=== PATIENT | female | born 1950 | race Caucasian/White ===

== ENCOUNTER → 2016-08-21 | Outpatient (CLI) | payer MEDICARE ==
[2016-08-21 10:18] LABS: ALT 29 U/L (9-52); AST 25 U/L (14-36); Alkaline Phosphatase 113 U/L (38-126); Anion Gap 13 mmol/L; Blood Urea Nitrogen 10 mg/dL (7-17); Calcium 9.8 mg/dL (8.4-10.2); Carbon Dioxide 31 mmol/L (22-30); Chloride 95 mmol/L (98-107); Cholesterol 119 mg/dL (<200); Glucose 274 mg/dL (74-99); HDL Cholesterol 64 mg/dL (40-60); Non-African American GFR(MDRD) >60 (>60 ml/min/1.73 sqM); Sodium 139 mmol/L (137-145); Total Bilirubin 0.9 mg/dL (0.2-1.3); Total Protein 8.1 g/dL (6.3-8.2); Triglycerides 88 mg/dL (<150)
[2016-08-21 10:27] LABS: Potassium 4.9 mmol/L (3.5-5.1)
== END | disposition home or self-care (01) ==
LOC: LABWHC1 08:59
PROVIDERS: ATTEND Internal Medicine Interventional Cardiology
DX: E78.2 Mixed hyperlipidemia (principal)
CPT/HCPCS: 36415; 80053; 80061

== ENCOUNTER → 2016-11-21 | Outpatient (CLI) | payer MEDICARE ==
--- NOTE | 2016-11-21 12:19 | FL ---
EXAMINATION: Upper GI with esophagram DATE: 11/21/2016 CLINICAL INDICATION: 66-year-old female with dysphagia, food sticking in throat for a couple weeks, c omplains of reflux and repeated coughing. COMPARISON: None Total Fluoroscopy Time: 1.1 minutes. Total fluoroscopic images: 9. FINDINGS: Initially, the swallowing mechanism appeared normal. The hypopharyngeal anatomy is preserved. However, with repeat swallows, roro aspiration is demonstrated extending along the trachea and into the right mainstem bronchus. The cervical and thoracic portions have a normal course and caliber and normal motility. The mucosa i s normal and no persistent filling defect is encountered. No hiatal hernia is present. No gastroesoph ageal reflux is identified. There is an irregular stricture of the distal thoracic esophagus just above the GE junction which res ults in pooling of contrast and delayed passage into the stomach. No obstruction. The upper to mid thoracic esophagus shows no mucosal abnormality or filling defect. After the aspiration was visualized, no additional contrast was given to the patient swallow. The pat ient was brought supine and the stomach and duodenum are evaluated. No gross resistant filling defect or mucosal lesion is identified. Positional maneuvers did not elicit gastroesophageal reflux. IMPRESSION: 1. Roro aspiration during continuous swallows. Recommend speech pathology consultation. 2. Irregular distal thoracic esophageal stricture causing a mild relative obstruction. Correlate with endoscopy to exclude a neoplastic etiology.
== END | disposition home or self-care (01) ==
LOC: RADFLWHC 10:58
PROVIDERS: ATTEND Internal Medicine
DX: K22.2 Esophageal obstruction (principal); R10.9 Unspecified abdominal pain; R31.9 Hematuria, unspecified
CPT/HCPCS: 74246

== ENCOUNTER → 2016-11-28 | Outpatient (CLI) | payer MEDICARE ==
--- NOTE | 2016-11-28 08:49 | US ---
EXAMINATION TYPE: US abdomen complete DATE OF EXAM: 11/28/2016 COMPARISON: Renal US 2014. CTA chest April 09, 2015. CLINICAL HISTORY: R31.9 hematuria, R10.9 Flank Pain. Patient stated has left lateral abdominal pain, mid right back pain and pelvic pain x 1 month or greater; hematuria, diabetic, renal stones; cholecys tectomy EXAM MEASUREMENTS: Liver Length: 15.3 cm Gallbladder Wall: surgically removed CBD: 0.9 cm Spleen: 10.1 cm Right Kidney: 11.9 x 5.9x x 3.8 cm Left Kidney: 10.9 x 5.7 x 4.6 cm Pancreas: wnl; prominent CBD at head of pancreas Liver: multiple small cysts with largest left lobe cyst = 0.8 x 0.9 x 0.6cm and right lobe cyst = 0 .8 x 1.1 x 0.6cm; fatty appearance Gallbladder: surgically absent Evidence for sonographic Le's sign: No CBD: prominent, but is wnl post cholecystectomy Spleen: calcification is noted mid hilum at level of vessel with splenic vein flow noted around calc ification; size of calcification = 0.9 x 1.3 x 0.3cm Right Kidney: couple of clusters of shadowing calcifications at mid and at lower pole with larger gr ouping = 2.0 x 1.1 x 0.6cm; two central sinus fluid pockets are noted. Left Kidney: No hydronephrosis is seen; parallel lines of vessel wall calcification is noted at lowe r pole on image #[id number]. Upper IVC: wnl Abd Aorta: size is wnl; intimal wall changes are noted distal aorta Pancreas is suboptimally evaluated on initial images saved. There is ectasia to the abdominal aorta w ithout greater than 3 cm aneurysmal change seen. IVC is seen near hepatic dome. Liver is heterogeneously hyperechoic in appearance suggestive of diffuse fatty infiltration. No intra hepatic ductal dilatation is seen. Evaluation for focal masses is suboptimal due to the heterogeneity . A few thin-walled simple appearing cysts identified and marked by technologist. Common bile duct me asures 9 mm which is upper limits of normal after cholecystectomy. Gallbladder is surgically absent. There is redemonstration of oval anechoic lesion centrally in the right kidney felt to reflect simple parapelvic cyst. Technologist notes shadowing hyperechoic focus in which collecting system calculus cannot be excluded. Calcification centrally in spleen likely reflects calcified small splenic artery aneurysm, this correlates with CTA chest April 09, 2015. IMPRESSION: Possible greater than 5 mm right-sided collecting system calculus. Suspect simple parapel niharika cyst centrally right kidney. Consider CT follow-up based on clinical and urine lab correlation.
== END | disposition home or self-care (01) ==
LOC: RADUSWWP 07:26
PROVIDERS: ATTEND Internal Medicine
DX: R10.9 Unspecified abdominal pain (principal); R31.9 Hematuria, unspecified; Z88.2 Allergy status to sulfonamides; Z88.8 Allergy status to other drugs, medicaments and biological substances; Z88.1 Allergy status to other antibiotic agents
CPT/HCPCS: 76700

== ENCOUNTER 2016-12-05 12:04 | Inpatient (IN) | payer MEDICARE ==
[2016-12-05] MEDS ORDERED: SODIUM CHLORIDE 0.9% 500 ML IV STA (15:03)
[2016-12-05] MEDS ORDERED: MORPHINE SULFATE 2 MG/ML SYRINGE IVP STA (15:03)
[2016-12-05] MEDS ORDERED: SODIUM CHLORIDE 0.9% 1,000 ML IV STA (15:03)
[2016-12-05] MEDS ORDERED: ONDANSETRON 4 MG/2 ML VIAL IVP STA (15:03)
[2016-12-05] MEDS ORDERED: RX INFO: IV CONTRAST WAS GIVEN 1 EACH MISC MISCELLANE PRN (15:03)
[2016-12-05 15:20] LABS: Basophils # (A) 0.1 k/uL (0-0.2); Basophils % (A) 1 %; CH 30.7; CHCM 34.5; Eosinophils # (A) 0.2 k/uL (0-0.7); Eosinophils % (A) 2 %; HCT 35.9 % (34.0-46.0); HDW 2.85; HGB 12.5 gm/dL (11.4-16.0); Luc % (Auto) 1; Lymphocytes # (A) 2.7 k/uL (1.0-4.8); Lymphocytes % (A) 25 %; MCHC 34.8 g/dL (31.0-37.0); MCV 89.2 fL (80.0-100.0); Mean Platelet Volume 7.1; Monocytes # (A) 0.5 k/uL (0-1.0); Monocytes % (A) 4 %; Neutrophils # (A) 7.1 k/uL (1.3-7.7); Neutrophils % (A) 67 %; RBC 4.03 m/uL (3.80-5.40); RDW 14.4 % (11.5-15.5); WBC 10.6 k/uL (3.8-10.6); WBC (Perox) 10.68
[2016-12-05 15:32] LABS: ALT 28 U/L (9-52); AST 18 U/L (14-36); Alkaline Phosphatase 108 U/L (38-126); Amylase <30 U/L (30-110); Anion Gap 13 mmol/L; Blood Urea Nitrogen 5 mg/dL (7-17); Calcium 9.3 mg/dL (8.4-10.2); Carbon Dioxide 28 mmol/L (22-30); Chloride 102 mmol/L (98-107); Glucose 104 mg/dL (74-99); Non-African American GFR(MDRD) >60 (>60 ml/min/1.73 sqM); Potassium 3.5 mmol/L (3.5-5.1); Sodium 143 mmol/L (137-145); Total Bilirubin 0.5 mg/dL (0.2-1.3); Total Protein 6.8 g/dL (6.3-8.2)
--- NOTE | 2016-12-05 15:36 | ED ---
Abdominal Pain HPI - General Chief Complaint: Abdominal Pain Stated Complaint: unable to swallow anything Time Seen by Provider: 12/05/16 14:11 Source: patient Mode of arrival: ambulatory Limitations: no limitations - History of Present Illness Initial Comments: Planing about and able to eat, she does have esophageal stricture she failed the swallow study in recent past over and she was aspirating. She has not been able to eat anything for the last few days and she feels she is dehydrated. She is also complaining about abdominal pain pain is diffused, small bowel but is swollen over the abdomen right upper quadrant and left upper quadrant. No cords in the left lower quadrant area. She been nauseous no diarrhea or fever no chills. Not even able to take her medications she was able to eat some pudding and some ice cream Esophageal stricture stricture is so bad she is not able to eat even pudding - Related Data Home Medications Medication Instructions Recorded Confirmed ALPRAZolam [Xanax] 1 mg PO TID 04/09/15 12/05/16 Cholecalciferol [Vitamin D3] 1,000 unit PO DAILY 04/09/15 12/05/16 PARoxetine [Paxil] 20 mg PO HS 04/09/15 12/05/16 diphenhydrAMINE [Benadryl] 50 mg PO HS 04/09/15 12/05/16 Famotidine [Pepcid] 20 mg PO BID 12/04/16 12/05/16 Glimepiride [Amaryl] 2 mg PO BID 12/04/16 12/05/16 Hydrochlorothiazide 25 mg PO DAILY 12/04/16 12/05/16 Acetaminophen [Tylenol] 500 mg PO TID 12/05/16 12/05/16 Acetaminophen with Codeine 0.5 tab PO TID 12/05/16 12/05/16 [Tylenol w/codeine #3] Atorvastatin [Lipitor] 40 mg PO HS 12/05/16 12/05/16 Ipratropium-Albuterol Nebulize 3 ml INHALATION RT-BID 12/05/16 12/05/16 [Duoneb 0.5 mg-3 mg/3 ml Soln] Lisinopril [Prinivil] 10 mg PO BID 12/05/16 12/05/16 Omeprazole Magnesium [Prilosec OTC] 20 mg PO DAILY 12/05/16 12/05/16 sitaGLIPtin PHOSPHATE [Januvia] 50 mg PO DAILY 12/05/16 12/05/16 Previous Rx's Medication Instructions Recorded Aspirin 81 mg PO DAILY chew 04/12/15 Budesonide-Formot 160-4.5 Mcg 2 puff INHALATION RT-BID #1 puff 04/12/15 [Symbicort 160-4.5 Mcg Inhaler] Carvedilol [Coreg*] 25 mg PO BID-W/MEALS #60 tab 04/12/15 Isosorbide Mononitrate ER [Imdur] 30 mg PO DAILY #30 tab.er.24h 04/12/15 Nitroglycerin Sl Tabs [Nitrostat] 0 mg SUBLINGUAL DIRECTED PRN 04/12/15 #25 tab Allergies Allergy/AdvReac Type Severity Reaction Status Date / Time nickel Allergy Rash/Hives Verified 12/05/16 14:08 phenazopyridine HCl Allergy Anaphylaxis Verified 12/05/16 14:08 [From Pyridium] prochlorperazine Allergy Anaphylaxis Verified 12/05/16 14:08 [From Compazine] prochlorperazine edisylate Allergy Anaphylaxis Verified 12/05/16 14:08 [From Compazine] prochlorperazine maleate Allergy Anaphylaxis Verified 12/05/16 14:08 [From Compazine] Sulfa (Sulfonamide Allergy Unknown Verified 12/05/16 14:08 Antibiotics) metformin AdvReac Nausea & Verified 12/05/16 14:08 Vomiting & Diarrhea Review of Systems ROS Statement: Those systems with pertinent positive or pertinent negative responses have been documented in the HPI. ROS Other: All systems not noted in ROS Statement are negative. Past Medical History Past Medical History: Diabetes Mellitus, Hypertension History of Any Multi-Drug Resistant Organisms: None Reported Past Surgical History: Appendectomy, Hysterectomy Past Anesthesia/Blood Transfusion Reactions: No Reported Reaction Past Psychological History: Anxiety, Depression Smoking Status: Current every day smoker General Exam - General Exam Comments Initial Comments: General: The patient is awake and alert, looks pale and weak Skin: Skin is warm and dry and no rashes or lesions are noted. Eye: Pupils are equal, round and reactive to light, extra-ocular movements are intact; there is normal conjunctiva bilaterally. Ears, nose, mouth and throat: There are moist mucous membranes and no oral lesions. Neck: The neck is supple, there is no tenderness or JVD. Cardiovascular: There is a regular rate and rhythm. No murmur, rub or gallop is appreciated. Respiratory: To auscultation bilateral, deccrease breath sounds bilateral Gastrointestinal: Diffusely tender all over the abdomen, positive bowel sounds no guarding no rebounds Back: There is no tenderness to palpation in the midline. There is no obvious deformity. Musculoskeletal: Normal ROM, no tenderness, There is no pedal edema. There is no calf tenderness or swelling. No cords were appreciated. Neurological: CN II-XII intact, Cranial nerves III through XII are intact. There are no obvious motor or sensory deficits. Coordination appears grossly intact. Speech is normal. Psychiatric: Cooperative, appropriate mood & affect, normal judgment. Limitations: no limitations Course Vital Signs 12/05/16 12/05/16 12/05/16 12:41 14:40 15:51 Temperature 97.7 F Pulse Rate 62 65 66 Respiratory 18 18 18 Rate Blood Pressure 140/65 166/67 208/80 O2 Sat by Pulse 98 100 96 Oximetry 12/05/16 12/05/16 12/05/16 16:19 16:44 16:59 Temperature Pulse Rate 71 66 69 Respiratory 18 18 18 Rate Blood Pressure 174/65 164/70 151/64 O2 Sat by Pulse 96 96 96 Oximetry - Reevaluation(s) Reevaluation #1: 12/05/16 17:[address] abdomen was reviewed, it showed esophageal pathology possibly need EGD to rule out any Severe chronic to her blood pressure was noticed and she hasn't got her medications she was closely watched also noticed some colitis anaerobe nodule, noticed black or tarry was Kirk consult Dr. jose and it was a mild hydronephrosis or kidney functions or cord will leave that to the hospitalist services Medical Decision Making - Lab Data Result diagrams: 12/05/16 14:58 12/05/16 14:58 Lab Results 12/05/16 12/05/16 12/05/16 Range/Units 14:58 14:58 14:58 WBC 10.6 (3.8-10.6) k/uL RBC 4.03 (3.80-5.40) m/uL Hgb 12.5 (11.4-16.0) gm/dL Hct 35.9 (34.0-46.0) % MCV 89.2 (80.0-100.0) fL MCH 31.0 (25.0-35.0) pg MCHC 34.8 (31.0-37.0) g/dL RDW 14.4 (11.5-15.5) % Plt Count 237 (150-450) k/uL Neutrophils % 67 % Lymphocytes % 25 % Monocytes % 4 % Eosinophils % 2 % Basophils % 1 % Neutrophils # 7.1 (1.3-7.7) k/uL Lymphocytes # 2.7 (1.0-4.8) k/uL Monocytes # 0.5 (0-1.0) k/uL Eosinophils # 0.2 (0-0.7) k/uL Basophils # 0.1 (0-0.2) k/uL Sodium 143 (137-145) mmol/L Potassium 3.5 (3.5-5.1) mmol/L Chloride 102 (98-107) mmol/L Carbon Dioxide 28 (22-30) mmol/L Anion Gap 13 mmol/L BUN 5 L (7-17) mg/dL Creatinine 0.60 (0.52-1.04) mg/dL Est GFR (MDRD) Af Amer >60 (>60 ml/min/1.73 sqM) Est GFR (MDRD) Non-Af >60 (>60 ml/min/1.73 sqM) Glucose 104 H (74-99) mg/dL Calcium 9.3 (8.4-10.2) mg/dL Total Bilirubin 0.5 (0.2-1.3) mg/dL AST 18 (14-36) U/L ALT 28 (9-52) U/L Alkaline Phosphatase 108 (38-126) U/L Troponin I <0.012 (0.000-0.034) ng/mL C-Reactive Protein 28.0 H (<10.0) mg/L Total Protein 6.8 (6.3-8.2) g/dL Albumin 3.9 (3.5-5.0) g/dL Amylase <30 L (30-110) U/L Lipase 71 (23-300) U/L Urine Color Urine Appearance (Clear) Urine pH (5.0-8.0) Ur Specific [place] (1.001-1.035) Urine Protein (Negative) Urine Glucose (UA) (Negative) Urine Ketones (Negative) Urine Blood (Negative) Urine Nitrite (Negative) Urine Bilirubin (Negative) Urine Urobilinogen (<2.0) mg/dL Ur Leukocyte Esterase (Negative) Urine RBC (0-5) /hpf Urine WBC (0-5) /hpf Ur Squamous Epith Cells (0-4) /hpf Amorphous Sediment (None) /hpf Urine Bacteria (None) /hpf Urine Mucus (None) /hpf 12/05/16 Range/Units 15:39 WBC (3.8-10.6) k/uL RBC (3.80-5.40) m/uL Hgb (11.4-16.0) gm/dL Hct (34.0-46.0) % MCV (80.0-100.0) fL MCH (25.0-35.0) pg MCHC (31.0-37.0) g/dL RDW (11.5-15.5) % Plt Count (150-450) k/uL Neutrophils % % Lymphocytes % % Monocytes % % Eosinophils % % Basophils % % Neutrophils # (1.3-7.7) k/uL Lymphocytes # (1.0-4.8) k/uL Monocytes # (0-1.0) k/uL Eosinophils # (0-0.7) k/uL Basophils # (0-0.2) k/uL Sodium (137-145) mmol/L Potassium (3.5-5.1) mmol/L Chloride (98-107) mmol/L Carbon Dioxide (22-30) mmol/L Anion Gap mmol/L BUN (7-17) mg/dL Creatinine (0.52-1.04) mg/dL Est GFR (MDRD) Af Amer (>60 ml/min/1.73 sqM) Est GFR (MDRD) Non-Af (>60 ml/min/1.73 sqM) Glucose (74-99) mg/dL Calcium (8.4-10.2) mg/dL Total Bilirubin (0.2-1.3) mg/dL AST (14-36) U/L ALT (9-52) U/L Alkaline Phosphatase (38-126) U/L Troponin I (0.000-0.034) ng/mL C-Reactive Protein (<10.0) mg/L Total Protein (6.3-8.2) g/dL Albumin (3.5-5.0) g/dL Amylase (30-110) U/L Lipase (23-300) U/L Urine Color Yellow Urine Appearance Cloudy H (Clear) Urine pH 7.0 (5.0-8.0) Ur Specific [place] 1.011 (1.001-1.035) Urine Protein Trace H (Negative) Urine Glucose (UA) Negative (Negative) Urine Ketones 1+ H (Negative) Urine Blood Negative (Negative) Urine Nitrite Negative (Negative) Urine Bilirubin Negative (Negative) Urine Urobilinogen <2.0 (<2.0) mg/dL Ur Leukocyte Esterase Small H (Negative) Urine RBC 1 (0-5) /hpf Urine WBC 17 H (0-5) /hpf Ur Squamous Epith Cells 11 H (0-4) /hpf Amorphous Sediment Occasional H (None) /hpf Urine Bacteria Many H (None) /hpf Urine Mucus Moderate H (None) /hpf Critical Care Time Total Critical Care Time: 30 Critical Care Time: She didn't get her blood pressure medications for the last couple days her blood pressure was quite hard and watch it closely we are Vasotec IV also discussed with the pharmacy about how we couldn't Doppler which one for blood pressure medications can't be crushed caregiver with applesauce and she is not able Solids Blood Pressure Radiology Admitted to Dr. Jack Service with Dr. Garza Consult the Dr. Sim will be consulted for splenic aneurysm Disposition Clinical Impression: Esophageal stricture, Hypertension after donor nephrectomy requiring medication , Colitis, Lung nodule, Splenic artery aneurysm, Hydronephrosis Disposition: ADMITTED IP TO THIS HOSP Condition: Good Referrals: Pretty Ross MD [Primary Care Provider] - 1-2 days
[2016-12-05 16:06] LABS: Amorphous Sediment,Urine Occasional /hpf; Appearance,Urine Cloudy (Clear); Bacteria,Urine Many /hpf; Bilirubin,Urine Negative (Negative); Glucose,Urine (UA) Negative (Negative); Ketones,Urine 1+ (Negative); Leukocyte Esterase,Urine Small (Negative); Mucus,Urine Moderate /hpf; Nitrite,Urine Negative (Negative); Particle Count 67982; Protein,Urine Trace (Negative); RBC,Urine 1 /hpf (0-5); Specific Gravity,Urine 1.011 (1.001-1.035); Squamous Epithelial Cell,Urine 11 /hpf (0-4); UA Billing (MACRO vs. MICRO) MICRO; Urobilinogen,Urine <2.0 mg/dL (<2.0); WBC,Urine 17 /hpf (0-5)
[2016-12-05] MEDS ORDERED: NITROGLYCERIN SL TABS 0.4 MG TAB SUBLINGUAL PRN (16:19)
[2016-12-05] MEDS ORDERED: FUROSEMIDE 10 MG/ML 2 ML VIAL IV ONE (16:25)
[2016-12-05] MEDS ORDERED: ENALAPRILAT 1.25 MG/ML 1 ML VIAL IVP PRN (16:26)
[2016-12-05] MEDS ORDERED: ENALAPRILAT 1.25 MG/ML 1 ML VIAL IVP STA (16:26)
[2016-12-05] MEDS ORDERED: DEXTROSE 5%-0.9% NACL 1,000 ML IV SCH (16:30)
[2016-12-05] MEDS ORDERED: ESOMEPRAZOLE 20 MG in SODIUM CHLORIDE 0.9% 50 ML IVPB STA (16:31)
--- NOTE | 2016-12-05 16:31 | CT ---
EXAMINATION TYPE: CT abdomen pelvis w con DATE OF EXAM: 12/05/2016 REFERENCE: NONE HISTORY: abdominal pain HISTORY: Abdominal pain REFERENCE: NONE CT DLP: 594.7 mGy Automated exposure control for dose reduction was used. TECHNIQUE: Helical acquisition through the abdomen and pelvis was obtained following the oral ingesti on of without Oral Contrast and following intravenous administration of 100 mL of Omnipaque 300. The data was reformatted in axial, coronal and sagittal projections. FINDINGS: There is a 3 mm pulmonary nodule in the anterior aspect of the right middle lobe, best see n on image 1. Visualized portions of the lungs are otherwise normal. There is no pleural or pericardi al fluid. The heart is mildly enlarged. There is dilatation of the distal esophagus. This is partially fluid-filled. There is thickening of t he GE junction. Within the abdomen, the gallbladder is been removed. The liver and spleen are normal. There are multi ple splenic artery aneurysms. The largest measures 14.3 mm. There is a tiny, 7.3 mm left adrenal nodule as well as a larger 18 x 13 mm nodule inferior to this. T he right adrenal gland is normal. There is unusual calcification in the left renal pelvis. This may be vascular in nature. There is mil d hydronephrosis. The ureter is normal. There may BE some degree of UPJ obstruction. The pancreas is unremarkable. There is no significant retroperitoneal, iliac or inguinal adenopathy. Uterus and right ovary are absent. There is a normal-appearing left ovary or tubo-ovarian remnant. The bladder is unremarkable. There is diffuse thickening of the sigmoid colon and most of the descending colon. There is no signif icant diverticular change. The appendix is not visualized. Small bowel loops are normal. No free air and no free fluid is seen. There is degenerative disc disease at L4-5 and L5-S1. There is facet arthropathy. The vertebral gener ally have a mottled appearance no discrete blastic lesion is seen. IMPRESSION: 1. THICKENING OF THE DISTAL ESOPHAGUS WITH DILATATION PROXIMALLY. I CANNOT EXCLUDE ESOPHAGEAL CARCINO MA. 2. DIFFUSE THICKENING OF THE LEFT SIDE OF THE COLON. PLEASE CORRELATE FOR COLITIS. 3. PROBABLE PARTIAL UPJ OBSTRUCTION INVOLVING THE RIGHT KIDNEY. 4. 3 MM RIGHT-SIDED PULMONARY NODULE. 5. CARDIOMEGALY. 6. MULTIPLE SPLENIC ARTERY ANEURYSMS. 7. DEGENERATIVE CHANGES WITHIN THE SPINE.
--- NOTE | 2016-12-05 16:37 | XR ---
EXAMINATION TYPE: XR chest 2V DATE OF EXAM: 12/05/2016 COMPARISON: Prior chest x-ray 04/12/2015 HISTORY: Difficulty swallowing, abdominal pain, nausea and vomiting TECHNIQUE: Frontal and lateral views of the chest are obtained. FINDINGS: There is no focal air space opacity, pleural effusion, or pneumothorax seen. The cardiac silhouette size is stable and likely borderline enlarged. Surgical clips present in the right upper q uadrant. Patient is rotated. The osseous structures are intact. IMPRESSION: Borderline cardiac enlargement suspected.
[2016-12-05] MEDS: MORPHINE SULFATE 2 MG/ML SYRINGE IVP PRN ×2 (18:04→21:26)
[2016-12-05] MEDS ORDERED: cloNIDine HCL 0.1 MG TAB PO PRN (18:31)
[2016-12-05 18:38] LABS: Glucose,Whole Blood 113 mg/dL (75-99)
[2016-12-05] MEDS: SODIUM CHLORIDE 0.9% 1,000 ML IV SCH (18:53)
[2016-12-05] MEDS: CARVEDILOL 12.5 MG TAB PO SCH (19:18)
[2016-12-05] MEDS: IPRATROPIUM-ALBUTEROL 3 ML NEB INHALATION SCH (20:15)
[2016-12-05] MEDS: SYMBICORT 160-4.5 MCG INHALER INHALATION SCH (20:15)
[2016-12-05] MEDS: INSULIN LISPRO (humaLOG) 300 UNIT/3 ML VIAL SQ SCH (21:10)
[2016-12-05] MEDS: LISINOPRIL 10 MG TAB PO SCH (21:10)
[2016-12-05] MEDS: PARoxetine 20 MG TAB PO SCH (21:11)
[2016-12-05] MEDS ORDERED: LORazepam 2 MG/ML INJ IV STA (21:15)
[2016-12-05] MEDS ORDERED: ALPRAZolam 0.5 MG TAB PO SCH (22:00)
[2016-12-06] MEDS: HEPARIN SODIUM,PORCINE 5,000 UNIT/ML 1 ML VIAL SQ SCH ×3 (00:49→21:17)
[2016-12-06] MEDS: MORPHINE SULFATE 2 MG/ML SYRINGE IVP PRN ×4 (03:11→18:05)
[2016-12-06] MEDS: SODIUM CHLORIDE 0.9% 1,000 ML IV SCH ×2 (06:10→16:14)
[2016-12-06] MEDS: ONDANSETRON 4 MG/2 ML VIAL IVP PRN ×2 (06:44→13:32)
[2016-12-06 07:01] LABS: Glucose,Whole Blood 110 mg/dL (75-99)
[2016-12-06] MEDS: IPRATROPIUM-ALBUTEROL 3 ML NEB INHALATION SCH ×2 (07:10→19:21)
[2016-12-06] MEDS: SYMBICORT 160-4.5 MCG INHALER INHALATION SCH ×2 (07:10→19:21)
[2016-12-06 07:25] LABS: Basophils # (A) 0.1 k/uL (0-0.2); Basophils % (A) 1 %; CHCM 33.3; Eosinophils # (A) 0.2 k/uL (0-0.7); Eosinophils % (A) 2 %; HCT 38.2 % (34.0-46.0); HDW 2.88; HGB 12.9 gm/dL (11.4-16.0); Luc # (Auto) 0.14; Luc % (Auto) 1; Lymphocytes # (A) 2.8 k/uL (1.0-4.8); Lymphocytes % (A) 25 %; MCH 30.6 pg (25.0-35.0); MCHC 33.8 g/dL (31.0-37.0); MCV 90.5 fL (80.0-100.0); Mean Platelet Volume 7.5; Monocytes # (A) 0.5 k/uL (0-1.0); Monocytes % (A) 4 %; Neutrophils # (A) 7.8 k/uL (1.3-7.7); Neutrophils % (A) 68 %; RBC 4.22 m/uL (3.80-5.40); WBC 11.5 k/uL (3.8-10.6); WBC (Perox) 12.17
[2016-12-06 07:48] LABS: Anion Gap 11 mmol/L; Blood Urea Nitrogen 6 mg/dL (7-17); Calcium 8.9 mg/dL (8.4-10.2); Carbon Dioxide 30 mmol/L (22-30); Chloride 102 mmol/L (98-107); Glucose 105 mg/dL (74-99); Non-African American GFR(MDRD) >60 (>60 ml/min/1.73 sqM); Potassium 3.8 mmol/L (3.5-5.1); Sodium 143 mmol/L (137-145)
[2016-12-06] MEDS ORDERED: ASPIRIN 81 MG PO SCH (09:00)
--- NOTE | 2016-12-06 11:02 | HP ---
CHIEF COMPLAINTS: Abdominal pain and difficulty swallowing. HISTORY OF PRESENT ILLNESS: This 66-year-old woman with past medical history of diabetes mellitus, hypertension, history of cholecystectomy, history of appendectomy, history of anxiety, depression, panic disorder, being followed by Dr. Ross in the outpatient setting also has been evaluated for esophageal stricture. The patient failed barium swallow recently. Patient has been unable to eat anything for the last few days. Currently the patient also is complaining of diffuse abdominal pain, which is mostly situated in the upper quadrant and lower quadrant also. The patient came to [facility] and admitted for further evaluation and treatment. In the emergency room an abdominal and pelvis CT scan was done, which showed thickening of the distal esophagus with dilatation proximally and diffuse thickening of the left side of the colon and probable partial esophageal obstruction, history of 3 mm right-sided pulmonary nodule, cardiomegaly, multiple splenic artery aneurysms, and DJD of the spine. The patient admitted for further evaluation and treatment. There is no history of fever, rigors. No history of headache, loss of consciousness of seizures. PAST MEDICAL HISTORY: History of diabetes mellitus, hypertension, history of appendectomy, cholecystectomy and anxiety. Medications prior to admission include home medications: 1. Prinivil 20 mg p.o. bid 2. Nitro 0.4 sublingual p.r.n. 3. Tylenol 500 mg p.o. t.i.d. 4. Tylenol No. 3. 5. Prilosec OTC 20 mg daily. 6. Pepcid 20 mg bid 7. Benadryl 50 mg q.h.s. 9. Paxil 20 mg q.h.s. 10. Amaryl 2 mg p.o. b.i.d. 11. Xanax 1 mg p.o. t.i.d. 12. Januvia 50 mg p.o. daily. 13. Imdur ER 30 mg. 14. Vitamin D3 1000 daily. 15. Hydrochlorothiazide 25 mg p.o. daily. 16. Coreg 25 mg with meals. 17. DuoNeb q.i.d. and p.r.n. 18. Symbicort 160/4.5, two puffs bid 19. Aspirin 81 mg p.o. daily. ALLERGIES: CHAIM, PERIDIUM, COMPAZINE, SULFONAMIDE, METFORMIN. FAMILY HISTORY: History of cancer, diabetes and joint disease in the family. SOCIAL HISTORY: Previous history of smoking. No history of current smoking or alcohol. REVIEW OF SYSTEMS: ENT: No diminished hearing or vision. CARDIOVASCULAR: No angina. RESPIRATORY: As mentioned earlier. GI: As mentioned. : No dysuria. NERVOUS SYSTEM: No numbness or weakness. ALLERGY/IMMUNOLOGY: No asthma or hayfever. MUSCULOSKELETAL: As mentioned earlier. HEMATOLOGY/ONCOLOGY: No history of anemia. ENDOCRINE: History of diabetes. No history of hypothyroidism. CONSTITUTIONAL: As mentioned earlier. DERMATOLOGY: Negative. RHEUMATOLOGY: Negative. PSYCHIATRY: As mentioned earlier. PHYSICAL EXAMINATION: The patient is alert and oriented x3. Pulse is 70, blood pressure 206/73, respirations 18, temperature 98.1, pulse ox 94% on room air. HEENT: Conjunctivae normal. NECK: No jugular venous distention. CARDIOVASCULAR: S1, S2. RESPIRATORY: Breath sounds diminished at the bases. A few scattered rhonchi and crackles. ABDOMEN: Soft, diffuse discomfort. No guarding, no rigidity, no mass palpable, no ascites. LEGS: No edema, no swelling. NERVOUS SYSTEM: Higher function as mentioned. Moves all four limbs. No focal motor sensory deficits. LYMPHATICS: No lymphadenopathy in the neck, axillae or groin. SKIN: No rash, ulcer or bleeding. LABS: CBC within normal limits and glucose 104. is 28. UA noted. Possible UTI. ASSESSMENT: 1. Diffuse abdominal pain for evaluation, rule out colitis. 2. Possible urinary tract infection. 3. Dysphagia and esophageal obstruction, possible stricture, rule out malignancy. 4. History of diabetes mellitus. 5. Hypertension. 6. Hyperlipidemia. 7. History of appendectomy. 8. History cholecystectomy. 9. History of anxiety and depression. 10. Panic disorder. 11. History of claustrophobia. 12. FULL CODE. RECOMMENDATIONS AND DISCUSSION: In this 66-year-old woman who presented with multiple complex medical issues we well monitor the patient closely. Continue the current medications. Continue symptomatic treatment. Dr. Bowers will be consulted for possible endoscopies and treatment. Continue on IV fluids, p.r.n. medications for high blood pressure. DVT prophylaxis. See orders for details. Further recommendations to follow. Guarded prognosis. I also recommend empiric antibiotics also. Will follow the patient closely. Further recommendations to follow. Copy of dictation forwarded to Dr Ross who is the primary care physician. CYNTH[place]
[2016-12-06 11:14] LABS: Hemoglobin A1C 6.5 % (4.2-6.1)
--- NOTE | 2016-12-06 11:18 | P.CONS ---
History of Present Illness - Reason for Consult Consult date: 12/06/16 Dysphagia Requesting physician: Marychuy Jack - History of Present Illness 66-year-old female with a past medical history anxiety depression PTSD claustrophobia diabetes hypertension cholecystectomy. Consultation requested for dysphagia. Patient has been experiencing dysphagia more with solid foods for the last 2 months with 10-15 pound unintentional weight loss. Denies abdominal patient. No difficulty with thin liquids. Supplementing her nutrition with [id number] protein shake supplement. Intermittent emesis without blood. Denies hematochezia or melena. No fever or chills. No history of dysphagia. Upper GI barium swallow 11/21/2016 as well as admission computed tomography scan abdomen and pelvis reported 3 mm pulmonary nodule in the right middle lobe. Ant aspiration noted on barium swallow. Irregular distal thoracic esophageal stricture causing a mild relative obstruction exclude neoplastic etiology. CT reported similar findings with dilated distal esophagus partially fluid-filled with thickening at the GE junction. White count 11.5. Hemoglobin 12.9. Review of Systems Constitutional: Denies fever, chills, sweats, weight gain, or loss. HEENT: Negative for migraines, blurred vision or loss, earaches, drainage, tinnitus, oral mucosal lesions, dysphagia, or odynophagia. CARDIAC: Negative for chest pain, arrhythmias, or palpitation. RESPIRATORY: Negative for shortness of breath, hemoptysis, cough, or sputum production. GI: See HPI for pertinent findings. : Negative for hematuria, urgency, frequency, polyuria, or dysuria. GYNc: Denies possibility of . Negative vaginal discharge. MUSCULOSKELETAL: Negative for muscle aches, swelling, arthritis, and arthralgias. NEUROLOGIC: Negative for stroke or TIA. ENDOCRINE: Diabetes. Negative for thyroid problems. SKIN: Negative for rash or itching. PSYCHIATRIC: PTSD. Claustrophobia. Anxiety. Depression. All systems: negative (See HPI) Past Medical History Past Medical History: Diabetes Mellitus, Hypertension Additional Past Medical History / Comment(s): DM type 2 History of Any Multi-Drug Resistant Organisms: None Reported Past Surgical History: Appendectomy, Cholecystectomy, Hysterectomy Additional Past Surgical History / Comment(s): Bladder sling, stress incontinence. lumpectomy Past Anesthesia/Blood Transfusion Reactions: No Reported Reaction Past Psychological History: Anxiety, Depression, Panic Disorder Additional Psychological History / Comment(s): Clausterphobic, PTSD Smoking Status: Former smoker Past Alcohol Use History: None Reported Past Drug Use History: None Reported - Past Family History Father Additional Family Medical History / Comment(s): Arthrosclorosis Mother Family Medical History: Cancer, Diabetes Mellitus Additional Family Medical History / Comment(s): Throat CA Brother(s) Family Medical History: Myocardial Infarction ([place]) Medications and Allergies Home Medications Medication Instructions Recorded Confirmed Type ALPRAZolam [Xanax] 1 mg PO TID 04/09/15 12/05/16 History Cholecalciferol [Vitamin D3] 1,000 unit PO DAILY 04/09/15 12/05/16 History PARoxetine [Paxil] 20 mg PO HS 04/09/15 12/05/16 History diphenhydrAMINE [Benadryl] 50 mg PO HS 04/09/15 12/05/16 History Famotidine [Pepcid] 20 mg PO BID 12/04/16 12/05/16 History Glimepiride [Amaryl] 2 mg PO BID 12/04/16 12/05/16 History Hydrochlorothiazide 25 mg PO DAILY 12/04/16 12/05/16 History Acetaminophen [Tylenol] 500 mg PO TID 12/05/16 12/05/16 History Acetaminophen with Codeine 0.5 tab PO TID 12/05/16 12/05/16 History [Tylenol w/codeine #3] Atorvastatin [Lipitor] 40 mg PO HS 12/05/16 12/05/16 History Ipratropium-Albuterol Nebulize 3 ml INHALATION RT-BID 12/05/16 12/05/16 History [Duoneb 0.5 mg-3 mg/3 ml Soln] Lisinopril [Prinivil] 20 mg PO BID 12/05/16 12/05/16 History Omeprazole Magnesium [Prilosec OTC] 20 mg PO DAILY 12/05/16 12/05/16 History sitaGLIPtin PHOSPHATE [Januvia] 50 mg PO DAILY 12/05/16 12/05/16 History Allergies Allergy/AdvReac Type Severity Reaction Status Date / Time nickel Allergy Rash/Hives Verified 12/05/16 20:12 phenazopyridine HCl Allergy Anaphylaxis Verified 12/05/16 20:12 [From Pyridium] prochlorperazine Allergy Anaphylaxis Verified 12/05/16 20:12 [From Compazine] prochlorperazine edisylate Allergy Anaphylaxis Verified 12/05/16 20:12 [From Compazine] prochlorperazine maleate Allergy Anaphylaxis Verified 12/05/16 20:12 [From Compazine] Sulfa (Sulfonamide Allergy Unknown Verified 12/05/16 20:12 Antibiotics) metformin AdvReac Nausea & Verified 12/05/16 20:12 Vomiting & Diarrhea Physical Exam Vitals: Vital Signs Temp Pulse Pulse Resp BP BP Pulse Ox 12/06/16 08:00 71 18 12/06/16 07:54 98.2 F 71 18 148/65 94 L 12/06/16 07:19 64 12/06/16 07:12 60 96 12/06/16 04:00 98 F 70 18 140/65 97 12/06/16 03:52 18 12/06/16 00:00 97.8 F 76 18 129/61 92 L 12/05/16 21:11 158/68 12/05/16 20:28 70 12/05/16 20:17 70 12/05/16 20:00 18 12/05/16 19:28 98.1 F 62 17 92 L 12/05/16 18:39 98.2 F 71 18 206/73 94 L 12/05/16 16:59 69 18 151/64 96 12/05/16 16:44 66 18 164/70 96 12/05/16 16:19 71 18 174/65 96 12/05/16 15:51 66 18 208/80 96 12/05/16 14:40 65 18 166/67 100 12/05/16 12:41 97.7 F 62 18 140/65 98 Intake and Output 12/05/16 12/06/16 12/06/16 22:59 06:59 14:59 Other: # Voids 1 Weight 63 kg General appearance: The patient is alert, oriented, in no acute distress. HET: Head is normocephalic and atraumatic. Pupils are equal and reactive. Oropharynx oral candidiasis. Neck: Supple without lymphadenopathy. Trachea midline. Heart: S1 S2. Regular rate and rhythm. Lungs: No crackles or wheezes are heard. Abdomen: Soft, nontender, nondistended with bowel sounds. No peritoneal signs. No palpable organomegaly or masses. Extremities: Normal skin color and turgor. No cyanosis, rash, ulceration, clubbing, or edema. Radial and pedal pulses are 2/4 bilaterally. Neurological: No focal deficits. Strength and sensation are grossly intact. Results CBC & Chem 7: 12/06/16 06:53 12/06/16 06:53 Labs: Abnormal Lab Results - Last 24 Hours (Table) 12/05/16 12/05/16 12/05/16 Range/Units 14:58 15:39 18:33 WBC (3.8-10.6) k/uL Neutrophils # (1.3-7.7) k/uL BUN 5 L (7-17) mg/dL Glucose 104 H (74-99) mg/dL POC Glucose (mg/dL) 113 H (75-99) mg/dL C-Reactive Protein 28.0 H (<10.0) mg/L Amylase <30 L (30-110) U/L Urine Appearance Cloudy H (Clear) Urine Protein Trace H (Negative) Urine Ketones 1+ H (Negative) Ur Leukocyte Esterase Small H (Negative) Urine WBC 17 H (0-5) /hpf Ur Squamous Epith Cells 11 H (0-4) /hpf Amorphous Sediment Occasional H (None) /hpf Urine Bacteria Many H (None) /hpf Urine Mucus Moderate H (None) /hpf 12/06/16 12/06/16 12/06/16 Range/Units 06:53 06:53 06:58 WBC 11.5 H (3.8-10.6) k/uL Neutrophils # 7.8 H (1.3-7.7) k/uL BUN 6 L (7-17) mg/dL Glucose 105 H (74-99) mg/dL POC Glucose (mg/dL) 110 H (75-99) mg/dL C-Reactive Protein (<10.0) mg/L Amylase (30-110) U/L Urine Appearance (Clear) Urine Protein (Negative) Urine Ketones (Negative) Ur Leukocyte Esterase (Negative) Urine WBC (0-5) /hpf Ur Squamous Epith Cells (0-4) /hpf Amorphous Sediment (None) /hpf Urine Bacteria (None) /hpf Urine Mucus (None) /hpf CT scan - abdomen: report reviewed (Dr. Bowers) Assessment and Plan (1) Dysphagia Narrative/Plan: Possible esophageal stricture possible neoplasm. Status: Acute (2) Oral candidiasis Narrative/Plan: Possible esophageal candidiasis Status: Acute Plan: 1. EGD evaluation with biopsies. Nexium 20 mg IV daily. Diflucan for oral candidiasis. CEA. Speech evaluation. The medical office coordinator has discussed the risks, benefits and alternative therapies for the above-mentioned procedure and for both sedation/analgesia as well as necessary blood product administration, if indicated, as they pertain to this patient. The patient has indicated understanding and acceptance of the risks and procedures discussed. Thank you for this kind referral and the opportunity to participate in the care of your patient. This consultation was discussed with Dr. Bowers. The impression and plan of care have been directed as dictated.
[2016-12-06 12:14] LABS: Glucose,Whole Blood 124 mg/dL (75-99)
[2016-12-06] MEDS: INSULIN LISPRO (humaLOG) 300 UNIT/3 ML VIAL SQ SCH ×4 (14:32→21:18)
[2016-12-06] MEDS: CARVEDILOL 12.5 MG TAB PO SCH ×2 (14:32→21:00)
[2016-12-06] MEDS: ISOSORBIDE MONONITRATE ER 30 MG TAB.ER.24H PO SCH (14:34)
[2016-12-06] MEDS: LISINOPRIL 10 MG TAB PO SCH ×2 (14:34→21:17)
[2016-12-06] MEDS: FUROSEMIDE 10 MG/ML 2 ML VIAL IV SCH (14:40)
[2016-12-06] MEDS: ESOMEPRAZOLE 20 MG in SODIUM CHLORIDE 0.9% 50 ML IVPB SCH (14:41)
[2016-12-06] MEDS: NYSTATIN 100,000 UNIT/ML SUSP 500,000 UNIT/5 ML CUP PO SCH ×3 (14:45→21:51)
[2016-12-06 17:10] LABS: Glucose,Whole Blood 122 mg/dL (75-99)
[2016-12-06] MEDS ORDERED: ONDANSETRON 4 MG/2 ML VIAL IVP STA (18:03)
--- NOTE | 2016-12-06 20:40 | PN ---
DATE OF SERVICE: 12/06/2016 This 66-year-old woman who was admitted with diffuse abdominal pain also had dysphagia and esophageal stricture. The patient was evaluated by Gastroenterology today, who recommended possible EGD with biopsies. The patient is being closely monitored. Past medical history reviewed. REVIEW OF SYSTEMS: CARDIOVASCULAR: As mentioned earlier. RESPIRATORY: As mentioned earlier. GI: As mentioned earlier. : No dysuria or retention. NERVOUS SYSTEM: No numbness or weakness. Current medications are reviewed and include: 1. Duo-Neb b.i.d. 2. Aspirin 81 mg. 3. Symbicort b.i.d. 4. Rocephin 1 gram daily. 5. Catapres. 6. Nexium. 7. Apresoline 10 p.r.n. 8. Imdur. 9. Zestril. 10. Ativan. 11. Zofran. 12. Paxil. PHYSICAL EXAM: Patient is alert and oriented x3. Pulse 71, blood pressure 148/65 , respiration 18, temperature 98.2, pulse ox 94% on room air. HEENT: Conjunctivae normal. NECK: No jugular venous distention. CARDIOVASCULAR: S1, S2 muffled. RESPIRATORY: Breath sounds diminished at the bases. Scattered rhonchi. No crackles. ABDOMEN: Soft, non-tender. No mass palpable. No rigidity. No guarding. LEGS: No edema. No swelling. NERVOUS SYSTEM: Higher functions as mentioned earlier. Moves all 4 limbs. No focal deficit. LYMPHATICS: No lymph node palpable in neck, axillae or groin. SKIN: No ulcer, rash, bleeding. LABS: WBC 11.2, hemoglobin 12.9. UA noted. ASSESSMENT: 1. Diffuse abdominal pain for evaluation; possible colitis. 2. Dysphagia with possible esophageal stricture. Rule out malignancy. 3. Urinary tract infection. 4. History of diabetes mellitus, type 2. 5. Hypertension. 6. Hyperlipidemia. 7. History of appendectomy. 8. History of cholecystectomy. 9. History of anxiety, depression. 10. History of panic disorder. 11. History of claustrophobia. 12. FULL CODE. RECOMMENDATIONS AND DISCUSSION: I recommend to continue the current medications , continue the monitoring and symptomatic treatment. Otherwise, at this time we will follow the patient closely. Possible endoscopy. Continue with antibiotics. Guarded prognosis because of multiple complex medical issues. Repeat labs in the morning. Further recommendations to follow. Discussed with the patient. Discussed with staff. CYNTHIA
[2016-12-06 20:49] LABS: Glucose,Whole Blood 119 mg/dL (75-99)
[2016-12-06] MEDS: SCOPOLAMINE 1.5MG/72HR PATCH TRANSDERM SCH (21:11)
[2016-12-06] MEDS: PARoxetine 20 MG TAB PO SCH (21:17)
[2016-12-06] MEDS: LORazepam 2 MG/ML INJ IV SCH ×2 (21:52→22:25)
[2016-12-07] MEDS: MORPHINE SULFATE 2 MG/ML SYRINGE IVP PRN ×3 (00:06→14:25)
[2016-12-07] MEDS: SODIUM CHLORIDE 0.9% 1,000 ML IV SCH ×3 (04:10→22:41)
[2016-12-07 06:59] LABS: Glucose,Whole Blood 115 mg/dL (75-99)
[2016-12-07 07:37] LABS: Basophils # (A) 0.1 k/uL (0-0.2); Basophils % (A) 1 %; CH 30.6; CHCM 33.4; Eosinophils # (A) 0.2 k/uL (0-0.7); Eosinophils % (A) 1 %; HCT 40.9 % (34.0-46.0); HDW 2.85; HGB 13.5 gm/dL (11.4-16.0); Luc # (Auto) 0.15; Luc % (Auto) 1; Lymphocytes % (A) 22 %; MCH 30.5 pg (25.0-35.0); MCV 92.3 fL (80.0-100.0); Mean Platelet Volume 7.4; Monocytes # (A) 0.5 k/uL (0-1.0); Monocytes % (A) 4 %; Neutrophils # (A) 9.5 k/uL (1.3-7.7); Neutrophils % (A) 71 %; RBC 4.44 m/uL (3.80-5.40); RDW 14.7 % (11.5-15.5); WBC 13.4 k/uL (3.8-10.6); WBC (Perox) 13.37
[2016-12-07 07:56] LABS: Anion Gap 13 mmol/L; Blood Urea Nitrogen 10 mg/dL (7-17); Carbon Dioxide 27 mmol/L (22-30); Chloride 101 mmol/L (98-107); Glucose 105 mg/dL (74-99); Non-African American GFR(MDRD) >60 (>60 ml/min/1.73 sqM); Sodium 141 mmol/L (137-145)
[2016-12-07 08:01] LABS: Potassium 4.1 mmol/L (3.5-5.1)
[2016-12-07] MEDS: CARVEDILOL 12.5 MG TAB PO SCH ×3 (08:16→17:58)
[2016-12-07] MEDS: INSULIN LISPRO (humaLOG) 300 UNIT/3 ML VIAL SQ SCH ×4 (08:16→20:24)
[2016-12-07] MEDS: ONDANSETRON 4 MG/2 ML VIAL IVP PRN ×3 (08:17→21:33)
[2016-12-07] MEDS: LORazepam 2 MG/ML INJ IV SCH ×2 (08:21→16:10)
[2016-12-07] MEDS: ESOMEPRAZOLE 20 MG in SODIUM CHLORIDE 0.9% 50 ML IVPB SCH (08:22)
[2016-12-07] MEDS: HEPARIN SODIUM,PORCINE 5,000 UNIT/ML 1 ML VIAL SQ SCH ×2 (09:02→20:23)
[2016-12-07] MEDS: FUROSEMIDE 10 MG/ML 2 ML VIAL IV SCH (09:02)
[2016-12-07] MEDS: ISOSORBIDE MONONITRATE ER 30 MG TAB.ER.24H PO SCH ×2 (09:03→13:28)
[2016-12-07] MEDS: LISINOPRIL 10 MG TAB PO SCH ×3 (09:03→20:25)
[2016-12-07] MEDS: SYMBICORT 160-4.5 MCG INHALER INHALATION SCH ×2 (09:07→19:07)
[2016-12-07] MEDS: IPRATROPIUM-ALBUTEROL 3 ML NEB INHALATION SCH ×2 (09:07→19:07)
[2016-12-07] MEDS ORDERED: LIDOCAINE 1% INJ 10MG/ML (20 ML MDV) ONE (11:36)
[2016-12-07] MEDS ORDERED: PROPOFOL 10 MG/ML 20 ML VIAL IV ONE (11:36)
[2016-12-07] MEDS ORDERED: IV FLUID CONTINUATION 600 ML IV ONE (11:39)
--- NOTE | 2016-12-07 12:03 | P.PCN ---
Date of Procedure: 12/07/16 Preoperative Diagnosis: Postoperative Diagnosis: Procedure(s) Performed: BRIEF HISTORY: Patient is a 66-year-old, pleasant, white female, admitted to the hospital with progressive dysphagia to solids for the last 2 months duration. She lost approximately 15 pounds since onset of the symptoms. Lately she is been only on a clear liquid diet. CT of abdomen showed thickening of the distal esophagus. She is scheduled for an upper endoscopy to evaluate further.. PROCEDURE PERFORMED: Esophagogastroduodenoscopy with biopsy PREOPERATIVE DIAGNOSIS: Progressive dysphagia to solids and weight loss of 2 months duration. IV sedation per anesthesia. PROCEDURE: After informed consent was obtained, the patient was brought into the endoscopy unit. IV sedation was administered by Anesthesia under continuous monitoring. Initially the Olympus GIF-140 video endoscope was inserted into the mouth. Esophagus intubated without any difficulty. It was gradually advanced into the distal esophagus. There was a circumferential ulcerated mass identified with esophageal stricture. Gently the scope was advanced through the stricture into the stomach and duodenum and carefully examined. The bulb and the second part of the duodenum appeared normal. The scope at this time was withdrawn to the stomach, adequately insufflated with air, and upon careful examination, mucosa of the antrum, body, cardia and the fundus appeared normal. The scope was then withdrawn into the esophagus. The GE junction was located at 39 cm from the incisors. There was circumferential ulcerated distal esophageal mass causing luminal narrowing, extending from 33 cm to 39 cm from the incisors and multiple biopsies were done from this area. The rest of the esophagus appeared normal. There was retained solid food noted in the proximal esophagus which was removed using a Elmore net. The proximal esophagus appeared normal and the patient tolerated the procedure well. IMPRESSION: 1. Distal esophageal ulcerated mass extending from 33-39 cm from incisors with significant luminal narrowing status post multiple biopsies. 2. Retained solid food in the proximal esophagus that was removed using a Elmore net RECOMMENDATIONS: The findings of this examination were discussed with the patient as well as a family. At this time will await the biopsy results and will obtain oncology consultation. She will be maintained on a clear liquid diet. Implants: Indications for Procedure: Operative Findings: Description of Procedure:
[2016-12-07 12:21] LABS: Glucose,Whole Blood 131 mg/dL (75-99)
[2016-12-07] MEDS: NYSTATIN 100,000 UNIT/ML SUSP 500,000 UNIT/5 ML CUP PO SCH ×4 (16:09→21:32)
[2016-12-07] MEDS ORDERED: cloNIDine 0.2 MG/24HR PATCH 1 PATCH PATCH TRANSDERM SCH (17:00)
[2016-12-07 17:35] LABS: Glucose,Whole Blood 138 mg/dL (75-99)
--- NOTE | 2016-12-07 17:40 | CT ---
EXAMINATION TYPE: CT ChestAbdPelvis wo con DATE OF EXAM: 12/07/2016 COMPARISON: 12/05/2016 HISTORY: Generalized abdominal pain CT DLP: 544.4 mGycm. Automated Exposure Control for Dose Reduction was Utilized. TECHNIQUE: CT scan of the thorax, abdomen and pelvis is performed without IV contrast. FINDINGS: The lungs are clear of consolidation. There is a 5 mm nodular density in the posterior lateral left l ower lobe. There is no pleural effusion. There is no pericardial effusion. There is fluid in the esophagus with air-fluid level. There is probably a hiatal hernia. There is thi ckening of the distal esophageal wall similar to recent exam. There is no mediastinal adenopathy. The re is no pneumothorax. There is some coronary artery calcification. There are clips from cholecystectomy. Bile ducts are not dilated. Spleen appears normal. There are is extensive calcification in the splenic artery with multiple calcified aneurysms. There is no sign of pancreatic mass. There is a 1.5 cm left adrenal nodule.. There is no hydronephrosis. Ureters are not dilated. 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 There is no retroperitoneal adenopathy. Bladder distends smoothly. There is no pelvic mass. I see no bony destructive process. CONCLUSION: Low-density left lower lobe nodule of uncertain significance. Atherosclerotic vascular calcification. Fluid level in the esophagus with hiatal hernia and possible esophageal wall thickening at the gastro esophageal junction. Esophageal mass cannot be excluded. This appears unchanged compared to exam 2 da ys ago. 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 I do not see intestinal wall thickening to suggest colitis. Stable small left adrenal nodule. I do not see evidence for renal obstruction.
[2016-12-07] MEDS: hydrALAZINE HCL 20 MG/ML 1 ML VIAL IVP PRN (17:43)
[2016-12-07] MEDS: HYDROmorphone 1 MG/ML 1 ML SYRINGE IVP PRN ×2 (19:02→23:28)
[2016-12-07 19:59] LABS: Glucose,Whole Blood 148 mg/dL (75-99)
[2016-12-07] MEDS: PARoxetine 20 MG TAB PO SCH (20:25)
[2016-12-08] MEDS: LORazepam 2 MG/ML INJ IV SCH ×4 (00:05→23:17)
[2016-12-08] MEDS: ONDANSETRON 4 MG/2 ML VIAL IVP PRN ×4 (02:33→19:35)
[2016-12-08] MEDS: HYDROmorphone 1 MG/ML 1 ML SYRINGE IVP PRN ×7 (02:52→20:37)
[2016-12-08 07:02] LABS: Basophils # (A) 0.1 k/uL (0-0.2); Basophils % (A) 1 %; CH 30.7; CHCM 33.5; Eosinophils % (A) 0 %; HDW 2.93; HGB 11.5 gm/dL (11.4-16.0); Luc # (Auto) 0.08; Luc % (Auto) 1; Lymphocytes # (A) 1.8 k/uL (1.0-4.8); Lymphocytes % (A) 18 %; MCH 30.3 pg (25.0-35.0); MCHC 32.9 g/dL (31.0-37.0); Mean Platelet Volume 7.2; Monocytes # (A) 0.4 k/uL (0-1.0); Monocytes % (A) 3 %; Neutrophils # (A) 7.7 k/uL (1.3-7.7); Neutrophils % (A) 77 %; RDW 14.8 % (11.5-15.5); WBC 10.1 k/uL (3.8-10.6)
[2016-12-08 07:28] LABS: Anion Gap 13 mmol/L; Blood Urea Nitrogen 13 mg/dL (7-17); Calcium 8.5 mg/dL (8.4-10.2); Carbon Dioxide 24 mmol/L (22-30); Chloride 107 mmol/L (98-107); Glucose 117 mg/dL (74-99); Non-African American GFR(MDRD) >60 (>60 ml/min/1.73 sqM); Potassium 3.1 mmol/L (3.5-5.1); Sodium 144 mmol/L (137-145)
--- NOTE | 2016-12-08 07:28 | PN ---
DATE OF SERVICE: 12/07/2016 This 66-year-old woman who was admitted with diffuse abdominal pain, also had possible colitis. The patient also had dysphagia. Patient underwent EGD by Dr. Bowers, which showed distal esophageal ulcerated mass extending 33 to 39 cm from incisors with significant luminal narrowing, status post multiple biopsies. The patient has been closely monitored at this time. No chest pain or palpitation. No fever. Retained food was also noted. On exam, alert and oriented x3. Pulse 84, blood pressure 184/77, respirations 18 , temperature 98.1, pulse ox 98% on room air. HEENT: Conjunctivae normal. NECK: No jugular venous distention. CARDIOVASCULAR: S1 and S2, muffled. RESPIRATORY: Breath sounds diminished at the bases. A few scattered rhonchi and crackles. ABDOMEN: Soft, minimal diffuse discomfort LEGS: No edema or swelling. NERVOUS SYSTEM: No focal deficits. Labs are at this time shows WBC 13.4, hemoglobin 13.5. ASSESSMENT: 1. Diffuse abdominal pain, possible colitis present on admission. 2. Dysphagia, possibly esophageal ulcerated mass, possible malignancy, status post biopsy. 3. Urinary tract infection. 4. History of diabetes mellitus type 2. 5. Hypertension. 6. Hyperlipidemia. 7. History of appendectomy. 8. History of cholecystectomy. 9. History of anxiety and depression. 10. History of panic disorder. 11. History of claustrophobia. 12. FULL CODE. RECOMMENDATIONS AND DISCUSSION: Recommend to continue current medications. Continue with monitoring and symptomatic treatment. Also, at this time I would recommend to monitor patient closely. Otherwise see orders for further details. Dr. Bowers is also planning possible PEG tube implantation. Will continue to monitor. Further recommendations to follow. MTDD
[2016-12-08 07:29] LABS: Glucose,Whole Blood 117 mg/dL (75-99)
[2016-12-08] MEDS: hydrALAZINE HCL 20 MG/ML 1 ML VIAL IVP PRN (07:33)
[2016-12-08] MEDS: IPRATROPIUM-ALBUTEROL 3 ML NEB INHALATION SCH ×2 (08:18→18:41)
[2016-12-08] MEDS: SYMBICORT 160-4.5 MCG INHALER INHALATION SCH ×2 (08:19→18:41)
[2016-12-08] MEDS: CARVEDILOL 12.5 MG TAB PO SCH ×2 (08:56→17:32)
[2016-12-08] MEDS: NYSTATIN 100,000 UNIT/ML SUSP 500,000 UNIT/5 ML CUP PO SCH ×4 (08:58→21:00)
[2016-12-08] MEDS: INSULIN LISPRO (humaLOG) 300 UNIT/3 ML VIAL SQ SCH ×4 (08:58→20:28)
[2016-12-08] MEDS: LISINOPRIL 10 MG TAB PO SCH ×2 (08:58→20:28)
[2016-12-08] MEDS: ISOSORBIDE MONONITRATE ER 30 MG TAB.ER.24H PO SCH (08:58)
[2016-12-08] MEDS: FUROSEMIDE 10 MG/ML 2 ML VIAL IV SCH (09:00)
[2016-12-08] MEDS: HEPARIN SODIUM,PORCINE 5,000 UNIT/ML 1 ML VIAL SQ SCH ×2 (09:00→20:35)
--- NOTE | 2016-12-08 10:33 | P.GSCN ---
History of Present Illness Consult date: 12/08/16 Reason for Consult: 5 mm pulmonary nodular density and distal esophageal ulcerated mass. Requesting physician: Marychuy Jack History of present illness: This is a 66-year-old female patient who is followed by Dr. Ross on an outpatient basis. She has a past medical history of hypertension, diabetes mellitus type 2, depression, panic disorder, GERD, history of nicotine dependence, and hyperlipidemia. The patient has had complaints of difficulty swallowing solid foods for the last 2 months and reports a 10-15 pound weight loss. She followed up with Dr. Ross on outpatient basis and underwent a barium swallow on 11/21/2016 which demonstrated roro aspiration during continuous swallows, and irregular distal thoracic esophageal stricture which was causing mild relative obstruction. Recently, she reports that her swallowing has become worse. She denies abdominal pain but does get frequent episodes of nausea and vomiting. Due to the results of her barium swallow and above- mentioned symptoms she was admitted to the hospital for further workup and evaluation. On 12/05/2016 the patient underwent a computed tomography scan of her abdomen and pelvis which showed thickening of the distal esophagus with dilation proximally, 3 MM right sided pulmonary nodule, cardiomegaly, and multiple splenic artery aneurysms. Subsequently, Dr. Sarah Bowers from gastroenterology was consulted and the patient underwent an esophagogastroduodenoscopy with biopsies, the EGD demonstrated distal esophageal ulcerated mass extending from 33-39 cm from her incisors with significant luminal narrowing. The patient also underwent a CAT scan of her chest, abdomen and pelvis which showed a low-density left lower lobe nodule measuring 5 mm, esophageal wall thickening at the gastroesophageal junction, and multiple splenic artery aneurysms. Dr. Alvarado from cardiothoracic surgery has been asked to evaluate the patient for the pulmonary nodule and the ulcerated esophageal mass. Review of Systems A 14 point review of systems was completed and was negative except for what was mentioned in the HPI. Past Medical History Past Medical History: Diabetes Mellitus (Type 2), Hyperlipidemia, Hypertension, Myocardial Infarction ([place]) (in 2014) Additional Past Medical History / Comment(s): Stress incontinence History of Any Multi-Drug Resistant Organisms: None Reported Past Surgical History: Appendectomy, Cholecystectomy, Heart Catheterization (), Hysterectomy Additional Past Surgical History / Comment(s): Bladder sling, stress incontinence. lumpectomy left breast Past Anesthesia/Blood Transfusion Reactions: No Reported Reaction Past Psychological History: Anxiety, Depression, Panic Disorder Additional Psychological History / Comment(s): Clausterphobic, PTSD Smoking Status: Former smoker (quit in 2014) Past Alcohol Use History: None Reported Past Drug Use History: None Reported - Past Family History Father Family Medical History: Myocardial Infarction ([place]) Additional Family Medical History / Comment(s): Arthrosclorosis Mother Family Medical History: Cancer, Diabetes Mellitus Additional Family Medical History / Comment(s): Throat CA Brother(s) Family Medical History: Myocardial Infarction ([place]) Medications and Allergies Home Medications Medication Instructions Recorded Confirmed Type ALPRAZolam [Xanax] 1 mg PO TID 04/09/15 12/05/16 History Cholecalciferol [Vitamin D3] 1,000 unit PO DAILY 04/09/15 12/05/16 History PARoxetine [Paxil] 20 mg PO HS 04/09/15 12/05/16 History diphenhydrAMINE [Benadryl] 50 mg PO HS 04/09/15 12/05/16 History Famotidine [Pepcid] 20 mg PO BID 12/04/16 12/05/16 History Glimepiride [Amaryl] 2 mg PO BID 12/04/16 12/05/16 History Hydrochlorothiazide 25 mg PO DAILY 12/04/16 12/05/16 History Acetaminophen [Tylenol] 500 mg PO TID 12/05/16 12/05/16 History Acetaminophen with Codeine 0.5 tab PO TID 12/05/16 12/05/16 History [Tylenol w/codeine #3] Atorvastatin [Lipitor] 40 mg PO HS 12/05/16 12/05/16 History Ipratropium-Albuterol Nebulize 3 ml INHALATION RT-BID 12/05/16 12/05/16 History [Duoneb 0.5 mg-3 mg/3 ml Soln] Lisinopril [Prinivil] 20 mg PO BID 12/05/16 12/05/16 History Omeprazole Magnesium [Prilosec OTC] 20 mg PO DAILY 12/05/16 12/05/16 History sitaGLIPtin PHOSPHATE [Januvia] 50 mg PO DAILY 12/05/16 12/05/16 History Allergies Allergy/AdvReac Type Severity Reaction Status Date / Time nickel Allergy Rash/Hives Verified 12/05/16 20:12 phenazopyridine HCl Allergy Anaphylaxis Verified 12/05/16 20:12 [From Pyridium] prochlorperazine Allergy Anaphylaxis Verified 12/05/16 20:12 [From Compazine] prochlorperazine edisylate Allergy Anaphylaxis Verified 12/05/16 20:12 [From Compazine] prochlorperazine maleate Allergy Anaphylaxis Verified 12/05/16 20:12 [From Compazine] Sulfa (Sulfonamide Allergy Unknown Verified 12/05/16 20:12 Antibiotics) metformin AdvReac Nausea & Verified 12/05/16 20:12 Vomiting & Diarrhea Surgical - Exam Vital Signs Temp Pulse Resp BP Pulse Ox 97.7 F 62 18 140/65 98 12/05/16 12:41 12/05/16 12:41 12/05/16 12:41 12/05/16 12:41 12/05/16 12:41 - General She is alert and oriented and in no acute distress. - Eyes PERRL, normal ocular movement - ENT normal pinna, normal nares, normal mucosa, no hearing loss, no congestion - Neck no masses, no bruits, trachea midline, no lymphadectomy, no venous distension - Respiratory Essentially clear throughout, diminished bilateral bases. Respirations are symmetrical and nonlabored. Oxygen saturation are 96% on room air. - Cardiovascular Regular rhythm and rate, positive for systolic murmur which is heard best over the right sternal border second intercostal space. - Abdomen Nontender, no palpable organomegaly. Abdomen: soft, non tender, bowel sounds (positive to all 4 abdominal quadrants.) - Genitourinary Deferred - Rectum Deferred - Integumentary Normal skin turgor. no rash, no growths, no abnormal pigmentation - Neurologic normal coordination, normal sensation - Musculoskeletal normal gait, normal posture - Psychiatric Disoriented to time. oriented to person, oriented to place, speech is normal, other (Poor historian.) Results - Labs 12/08/16 06:12 12/08/16 06:12 Abnormal Lab Results - Last 24 Hours (Table) 12/07/16 12/07/16 12/07/16 Range/Units 12:19 17:33 19:56 Potassium (3.5-5.1) mmol/L Glucose (74-99) mg/dL POC Glucose (mg/dL) 131 H 138 H 148 H (75-99) mg/dL 12/08/16 12/08/16 Range/Units 06:12 07:09 Potassium 3.1 L (3.5-5.1) mmol/L Glucose 117 H (74-99) mg/dL POC Glucose (mg/dL) 117 H (75-99) mg/dL Diabetes panel 12/08/16 Range/Units 06:12 Sodium 144 (137-145) mmol/L Potassium 3.1 L (3.5-5.1) mmol/L Chloride 107 (98-107) mmol/L Carbon Dioxide 24 (22-30) mmol/L BUN 13 (7-17) mg/dL Creatinine 0.53 (0.52-1.04) mg/dL Glucose 117 H (74-99) mg/dL Calcium 8.5 (8.4-10.2) mg/dL Calcium panel 12/08/16 Range/Units 06:12 Calcium 8.5 (8.4-10.2) mg/dL Pituitary panel 12/08/16 Range/Units 06:12 Sodium 144 (137-145) mmol/L Potassium 3.1 L (3.5-5.1) mmol/L Chloride 107 (98-107) mmol/L Carbon Dioxide 24 (22-30) mmol/L BUN 13 (7-17) mg/dL Creatinine 0.53 (0.52-1.04) mg/dL Glucose 117 H (74-99) mg/dL Calcium 8.5 (8.4-10.2) mg/dL Adrenal panel 12/08/16 Range/Units 06:12 Sodium 144 (137-145) mmol/L Potassium 3.1 L (3.5-5.1) mmol/L Chloride 107 (98-107) mmol/L Carbon Dioxide 24 (22-30) mmol/L BUN 13 (7-17) mg/dL Creatinine 0.53 (0.52-1.04) mg/dL Glucose 117 H (74-99) mg/dL Calcium 8.5 (8.4-10.2) mg/dL - Imaging CT scan - abdomen: report reviewed, image reviewed CT scan - chest: report reviewed, image reviewed US - abdomen: report reviewed, image reviewed Additional studies: EGD results reviewed. Assessment and Plan (1) Dysphagia Status: Acute (2) Esophageal stricture Status: Acute (3) Lung nodule Status: Acute (4) Oral candidiasis Status: Acute (5) Splenic artery aneurysm Status: Acute (6) HTN (hypertension) Status: Acute (7) Hx of nicotine dependence Status: Acute (8) Hyperlipemia Status: Acute Plan: The patient was seen and examined, chart and diagnostic studies reviewed. We will await the EGD biopsy results. Patient may need in the future a PET scan and endoscopic ultrasound. GI and DVT prophylaxis in place. Comorbid conditions per primary care recommendations. We will follow along with the care of this patient. Thank you Dr. Jack for this consult and we look forward to working with you in the care of this patient. Time with Patient: Greater than 30
--- NOTE | 2016-12-08 11:04 | PN ---
DATE OF SERVICE: 12/08/2016 Patient is a 66-year-old pleasant lady admitted to the hospital two days ago with dysphagia. She had an upper endoscopy done yesterday which showed a distal ulcer with esophageal mass with tight esophageal stricture. Biopsies are still pending. She is on a clear liquid diet, not able to tolerate anything at the present time. Oncology has been consulted and the patient has not been seen yet. She denies any chest pain. PHYSICAL EXAMINATION: Appears comfortable. No apparent distress. VITAL SIGNS: Stable. Blood pressure 132/86, pulse rate 88 per minute and afebrile. HEENT: Unremarkable with pink conjunctivae, sclerae anicteric. Oral cavity, no lesions. NECK: No JVD or lymph node enlargement. CHEST: Clear to auscultation. HEART: Regular rate and rhythm. ABDOMEN: Soft. Bowel sounds are positive. No organomegaly. EXTREMITIES: No pedal edema. SKIN: No rashes. NEURO: Oriented x3. No focal deficits. LABS FROM TODAY: WBC 10.1, hemoglobin 11.5, platelets are normal. IMPRESSION: Dysphagia secondary to distal esophageal ulcerated mass noted on upper endoscopy yesterday with a tight stricture. Biopsies are still pending. Patient on a clear liquid diet, barely able to tolerate it. RECOMMENDATIONS; 1. Await recommendations from oncology. 2. In regards to her nutrition, will continue on a clear liquid diet and possibly she will need either a PEG tube placement or a J-tube placement for nutrition. Briefly these were discussed with the patient but further recommendations will be made once oncology has evaluated the patient. Thank you for this consultation. CYNTHIA
[2016-12-08 11:52] LABS: Glucose,Whole Blood 142 mg/dL (75-99)
[2016-12-08] MEDS: ESOMEPRAZOLE 20 MG in SODIUM CHLORIDE 0.9% 50 ML IVPB SCH (12:38)
[2016-12-08] MEDS: cloNIDine 0.3 MG/24HR PATCH 1 PATCH PATCH TRANSDERM SCH (12:39)
[2016-12-08] MEDS: SODIUM CHLORIDE 0.9% 1,000 ML IV SCH ×3 (15:21→23:13)
[2016-12-08 16:28] LABS: Glucose,Whole Blood 122 mg/dL (75-99)
[2016-12-08 19:49] LABS: Glucose,Whole Blood 114 mg/dL (75-99)
[2016-12-08] MEDS: PARoxetine 20 MG TAB PO SCH (20:28)
--- NOTE | 2016-12-08 20:58 | PN ---
DATE OF SERVICE: 12/08/16 This 66-year-old woman was admitted with diffuse abdominal pain also had colitis. The patient was found to have dysphagia, possibly, esophageal malignancy. Biopsies taken. CT scan of the abdomen and pelvis was noted. Gastroenterology has seen the patient and recommended evaluation by oncology and possible J-tube placement. Otherwise, cardiothoracic surgery also seen the patient. Recommended PET scan, endoscopic ultrasound as well as awaiting biopsy report. No chest pain. No palpitations. No fever. REVIEW OF SYSTEMS: Cardiovascular: No angina. Respiratory: As mentioned earlier. GI: As mentioned earlier. : No dysuria. Nervous system: No numbness, weakness. Current medications are: 1. DuoNeb q.i.d. and prn. 2. Aspirin. 3. Symbicort 160/4.5 two puffs b.i.d. 4. Coreg 25 mg po b.i.d. 5. Rocephin 1 gm daily. 6. Catapres patch 0.1 mg po t.i.d. 7. Nexium. 8. Lasix. 9. Heparin. 10. Dilaudid. 11. Zestril. 12. Ativan. 13. Zofran. 14. Paxil. PHYSICAL EXAMINATION: On exam, alert and oriented times three. Pulse 77. Blood pressure 205/81. Respiratory rate 16. Temperature 97.3. Pulse ox 97% on room air. HEENT: Conjunctivae normal. Oral mucosa moist. NECK: No JVD. No carotid bruit. No lymph node enlargement. Cardiovascular: S1, S2 muffled. Respiratory: Breath sounds diminished at the bases. A few scattered rhonchi and crackles. Abdomen soft. Obese. Nontender. Legs, no edema. No swelling. Nervous system: No focal deficits. ASSESSMENT: 1. Diffuse abdominal pain, possibly colitis, present on admission. 2. Dysphagia, possible ulcerated mass, possible malignancy, or stricture. 3. Status post biopsy. 4. Urinary tract infection. 5. History of diabetes mellitus Type 2. 6. History of hypertension. 7. Hyperlipidemia. 8. History of appendectomy. 9. History of cholecystectomy. 10. FULL CODE. RECOMMENDATIONS AND DISCUSSION: Continue the current medications, continue with monitoring, symptomatic treatment. Otherwise, at this time, I recommend to continue IV fluids and await hematology/oncology evaluation and PEG placement. Thoracic surgery input appreciated. We will await the biopsy. Continue to monitor. Continue the rest of the medication. Discussed with the patient. Prognosis guarded. Further recommendations to follow. Adjust the blood pressure medications. Increase the patch to 0.3. See orders for further details. MTDD
[2016-12-09] MEDS: hydrALAZINE HCL 20 MG/ML 1 ML VIAL IVP PRN ×3 (02:18→17:38)
[2016-12-09] MEDS: HYDROmorphone 1 MG/ML 1 ML SYRINGE IVP PRN ×5 (04:08→21:07)
[2016-12-09] MEDS: ONDANSETRON 4 MG/2 ML VIAL IVP PRN ×3 (04:32→16:45)
[2016-12-09 07:03] LABS: Basophils # (A) 0.1 k/uL (0-0.2); Basophils % (A) 1 %; CH 30.9; CHCM 34.1; Eosinophils # (A) 0.1 k/uL (0-0.7); Eosinophils % (A) 1 %; HCT 36.7 % (34.0-46.0); HDW 3.04; HGB 12.2 gm/dL (11.4-16.0); Luc # (Auto) 0.09; Luc % (Auto) 1; Lymphocytes # (A) 1.8 k/uL (1.0-4.8); Lymphocytes % (A) 16 %; MCH 30.5 pg (25.0-35.0); MCHC 33.3 g/dL (31.0-37.0); MCV 91.4 fL (80.0-100.0); Mean Platelet Volume 7.3; Monocytes # (A) 0.4 k/uL (0-1.0); Monocytes % (A) 4 %; Neutrophils # (A) 8.9 k/uL (1.3-7.7); Neutrophils % (A) 78 %; RBC 4.02 m/uL (3.80-5.40); RDW 14.9 % (11.5-15.5); WBC 11.4 k/uL (3.8-10.6); WBC (Perox) 11.21
[2016-12-09 07:13] LABS: Glucose,Whole Blood 135 mg/dL (75-99)
[2016-12-09 07:25] LABS: Anion Gap 11 mmol/L; Blood Urea Nitrogen 11 mg/dL (7-17); Calcium 8.7 mg/dL (8.4-10.2); Carbon Dioxide 28 mmol/L (22-30); Chloride 106 mmol/L (98-107); Glucose 137 mg/dL (74-99); Non-African American GFR(MDRD) >60 (>60 ml/min/1.73 sqM); Sodium 145 mmol/L (137-145)
[2016-12-09] MEDS: INSULIN LISPRO (humaLOG) 300 UNIT/3 ML VIAL SQ SCH ×4 (08:00→20:13)
[2016-12-09] MEDS: NYSTATIN 100,000 UNIT/ML SUSP 500,000 UNIT/5 ML CUP PO SCH ×4 (08:26→21:05)
[2016-12-09] MEDS: FUROSEMIDE 10 MG/ML 2 ML VIAL IV SCH (08:27)
[2016-12-09] MEDS: LISINOPRIL 10 MG TAB PO SCH ×2 (08:27→20:14)
[2016-12-09] MEDS: HEPARIN SODIUM,PORCINE 5,000 UNIT/ML 1 ML VIAL SQ SCH ×2 (08:27→20:16)
[2016-12-09] MEDS: CARVEDILOL 12.5 MG TAB PO SCH ×2 (08:27→17:59)
[2016-12-09] MEDS: ISOSORBIDE MONONITRATE ER 30 MG TAB.ER.24H PO SCH (08:27)
[2016-12-09] MEDS: LORazepam 2 MG/ML INJ IV SCH ×3 (08:28→23:32)
[2016-12-09] MEDS: SODIUM CHLORIDE 0.9% 1,000 ML IV SCH (08:47)
--- NOTE | 2016-12-09 10:10 | P.PN ---
Subjective Principal diagnosis: Dysphagia, esophageal stricture, lung nodule, splenic artery aneurysm, hypertension, history of nicotine dependence, hyperlipidemia, distal esophageal ulcerated mass. This is 58-year-old female patient to presented to the emergency department here with complaints of difficulty swallowing and complaints of frequent episodes of nausea and vomiting. Subtotally she was admitted and was evaluated by Dr. Bowers from gastroenterology and underwent a computed tomography scan of her abdomem, pelvis and chest. The CAT scan results showed thickening of the distal esophagus with dilation approximately, a 3 mm right-sided pulmonary nodule, cardiomegaly, and multiple splenic artery aneurysms. The patient subsequently underwent a EGD which demonstrated a distal esophageal ulcerated mass extending from 33-39 cm from her incisors significant luminal narrowing. This a.m. the patient is sitting up to this edge of her bed, denies complaints of any pain, although she remains complaining of nausea and had a small emesis while present. She is in no acute distress. Objective - Vital Signs Vital signs: Vital Signs Temp 98.1 F 12/09/16 07:47 Pulse 67 12/09/16 07:47 Resp 17 12/09/16 07:47 BP 186/66 12/09/16 07:47 Pulse Ox 95 12/09/16 07:47 Intake & Output 12/08/16 12/09/16 12/09/16 18:59 06:59 18:59 Intake Total 900 Balance 900 Weight 63 kg Intake: IV 800 Sodium Chloride 0.9% 1, 800 000 ml @ 100 mls/hr IV . Q10H [facility] Rx#:[id number] Oral 100 Other: Voiding Method Toilet # Voids 3 1 - Constitutional General appearance: Present: cooperative, no acute distress - EENT Eyes: Present: PERRLA, normal appearance ENT: Present: hearing grossly normal - Neck Details: No JVD, no lymph node enlargement. - Respiratory Details: Essentially clear throughout, diminished bilateral bases. Respirations are symmetrical and unlabored. She is currently on room air with oxygen saturations of 95%. - Cardiovascular Details: Regular rhythm and rate, positive S1 and S2, positive systolic murmur which is best heard to her right sternal border second intercostal space. No edema present. - Gastrointestinal Gastrointestinal Comment(s): Abdomen is soft, nontender, nondistended. She is nauseated, with small emesis. Difficulty swallowing. - Genitourinary Genitourinary Comment(s): Adequate, clear yellow urine. Frequent episodes of incontinence. - Integumentary Integumentary: Present: normal, normal turgor - Musculoskeletal Musculoskeletal: Present: gait normal, strength equal bilaterally - Psychiatric Psychiatric: Present: A&O x's 3, appropriate affect, intact judgment & insight - Labs CBC & Chem 7: 12/09/16 06:27 12/09/16 06:27 Labs: Abnormal Lab Results - Last 24 Hours (Table) 12/08/16 12/08/16 12/08/16 Range/Units 11:47 16:25 19:48 WBC (3.8-10.6) k/uL Neutrophils # (1.3-7.7) k/uL Potassium (3.5-5.1) mmol/L Glucose (74-99) mg/dL POC Glucose (mg/dL) 142 H 122 H 114 H (75-99) mg/dL 12/09/16 12/09/16 12/09/16 Range/Units 06:27 06:27 06:57 WBC 11.4 H (3.8-10.6) k/uL Neutrophils # 8.9 H (1.3-7.7) k/uL Potassium 3.0 L* (3.5-5.1) mmol/L Glucose 137 H (74-99) mg/dL POC Glucose (mg/dL) 135 H (75-99) mg/dL Assessment and Plan (1) Dysphagia Status: Acute (2) Esophageal stricture Status: Acute (3) Lung nodule Status: Acute (4) Oral candidiasis Status: Acute (5) Splenic artery aneurysm Status: Acute (6) HTN (hypertension) Status: Acute (7) Hx of nicotine dependence Status: Acute (8) Hyperlipemia Status: Acute Plan: 1. Awaiting EGD biopsy results. 2. Comorbid conditions management per [facility] services. 3. Plans for possible PEG tube placement or J-tube placement per gastroenterology recommendations. 4. Increase activity, ambulate in hallway as tolerated. 5. Further recommendations as patient progresses. Time with Patient: Greater than 30
[2016-12-09] MEDS: ESOMEPRAZOLE 20 MG in SODIUM CHLORIDE 0.9% 50 ML IVPB SCH (10:16)
[2016-12-09 11:42] LABS: Glucose,Whole Blood 179 mg/dL (75-99)
[2016-12-09] MEDS: SYMBICORT 160-4.5 MCG INHALER INHALATION SCH ×2 (11:53→20:23)
[2016-12-09] MEDS: IPRATROPIUM-ALBUTEROL 3 ML NEB INHALATION SCH ×2 (11:53→20:23)
[2016-12-09] MEDS ORDERED: SODIUM CHLORIDE 0.9% 1,000 ML with POTASSIUM CHLORIDE 40 MEQ IV SCH ×2 (11:54)
[2016-12-09] MEDS: 0.9% NACL WITH KCL 40 MEQ/L 1,000 ML IV SCH ×2 (12:32→23:37)
[2016-12-09] MEDS: POTASSIUM CHLORIDE 20 MEQ, LIDOCAINE 2% INJ 20 MG in SODIUM CHLORIDE 0.9% 100 ML IVPB SCH ×2 (14:32→18:15)
--- NOTE | 2016-12-09 15:36 | P.PN ---
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
[2016-12-09 16:23] LABS: Glucose,Whole Blood 115 mg/dL (75-99)
[2016-12-09] MEDS: SCOPOLAMINE 1.5MG/72HR PATCH TRANSDERM SCH (18:06)
--- NOTE | 2016-12-09 18:27 | CONS ---
DATE OF SERVICE: 12/09/2016 ADMITTING PHYSICIAN: Dr. Jack REASON FOR CONSULTATION: Esophageal mass. HISTORY OF ILLNESS: Laila is a 66-year-old female who recently presented to Dr. Ross, her primary care physician, with dysphagia. She had a CT scan of her chest showing distal esophageal wall thickening as well as having modified barium swallow which she failed with aspiration. She is hospitalized with progressive dysphagia and weight loss. The patient stated having progressive dysphagia to solids and lately to liquids. She has lost 40-50 pounds in the last six months. She reported having mild mid chest discomfort. The patient was seen by Dr. Bowers and EGD performed revealing distal esophageal mass consistent with malignancy. Biopsy obtained, results are pending. When the patient was seen today she reported being reasonably stronger but continues to be rather weak and tired. PAST MEDICAL HISTORY: 1. Recent dysphagia as stated above. 2. Diabetes mellitus. 3. Hypertension. 4. Depression. PAST SURGICAL HISTORY: Includes appendectomy and cholecystectomy. Medications prior to admission reviewed and listed in the electronic medical system. SOCIAL HISTORY: The patient reported smoking one pack of cigarettes daily. She quit smoking one year ago. Denies any excessive use of alcohol. FAMILY HISTORY: Noncontributory. On examination the patient appeared alert and oriented. Skin is warm and dry. Hair distribution within normal for age and gender. Blood pressure was 145/56, pulse 76 and regular, respiratory rate 17 and not labored, temperature was 98.3. There were no pathologic cervical, supraclavicular, infraclavicular or axillary lymphadenopathy. Trachea was in midline. Chest was clear with good air exchange bilaterally. Heart sounds were normal S1 and S2. There was no S3 , rubs or murmurs auscultated. The abdomen was soft. The liver and spleen were not clinically palpable. There were no masses, tenderness or inguinal lymphadenopathy. Extremities appeared to be grossly unremarkable. Range of motion was within normal. No deformities seen. Neurologic examination showed no focal motor or sensory deficits. Cranial nerves 2-12 unremarkable. IMPRESSION: 1. 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 2. Progressive dysphagia and weight loss due to distal esophageal malignancy. 3. Diabetes mellitus. 4. Prior history of smoking. RECOMMENDATIONS: 1. Discussed clinically suspected carcinoma of the esophagus with the patient and her family at the bedside. 2. We are awaiting the results of biopsy performed by Dr. Bowers. 3. Agree with tube feeding, however, the patient is not a candidate for PEG tube and rather recommend using J-tube. PEG tube is contraindicated if esophageal surgery is to be performed. 4. PET scan will be performed soon after discharge and if localized disease, then endoscopic ultrasound will be performed and will likely then to recommend concurrent radiation and chemotherapy with possible surgical resection to follow. We will follow the patient along with you in the hospital. Further recommendations to follow. Thank you for asking us to participate in the care of Mrs. Youssef. CYNTHIA
[2016-12-09 19:42] LABS: Glucose,Whole Blood 112 mg/dL (75-99)
[2016-12-09] MEDS: NITROGLYCERIN OINT 1 INCH/GM PACKET TOPICAL SCH (20:05)
[2016-12-09] MEDS: PARoxetine 20 MG TAB PO SCH (20:15)
[2016-12-10] MEDS: NITROGLYCERIN OINT 1 INCH/GM PACKET TOPICAL SCH ×5 (01:22→23:21)
[2016-12-10] MEDS: HYDROmorphone 1 MG/ML 1 ML SYRINGE IVP PRN ×6 (04:11→20:43)
--- NOTE | 2016-12-10 06:32 | PN ---
DATE OF SERVICE: 12/09/2016 This 66-year-old woman who was admitted with abdominal pain and colitis, had dysphagia. The patient found to have ulcerated mass. The patient awaiting the final biopsy report. J-tube is planned by GI. No chest pain or palpitation. No fever. On exam, alert and oriented x3. Pulse 76, blood pressure 145/56, respirations 17 , temperature 98.3, pulse ox 95% on room air. HEENT: Conjunctivae are normal. NECK: No jugular venous distention. CARDIOVASCULAR: S1 and S2, muffled. RESPIRATORY: Breath sounds diminished at the bases. A few scattered rhonchi, no crackles. ABDOMEN: Soft, nontender. No mass palpable. LEGS: No edema, no swelling. NERVOUS SYSTEM: No focal deficits. Labs are potassium 3 .WBC 11.4. ASSESSMENT: 1. Diffuse abdominal pain, possibly colitis, present on admission. 2. Dysphagia, possible ulcerated mass, possible esophageal malignancy, status post EGD and biopsy. 3. Urinary tract infection. 4. Severe hypokalemia. 5. History of diabetes mellitus type 2. 6. History of hypertension. 7. History of hyperlipidemia. 8. History of appendectomy. 9. History of cholecystectomy. 10. FULL CODE. RECOMMENDATIONS AND DISCUSSION: Recommend to continue current medications. Continue to monitor and symptomatic treatment. ( ). See orders for further details. Repeat labs in the morning. Closely follow with GI and as well as Hematology/Oncology. Possible J-tube. Further recommendations to follow. MTDD
[2016-12-10] MEDS: ONDANSETRON 4 MG/2 ML VIAL IVP PRN ×3 (06:51→20:47)
[2016-12-10 06:55] LABS: Basophils # (A) 0.1 k/uL (0-0.2); Basophils % (A) 1 %; CH 30.8; CHCM 34.2; Eosinophils # (A) 0.1 k/uL (0-0.7); Eosinophils % (A) 1 %; HCT 34.2 % (34.0-46.0); HDW 3.05; HGB 11.4 gm/dL (11.4-16.0); Luc # (Auto) 0.09; Luc % (Auto) 1; Lymphocytes # (A) 2.2 k/uL (1.0-4.8); Lymphocytes % (A) 24 %; MCH 30.1 pg (25.0-35.0); MCHC 33.3 g/dL (31.0-37.0); MCV 90.6 fL (80.0-100.0); Mean Platelet Volume 7.4; Monocytes # (A) 0.4 k/uL (0-1.0); Monocytes % (A) 4 %; Neutrophils # (A) 6.6 k/uL (1.3-7.7); Neutrophils % (A) 70 %; RBC 3.78 m/uL (3.80-5.40); RDW 14.9 % (11.5-15.5); WBC 9.4 k/uL (3.8-10.6); WBC (Perox) 9.65
[2016-12-10 07:10] LABS: Anion Gap 8 mmol/L; Blood Urea Nitrogen 13 mg/dL (7-17); Calcium 8.5 mg/dL (8.4-10.2); Carbon Dioxide 29 mmol/L (22-30); Chloride 108 mmol/L (98-107); Glucose 122 mg/dL (74-99); Non-African American GFR(MDRD) >60 (>60 ml/min/1.73 sqM); Potassium 3.1 mmol/L (3.5-5.1); Sodium 145 mmol/L (137-145)
[2016-12-10] MEDS: LORazepam 2 MG/ML INJ IV SCH ×3 (07:11→23:18)
[2016-12-10 07:15] LABS: Glucose,Whole Blood 134 mg/dL (75-99)
[2016-12-10] MEDS: FUROSEMIDE 10 MG/ML 2 ML VIAL IV SCH (08:35)
[2016-12-10] MEDS: ESOMEPRAZOLE 20 MG in SODIUM CHLORIDE 0.9% 50 ML IVPB SCH (08:37)
[2016-12-10] MEDS: IPRATROPIUM-ALBUTEROL 3 ML NEB INHALATION SCH ×2 (08:38→19:59)
[2016-12-10] MEDS: SYMBICORT 160-4.5 MCG INHALER INHALATION SCH ×2 (08:38→19:58)
[2016-12-10] MEDS: CARVEDILOL 12.5 MG TAB PO SCH ×2 (08:40→17:39)
[2016-12-10] MEDS: INSULIN LISPRO (humaLOG) 300 UNIT/3 ML VIAL SQ SCH ×4 (08:40→22:24)
[2016-12-10] MEDS: LISINOPRIL 10 MG TAB PO SCH ×2 (08:41→20:41)
[2016-12-10] MEDS: hydrALAZINE HCL 20 MG/ML 1 ML VIAL IVP PRN ×2 (09:11→23:54)
[2016-12-10] MEDS: HEPARIN SODIUM,PORCINE 5,000 UNIT/ML 1 ML VIAL SQ SCH ×2 (09:45→20:48)
[2016-12-10] MEDS: NYSTATIN 100,000 UNIT/ML SUSP 500,000 UNIT/5 ML CUP PO SCH ×4 (09:46→22:25)
--- NOTE | 2016-12-10 09:57 | CDI ---
In responding to this query, please exercise your independent professional judgment. The [facility] Coding Staff and Clinical Documentation Specialists appreciate your assistance in clarifying documentation, maintaining compliance with coding guidelines, accurately documenting patients condition and capturing severity of illness. The fact that a question is asked does not imply that any particular answer is desired or expected. Communication forms are a method of clarifying documentation and are not made part of the Legal Health Record. Thank you in advance for your clarification. Last Revision, March 2015 Shala Martines [address] [place] [address] Documentation Clarification Form Date: 12/10/2016 9:38:00 AM From: Alyson Judge RN, CDS Admit Date: 12/07/2016 3:02:00 PM Patient Name: Laila Youssef Visit Number: [id number] Colette Bliss-UPHOLSTERY BUNDLER/Dr. 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 Mild Protein-Calorie Malnutrition Moderate Protein-Calorie Malnutrition Severe Protein-Calorie Malnutrition Other condition, please specify Unable to determine Please document in your progress notes and discharge summary in order to capture severity of illness and risk of mortality. Include clinical findings that support your diagnosis. FYI: Press F11 to launch patient chart. Thank you. CYNTHIA
--- NOTE | 2016-12-10 10:42 | P.PN ---
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 This is 58-year-old female patient to presented to the emergency department here with complaints of difficulty swallowing and complaints of frequent episodes of nausea and vomiting. Subtotally she was admitted and was evaluated by Dr. Bowers from gastroenterology and underwent a computed tomography scan of her abdomem, pelvis and chest. The CAT scan results showed thickening of the distal esophagus with dilation approximately, a 3 mm right-sided pulmonary nodule, cardiomegaly, and multiple splenic artery aneurysms. The patient subsequently underwent a EGD which demonstrated a distal esophageal ulcerated mass extending from 33-39 cm from her incisors significant luminal narrowing. This a.m. the patient is sitting up to this edge of her bed just returned from ambulating to the bathroom. She denies complaints of any pain, although she remains complaining of nausea and had a small emesis and reports that she cannot keep any food or liquids down. She is in no acute distress. She also reports this morning that she has frequent headaches. Objective - Vital Signs Vital signs: Vital Signs Temp 98.3 F 12/10/16 07:00 Pulse 79 12/10/16 07:00 Resp 18 12/10/16 07:00 BP 159/65 12/10/16 09:41 Pulse Ox 96 12/10/16 07:00 Intake & Output 12/09/16 12/10/16 12/10/16 18:59 06:59 18:59 Intake Total 1300 Balance 1300 Weight 63 kg Intake: IV 400 Sodium Chloride 0.9% 1, 400 000 ml @ 100 mls/hr IV . Q10H JESS Rx#:[id number] Intake, IV Titration 600 Amount 0.9% NaCl with KCl 40 Meq 300 /l 1,000 ml @ 75 mls/hr IV .[id number] JESS Rx#: [id number] Esomeprazole 20 mg In 100 Sodium Chloride 0.9% 50 ml @ 100 mls/hr IVPB DAILY JESS Rx#:[id number] Potassium Chloride 20 meq 100 Lidocaine 2% Inj 20 mg In Sodium Chloride 0.9% 100 ml @ 55.5 mls/hr IVPB Q2HR JESS Rx#:[id number] cefTRIAXone 1,000 mg In 100 Sodium Chloride 0.9% 50 ml @ 100 mls/hr IVPB Q24HR JESS Rx#:[id number] Oral 300 Other: Voiding Method Toilet Toilet # Voids 3 1 - Constitutional General appearance: Present: cooperative, no acute distress - EENT Eyes: Present: PERRLA, normal appearance ENT: Present: hearing grossly normal - Neck Details: No JVD, no lymph node enlargement. - Respiratory Details: Essentially clear throughout, diminished bilateral bases. Respirations are symmetrical and unlabored. She is currently on room air and her oxygen saturations are 96%. - Cardiovascular Details: Regular rhythm and rate, normal S1 and S2. 3/6 systolic murmur heard best over her right sternal border second intercostal space. No edema present. - Gastrointestinal Gastrointestinal Comment(s): Abdomen is soft, nontender, and nondistended. Frequent episodes of nausea. Difficulty swallowing. Positive bowel sounds all 4 abdominal quadrants. No organomegaly. - Genitourinary Genitourinary Comment(s): Adequate, clear yellow urine. Episodes of incontinence. - Integumentary Integumentary: Present: normal, normal turgor - Musculoskeletal Musculoskeletal: Present: gait normal, strength equal bilaterally - Psychiatric Psychiatric: Present: A&O x's 3, appropriate affect, intact judgment & insight - Allied health notes Allied health notes reviewed: nursing - Labs CBC & Chem 7: 12/10/16 06:28 12/10/16 06:28 Labs: Abnormal Lab Results - Last 24 Hours (Table) 12/09/16 12/09/16 12/09/16 Range/Units 11:39 16:18 19:41 RBC (3.80-5.40) m/uL Potassium (3.5-5.1) mmol/L Chloride (98-107) mmol/L Glucose (74-99) mg/dL POC Glucose (mg/dL) 179 H 115 H 112 H (75-99) mg/dL 12/10/16 12/10/16 12/10/16 Range/Units 06:28 06:28 07:14 RBC 3.78 L (3.80-5.40) m/uL Potassium 3.1 L (3.5-5.1) mmol/L Chloride 108 H (98-107) mmol/L Glucose 122 H (74-99) mg/dL POC Glucose (mg/dL) 134 H (75-99) mg/dL Assessment and Plan (1) Dysphagia Status: Acute (2) Esophageal stricture Status: Acute (3) Lung nodule Status: Acute (4) Oral candidiasis Status: Acute (5) Splenic artery aneurysm Status: Acute (6) HTN (hypertension) Status: Acute (7) Hx of nicotine dependence Status: Acute (8) Hyperlipemia Status: Acute Plan: 1. EGD biopsy results still pending. 2. Comorbid conditions management per primary care services. 3. Plans for possible PEG tube placement or J-tube placement per gastroenterology recommendations. 4. Increase activity, ambulate in hallway as tolerated. 5. The patient will need a PET scan and endoscopic ultrasound completed on an outpatient basis. 6. Further recommendations as patient progresses. Time with Patient: Greater than 30
[2016-12-10 11:28] LABS: Glucose,Whole Blood 176 mg/dL (75-99)
[2016-12-10 16:12] LABS: Glucose,Whole Blood 121 mg/dL (75-99)
--- NOTE | 2016-12-10 16:16 | P.GSCN ---
History of Present Illness Consult date: 12/10/16 Reason for Consult: Esophageal obstruction History of present illness: Patient hospitalized with dysphagia and weight loss. Upper endoscopy showed a suspicious mass in the esophagus. Final pathology from the biopsies are pending. She still is having difficulties with her own saliva. Denies abdominal pain. CT chest abdomen and pelvis shows no definite evidence of metastatic spread. Review of Systems The patient denies any acute changes in vision or hearing no chest pain or shortness of breath, no dysuria or hematuria, no headache, no runny nose, no rectal bleeding or melena Past Medical History Past Medical History: Diabetes Mellitus (Type 2), Hyperlipidemia, Hypertension, Myocardial Infarction ([place]) (in 2014) Additional Past Medical History / Comment(s): Stress incontinence History of Any Multi-Drug Resistant Organisms: None Reported Past Surgical History: Appendectomy, Cholecystectomy, Heart Catheterization (), Hysterectomy Additional Past Surgical History / Comment(s): Bladder sling, stress incontinence. lumpectomy left breast Past Anesthesia/Blood Transfusion Reactions: No Reported Reaction Past Psychological History: Anxiety, Depression, Panic Disorder Additional Psychological History / Comment(s): Clausterphobic, PTSD Smoking Status: Former smoker (quit in 2014) Past Alcohol Use History: None Reported Past Drug Use History: None Reported - Past Family History Father Family Medical History: Myocardial Infarction ([place]) Additional Family Medical History / Comment(s): Arthrosclorosis Mother Family Medical History: Cancer, Diabetes Mellitus Additional Family Medical History / Comment(s): Throat CA Brother(s) Family Medical History: Myocardial Infarction ([place]) Medications and Allergies Home Medications Medication Instructions Recorded Confirmed Type ALPRAZolam [Xanax] 1 mg PO TID 04/09/15 12/05/16 History Cholecalciferol [Vitamin D3] 1,000 unit PO DAILY 04/09/15 12/05/16 History PARoxetine [Paxil] 20 mg PO HS 04/09/15 12/05/16 History diphenhydrAMINE [Benadryl] 50 mg PO HS 04/09/15 12/05/16 History Famotidine [Pepcid] 20 mg PO BID 12/04/16 12/05/16 History Glimepiride [Amaryl] 2 mg PO BID 12/04/16 12/05/16 History Hydrochlorothiazide 25 mg PO DAILY 12/04/16 12/05/16 History Acetaminophen [Tylenol] 500 mg PO TID 12/05/16 12/05/16 History Acetaminophen with Codeine 0.5 tab PO TID 12/05/16 12/05/16 History [Tylenol w/codeine #3] Atorvastatin [Lipitor] 40 mg PO HS 12/05/16 12/05/16 History Ipratropium-Albuterol Nebulize 3 ml INHALATION RT-BID 12/05/16 12/05/16 History [Duoneb 0.5 mg-3 mg/3 ml Soln] Lisinopril [Prinivil] 20 mg PO BID 12/05/16 12/05/16 History Omeprazole Magnesium [Prilosec OTC] 20 mg PO DAILY 12/05/16 12/05/16 History sitaGLIPtin PHOSPHATE [Januvia] 50 mg PO DAILY 12/05/16 12/05/16 History Allergies Allergy/AdvReac Type Severity Reaction Status Date / Time nickel Allergy Rash/Hives Verified 12/05/16 20:12 phenazopyridine HCl Allergy Anaphylaxis Verified 12/05/16 20:12 [From Pyridium] prochlorperazine Allergy Anaphylaxis Verified 12/05/16 20:12 [From Compazine] prochlorperazine edisylate Allergy Anaphylaxis Verified 12/05/16 20:12 [From Compazine] prochlorperazine maleate Allergy Anaphylaxis Verified 12/05/16 20:12 [From Compazine] Sulfa (Sulfonamide Allergy Unknown Verified 12/05/16 20:12 Antibiotics) metformin AdvReac Nausea & Verified 12/05/16 20:12 Vomiting & Diarrhea Surgical - Exam Vital Signs Temp Pulse Resp BP Pulse Ox 97.7 F 62 18 140/65 98 12/05/16 12:41 12/05/16 12:41 12/05/16 12:41 12/05/16 12:41 12/05/16 12:41 Physical exam: General: Well-developed, well-nourished HEENT: Normocephalic, sclerae nonicteric Abdomen: Nontender, nondistended Extremities: No edema Neuro: Alert and oriented Results - Labs 12/10/16 06:28 12/10/16 06:28 Abnormal Lab Results - Last 24 Hours (Table) 0712/09/16 12/10/16 Range/Units 16:18 19:41 06:28 RBC 3.78 L (3.80-5.40) m/uL Potassium (3.5-5.1) mmol/L Chloride (98-107) mmol/L Glucose (74-99) mg/dL POC Glucose (mg/dL) 115 H 112 H (75-99) mg/dL 12/10/16 12/10/16 12/10/16 Range/Units 06:28 07:14 11:21 RBC (3.80-5.40) m/uL Potassium 3.1 L (3.5-5.1) mmol/L Chloride 108 H (98-107) mmol/L Glucose 122 H (74-99) mg/dL POC Glucose (mg/dL) 134 H 176 H (75-99) mg/dL 12/10/16 Range/Units 16:06 RBC (3.80-5.40) m/uL Potassium (3.5-5.1) mmol/L Chloride (98-107) mmol/L Glucose (74-99) mg/dL POC Glucose (mg/dL) 121 H (75-99) mg/dL Diabetes panel 12/10/16 Range/Units 06:28 Sodium 145 (137-145) mmol/L Potassium 3.1 L (3.5-5.1) mmol/L Chloride 108 H (98-107) mmol/L Carbon Dioxide 29 (22-30) mmol/L BUN 13 (7-17) mg/dL Creatinine 0.57 (0.52-1.04) mg/dL Glucose 122 H (74-99) mg/dL Calcium 8.5 (8.4-10.2) mg/dL Calcium panel 12/10/16 Range/Units 06:28 Calcium 8.5 (8.4-10.2) mg/dL Pituitary panel 12/10/16 Range/Units 06:28 Sodium 145 (137-145) mmol/L Potassium 3.1 L (3.5-5.1) mmol/L Chloride 108 H (98-107) mmol/L Carbon Dioxide 29 (22-30) mmol/L BUN 13 (7-17) mg/dL Creatinine 0.57 (0.52-1.04) mg/dL Glucose 122 H (74-99) mg/dL Calcium 8.5 (8.4-10.2) mg/dL Adrenal panel 12/10/16 Range/Units 06:28 Sodium 145 (137-145) mmol/L Potassium 3.1 L (3.5-5.1) mmol/L Chloride 108 H (98-107) mmol/L Carbon Dioxide 29 (22-30) mmol/L BUN 13 (7-17) mg/dL Creatinine 0.57 (0.52-1.04) mg/dL Glucose 122 H (74-99) mg/dL Calcium 8.5 (8.4-10.2) mg/dL Assessment and Plan (1) Esophageal stricture Narrative/Plan: Clinical scenario was discussed with the patient and also with her daughter by phone. Options of J-tube, PEG tube, TPN, and esophageal stent placement were all reviewed. If the patient has evidence of metastatic spread than esophageal stent would be the ideal option for her. If the metastatic workup is negative then J-tube is the best option in my opinion at this point. The patient's daughter would like her to be discharged so that the PET scan could be performed. Patient could be readmitted for J-tube placement following that. Will discuss with primary service. Status: Acute
[2016-12-10] MEDS: LIDOCAINE 5% PATCH TOPICAL SCH (17:37)
[2016-12-10] MEDS: 0.9% NACL WITH KCL 40 MEQ/L 1,000 ML IV SCH (17:38)
[2016-12-10 20:28] LABS: Glucose,Whole Blood 128 mg/dL (75-99)
[2016-12-10] MEDS: PARoxetine 20 MG TAB PO SCH (20:41)
[2016-12-11] MEDS: ONDANSETRON 4 MG/2 ML VIAL IVP PRN ×4 (02:44→22:29)
[2016-12-11] MEDS: HYDROmorphone 1 MG/ML 1 ML SYRINGE IVP PRN ×7 (02:44→22:23)
[2016-12-11] MEDS: 0.9% NACL WITH KCL 40 MEQ/L 1,000 ML IV SCH ×2 (04:30→17:27)
[2016-12-11] MEDS: NITROGLYCERIN OINT 1 INCH/GM PACKET TOPICAL SCH ×4 (05:16→23:30)
[2016-12-11] MEDS: CARVEDILOL 12.5 MG TAB PO SCH ×2 (06:59→16:25)
[2016-12-11] MEDS: LISINOPRIL 10 MG TAB PO SCH ×2 (07:00→20:00)
[2016-12-11 07:08] LABS: Glucose,Whole Blood 141 mg/dL (75-99)
[2016-12-11] MEDS: SYMBICORT 160-4.5 MCG INHALER INHALATION SCH ×2 (07:20→19:42)
[2016-12-11] MEDS: IPRATROPIUM-ALBUTEROL 3 ML NEB INHALATION SCH ×2 (07:20→19:42)
[2016-12-11] MEDS: LORazepam 2 MG/ML INJ IV SCH ×3 (07:51→23:30)
[2016-12-11] MEDS: INSULIN LISPRO (humaLOG) 300 UNIT/3 ML VIAL SQ SCH ×4 (07:58→23:29)
[2016-12-11] MEDS: HEPARIN SODIUM,PORCINE 5,000 UNIT/ML 1 ML VIAL SQ SCH ×2 (07:59→19:53)
[2016-12-11] MEDS: LIDOCAINE 5% PATCH TOPICAL SCH (07:59)
[2016-12-11] MEDS: NYSTATIN 100,000 UNIT/ML SUSP 500,000 UNIT/5 ML CUP PO SCH ×4 (07:59→19:57)
[2016-12-11] MEDS: FUROSEMIDE 10 MG/ML 2 ML VIAL IV SCH (07:59)
--- NOTE | 2016-12-11 08:54 | PN ---
DATE OF SERVICE: 12/10/2016 This 66-year-old woman was admitted with diffuse abdominal pain. Also, had significant dysphagia. The EGD showed ulcerated mass, possibly malignancy. J- tube insertion has been planned. There is no chest pain, no palpitation, no fever. On exam, alert and oriented x3, pulse 79, blood pressure 115/57, respirations 16 , temperature 98.8, pulse ox 94% on room air. HEENT: Conjunctivae normal. Oral mucosa moist. NECK: No jugular venous distention. No thyroid enlargement, no lymph node enlargement. CARDIOVASCULAR: S1/.S2. RESPIRATIONS: Diminished breath sounds at the bases. No rhonchi, no crackles. ABDOMEN: Soft, nontender. LEGS: No edema, no swelling. NERVOUS SYSTEM: No focal weakness. LABS: WBC 9, hemoglobin 11.4. Potassium 3.1. ASSESSMENT: 1. Dysphagia, possibly ulcerated mass with possibly malignancy, status post esophagogastroduodenoscopy and biopsy. 2. Diffuse abdominal pain with possible colitis, present on admission. 3. Urinary tract infection. 4. Severe hypokalemia. 5. Diabetes type 2. 6. Hypertension. RECOMMENDATIONS AND DISCUSSION: Recommend to continue current medication, continue symptomatic treatment, consult surgery for possible J-tube. Guarded prognosis. Further recommendations to follow. [facility]
--- NOTE | 2016-12-11 08:59 | PN ---
This 66-year-old woman who was admitted with abdominal pain, colitis and dysphagia, is closely monitored. The patient also had ulcerative esophageal mass. Also biopsies are pending at his time. J-tube insertion was considered by Gastroenterology at this time. PHYSICAL EXAMINATION: The patient is alert and oriented x3. Pulse is 79, blood pressure 102/57, respirations 16, temperature is 98.8, pulse ox 94% on room air. HEENT: Conjunctivae normal. NECK: No jugular venous distention. CARDIOVASCULAR: S1, S2. RESPIRATORY: Breath sounds diminished at the bases. Bilateral scattered rhonchi and crackles. ABDOMEN: Soft, nontender. LEGS: No edema, no swelling. NERVOUS SYSTEM: No focal deficits. LABS: Sodium is 140, potassium 3.1. ASSESSMENT: 1. Diffuse abdominal pain with possible colitis present on admission. 2. Dysphagia possibly ulcerative esophageal mass, possibly esophageal malignancy, status post EGD and biopsy. 3. Urinary tract infection. 4. Severe hypokalemia. 5. History of diabetes mellitus type 2. 6. Hypertension. 7. Hyperlipidemia. 8. History of appendectomy. 9. History of cholecystectomy. 10. FULL CODE. RECOMMENDATIONS AND DISCUSSION: I recommend to continue the current medications. Continue to monitor. Symptomatic treatment. Otherwise, guarded prognosis because of multiple complex medical issues. Continue to monitor. Guarded prognosis. Further recommendations to follow. [facility]
[2016-12-11] MEDS: ESOMEPRAZOLE 20 MG in SODIUM CHLORIDE 0.9% 50 ML IVPB SCH (09:30)
[2016-12-11] MEDS: hydrALAZINE HCL 20 MG/ML 1 ML VIAL IVP PRN ×3 (09:34→22:23)
[2016-12-11 11:51] LABS: Glucose,Whole Blood 167 mg/dL (75-99)
--- NOTE | 2016-12-11 12:43 | P.PN ---
Subjective Principal diagnosis: Esophageal mass Patient without new complaints. Still has complaints of dysphagia. Feels weak. Objective - Vital Signs Vital signs: Vital Signs Temp 97.6 F 12/11/16 07:00 Pulse 70 12/11/16 07:25 Resp 16 12/11/16 07:00 BP 165/79 12/11/16 11:27 Pulse Ox 100 12/11/16 07:20 Intake & Output 12/10/16 12/11/16 12/11/16 18:59 06:59 18:59 Intake Total 600 60 Balance 600 60 Weight 63 kg Intake: Intake, IV Titration 600 Amount 0.9% NaCl with KCl 40 Meq 600 /l 1,000 ml @ 75 mls/hr IV .[id number] JESS Rx#: [id number] Oral 60 Other: Voiding Method Toilet # Voids 1 - Exam Abdomen: Soft, nondistended, nontender - Labs CBC & Chem 7: 12/10/16 06:28 12/10/16 06:28 Labs: Abnormal Lab Results - Last 24 Hours (Table) 12/10/16 12/10/16 12/11/16 Range/Units 16:06 20:25 07:00 POC Glucose (mg/dL) 121 H 128 H 141 H (75-99) mg/dL 12/11/16 Range/Units 11:43 POC Glucose (mg/dL) 167 H (75-99) mg/dL Assessment and Plan (1) Esophageal stricture Narrative/Plan: Await findings of PET scan to determine whether stent or J-tube placement is ideal for her. We'll follow. Status: Acute
[2016-12-11] MEDS ORDERED: ACETAMINOPHEN IV (For NPO) 1,000 MG in EMPTY BAG 1 BAG IVPB PRN (16:22)
[2016-12-11] MEDS ORDERED: Potassium Replacement Protocol 1 EACH MISC MISCELLANE PRN (16:24)
[2016-12-11 17:05] LABS: Anion Gap 7 mmol/L; Blood Urea Nitrogen 10 mg/dL (7-17); Calcium 8.7 mg/dL (8.4-10.2); Carbon Dioxide 29 mmol/L (22-30); Chloride 107 mmol/L (98-107); Glucose 110 mg/dL (74-99); Non-African American GFR(MDRD) >60 (>60 ml/min/1.73 sqM); Phosphorus 1.8 mg/dL (2.5-4.5); Potassium 3.4 mmol/L (3.5-5.1); Sodium 143 mmol/L (137-145)
[2016-12-11] MEDS: POTASSIUM CHLORIDE 10 MEQ, LIDOCAINE 2% INJ 10 MG in SODIUM CHLORIDE 0.9% 100 ML IV SCH ×2 (18:24→19:43)
[2016-12-11] MEDS ORDERED: [UNRECOGNIZED DRUG - REMARK] IV ONE ×4 (18:30)
[2016-12-11] MEDS: FAT EMULSION 20% 250 ML in EMPTY BAG 1 BAG IV SCH (19:44)
[2016-12-11] MEDS: PARoxetine 20 MG TAB PO SCH (20:00)
[2016-12-11 23:37] LABS: Glucose,Whole Blood 168 mg/dL (75-99)
[2016-12-12] MEDS: HYDROmorphone 1 MG/ML 1 ML SYRINGE IVP PRN ×7 (02:41→21:51)
[2016-12-12 05:42] LABS: Glucose,Whole Blood 169 mg/dL (75-99)
[2016-12-12] MEDS: NITROGLYCERIN OINT 1 INCH/GM PACKET TOPICAL SCH ×4 (05:46→23:06)
[2016-12-12] MEDS: INSULIN LISPRO (humaLOG) 300 UNIT/3 ML VIAL SQ SCH ×4 (05:47→23:06)
[2016-12-12] MEDS: hydrALAZINE HCL 20 MG/ML 1 ML VIAL IVP PRN ×2 (05:57→20:27)
[2016-12-12] MEDS: CARVEDILOL 12.5 MG TAB PO SCH ×2 (07:41→17:26)
[2016-12-12 07:42] LABS: ALT 26 U/L (9-52); AST 17 U/L (14-36); Alkaline Phosphatase 80 U/L (38-126); Anion Gap 8 mmol/L; Blood Urea Nitrogen 12 mg/dL (7-17); Calcium 8.5 mg/dL (8.4-10.2); Carbon Dioxide 24 mmol/L (22-30); Chloride 109 mmol/L (98-107); Glucose 182 mg/dL (74-99); Magnesium 1.9 mg/dL (1.6-2.3); Non-African American GFR(MDRD) >60 (>60 ml/min/1.73 sqM); Phosphorus 2.5 mg/dL (2.5-4.5); Potassium 3.5 mmol/L (3.5-5.1); Sodium 141 mmol/L (137-145); Total Bilirubin 0.4 mg/dL (0.2-1.3); Total Protein 5.7 g/dL (6.3-8.2)
[2016-12-12] MEDS: LORazepam 2 MG/ML INJ IV SCH ×3 (07:44→23:06)
[2016-12-12] MEDS: HEPARIN SODIUM,PORCINE 5,000 UNIT/ML 1 ML VIAL SQ SCH ×2 (07:45→20:04)
[2016-12-12] MEDS: FUROSEMIDE 10 MG/ML 2 ML VIAL IV SCH (07:45)
[2016-12-12] MEDS: NYSTATIN 100,000 UNIT/ML SUSP 500,000 UNIT/5 ML CUP PO SCH ×4 (09:00→22:24)
[2016-12-12] MEDS: ESOMEPRAZOLE 20 MG in SODIUM CHLORIDE 0.9% 50 ML IVPB SCH (09:06)
[2016-12-12] MEDS: SYMBICORT 160-4.5 MCG INHALER INHALATION SCH ×2 (09:22→19:44)
[2016-12-12] MEDS: IPRATROPIUM-ALBUTEROL 3 ML NEB INHALATION SCH ×2 (09:22→19:44)
[2016-12-12] MEDS: POTASSIUM CHLORIDE 10 MEQ, LIDOCAINE 2% INJ 10 MG in SODIUM CHLORIDE 0.9% 100 ML IVPB SCH ×2 (10:14→11:23)
[2016-12-12] MEDS: LIDOCAINE 5% PATCH TOPICAL SCH (10:37)
--- NOTE | 2016-12-12 10:38 | P.PN ---
Subjective Principal diagnosis: Dysphagia, esophageal stricture, lung nodule, splenic artery aneurysm, hypertension, history of nicotine dependence, hyperlipidemia, distal esophageal ulcerated mass. Esophagus biopsy results:INVASIVE POORLY DIFFERENTIATED CARCINOMA, FAVOR POORLY DIFFERENTIATED ADENOCARCINOMA, ARISING IN BACKGROUND BARRETTS MUCOSA WITH HIGH GRADE DYSPLASIA Patient is currently sitting up in bed in no acute distress. States she still has continuous nausea. Unable to keep anything down. Objective - Vital Signs Vital signs: Vital Signs Temp 97.4 F L 12/12/16 07:40 Pulse 73 12/12/16 07:40 Resp 18 12/12/16 07:40 BP 166/70 12/12/16 07:40 Pulse Ox 97 12/12/16 07:40 Intake & Output 12/11/16 12/12/16 12/12/16 18:59 06:59 18:59 Intake Total 1500 Balance 1500 Weight 63 kg 56 kg Intake: Oral 60 Tube Feeding 1440 - Constitutional General appearance: Present: cooperative, no acute distress - Respiratory Details: Lungs sounds diminished bilaterally. Respirations even, nonlabored. Currently on room air with oxygen saturation 97%. - Cardiovascular Details: S1, S2 present. Regular rate and rhythm. Positive systolic murmur. No peripheral edema. - Gastrointestinal Gastrointestinal Comment(s): Abdomen soft, nontender, nondistended. Active bowel sounds 4 quadrants. Unable to tolerate diet with difficulty in swallowing, constant nausea. Currently receiving peripheral nutrition. - Genitourinary Genitourinary Comment(s): Continues to void clear, yellow urine. Occasional incontinence. - Musculoskeletal Musculoskeletal: Present: gait normal - Psychiatric Psychiatric: Present: A&O x's 3 - Allied health notes Allied health notes reviewed: nursing - Labs CBC & Chem 7: 12/10/16 06:28 12/12/16 07:01 Labs: Abnormal Lab Results - Last 24 Hours (Table) 12/11/16 12/11/16 12/11/16 Range/Units 11:43 16:31 23:27 Potassium 3.4 L (3.5-5.1) mmol/L Chloride (98-107) mmol/L Creatinine 0.51 L (0.52-1.04) mg/dL Glucose 110 H (74-99) mg/dL POC Glucose (mg/dL) 167 H 168 H (75-99) mg/dL Phosphorus 1.8 L (2.5-4.5) mg/dL Total Protein (6.3-8.2) g/dL Albumin (3.5-5.0) g/dL 12/12/16 12/12/16 Range/Units 05:37 07:01 Potassium (3.5-5.1) mmol/L Chloride 109 H (98-107) mmol/L Creatinine 0.51 L (0.52-1.04) mg/dL Glucose 182 H (74-99) mg/dL POC Glucose (mg/dL) 169 H (75-99) mg/dL Phosphorus (2.5-4.5) mg/dL Total Protein 5.7 L (6.3-8.2) g/dL Albumin 3.1 L (3.5-5.0) g/dL Assessment and Plan (1) Dysphagia Status: Acute (2) Esophageal stricture Status: Acute (3) Lung nodule Status: Acute (4) Splenic artery aneurysm Status: Acute (5) HTN (hypertension) Status: Acute (6) Hx of nicotine dependence Status: Acute (7) Hyperlipemia Status: Acute Plan: 1. Medical management per primary care services. 2. Results of esophageal biopsy reviewed. 3. PET scan scheduled for December 15. 4. Once biopsy results are discussed with the patient and PET scan is completed please refer this patient back to Dr. Sofia should surgical resection be deemed necessary in the future. Please do not hesitate to contact us with any questions. Time with Patient: Greater than 30
--- NOTE | 2016-12-12 11:03 | PN ---
DATE OF SERVICE: 12/11/16 This 66 -year-old woman was admitted with dysphagia with ulcerative mass, is being closely monitored. The patient also was started on TPN. The surgery has recommended J-tube insertion after the staging is decided in case the patient is not a surgical candidate, esophagus. Past medical history reviewed. PHYSICAL EXAMINATION: The patient is alert and oriented times three. Pulse 67. Blood pressure 184/77. Respiratory rate 17. Temperature 97 degrees. HEENT: Conjunctivae normal. NECK: No JVD. CARDIOVASCULAR: S1, S2 muffled. RESPIRATORY: Breath sounds diminished at the bases. Bilateral scattered rhonchi and crackles. Abdomen is soft, nontender. LEGS: No edema. No swelling. NERVOUS SYSTEM: No focal deficits. LABS: Sodium 142, potassium 3.3. Magnesium 1.8. ASSESSMENT: 1. Dysphagia, possibly ulcerated mass and esophageal malignancy status post EGD and biopsy. 2. Diffuse abdominal pain, possible colitis, present on admission. 3. Dehydration. 4. Severe hypokalemia. 5. Urinary tract infection. 6. Diabetes mellitus. 7. Hypertension. RECOMMENDATIONS AND DISCUSSION: Continue the current medications. Continue symptomatic treatment. Continue with monitoring. Otherwise, at this time, I recommend to continue the TPN. If the patient is improving, we will schedule PET scan and depending upon the PET scan report, decide about the J-tube. Further recommendations to follow. [facility]
--- NOTE | 2016-12-12 11:43 | P.PN ---
Subjective Principal diagnosis: Esophageal mass Patient has been trying small sips of clear liquids. Still with dysphagia. sHe was started on PPN. Objective - Vital Signs Vital signs: Vital Signs Temp 97.4 F L 12/12/16 07:40 Pulse 86 12/12/16 08:00 Resp 18 12/12/16 08:00 BP 166/70 12/12/16 07:40 Pulse Ox 97 12/12/16 07:40 Intake & Output 12/11/16 12/12/16 12/12/16 18:59 06:59 18:59 Intake Total 1500 Balance 1500 Weight 63 kg 56 kg 56 kg Intake: Oral 60 Tube Feeding 1440 Other: Voiding Method Toilet # Voids 1 - Exam Abdomen: Soft, nontender, nondistended - Labs CBC & Chem 7: 12/10/16 06:28 12/12/16 07:01 Labs: Abnormal Lab Results - Last 24 Hours (Table) 12/11/16 12/11/16 12/11/16 Range/Units 11:43 16:31 23:27 Potassium 3.4 L (3.5-5.1) mmol/L Chloride (98-107) mmol/L Creatinine 0.51 L (0.52-1.04) mg/dL Glucose 110 H (74-99) mg/dL POC Glucose (mg/dL) 167 H 168 H (75-99) mg/dL Phosphorus 1.8 L (2.5-4.5) mg/dL Total Protein (6.3-8.2) g/dL Albumin (3.5-5.0) g/dL 12/12/16 12/12/16 Range/Units 05:37 07:01 Potassium (3.5-5.1) mmol/L Chloride 109 H (98-107) mmol/L Creatinine 0.51 L (0.52-1.04) mg/dL Glucose 182 H (74-99) mg/dL POC Glucose (mg/dL) 169 H (75-99) mg/dL Phosphorus (2.5-4.5) mg/dL Total Protein 5.7 L (6.3-8.2) g/dL Albumin 3.1 L (3.5-5.0) g/dL Assessment and Plan (1) Esophageal stricture Narrative/Plan: Case was discussed with Dr. covington and Dr. Garza. Patient is not a good candidate for stent placement regardless of the PET scan findings. We'll discuss J-tube placement again with the patient's family. Status: Acute
[2016-12-12 11:54] LABS: Glucose,Whole Blood 165 mg/dL (75-99)
[2016-12-12] MEDS: LISINOPRIL 10 MG TAB PO SCH ×3 (13:38→22:15)
[2016-12-12] MEDS: ONDANSETRON 4 MG/2 ML VIAL IVP PRN ×2 (13:47→19:55)
[2016-12-12] MEDS: 1: AMINO ACID 4.25%-D10W+LYTES*E* 1,000 ML 2: MVI, ADULT NO.4 WITH VIT K 10 ML, TRACE ( IV SCH ×3 (14:07)
[2016-12-12] MEDS: SCOPOLAMINE 1.5MG/72HR PATCH TRANSDERM SCH (17:19)
[2016-12-12 18:06] LABS: Glucose,Whole Blood 172 mg/dL (75-99)
[2016-12-12] MEDS: PARoxetine 20 MG TAB PO SCH ×2 (20:04→22:15)
[2016-12-12] MEDS: FAT EMULSION 20% 250 ML in EMPTY BAG 1 BAG IV SCH (20:07)
[2016-12-12] MEDS: 0.9% NACL WITH KCL 40 MEQ/L 1,000 ML IV SCH ×2 (22:15→22:17)
[2016-12-12 23:00] LABS: Glucose,Whole Blood 153 mg/dL (75-99)
--- NOTE | 2016-12-12 23:50 | P.PN ---
Subjective The pt is c/o persistent, severe dysphagia with significant inability to swallow even liquids Objective - Vital Signs Vital signs: Vital Signs Temp 98.6 F 12/12/16 19:58 Pulse 76 12/12/16 21:23 Resp 16 12/12/16 19:58 BP 161/83 12/12/16 21:23 Pulse Ox 95 12/12/16 19:58 Intake & Output 12/12/16 12/12/16 12/13/16 06:59 18:59 06:59 Weight 56 kg 56 kg Other: Voiding Method Toilet # Voids 1 - Constitutional General appearance: Present: mild distress - EENT Eyes: Present: EOMI, PERRLA ENT: Present: hearing grossly normal, normal oropharynx - Respiratory Respiratory: bilateral: CTA - Cardiovascular Rhythm: regular Heart sounds: normal: S1, S2 - Gastrointestinal General gastrointestinal: Present: normal bowel sounds, soft - Neurologic Neurologic: Present: CNII-XII intact - Musculoskeletal Musculoskeletal: Present: generalized weakness, strength equal bilaterally - Psychiatric Psychiatric: Present: A&O x's 3, appropriate affect - Labs CBC & Chem 7: 12/10/16 06:28 12/12/16 07:01 Labs: Abnormal Lab Results - Last 24 Hours (Table) 12/12/16 12/12/16 12/12/16 Range/Units 05:37 07:01 11:36 Chloride 109 H (98-107) mmol/L Creatinine 0.51 L (0.52-1.04) mg/dL Glucose 182 H (74-99) mg/dL POC Glucose (mg/dL) 169 H 165 H (75-99) mg/dL Total Protein 5.7 L (6.3-8.2) g/dL Albumin 3.1 L (3.5-5.0) g/dL 12/12/16 12/12/16 Range/Units 18:01 22:57 Chloride (98-107) mmol/L Creatinine (0.52-1.04) mg/dL Glucose (74-99) mg/dL POC Glucose (mg/dL) 172 H 153 H (75-99) mg/dL Total Protein (6.3-8.2) g/dL Albumin (3.5-5.0) g/dL Assessment and Plan (1) Esophageal adenocarcinoma Narrative/Plan: The biopsy confirms poorly differentiated carcinoma, most c/w adenocarcinoma. The results and implications were discussed in detail with the pt. CT CAP does not show any obvious metastases. Thus the plan is to complete staging with PET scan and EUS as an outpt. If metastatic disease is additionally ruled out with PET, curative treatment with chemoRT and surgery would be recommended Status: Acute (2) Dysphagia Narrative/Plan: Due to malignancy. This is quite significant. Case was d/w Dr Bowers. The pt is not a candidate for a stent. PEG placement would also be technically difficult, and is relatively contraindicated in patients who may be candidates for gastro esophagectomy down the line. I will therefore d/w Dr Romo re J tube placement Status: Acute
[2016-12-13] MEDS: HYDROmorphone 1 MG/ML 1 ML SYRINGE IVP PRN ×7 (00:26→23:51)
[2016-12-13] MEDS: hydrALAZINE HCL 20 MG/ML 1 ML VIAL IVP PRN ×2 (00:32→19:47)
[2016-12-13] MEDS: ONDANSETRON 4 MG/2 ML VIAL IVP PRN ×4 (03:02→21:42)
[2016-12-13 06:02] LABS: Glucose,Whole Blood 192 mg/dL (75-99)
[2016-12-13] MEDS: 1: AMINO ACID 4.25%-D10W+LYTES*E* 1,000 ML 2: MVI, ADULT NO.4 WITH VIT K 10 ML, TRACE ( IV SCH ×9 (06:05→22:08)
[2016-12-13] MEDS: IPRATROPIUM-ALBUTEROL 3 ML NEB INHALATION SCH ×2 (07:19→20:18)
[2016-12-13] MEDS: SYMBICORT 160-4.5 MCG INHALER INHALATION SCH ×2 (07:19→20:18)
[2016-12-13 07:53] LABS: Basophils # (A) 0.1 k/uL (0-0.2); Basophils % (A) 1 %; CH 30.3; CHCM 33.4; Eosinophils # (A) 0.3 k/uL (0-0.7); Eosinophils % (A) 3 %; HCT 33.8 % (34.0-46.0); HDW 2.97; HGB 11.4 gm/dL (11.4-16.0); Luc # (Auto) 0.11; Luc % (Auto) 1; Lymphocytes % (A) 22 %; MCH 30.7 pg (25.0-35.0); MCHC 33.6 g/dL (31.0-37.0); MCV 91.3 fL (80.0-100.0); Mean Platelet Volume 7.4; Monocytes # (A) 0.4 k/uL (0-1.0); Monocytes % (A) 4 %; Neutrophils # (A) 6.5 k/uL (1.3-7.7); Neutrophils % (A) 69 %; RDW 14.7 % (11.5-15.5); WBC 9.3 k/uL (3.8-10.6); WBC (Perox) 10.22
[2016-12-13] MEDS: LORazepam 2 MG/ML INJ IV SCH ×2 (07:55→15:28)
[2016-12-13] MEDS: NYSTATIN 100,000 UNIT/ML SUSP 500,000 UNIT/5 ML CUP PO SCH ×3 (07:56→20:27)
[2016-12-13] MEDS: LIDOCAINE 5% PATCH TOPICAL SCH (07:56)
[2016-12-13] MEDS: NITROGLYCERIN OINT 1 INCH/GM PACKET TOPICAL SCH ×3 (08:00→20:31)
[2016-12-13] MEDS: FUROSEMIDE 10 MG/ML 2 ML VIAL IV SCH (08:00)
--- NOTE | 2016-12-13 08:01 | PN ---
DATE OF SERVICE: 12/12/2016 This is a 66-year-old woman who was admitted with dysphagia, also had ulcerative mass. 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 Dr. Pack is planning a J-tube insertion. On exam, alert and oriented x3. Pulse is 63, blood pressure 151/59, respirations 16, temperature is 98.4, pulse ox 94% on room air. HEENT: Conjunctivae normal. NECK: No jugular venous distension. RESPIRATORY: Breath sounds diminished at the bases, a few scattered rhonchi, no crackles. ABDOMEN: Soft, nontender. LEGS: No edema, no swelling. NERVOUS SYSTEM: No focal deficits. LABS: Potassium 3.5. ASSESSMENT: 1. Dysphagia, ulcerative mass in the esophagus, possibly poorly differentiated carcinoma with mixed features with squamous cell and adenocarcinoma. 2. Diffuse abdominal pain and possible colitis present on admission. 3. Dehydration. 5. Severe hypokalemia. 6. Urinary tract infection. 7. Diabetes mellitus type 2. 8. Hypertension. RECOMMENDATION: Recommend to continue with the monitoring and symptomatic treatment. Otherwise, at this time monitor closely, J-tube insertion by Dr. Pack. Guarded prognosis, further recommendations to follow. [facility]
[2016-12-13 08:04] LABS: ALT 27 U/L (9-52); AST 15 U/L (14-36); Alkaline Phosphatase 80 U/L (38-126); Anion Gap 8 mmol/L; Blood Urea Nitrogen 14 mg/dL (7-17); Calcium 8.5 mg/dL (8.4-10.2); Carbon Dioxide 24 mmol/L (22-30); Chloride 108 mmol/L (98-107); Glucose 202 mg/dL (74-99); Non-African American GFR(MDRD) >60 (>60 ml/min/1.73 sqM); Phosphorus 2.9 mg/dL (2.5-4.5); Potassium 3.8 mmol/L (3.5-5.1); Sodium 140 mmol/L (137-145); Total Bilirubin 0.3 mg/dL (0.2-1.3); Total Protein 5.8 g/dL (6.3-8.2)
[2016-12-13] MEDS: INSULIN LISPRO (humaLOG) 300 UNIT/3 ML VIAL SQ SCH ×3 (08:05→20:32)
[2016-12-13] MEDS: HEPARIN SODIUM,PORCINE 5,000 UNIT/ML 1 ML VIAL SQ SCH ×2 (08:06→20:31)
[2016-12-13] MEDS: CARVEDILOL 12.5 MG TAB PO SCH ×2 (08:13→20:27)
[2016-12-13] MEDS: LISINOPRIL 10 MG TAB PO SCH (08:13)
[2016-12-13] MEDS: ESOMEPRAZOLE 20 MG in SODIUM CHLORIDE 0.9% 50 ML IVPB SCH (08:58)
[2016-12-13] MEDS ORDERED: ONDANSETRON 4 MG/2 ML VIAL IVP STA (10:48)
[2016-12-13] MEDS ORDERED: HYDROmorphone 1 MG/ML 1 ML SYRINGE IVP STA (10:53)
[2016-12-13 11:56] LABS: Glucose,Whole Blood 180 mg/dL (75-99)
[2016-12-13] MEDS: 0.9% NACL WITH KCL 40 MEQ/L 1,000 ML IV SCH (13:13)
--- NOTE | 2016-12-13 14:19 | CDI ---
In responding to this query, please exercise your independent professional judgment. The [facility] Coding Staff and Clinical Documentation Specialists appreciate your assistance in clarifying documentation, maintaining compliance with coding guidelines, accurately documenting patients condition and capturing severity of illness. The fact that a question is asked does not imply that any particular answer is desired or expected. Communication forms are a method of clarifying documentation and are not made part of the Legal Health Record. Thank you in advance for your clarification. Last Revision, March 2015 Shala Martines [address] [place] [address] Documentation Clarification Form Date: 12/10/2016 9:38:00 AM From: Alyson Judge RN, CDS Admit Date: 12/07/2016 3:02:00 PM Patient Name: Laila Youssef Visit Number: [id number] Dr. 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 per Hem/Onc consult History/Risk Factors: Esophageal stricture, DM2, HTN, Clinical Indicators: DIETITIAN: "vomiting w/ eating associated w/ difficulty swallowing 15% involuntary weight loss in past 3 months, 85% of usual body weight, BMI 23.8, difficulty swallowing", "malnutrition" written in Hem/Onc progress note, Total Protein: 5.7, Albumin 3.6-3.1 Treatment: Dietitian consult, GI consult, EGD with biopsies, clear liquids, recommended nutrition supplement recommended per Dietitian, In your professional opinion, can you please clarify if these findings signify one of the following conditions? Mild Protein-Calorie Malnutrition Moderate Protein-Calorie Malnutrition Severe Protein-Calorie Malnutrition Other condition, please specify Unable to determine Please document in your progress notes and discharge summary in order to capture severity of illness and risk of mortality. Include clinical findings that support your diagnosis. FYI: Press F11 to launch patient chart. Thank you. No malnutrition MTDD
[2016-12-13] MEDS ORDERED: IV FLUID CONTINUATION 1,000 ML IV ONE ×2 (15:58→17:59)
[2016-12-13] MEDS ORDERED: LACTATED RINGERS 1,000 ML IV ONE (16:25)
[2016-12-13 16:40] LABS: Glucose,Whole Blood 153 mg/dL (75-99)
[2016-12-13] MEDS ORDERED: MIDAZOLAM 2 MG/2 ML VIAL ONE (16:50)
[2016-12-13] MEDS ORDERED: fentaNYL (PF) 50 MCG/ML 2 ML AMP ONE (16:50)
[2016-12-13] MEDS ORDERED: ePHEDrine SULFATE/0.9% NACL/PF 50 MG/5 ML SYRINGE IV ONE (16:50)
[2016-12-13] MEDS ORDERED: PHENYLEPHRINE-0.9% NACL SYG 1 MG/10 ML SYRINGE ONE (16:50)
[2016-12-13] MEDS ORDERED: LIDOCAINE 1% INJ 10MG/ML (20 ML MDV) ONE (16:50)
[2016-12-13] MEDS ORDERED: SUCCINYLCHOLINE CHLORIDE 100 MG/5 ML SYR IV ONE (16:50)
[2016-12-13] MEDS ORDERED: PROPOFOL 10 MG/ML 20 ML VIAL IV ONE (16:50)
[2016-12-13] MEDS ORDERED: HYDROmorphone 1 MG/ML 1 ML SYRINGE IVP ONE ×4 (18:10→18:49)
[2016-12-13 18:18] LABS: Glucose,Whole Blood 170 mg/dL (75-99)
--- NOTE | 2016-12-13 18:19 | P.PCN ---
Date of Procedure: 12/13/16 Preoperative Diagnosis: Postoperative Diagnosis: Procedure(s) Performed: PREOPERATIVE DIAGNOSIS: Malnutrition POSTOPERATIVE DIAGNOSIS: Malnutrition, omental nodule PROCEDURE: Open jejunostomy feeding tube placement with excision of omental nodule SURGEON: Ramone EBL: Minimal ANESTHESIA: General COMPLICATIONS: None OPERATIVE PROCEDURE: Patient was placed on the table in the supine position. The abdomen was prepped and draped in usual show fashion. A vertical supraumbilical incision was made using the scalpel. Dissection through the subcutaneous fat and fascia took place using electrocautery. Entrance into the perineal cavity occurred. Limited evaluation took place. I did identify a 1.5 cm omental nodule that was suspicious for metastatic disease. This was excised and sent to pathology. No additional abnormalities were present. The proximal jejunum was identified. The ligament of Treitz was seen. The proximal jejunum was chosen for tube placement. 2 separate 3-0 silk pursestring sutures were placed on the antimesenteric border in a Raisa fashion. A small enterotomy was created. The 16-[place]izen [place] balloon KELLY jejunostomy tube was advanced into the lumen of the bowel directed distally. The tubing was cut somewhat in length. The balloon was inflated with 4 mL. Both pursestrings were tied down. Following that circumferential 3-0 silk sutures were used to adhere the jejunum to the peritoneum. The midline fascia was then reapproximated using a running double-stranded #1 PDS suture. The subcutaneous tissues were closed using 3-0 Vicryl sutures. The skin was closed using a running 4-0 Monocryl stitch. Steri -Strips and sterile dressings were applied. DISPOSITION: Stable to recovery room Implants: Indications for Procedure: Operative Findings: Description of Procedure:
[2016-12-13] MEDS ORDERED: ESOMEPRAZOLE 20 MG in SODIUM CHLORIDE 0.9% 50 ML IVPB SCH (18:30)
[2016-12-13] MEDS ORDERED: ONDANSETRON 4 MG/2 ML VIAL IVP ONE (18:43)
[2016-12-13] MEDS: FAT EMULSION 20% 250 ML in EMPTY BAG 1 BAG IV SCH (20:12)
[2016-12-13] MEDS ORDERED: cloNIDine 0.2 MG/24HR PATCH 1 PATCH PATCH TRANSDERM SCH (22:30)
[2016-12-14] MEDS: LORazepam 2 MG/ML INJ IV SCH ×3 (00:46→16:39)
[2016-12-14] MEDS: INSULIN LISPRO (humaLOG) 300 UNIT/3 ML VIAL SQ SCH ×6 (00:47→17:58)
[2016-12-14 00:48] LABS: Glucose,Whole Blood 199 mg/dL (75-99)
[2016-12-14] MEDS: 0.9% NACL WITH KCL 40 MEQ/L 1,000 ML IV SCH ×3 (01:59→17:23)
[2016-12-14] MEDS: HYDROmorphone 1 MG/ML 1 ML SYRINGE IVP PRN ×4 (02:42→12:09)
[2016-12-14] MEDS: ONDANSETRON 4 MG/2 ML VIAL IVP PRN ×3 (04:10→16:39)
[2016-12-14 07:08] LABS: Glucose,Whole Blood 202 mg/dL (75-99)
[2016-12-14 08:14] LABS: Basophils # (A) 0.1 k/uL (0-0.2); Basophils % (A) 1 %; CH 30.7; CHCM 33.2; Eosinophils # (A) 0.2 k/uL (0-0.7); Eosinophils % (A) 2 %; HDW 2.88; HGB 12.3 gm/dL (11.4-16.0); Luc # (Auto) 0.11; Luc % (Auto) 1; Lymphocytes # (A) 1.7 k/uL (1.0-4.8); Lymphocytes % (A) 13 %; MCH 30.1 pg (25.0-35.0); MCHC 32.3 g/dL (31.0-37.0); MCV 93.1 fL (80.0-100.0); Mean Platelet Volume 7.8; Monocytes # (A) 0.4 k/uL (0-1.0); Monocytes % (A) 3 %; Neutrophils # (A) 10.6 k/uL (1.3-7.7); Neutrophils % (A) 81 %; RBC 4.08 m/uL (3.80-5.40); RDW 15.5 % (11.5-15.5); WBC 13.1 k/uL (3.8-10.6); WBC (Perox) 13.92
[2016-12-14 08:22] LABS: ALT 26 U/L (9-52); AST 20 U/L (14-36); Alkaline Phosphatase 82 U/L (38-126); Anion Gap 9 mmol/L; Blood Urea Nitrogen 15 mg/dL (7-17); Calcium 8.5 mg/dL (8.4-10.2); Carbon Dioxide 22 mmol/L (22-30); Chloride 107 mmol/L (98-107); Glucose 237 mg/dL (74-99); Non-African American GFR(MDRD) >60 (>60 ml/min/1.73 sqM); Phosphorus 2.7 mg/dL (2.5-4.5); Potassium 3.9 mmol/L (3.5-5.1); Sodium 138 mmol/L (137-145); Total Bilirubin 0.6 mg/dL (0.2-1.3)
[2016-12-14 08:23] LABS: Ionized Calcium 4.8 mg/dL (4.5-5.3)
[2016-12-14] MEDS: PARoxetine 20 MG TAB PO SCH (09:10)
[2016-12-14] MEDS: NITROGLYCERIN OINT 1 INCH/GM PACKET TOPICAL SCH (09:10)
[2016-12-14] MEDS: LISINOPRIL 10 MG TAB PO SCH (09:10)
[2016-12-14] MEDS: SYMBICORT 160-4.5 MCG INHALER INHALATION SCH ×2 (09:13→19:32)
[2016-12-14] MEDS: IPRATROPIUM-ALBUTEROL 3 ML NEB INHALATION SCH ×2 (09:13→19:35)
--- NOTE | 2016-12-14 09:20 | PN ---
DATE OF SERVICE: 12/13/16 This 66 -year-old woman who was admitted with dysphagia and ulcerated mass in the esophagus was slated to have NG tube placed by Dr. Pack. No chest pain. No palpitations. No fever. On exam, alert and oriented times three. Pulse 70, Blood pressure 140/77. Respiratory rate 16. Temperature 98.2 degrees. Pulse ox 99% on room air. HEENT: Conjunctivae normal. NECK: No JVD. CARDIOVASCULAR: S1, S2 muffled. RESPIRATORY: Breath sounds diminished at the bases. No rhonchi and no crackles. Abdomen is soft. Nontender. LEGS: No edema. No swelling. Nervous system: No focal deficits. LABS: At this time shows WBC 9.8, hemoglobin 11.4, glucose 202. ASSESSMENT: 1. Dysphagia ulcerated mass in esophagus possibly poorly differentiated carcinoma with mixed features of squamous cell and adenocarcinoma. 2. History of diffuse abdominal pain and possibly colitis present on admission. 3. Dehydration. 4. History of severe hypokalemia. 5. Urinary tract infection. 6. Diabetes mellitus type 2. 7. Hypertension. RECOMMENDATIONS AND DISCUSSION: Continue the current medications. Continue with monitoring and symptomatic treatment. Otherwise, at this time, I recommend to follow the patient closely. Continue to monitor closely. Dr. Pack evaluating the patient for possible J-tube insertion. Dietary consultation. PET scan. Guarded prognosis. Further recommendations to follow. MTDD
[2016-12-14] MEDS: FUROSEMIDE 10 MG/ML 2 ML VIAL IV SCH (09:54)
[2016-12-14] MEDS: HEPARIN SODIUM,PORCINE 5,000 UNIT/ML 1 ML VIAL SQ SCH ×2 (09:55→20:54)
[2016-12-14] MEDS: LIDOCAINE 5% PATCH TOPICAL SCH (09:58)
[2016-12-14] MEDS: ESOMEPRAZOLE 40 MG in SODIUM CHLORIDE 0.9% 50 ML IVPB SCH (09:59)
[2016-12-14 11:45] LABS: Glucose,Whole Blood 218 mg/dL (75-99)
[2016-12-14] MEDS ORDERED: NALOXONE 0.4 MG/ML 1 ML VIAL IV PRN (14:45)
[2016-12-14] MEDS: hydrALAZINE HCL 20 MG/ML 1 ML VIAL IVP PRN (15:08)
[2016-12-14 15:32] LABS: Appearance,Urine Clear (Clear); Bilirubin,Urine Negative (Negative); Glucose,Urine (UA) 2+ (Negative); Ketones,Urine Negative (Negative); Leukocyte Esterase,Urine Negative (Negative); Nitrite,Urine Negative (Negative); Protein,Urine Trace (Negative); Specific Gravity,Urine 1.008 (1.001-1.035); UA Billing (MACRO vs. MICRO) CHEM; Urobilinogen,Urine <2.0 mg/dL (<2.0)
[2016-12-14] MEDS: HYDROmorphone PCA 5 MG/25 ML SYRINGE IV PRN (15:52)
--- NOTE | 2016-12-14 17:14 | P.PN ---
Subjective Principal diagnosis: esophageal adenocarcinoma Pt being seen today in follow-up, she is still having severe abdominal pain, she is not able to tolerate any oral intake. Her J-tube is been placed, awaiting clearance for surgery to begin utilizing for feeding. Patient feels weak, no fevers to report. Objective - Vital Signs Vital signs: Vital Signs Temp 98.8 F 12/14/16 14:53 Pulse 56 L 12/14/16 14:53 Resp 16 12/14/16 14:53 BP 224/153 12/14/16 14:53 Pulse Ox 93 L 12/14/16 14:53 Intake & Output 12/13/16 12/14/16 12/14/16 18:59 06:59 18:59 Intake Total 500 1000 1368 Output Total 5 Balance 495 1000 1368 Weight 56 kg 56 kg 56 kg Intake: IV 500 Intake, IV Titration 1000 168 Amount Amino Acid 4.25%-D10w+ 1000 Lytes*E* 1,000 ml @ 65 mls/hr IV .BY DURATION [facility] Rx#:[id number] Fat Emulsion 20% 250 ml 168 In Empty Bag 1 bag @ 21 mls/hr IV DAILY@2000 [facility] Rx#:[id number] Tube Feeding 1200 Output: Estimated Blood Loss 5 Other: Voiding Method Toilet Incontinent # Voids 1 - Exam Well-developed, female sitting up in the chair, patient states "I feel like I'm dying". Respiratory rate is even and unlabored. No signs of acute distress noted - Constitutional General appearance: Present: cooperative, mild distress - Labs CBC & Chem 7: 12/14/16 07:43 12/14/16 07:43 Labs: Abnormal Lab Results - Last 24 Hours (Table) 12/13/16 12/14/16 12/14/16 Range/Units 18:16 00:39 07:04 WBC (3.8-10.6) k/uL Neutrophils # (1.3-7.7) k/uL Creatinine (0.52-1.04) mg/dL Glucose (74-99) mg/dL POC Glucose (mg/dL) 170 H 199 H 202 H (75-99) mg/dL Total Protein (6.3-8.2) g/dL Albumin (3.5-5.0) g/dL Urine Protein (Negative) Urine Glucose (UA) (Negative) 12/14/16 12/14/16 12/14/16 Range/Units 07:43 07:43 11:42 WBC 13.1 H (3.8-10.6) k/uL Neutrophils # 10.6 H (1.3-7.7) k/uL Creatinine 0.47 L (0.52-1.04) mg/dL Glucose 237 H (74-99) mg/dL POC Glucose (mg/dL) 218 H (75-99) mg/dL Total Protein 6.0 L (6.3-8.2) g/dL Albumin 3.2 L (3.5-5.0) g/dL Urine Protein (Negative) Urine Glucose (UA) (Negative) 12/14/16 Range/Units 15:00 WBC (3.8-10.6) k/uL Neutrophils # (1.3-7.7) k/uL Creatinine (0.52-1.04) mg/dL Glucose (74-99) mg/dL POC Glucose (mg/dL) (75-99) mg/dL Total Protein (6.3-8.2) g/dL Albumin (3.5-5.0) g/dL Urine Protein Trace H (Negative) Urine Glucose (UA) 2+ H (Negative) Assessment and Plan (1) Dysphagia Narrative/Plan: She is status post J-tube placement. She will likely begin feedings in the next day or so. Status: Acute (2) Esophageal adenocarcinoma Narrative/Plan: Plans are for PET scan in the outpatient setting. This will be scheduled for next Saturday, will get appt time to chart when available. Patient will follow- up with Dr. Sanchez, appointment date and time are already to the chart. Status: Acute
[2016-12-14 17:34] LABS: Glucose,Whole Blood 151 mg/dL (75-99)
--- NOTE | 2016-12-14 17:37 | P.PN ---
Subjective Principal diagnosis: Esophageal mass Patient complaining of some abdominal discomfort today. Points at the incision site. Still with dysphagia. White blood cell count 13 today. Afebrile with stable vitals. Objective - Vital Signs Vital signs: Vital Signs Temp 98.8 F 12/14/16 14:53 Pulse 92 12/14/16 15:35 Resp 12 12/14/16 15:35 BP 147/73 12/14/16 15:35 Pulse Ox 96 12/14/16 15:35 Intake & Output 12/13/16 12/14/16 12/14/16 18:59 06:59 18:59 Intake Total 500 1000 1368 Output Total 5 Balance 495 1000 1368 Weight 56 kg 56 kg 56 kg Intake: IV 500 Intake, IV Titration 1000 168 Amount Amino Acid 4.25%-D10w+ 1000 Lytes*E* 1,000 ml @ 65 mls/hr IV .BY DURATION JESS Rx#:[id number] Fat Emulsion 20% 250 ml 168 In Empty Bag 1 bag @ 21 mls/hr IV DAILY@2000 [facility] Rx#:[id number] Tube Feeding 1200 Output: Estimated Blood Loss 5 Other: Voiding Method Toilet Incontinent # Voids 1 - Exam Abdomen: Soft, nondistended, mild tenderness, dressing intact - Labs CBC & Chem 7: 12/14/16 07:43 12/14/16 07:43 Labs: Abnormal Lab Results - Last 24 Hours (Table) 12/13/16 12/14/16 12/14/16 Range/Units 18:16 00:39 07:04 WBC (3.8-10.6) k/uL Neutrophils # (1.3-7.7) k/uL Creatinine (0.52-1.04) mg/dL Glucose (74-99) mg/dL POC Glucose (mg/dL) 170 H 199 H 202 H (75-99) mg/dL Total Protein (6.3-8.2) g/dL Albumin (3.5-5.0) g/dL Urine Protein (Negative) Urine Glucose (UA) (Negative) 12/14/16 12/14/16 12/14/16 Range/Units 07:43 07:43 11:42 WBC 13.1 H (3.8-10.6) k/uL Neutrophils # 10.6 H (1.3-7.7) k/uL Creatinine 0.47 L (0.52-1.04) mg/dL Glucose 237 H (74-99) mg/dL POC Glucose (mg/dL) 218 H (75-99) mg/dL Total Protein 6.0 L (6.3-8.2) g/dL Albumin 3.2 L (3.5-5.0) g/dL Urine Protein (Negative) Urine Glucose (UA) (Negative) 12/14/16 12/14/16 Range/Units 15:00 17:31 WBC (3.8-10.6) k/uL Neutrophils # (1.3-7.7) k/uL Creatinine (0.52-1.04) mg/dL Glucose (74-99) mg/dL POC Glucose (mg/dL) 151 H (75-99) mg/dL Total Protein (6.3-8.2) g/dL Albumin (3.5-5.0) g/dL Urine Protein Trace H (Negative) Urine Glucose (UA) 2+ H (Negative) Assessment and Plan (1) Esophageal stricture Narrative/Plan: Begin tube feeds at 10 mL per hour. TOURIST ADVISER for pain control. Status: Acute
[2016-12-14] MEDS: NYSTATIN 100,000 UNIT/ML SUSP 500,000 UNIT/5 ML CUP PO SCH (17:57)
[2016-12-14] MEDS: 1: AMINO ACID 4.25%-D10W+LYTES*E* 1,000 ML 2: MVI, ADULT NO.4 WITH VIT K 10 ML, TRACE ( IV SCH ×3 (18:20)
[2016-12-14] MEDS: FAT EMULSION 20% 250 ML in EMPTY BAG 1 BAG IV SCH (20:49)
[2016-12-15 00:17] LABS: Glucose,Whole Blood 192 mg/dL (75-99)
[2016-12-15] MEDS: INSULIN LISPRO (humaLOG) 300 UNIT/3 ML VIAL SQ SCH ×5 (00:41→23:14)
[2016-12-15] MEDS: LORazepam 2 MG/ML INJ IV SCH ×4 (00:46→23:13)
[2016-12-15] MEDS: HYDROmorphone PCA 5 MG/25 ML SYRINGE IV PRN ×2 (02:01→20:15)
[2016-12-15 02:28] LABS: Glucose,Whole Blood 178 mg/dL (75-99)
[2016-12-15] MEDS: 0.9% NACL WITH KCL 40 MEQ/L 1,000 ML IV SCH ×2 (06:02→23:01)
[2016-12-15 06:44] LABS: Glucose,Whole Blood 214 mg/dL (75-99)
[2016-12-15] MEDS: hydrALAZINE HCL 20 MG/ML 1 ML VIAL IVP PRN (07:03)
[2016-12-15 07:46] LABS: Basophils # (A) 0.1 k/uL (0-0.2); Basophils % (A) 1 %; CH 30.5; CHCM 33.4; Eosinophils # (A) 0.1 k/uL (0-0.7); Eosinophils % (A) 1 %; HCT 38.4 % (34.0-46.0); HDW 2.86; HGB 12.7 gm/dL (11.4-16.0); Luc # (Auto) 0.06; Luc % (Auto) 1; Lymphocytes % (A) 9 %; MCH 30.4 pg (25.0-35.0); MCHC 33.2 g/dL (31.0-37.0); MCV 91.7 fL (80.0-100.0); Mean Platelet Volume 7.8; Monocytes # (A) 0.4 k/uL (0-1.0); Monocytes % (A) 3 %; Neutrophils # (A) 10.1 k/uL (1.3-7.7); Neutrophils % (A) 86 %; RBC 4.19 m/uL (3.80-5.40); RDW 14.6 % (11.5-15.5); WBC 11.6 k/uL (3.8-10.6); WBC (Perox) 11.97
[2016-12-15 07:53] LABS: Ionized Calcium 4.5 mg/dL (4.5-5.3)
[2016-12-15 08:07] LABS: ALT 25 U/L (9-52); AST 19 U/L (14-36); Alkaline Phosphatase 83 U/L (38-126); Anion Gap 8 mmol/L; Blood Urea Nitrogen 16 mg/dL (7-17); Calcium 8.5 mg/dL (8.4-10.2); Carbon Dioxide 23 mmol/L (22-30); Chloride 108 mmol/L (98-107); Glucose 272 mg/dL (74-99); Non-African American GFR(MDRD) >60 (>60 ml/min/1.73 sqM); Phosphorus 2.9 mg/dL (2.5-4.5); Potassium 3.9 mmol/L (3.5-5.1); Sodium 139 mmol/L (137-145); Total Bilirubin 0.8 mg/dL (0.2-1.3)
--- NOTE | 2016-12-15 08:21 | XR ---
EXAMINATION TYPE: XR chest 1V portable DATE OF EXAM: 12/15/2016 HISTORY: A TEAM . REFERENCE: Previous study dated 12/05/2016. FINDINGS: There has developed extensive right lower lobe infiltrate. Heart size enlarged. Pleural spa nikolas are clear. IMPRESSION: 1. RIGHT LOWER LOBE INFILTRATE. 2. MILD CARDIOMEGALY.
[2016-12-15] MEDS: SYMBICORT 160-4.5 MCG INHALER INHALATION SCH ×2 (08:41→19:19)
[2016-12-15] MEDS: IPRATROPIUM-ALBUTEROL 3 ML NEB INHALATION SCH ×2 (08:41→19:19)
[2016-12-15] MEDS: CARVEDILOL 12.5 MG TAB PO SCH ×2 (08:42→20:45)
--- NOTE | 2016-12-15 09:53 | P.PN ---
Subjective Principal diagnosis: Esophageal mass Patient was anxious this morning. She was apparently also having some episodes of hypoxia. She was tachycardic. The a team was called. She says her abdominal pain is improved since yesterday. Tube feeds were not started. They were partially held because of the planned PET scan today. Objective - Vital Signs Vital signs: Vital Signs Temp 97.9 F 12/15/16 03:16 Pulse 116 H 12/15/16 06:35 Resp 16 12/15/16 03:16 BP 197/77 12/15/16 06:35 Pulse Ox 94 L 12/15/16 08:44 Intake & Output 12/14/16 12/15/16 12/15/16 18:59 06:59 18:59 Intake Total 2368 Balance 2368 Weight 56 kg Intake: Intake, IV Titration 1168 Amount Amino Acid 4.25%-D10w+ 1000 Lytes*E* 1,000 ml @ 65 mls/hr IV .BY DURATION JESS Rx#:[id number] Fat Emulsion 20% 250 ml 168 In Empty Bag 1 bag @ 21 mls/hr IV DAILY@2000 [facility] Rx#:[id number] Tube Feeding 1200 - Exam Adamant: Tenderness at the J-tube insertion site and the supra umbilical incision but otherwise soft and nontender, incision clean and dry - Labs CBC & Chem 7: 12/15/16 07:18 12/15/16 07:18 Labs: Abnormal Lab Results - Last 24 Hours (Table) 12/14/16 12/14/16 12/14/16 Range/Units 11:42 15:00 17:31 WBC (3.8-10.6) k/uL Neutrophils # (1.3-7.7) k/uL Chloride (98-107) mmol/L Creatinine (0.52-1.04) mg/dL Glucose (74-99) mg/dL POC Glucose (mg/dL) 218 H 151 H (75-99) mg/dL Total Protein (6.3-8.2) g/dL Albumin (3.5-5.0) g/dL Urine Protein Trace H (Negative) Urine Glucose (UA) 2+ H (Negative) 12/15/16 12/15/16 12/15/16 Range/Units 00:13 02:26 06:29 WBC (3.8-10.6) k/uL Neutrophils # (1.3-7.7) k/uL Chloride (98-107) mmol/L Creatinine (0.52-1.04) mg/dL Glucose (74-99) mg/dL POC Glucose (mg/dL) 192 H 178 H 214 H (75-99) mg/dL Total Protein (6.3-8.2) g/dL Albumin (3.5-5.0) g/dL Urine Protein (Negative) Urine Glucose (UA) (Negative) 12/15/16 12/15/16 Range/Units 07:18 07:18 WBC 11.6 H (3.8-10.6) k/uL Neutrophils # 10.1 H (1.3-7.7) k/uL Chloride 108 H (98-107) mmol/L Creatinine 0.50 L (0.52-1.04) mg/dL Glucose 272 H (74-99) mg/dL POC Glucose (mg/dL) (75-99) mg/dL Total Protein 6.0 L (6.3-8.2) g/dL Albumin 3.0 L (3.5-5.0) g/dL Urine Protein (Negative) Urine Glucose (UA) (Negative) Assessment and Plan (1) Esophageal stricture Narrative/Plan: Notify the nursing staff that she could have Coreg utilized through the J-tube at this point. Hold tube feeds until decision made regarding PET scan today but if PET scan is held begin tube feeds today. Status: Acute
[2016-12-15] MEDS: ESOMEPRAZOLE 40 MG in SODIUM CHLORIDE 0.9% 50 ML IVPB SCH (10:51)
[2016-12-15] MEDS: HEPARIN SODIUM,PORCINE 5,000 UNIT/ML 1 ML VIAL SQ SCH ×2 (10:52→21:01)
[2016-12-15] MEDS: LIDOCAINE 5% PATCH TOPICAL SCH ×2 (10:52→18:54)
[2016-12-15] MEDS: FUROSEMIDE 10 MG/ML 2 ML VIAL IV SCH (10:53)
--- NOTE | 2016-12-15 11:59 | PN ---
DATE OF SERVICE: 12/14/16 This 66-year-old woman who was admitted with dysphagia and ulcerated mass in the esophagus also had J-tube placement. No chest pain. No palpitations. No fever. On exam, alert and oriented times three. Pulse 92, blood pressure 147/73. Respiratory rate 12. Temperature 98.8 degrees. Pulse ox 97% on room air. HEENT: Conjunctivae normal. NECK: no JVD. CARDIOVASCULAR: S1, S2 muffled. RESPIRATORY: Breath sounds diminished at the bases. A few rhonchi and no crackles. Abdomen is soft. Nontender. LEGS: No edema. No swelling. Nervous system: No focal deficits. LABS: At this time shows WBC 13.9, hemoglobin 12.3, glucose 237. ASSESSMENT: 1. Dysphagia with ulcerated esophageal mass, possibly poly differential carcinoma with mixed features of squamous cell and adenocarcinoma. 2. Diffuse abdominal pain, possibly colitis, present on admission. 3. Dehydration. 4. History of severe hypokalemia. 5. Urinary tract infection. 6. Diabetes mellitus, type 2. 7. Hypertension. RECOMMENDATIONS AND DISCUSSION: Continue the current medications. Continue with monitoring and symptomatic treatment. Closely follow. Otherwise, dietary evaluation and initiate J-tube feeding also. MTDD
[2016-12-15 12:42] LABS: Glucose,Whole Blood 288 mg/dL (75-99)
[2016-12-15] MEDS: PIPERACILLIN-TAZOBACTAM 3.375 GM in DEXTROSE/WATER 1 50ML.BAG IVPB SCH ×2 (15:22→23:12)
[2016-12-15] MEDS: cloNIDine 0.3 MG/24HR PATCH 1 PATCH PATCH TRANSDERM SCH (15:30)
[2016-12-15] MEDS: KETOROLAC 30 MG/ML 1 ML VIAL IVP SCH ×2 (17:28→23:13)
[2016-12-15 17:58] LABS: Glucose,Whole Blood 204 mg/dL (75-99)
[2016-12-15] MEDS: 1: AMINO ACID 4.25%-D10W+LYTES*E* 1,000 ML 2: MVI, ADULT NO.4 WITH VIT K 10 ML, TRACE ( IV SCH ×3 (18:54)
[2016-12-15] MEDS: SCOPOLAMINE 1.5MG/72HR PATCH TRANSDERM SCH (20:46)
[2016-12-15] MEDS: FAT EMULSION 20% 250 ML in EMPTY BAG 1 BAG IV SCH (21:02)
[2016-12-15 23:18] LABS: Glucose,Whole Blood 206 mg/dL (75-99)
[2016-12-16 05:52] LABS: Glucose,Whole Blood 170 mg/dL (75-99)
[2016-12-16] MEDS: KETOROLAC 30 MG/ML 1 ML VIAL IVP SCH ×3 (06:04→18:13)
[2016-12-16] MEDS: INSULIN LISPRO (humaLOG) 300 UNIT/3 ML VIAL SQ SCH ×3 (06:06→20:03)
[2016-12-16 07:57] LABS: Basophils # (A) 0.1 k/uL (0-0.2); Basophils % (A) 1 %; CH 30.3; CHCM 33.3; Eosinophils # (A) 0.2 k/uL (0-0.7); Eosinophils % (A) 2 %; HDW 2.85; HGB 10.3 gm/dL (11.4-16.0); Luc # (Auto) 0.12; Luc % (Auto) 1; Lymphocytes # (A) 1.5 k/uL (1.0-4.8); Lymphocytes % (A) 13 %; MCH 30.4 pg (25.0-35.0); MCHC 33.1 g/dL (31.0-37.0); MCV 91.7 fL (80.0-100.0); Mean Platelet Volume 7.7; Monocytes # (A) 0.5 k/uL (0-1.0); Monocytes % (A) 5 %; Neutrophils # (A) 8.5 k/uL (1.3-7.7); Neutrophils % (A) 79 %; RBC 3.38 m/uL (3.80-5.40); RDW 14.7 % (11.5-15.5); WBC 10.9 k/uL (3.8-10.6); WBC (Perox) 11.07
[2016-12-16 08:17] LABS: Ionized Calcium 5.1 mg/dL (4.5-5.3)
[2016-12-16] MEDS: SYMBICORT 160-4.5 MCG INHALER INHALATION SCH ×2 (08:26→20:05)
[2016-12-16] MEDS: IPRATROPIUM-ALBUTEROL 3 ML NEB INHALATION SCH ×2 (08:28→20:05)
[2016-12-16 08:59] LABS: ALT 19 U/L (9-52); AST 12 U/L (14-36); Alkaline Phosphatase 76 U/L (38-126); Anion Gap 7 mmol/L; Blood Urea Nitrogen 31 mg/dL (7-17); Calcium 8.5 mg/dL (8.4-10.2); Carbon Dioxide 24 mmol/L (22-30); Chloride 108 mmol/L (98-107); Glucose 166 mg/dL (74-99); Magnesium 2.1 mg/dL (1.6-2.3); Non-African American GFR(MDRD) >60 (>60 ml/min/1.73 sqM); Phosphorus 3.3 mg/dL (2.5-4.5); Potassium 3.9 mmol/L (3.5-5.1); Sodium 139 mmol/L (137-145); Total Bilirubin 0.5 mg/dL (0.2-1.3)
[2016-12-16] MEDS: CARVEDILOL 12.5 MG TAB PO SCH ×2 (09:05→18:14)
[2016-12-16] MEDS: LORazepam 2 MG/ML INJ IV SCH ×3 (09:05→20:20)
[2016-12-16] MEDS: HEPARIN SODIUM,PORCINE 5,000 UNIT/ML 1 ML VIAL SQ SCH ×2 (09:05→20:20)
[2016-12-16] MEDS: ESOMEPRAZOLE 40 MG in SODIUM CHLORIDE 0.9% 50 ML IVPB SCH (09:06)
[2016-12-16] MEDS: FUROSEMIDE 10 MG/ML 2 ML VIAL IV SCH (09:06)
[2016-12-16] MEDS: PIPERACILLIN-TAZOBACTAM 3.375 GM in DEXTROSE/WATER 1 50ML.BAG IVPB SCH ×2 (09:58→16:10)
--- NOTE | 2016-12-16 10:17 | P.PN ---
Subjective Principal diagnosis: Esophageal mass Patient did much better last night. She slept well. She says her pain is minimal today. She appears to be in good spirits. Her white blood cell count is normal. Her tachycardia is resolved. She is tolerating her tube feeds at 10 mL per hour. Objective - Vital Signs Vital signs: Vital Signs Temp 98.5 F 12/16/16 07:00 Pulse 69 12/16/16 07:00 Resp 16 12/16/16 07:00 BP 141/65 12/16/16 07:00 Pulse Ox 95 12/16/16 07:00 Intake & Output 12/15/16 12/16/16 12/16/16 18:59 06:59 18:59 Weight 56.5 kg Other: Voiding Method Toilet Bedpan Diaper Incontinent # Voids 1 - Exam Abdomen: Soft, nondistended, incision clean and dry, minimal tenderness - Labs CBC & Chem 7: 12/16/16 07:09 12/16/16 07:09 Labs: Abnormal Lab Results - Last 24 Hours (Table) 12/15/16 12/15/16 12/15/16 Range/Units 12:40 17:56 23:12 WBC (3.8-10.6) k/uL RBC (3.80-5.40) m/uL Hgb (11.4-16.0) gm/dL Hct (34.0-46.0) % Neutrophils # (1.3-7.7) k/uL Chloride (98-107) mmol/L BUN (7-17) mg/dL Glucose (74-99) mg/dL POC Glucose (mg/dL) 288 H 204 H 206 H (75-99) mg/dL AST (14-36) U/L Total Protein (6.3-8.2) g/dL Albumin (3.5-5.0) g/dL 12/16/16 12/16/16 12/16/16 Range/Units 05:50 07:09 07:09 WBC 10.9 H (3.8-10.6) k/uL RBC 3.38 L (3.80-5.40) m/uL Hgb 10.3 L (11.4-16.0) gm/dL Hct 31.0 L (34.0-46.0) % Neutrophils # 8.5 H (1.3-7.7) k/uL Chloride 108 H (98-107) mmol/L BUN 31 H (7-17) mg/dL Glucose 166 H (74-99) mg/dL POC Glucose (mg/dL) 170 H (75-99) mg/dL AST 12 L (14-36) U/L Total Protein 5.0 L (6.3-8.2) g/dL Albumin 2.5 L (3.5-5.0) g/dL Assessment and Plan (1) Esophageal stricture Narrative/Plan: Will increase tube feeds to 20 mL per hour. Increase activity. Await pathology from omental nodule. Status: Acute
[2016-12-16 12:14] LABS: Glucose,Whole Blood 169 mg/dL (75-99)
--- NOTE | 2016-12-16 13:43 | PN ---
DATE OF SERVICE: 12/15/16 This 66-year-old woman was admitted with admitted with dysphagia and ulcerated mass, was evaluated for a PET scan. The patient also had diffuse abdominal pain and colitis and the patient also had dehydration. The patient is being closely monitored. This morning the patient had an episode of tachycardia. The patient apparently also. The patient also has right lower lobe pneumonia. Antibiotics have been changed at this time. Past medical history reviewed. REVIEW OF SYSTEMS: CARDIOVASCULAR: No angina or palpitations. RESPIRATORY: As mentioned earlier. GI: As mentioned earlier. : No dysuria. NERVOUS SYSTEM: No numbness, weakness. Current medications are reviewed and include: 1. DuoNeb q.i.d. and prn. 2. Aspirin 81 mg. 3. Symbicort 160/4.5 two puffs. 4. Coreg 25 mg b.i.d. 5. Catapres 0.1 t.i.d. prn 7. Lasix 20 mg IV daily. 8. Heparin. 9. Humalog. 10. Narcan. 11. Other prn medications. PHYSICAL EXAMINATION: On exam, alert and oriented times two. Pulse 116. Blood pressure 129/74. Respiratory rate 20. Temperature 98.5. Pulse ox 97% on 4 L. HEENT: Conjunctivae normal. NECK: No JVD. CARDIOVASCULAR: S1, S2 muffled. RESPIRATORY: Breath sounds diminished at the bases. Bilateral scattered rhonchi and crackles. ABDOMEN: Soft. Mild diffuse distention. Umbilical hernia present. LEGS: No edema. No swelling. NERVOUS SYSTEM: No focal deficits. Mild diffuse weakness. SKIN: No ulcer, rash or bleeding. LABS: WBC 7.6, glucose 272. ASSESSMENT: 1. Dysphagia with ulcerated esophageal mass, possibly poorly differentiated carcinoma with mixed features of squamous cell and adenocarcinoma. 2. Diffuse abdominal pain, possibly colitis, present on admission. 3. Acute right lower lobe pneumonia, possibly aspiration. 4. Dehydration. 5. History of severe hypokalemia. 6. Urinary tract infection. 7. Diabetes mellitus, type 2. 8. Hypertension. 9. Possible early sepsis. RECOMMENDATIONS AND DISCUSSION: Continue the current medications, continue monitoring, symptomatic treatment. Otherwise, at this time, broad spectrum IV antibiotics, Zosyn, infectious disease evaluation. Tube feeds per Dr. Pack. Guarded prognosis because of multiple medical issues. Further recommendations to follow. MTDD
[2016-12-16] MEDS: HYDROmorphone PCA 5 MG/25 ML SYRINGE IV PRN (16:01)
[2016-12-16 18:13] LABS: Glucose,Whole Blood 112 mg/dL (75-99)
[2016-12-16] MEDS: LIDOCAINE 5% PATCH TOPICAL SCH (18:13)
--- NOTE | 2016-12-16 20:02 | CONS ---
DATE OF CONSULTATION: 12/15/2016 REASON FOR CONSULTATION: Pneumonia. HISTORY OF PRESENT ILLNESS: The patient is a 66-year-old female who presented to the hospital about ten days on 12/05/2016 with chief complaint of unable to eat, apparently the patient did have esophageal stricture and had failed swallow studies. Subsequently, the patient has been admitted to the hospital and has been evaluated by the GI services. The patient did have an EGD done on 12/07 which did show esophageal ulcerated mass extending from that limited the narrowing. The patient did have a CT of the chest ad abdomen and pelvis which shows low density nodules and no other abnormality. The patient has been seen by CT surgery today as well as general surgery and is being managed for her underlying condition. Did have a J-tube placement. Apparently , the patient noticed to have increasing shortness of breath and some hypoxemia and did have a cough productive of greenish sputum but no hemoptysis. The chest x-ray has been consistent with right lower lobe infiltrate. The patient was started on Zosyn and I was asked to see the patient for further recommendation regarding antibiotic therapy. REVIEW OF SYSTEMS: Constitutional: Positive for weakness but no high grade fever. EYES: No complaint. HEENT: As per history of present illness. Respiratory: As per history of present illness. Cardiovascular: No complaint. : No complaint. Gastrointestinal: As per history of present illness. Musculoskeletal: No complaint. Integumentary: No complaint. Psychological: No complaint. Endocrine: No complaint. Neurological: No complaint. Past medical history significant for hypertension, diabetes mellitus, Type 2. Past surgical history: Appendectomy, cholecystectomy, hysterectomy. Bladder surgery, breast lumpectomy. SOCIAL HISTORY: No history of smoking. No drinking or drug use. FAMILY HISTORY: Father with history of atherosclerotic heart disease. ALLERGIES: NICKEL, PROCHLORPERAZINE. Medications include the patient is currently on DuoNeb, Symbicort, Coreg, Catapres, Clonidine, Lasix, Heparin, Hydralazine and Zosyn. On examination, blood pressure is 105/62 with a pulse of 51. Temperature 97.8. He is 93% on 4 L nasal cannula. General description is an elderly female up in the chair in no distress. No tachypnea or accessory muscles of respiration use. HEENT: Examination shows no pallor and no sclera icterus. Oral mucosa membranes dry. NECK: Trachea is central. No thyromegaly. LUNGS: Unlabored breathing. Some coarse breath sounds at the bases. No wheezes. HEART: S1, S2 regular rate and rhythm. ABDOMEN: Soft. No tenderness. No guarding and no rigidity. EXTREMITIES: No edema of the feet. SKIN: No rash or mass palpable. NEUROLOGICALLY: The patient is awake, alert and oriented times three. Mood and affect normal. LABS: Hemoglobin 12.7, white count 11.6, BUN 17, creatinine 0.50. DIAGNOSTIC IMPRESSION AND PLAN: The patient with a cough productive of sputum , hypoxemia, with fever in a patient who did have large ulcerated esophageal mass and difficulty swallowing likely component of aspiration pneumonitis with process hospital need to cover for resistant pathogen. PLAN: 1. Obtain sputum for gram stain culture and sensitivity. 2. Zosyn 3.75 gm q8 hours for antibiotic coverage. 3. Follow-up on clinical condition as well as culture to further adjust medications if needed. Thank you for this consultation. We will follow this patient along with you. CYNTHIA
[2016-12-16] MEDS: FAT EMULSION 20% 250 ML in EMPTY BAG 1 BAG IV SCH (20:19)
[2016-12-16 23:52] LABS: Glucose,Whole Blood 137 mg/dL (75-99)
[2016-12-17] MEDS: PIPERACILLIN-TAZOBACTAM 3.375 GM in DEXTROSE/WATER 1 50ML.BAG IVPB SCH ×4 (00:13→23:33)
[2016-12-17] MEDS: KETOROLAC 30 MG/ML 1 ML VIAL IVP SCH ×2 (00:13→13:00)
[2016-12-17] MEDS: INSULIN LISPRO (humaLOG) 300 UNIT/3 ML VIAL SQ SCH ×4 (00:35→23:30)
[2016-12-17 05:23] LABS: Glucose,Whole Blood 136 mg/dL (75-99)
[2016-12-17 07:34] LABS: Basophils # (A) 0.1 k/uL (0-0.2); Basophils % (A) 1 %; CH 30.7; Eosinophils # (A) 0.3 k/uL (0-0.7); Eosinophils % (A) 4 %; HCT 29.3 % (34.0-46.0); HDW 2.79; HGB 9.4 gm/dL (11.4-16.0); Luc # (Auto) 0.08; Luc % (Auto) 1; Lymphocytes # (A) 1.1 k/uL (1.0-4.8); Lymphocytes % (A) 13 %; MCH 30.1 pg (25.0-35.0); MCHC 32.2 g/dL (31.0-37.0); MCV 93.7 fL (80.0-100.0); Monocytes # (A) 0.4 k/uL (0-1.0); Monocytes % (A) 5 %; Neutrophils # (A) 6.4 k/uL (1.3-7.7); Neutrophils % (A) 77 %; RBC 3.13 m/uL (3.80-5.40); RDW 15.3 % (11.5-15.5); WBC 8.4 k/uL (3.8-10.6); WBC (Perox) 8.92
[2016-12-17 07:50] LABS: ALT 26 U/L (9-52); AST 22 U/L (14-36); Alkaline Phosphatase 70 U/L (38-126); Anion Gap 5 mmol/L; Blood Urea Nitrogen 25 mg/dL (7-17); Calcium 7.9 mg/dL (8.4-10.2); Carbon Dioxide 24 mmol/L (22-30); Chloride 113 mmol/L (98-107); Glucose 149 mg/dL (74-99); Non-African American GFR(MDRD) >60 (>60 ml/min/1.73 sqM); Potassium 4.5 mmol/L (3.5-5.1); Sodium 142 mmol/L (137-145); Total Bilirubin 0.6 mg/dL (0.2-1.3); Total Protein 4.9 g/dL (6.3-8.2)
[2016-12-17] MEDS: IPRATROPIUM-ALBUTEROL 3 ML NEB INHALATION SCH ×2 (08:56→19:27)
[2016-12-17] MEDS: SYMBICORT 160-4.5 MCG INHALER INHALATION SCH ×2 (08:56→19:27)
[2016-12-17] MEDS: LORazepam 2 MG/ML INJ IV SCH ×3 (09:00→23:23)
[2016-12-17] MEDS: HYDROmorphone PCA 5 MG/25 ML SYRINGE IV PRN (09:16)
[2016-12-17] MEDS: 0.9% NACL WITH KCL 40 MEQ/L 1,000 ML IV SCH (09:20)
[2016-12-17] MEDS: ESOMEPRAZOLE 40 MG in SODIUM CHLORIDE 0.9% 50 ML IVPB SCH (09:21)
[2016-12-17] MEDS: ONDANSETRON 4 MG/2 ML VIAL IVP PRN ×3 (09:21→19:59)
[2016-12-17] MEDS: LIDOCAINE 5% PATCH TOPICAL SCH (09:22)
[2016-12-17] MEDS: HEPARIN SODIUM,PORCINE 5,000 UNIT/ML 1 ML VIAL SQ SCH ×2 (09:23→19:59)
[2016-12-17] MEDS: FUROSEMIDE 10 MG/ML 2 ML VIAL IV SCH (09:23)
[2016-12-17] MEDS: CARVEDILOL 12.5 MG TAB PO SCH ×2 (09:23→17:41)
[2016-12-17 11:43] LABS: Glucose,Whole Blood 151 mg/dL (75-99)
[2016-12-17 11:59] LABS: Magnesium 2.1 mg/dL (1.6-2.3); Phosphorus 3.2 mg/dL (2.5-4.5)
--- NOTE | 2016-12-17 13:46 | PN ---
DATE OF SERVICE: 12/16/2016 This is a 66-year-old woman who was admitted with dysphagia and ulcerated mass in the esophagus who is being closely monitored. The PET scan could not be done , otherwise the patient had a J-tube placement by Dr. Pack. The patient is being closely monitored at this time. The patient also has right-sided pneumonia. On exam, alert and oriented x3. Pulse is 69, blood pressure 141/65, respirations 16, temperature is 98.5, pulse ox 94% on 4 L. HEENT: Conjunctivae normal. NECK; No jugular venous distension. CARDIOVASCULAR SYSTEM: S1, S2, muffled. RESPIRATORY: Breath sounds diminished at the bases, a few rhonchi, no crackles. ABDOMEN: Soft, nontender, no mass palpable. LEGS: No edema, no swelling. NERVOUS SYSTEM: No focal deficits. LABS: WBC is 10.8, hemoglobin 10.3. ASSESSMENT: 1. 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 2. Diffuse abdominal pain, possibly colitis. 3. Acute right lobe pneumonia, possibly aspiration, dehydration. 4. History of severe hypokalemia. 5. Urinary tract infection. 6. Status post J-tube. 7. Diabetes mellitus type 2. RECOMMENDATION: Recommend to continue with the current medication and symptomatic treatment. Otherwise, continue with empiric antibiotics. Patient is on IV Zosyn. Follow closely with Surgery and Gastroenterology. Guarded prognosis. Further recommendations to follow. MTDD
--- NOTE | 2016-12-17 14:36 | P.PN ---
Progress Note - Text Patient doing well today. She is tolerating her tube feeds at 20. No bowel function thus far. Less dysphagia. Incision is clean and dry. Minimal tenderness. Will increase tube feeds to 30 mL per hour.
[2016-12-17] MEDS: HYDROcodone/APAP 7.5-325MG 1 EACH TAB PO PRN ×2 (14:45→19:59)
--- NOTE | 2016-12-17 15:24 | P.PN ---
Subjective 68 66-year-old female admitted with the dysphagia and patient underwent J-tube placement. Patient is able to tolerate J-tube feedings. There multiple issues going on at this point of time which will be discussed below. Patient clonidine patch will discuss reviewed and patient resumed on oral antidepressant medications today. And the patient is also being treated for possible aspiration pneumonia right lower lobe. And patient is on MARKETING PRODUCTION COORDINATOR pump for pain which will discuss reviewed and patient was started on [place] and will watch her overnight today. And possibility of discharge tomorrow. Patient has esophageal adenocarcinoma. Patient will need outpatient PET scan. And follow with oncology as an outpatient. We will taper down the oxygen. Patient will be started on flucanazole for vaginal candidiasis Patient denied chest pain, nausea, abdominal pain able to tolerate J-tube feedings. Objective - Vital Signs Vital signs: Vital Signs Temp 97.9 F 12/17/16 14:14 Pulse 67 12/17/16 14:14 Resp 22 12/17/16 14:14 BP 140/72 12/17/16 14:14 Pulse Ox 96 12/17/16 14:14 Intake & Output 12/16/16 12/17/16 12/17/16 18:59 06:59 18:59 Intake Total 280 480 480 Balance 280 480 480 Weight 70.5 kg 70.5 kg Intake: Tube Feeding 280 480 480 Other: Voiding Method Toilet Bedpan Diaper Incontinent # Voids 1 - Exam PHYSICAL EXAMINATION: GENERAL: The patient is alert and oriented x3, not in any acute distress. Well developed, well nourished. HEENT: Pupils are round and equally reacting to light. EOMI. No scleral icterus. No conjunctival pallor. Normocephalic, atraumatic. No pharyngeal erythema. No thyromegaly. CARDIOVASCULAR: S1 and S2 present. No murmurs, rubs, or gallops. PULMONARY: Chest is clear to auscultation, no wheezing or crackles. ABDOMEN: Soft, nontender, nondistended, normoactive bowel sounds. No palpable organomegaly. PEG tube in place acute site area is clean. MUSCULOSKELETAL: No joint swelling or deformity. EXTREMITIES: No cyanosis, clubbing, or pedal edema. NEUROLOGICAL: Gross neurological examination did not reveal any focal deficits. SKIN: No rashes. - Labs CBC & Chem 7: 12/17/16 07:02 12/17/16 07:02 Labs: Abnormal Lab Results - Last 24 Hours (Table) 12/16/16 12/16/16 12/17/16 Range/Units 18:11 23:50 05:20 RBC (3.80-5.40) m/uL Hgb (11.4-16.0) gm/dL Hct (34.0-46.0) % Chloride (98-107) mmol/L BUN (7-17) mg/dL Glucose (74-99) mg/dL POC Glucose (mg/dL) 112 H 137 H 136 H (75-99) mg/dL Calcium (8.4-10.2) mg/dL Total Protein (6.3-8.2) g/dL Albumin (3.5-5.0) g/dL 12/17/16 12/17/16 12/17/16 Range/Units 07:02 07:02 11:38 RBC 3.13 L (3.80-5.40) m/uL Hgb 9.4 L (11.4-16.0) gm/dL Hct 29.3 L (34.0-46.0) % Chloride 113 H (98-107) mmol/L BUN 25 H (7-17) mg/dL Glucose 149 H (74-99) mg/dL POC Glucose (mg/dL) 151 H (75-99) mg/dL Calcium 7.9 L (8.4-10.2) mg/dL Total Protein 4.9 L (6.3-8.2) g/dL Albumin 2.4 L (3.5-5.0) g/dL Microbiology - Last 24 Hours (Table) 12/15/16 12:47 Blood Culture - Preliminary Blood No Growth after 48 hours 12/16/16 20:21 Gram Stain - Preliminary Sputum Sputum Culture - Preliminary Assessment and Plan Plan: #1 dysphagia: Patient is status post J-tube placement secondary to vasovagal adenocarcinoma. Patient is able to tolerate J-tube feedings and TPN will be deciding her. #2 possible aspiration pneumonia for which patient is on Zosyn. #3 hypokalemia resolved secondary to absent by mouth intake. #4 hypertension: Clonidine patch will discuss reviewed and patient will be resumed on medications to J-tube. #5 candiasis Vaginal: For, Zoloft daily. 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 Follow-up as an outpatient after outpatient PET scan.
[2016-12-17] MEDS: LISINOPRIL 20 MG TAB PO SCH (16:00)
[2016-12-17] MEDS: FLUCONAZOLE ORAL SUSP 1,400 MG/35 ML BOTTLE PO SCH (16:00)
[2016-12-17 17:07] LABS: Glucose,Whole Blood 117 mg/dL (75-99)
--- NOTE | 2016-12-17 18:55 | PN ---
DATE OF SERVICE: 12/16/16 REASON FOR FOLLOW UP: Possible aspiration pneumonia. INTERVAL HISTORY: The patient is afebrile. She is more awake and alert. She is breathing comfortably. She did have some cough with minimal amount of sputum. No chest pain. No abdominal pain. No diarrhea. On examination, blood pressure 119/60, pulse 52, temperature 97.6. She is 96 % on room air. General description is an elderly female up in the bed in no distress. Respiratory system: Unlabored breathing. Decreased breath sounds at the base. No wheeze. Heart: S1, S2 regular rate and rhythm. Abdomen soft, no tenderness. LABS: White count is down to 10.9 with a BUN 31. Creatinine 0.68. Blood cultures so far negative. Sputum not collected. DIAGNOSTIC IMPRESSION AND PLAN: Patient with right sided pneumonia in a patient who did have a cough with some grayish sputum with question of possible aspiration etiology in a patient who did have esophageal lesion and inability to swallow. She was continued on Zosyn to which the patient did slightly respond. Waiting for the cultures to finalize to adjust antibiotic further. ASHLEED
[2016-12-17] MEDS: PANTOPRAZOLE 40 MG TABLET PO SCH (20:00)
[2016-12-17] MEDS ORDERED: PARoxetine 20 MG TAB PO SCH (22:00)
[2016-12-17 23:36] LABS: Glucose,Whole Blood 134 mg/dL (75-99)
[2016-12-18] MEDS: HYDROcodone/APAP 7.5-325MG 1 EACH TAB PO PRN ×2 (03:01→11:08)
[2016-12-18] MEDS: ONDANSETRON 4 MG/2 ML VIAL IVP PRN ×3 (03:02→21:23)
[2016-12-18 05:54] LABS: Glucose,Whole Blood 144 mg/dL (75-99)
[2016-12-18] MEDS: INSULIN LISPRO (humaLOG) 300 UNIT/3 ML VIAL SQ SCH ×4 (06:13→20:14)
[2016-12-18 07:27] LABS: Basophils # (A) 0.1 k/uL (0-0.2); Basophils % (A) 1 %; CH 30.3; CHCM 33.2; Eosinophils # (A) 0.3 k/uL (0-0.7); Eosinophils % (A) 4 %; HCT 30.2 % (34.0-46.0); HGB 9.9 gm/dL (11.4-16.0); Luc # (Auto) 0.12; Luc % (Auto) 2; Lymphocytes # (A) 1.4 k/uL (1.0-4.8); Lymphocytes % (A) 18 %; MCH 29.9 pg (25.0-35.0); MCHC 32.6 g/dL (31.0-37.0); MCV 91.7 fL (80.0-100.0); Monocytes # (A) 0.5 k/uL (0-1.0); Monocytes % (A) 6 %; Neutrophils # (A) 5.6 k/uL (1.3-7.7); Neutrophils % (A) 70 %; RBC 3.29 m/uL (3.80-5.40); RDW 14.4 % (11.5-15.5); WBC (Perox) 8.54
[2016-12-18 07:52] LABS: ALT 30 U/L (9-52); AST 18 U/L (14-36); Alkaline Phosphatase 82 U/L (38-126); Anion Gap 6 mmol/L; Blood Urea Nitrogen 18 mg/dL (7-17); Calcium 7.8 mg/dL (8.4-10.2); Carbon Dioxide 27 mmol/L (22-30); Chloride 107 mmol/L (98-107); Glucose 150 mg/dL (74-99); Magnesium 1.9 mg/dL (1.6-2.3); Non-African American GFR(MDRD) >60 (>60 ml/min/1.73 sqM); Phosphorus 3.1 mg/dL (2.5-4.5); Potassium 3.2 mmol/L (3.5-5.1); Sodium 140 mmol/L (137-145); Total Bilirubin 0.6 mg/dL (0.2-1.3); Total Protein 4.8 g/dL (6.3-8.2)
[2016-12-18] MEDS: 0.9% NACL WITH KCL 40 MEQ/L 1,000 ML IV SCH (09:14)
[2016-12-18] MEDS: KETOROLAC 30 MG/ML 1 ML VIAL IVP SCH (09:15)
[2016-12-18] MEDS: 1: AMINO ACID 4.25%-D10W+LYTES*E* 1,000 ML 2: MVI, ADULT NO.4 WITH VIT K 10 ML, TRACE ( IV SCH ×6 (09:15→14:35)
--- NOTE | 2016-12-18 10:16 | PN ---
DATE OF SERVICE: 12/17/2016 REASON FOR FOLLOW UP: Aspiration pneumonia. INTERVAL HISTORY: The patient is afebrile. She is breathing slightly comfortable. Denies significant chest pain. Occasional cough. No abdominal pain, no diarrhea. On examination, her blood pressure is 140/72 with a pulse of 72, temperature 97.9, she is 96% on 2 liters. GENERAL DESCRIPTION: Elderly female up in the chair in no distress. RESPIRATORY: Unlabored breathing but decreased breath sounds at the bases. No wheeze. HEART: S1/S2 regular. ABDOMEN: Soft, no tenderness. LABS: Hemoglobin 9.4, white count 8.4. BUN 25, creatinine 0.55. Sputum culture currently pending. DIAGNOSTIC IMPRESSION: Patient with likely aspiration pneumonia, possible gram negative, waiting for sputum culture results. Continue patient on Zosyn, adjusting antibiotics further based on the culture report. Continue supportive care. MTDD
[2016-12-18] MEDS: CARVEDILOL 12.5 MG TAB PO SCH ×2 (10:58→20:14)
[2016-12-18] MEDS: FLUCONAZOLE ORAL SUSP 1,400 MG/35 ML BOTTLE PO SCH (10:58)
[2016-12-18] MEDS: FUROSEMIDE 10 MG/ML 2 ML VIAL IV SCH (10:59)
[2016-12-18] MEDS: HEPARIN SODIUM,PORCINE 5,000 UNIT/ML 1 ML VIAL SQ SCH ×2 (10:59→22:21)
[2016-12-18] MEDS: LIDOCAINE 5% PATCH TOPICAL SCH (11:01)
[2016-12-18] MEDS: LISINOPRIL 20 MG TAB PO SCH (11:01)
[2016-12-18] MEDS: PANTOPRAZOLE 40 MG TABLET PO SCH (11:02)
[2016-12-18] MEDS: IPRATROPIUM-ALBUTEROL 3 ML NEB INHALATION SCH ×2 (11:07→20:04)
[2016-12-18] MEDS: SYMBICORT 160-4.5 MCG INHALER INHALATION SCH ×2 (11:07→19:55)
[2016-12-18] MEDS: LORazepam 2 MG/ML INJ IV SCH ×2 (11:29→20:14)
[2016-12-18 12:09] LABS: Glucose,Whole Blood 169 mg/dL (75-99)
[2016-12-18] MEDS: PIPERACILLIN-TAZOBACTAM 3.375 GM in DEXTROSE/WATER 1 50ML.BAG IVPB SCH ×2 (13:08→20:14)
--- NOTE | 2016-12-18 13:33 | P.PN ---
Subjective Principal diagnosis: Esophageal mass Patient says she is having some mild crampy discomfort. She did have some loose stools yesterday. Some dysphagia again and vomiting. Tolerating tube feeds otherwise at 30 per hour. Objective - Vital Signs Vital signs: Vital Signs Temp 97.4 F L 12/18/16 07:00 Pulse 72 12/18/16 07:00 Resp 18 12/18/16 07:00 BP 193/78 12/18/16 07:00 Pulse Ox 97 12/18/16 07:00 Intake & Output 12/17/16 12/18/16 12/18/16 18:59 06:59 18:59 Intake Total 720 720 Balance 720 720 Weight 70.5 kg 67 kg Intake: Tube Feeding 720 720 Other: Voiding Method Toilet Bedpan Diaper Incontinent # Voids 1 # Bowel Movements 1 - Exam Abdomen: Soft, mild incisional tenderness, incision clean and dry, nondistended - Labs CBC & Chem 7: 12/18/16 06:51 12/18/16 06:51 Labs: Abnormal Lab Results - Last 24 Hours (Table) 12/17/16 12/17/16 12/18/16 Range/Units 16:50 23:26 05:46 RBC (3.80-5.40) m/uL Hgb (11.4-16.0) gm/dL Hct (34.0-46.0) % Potassium (3.5-5.1) mmol/L BUN (7-17) mg/dL Glucose (74-99) mg/dL POC Glucose (mg/dL) 117 H 134 H 144 H (75-99) mg/dL Calcium (8.4-10.2) mg/dL Total Protein (6.3-8.2) g/dL Albumin (3.5-5.0) g/dL 12/18/16 12/18/16 12/18/16 Range/Units 06:51 06:51 11:50 RBC 3.29 L (3.80-5.40) m/uL Hgb 9.9 L (11.4-16.0) gm/dL Hct 30.2 L (34.0-46.0) % Potassium 3.2 L (3.5-5.1) mmol/L BUN 18 H (7-17) mg/dL Glucose 150 H (74-99) mg/dL POC Glucose (mg/dL) 169 H (75-99) mg/dL Calcium 7.8 L (8.4-10.2) mg/dL Total Protein 4.8 L (6.3-8.2) g/dL Albumin 2.4 L (3.5-5.0) g/dL Microbiology - Last 24 Hours (Table) 12/15/16 12:47 Blood Culture - Preliminary Blood No Growth after 48 hours 12/16/16 20:21 Gram Stain - Preliminary Sputum Sputum Culture - Preliminary Assessment and Plan (1) Esophageal stricture Narrative/Plan: Will increase tube feeds to 40 mL per hour. Continue ambulation. Status: Acute
[2016-12-18] MEDS ORDERED: POTASSIUM CHLORIDE ORAL LIQUID 40 MEQ/30 ML CUP PO ONE (13:53)
--- NOTE | 2016-12-18 14:19 | P.DS ---
Providers Date of admission: 12/07/16 15:02 Attending physician: Marychuy Jack Consults: 12/05/16 17:56 Consult Physician Stat Consulting Provider: Anders Sim Consult Reason/Comments: Splenic ANEURYSM Do you want consulting provider notified?: Yes 12/07/16 16:52 Consult Physician Routine Consulting Provider: César Alvarado Consult Reason/Comments: abnormal ct Do you want consulting provider notified?: Yes 12/07/16 16:53 Consult Physician Routine Consulting Provider: Janes Quijano Consult Reason/Comments: abnormal ct Do you want consulting provider notified?: Yes 12/10/16 16:04 Consult Physician Urgent Consulting Provider: Yuan Pack Consult Reason/Comments: esophageal stricture Do you want consulting provider notified?: Already Contacted 12/15/16 12:36 Consult Physician Routine Consulting Provider: Violetta Valverde Consult Reason/Comments: pneumonia Do you want consulting provider notified?: Already Contacted Primary care physician: Vandana Feliciano [facility] Course: 66-year-old female admitted with the dysphagia and patient underwent J-tube placement. Patient is able to tolerate J-tube feedings. There multiple issues going on at this point of time which will be discussed below. Patient clonidine patch will discuss reviewed and patient resumed on oral antidepressant medications today. And the patient is also being treated for possible aspiration pneumonia right lower lobe. And patient is on AUDIO VISUAL SECRETARY pump for pain which will discuss reviewed and patient was started on [place] and will watch her overnight today. And possibility of discharge tomorrow. Patient has esophageal adenocarcinoma. Patient will need outpatient PET scan. And follow with oncology as an outpatient. We will taper down the oxygen. Patient will be started on flucanazole for vaginal candidiasis 12/18/2016 Patient is clinically doing well today off oxygen still having some diarrhea from the J-tube feedings. Still having pains but is on 0.5 mg of the no code which will be changed to 10 mg of [place]. Patient will be discharged today. Patient is mildly hypokalemic secondary to diarrhea and patient is also on hydro -chlorothiazide because of which I'll discharge her on 20 mEq of potassium through J-tube. PHYSICAL EXAMINATION: GENERAL: The patient is alert and oriented x3, not in any acute distress. Well developed, well nourished. HEENT: Pupils are round and equally reacting to light. EOMI. No scleral icterus. No conjunctival pallor. Normocephalic, atraumatic. No pharyngeal erythema. No thyromegaly. CARDIOVASCULAR: S1 and S2 present. No murmurs, rubs, or gallops. PULMONARY: Chest is clear to auscultation, no wheezing or crackles. ABDOMEN: Soft, nontender, nondistended, normoactive bowel sounds. No palpable organomegaly. PEG tube in place acute site area is clean. MUSCULOSKELETAL: No joint swelling or deformity. EXTREMITIES: No cyanosis, clubbing, or pedal edema. NEUROLOGICAL: Gross neurological examination did not reveal any focal deficits. SKIN: No rashes. #1 dysphagia: Patient is status post J-tube placement secondary to vasovagal adenocarcinoma. Patient is able to tolerate J-tube feedings and TPN will be deciding her. #2 possible aspiration pneumonia for which patient is on Zosyn. #3 hypokalemia resolved secondary to absent by mouth intake. #4 hypertension: Clonidine patch will discuss reviewed and patient will be resumed on medications to J-tube. #5 candiasis Vaginal: For, Zoloft daily. #6 type 2 diabetes mellitus #7 esophageal adenocarcinoma. Follow-up as an outpatient after outpatient PET scan. Follow-up with oncology as an outpatient Patient Condition at Discharge: Good Plan - Discharge Summary New Discharge Prescriptions: New Amoxic-Pot Clav 875-125Mg [Augmentin 875-125] 1 tab PO Q12HR #14 tablet HYDROcodone/APAP 7.5-325MG [[place] 7.5-325] 1 tab PO Q4H PRN #20 tab PRN Reason: Pain Potassium Chloride Oral Liquid 20 meq PO DAILY #200 ml Fluconazole Oral Susp [Diflucan Oral Susp] 200 mg PO DAILY #7 day Continue diphenhydrAMINE [Benadryl] 50 mg PO HS Cholecalciferol [Vitamin D3] 1,000 unit PO DAILY PARoxetine [Paxil] 20 mg PO HS ALPRAZolam [Xanax] 1 mg PO TID Aspirin 81 mg PO DAILY chew Budesonide-Formot 160-4.5 Mcg [Symbicort 160-4.5 Mcg Inhaler] 2 puff INHALATION RT-BID #1 puff Carvedilol [Coreg*] 25 mg PO BID-W/MEALS #60 tab Isosorbide Mononitrate ER [Imdur] 30 mg PO DAILY #30 tab.er.24h Nitroglycerin Sl Tabs [Nitrostat] 0 mg SUBLINGUAL DIRECTED PRN #25 tab PRN Reason: Chest Pain Glimepiride [Amaryl] 2 mg PO BID Famotidine [Pepcid] 20 mg PO BID Hydrochlorothiazide 25 mg PO DAILY Acetaminophen with Codeine [Tylenol w/codeine #3] 0.5 tab PO TID Acetaminophen [Tylenol] 500 mg PO TID Omeprazole Magnesium [Prilosec OTC] 20 mg PO DAILY Atorvastatin [Lipitor] 40 mg PO HS sitaGLIPtin PHOSPHATE [Januvia] 50 mg PO DAILY Ipratropium-Albuterol Nebulize [Duoneb 0.5 mg-3 mg/3 ml Soln] 3 ml INHALATION RT-BID Changed Lisinopril [Prinivil] 20 mg PO DAILY #0 Discharge Medication List ALPRAZolam [Xanax] 1 mg PO TID 04/09/15 [History] Cholecalciferol [Vitamin D3] 1,000 unit PO DAILY 04/09/15 [History] PARoxetine [Paxil] 20 mg PO HS 04/09/15 [History] diphenhydrAMINE [Benadryl] 50 mg PO HS 04/09/15 [History] Aspirin 81 mg PO DAILY chew 04/12/15 [Rx] Budesonide-Formot 160-4.5 Mcg [Symbicort 160-4.5 Mcg Inhaler] 2 puff INHALATION RT-BID #1 puff 04/12/15 [Rx] Carvedilol [Coreg*] 25 mg PO BID-W/MEALS #60 tab 04/12/15 [Rx] Isosorbide Mononitrate ER [Imdur] 30 mg PO DAILY #30 tab.er.24h 04/12/15 [Rx] Nitroglycerin Sl Tabs [Nitrostat] 0 mg SUBLINGUAL DIRECTED PRN #25 tab [Rx] Famotidine [Pepcid] 20 mg PO BID 12/04/16 [History] Glimepiride [Amaryl] 2 mg PO BID 12/04/16 [History] Hydrochlorothiazide 25 mg PO DAILY 12/04/16 [History] Acetaminophen [Tylenol] 500 mg PO TID 12/05/16 [History] Acetaminophen with Codeine [Tylenol w/codeine #3] 0.5 tab PO TID 12/05/16 [ History] Atorvastatin [Lipitor] 40 mg PO HS 12/05/16 [History] Ipratropium-Albuterol Nebulize [Duoneb 0.5 mg-3 mg/3 ml Soln] 3 ml INHALATION RT -BID 12/05/16 [History] Omeprazole Magnesium [Prilosec OTC] 20 mg PO DAILY 12/05/16 [History] sitaGLIPtin PHOSPHATE [Januvia] 50 mg PO DAILY 12/05/16 [History] Amoxic-Pot Clav 875-125Mg [Augmentin 875-125] 1 tab PO Q12HR #14 tablet [Rx] HYDROcodone/APAP 7.5-325MG [[place] 7.5-325] 1 tab PO Q4H PRN #20 tab 12/17/16 [Rx ] Lisinopril [Prinivil] 20 mg PO DAILY #0 12/17/16 [Rx] Fluconazole Oral Susp [Diflucan Oral Susp] 200 mg PO DAILY #7 day 12/18/16 [Rx] Potassium Chloride Oral Liquid 20 meq PO DAILY #200 ml 12/18/16 [Rx] Follow up Appointment(s)/Referral(s): Pretty Ross MD [Primary Care Provider] - 12/20/16 10:30 am Sarah Bowers MD [STAFF PHYSICIAN] - 12/31/16 2:30 pm [facility], [NON-STAFF] - As Needed Manuelito Sanchez MD [STAFF PHYSICIAN] - 01/02/17 10:15 am Activity/Diet/Wound Care/Special Instructions: Tube feeding supplies: [facility]: [phone] PET SCAN SCHEDULED FOR SaturdayDecember AT 11 AM-ARRIVE 15-30 MINUTES EARLY - [facility] Discharge Disposition: HOME WITH HOME HEALTH SERVICES
[2016-12-18] MEDS: HYDROcodone/APAP 10-325MG 1 EACH TAB PO PRN ×2 (17:22→22:20)
[2016-12-18 17:30] LABS: Glucose,Whole Blood 149 mg/dL (75-99)
[2016-12-18] MEDS ORDERED: PARoxetine 20 MG TAB PO SCH (21:00)
[2016-12-18 21:33] VITALS: RESP 16
[2016-12-18] MEDS: PANTOPRAZOLE 40 MG/10 ML VIAL IVP SCH (22:21)
[2016-12-18 23:54] LABS: Glucose,Whole Blood 155 mg/dL (75-99)
[2016-12-19] MEDS: LORazepam 2 MG/ML INJ IV SCH ×2 (00:15→08:23)
[2016-12-19] MEDS: INSULIN LISPRO (humaLOG) 300 UNIT/3 ML VIAL SQ SCH ×3 (00:19→11:53)
[2016-12-19] MEDS: PIPERACILLIN-TAZOBACTAM 3.375 GM in DEXTROSE/WATER 1 50ML.BAG IVPB SCH ×2 (01:31→08:23)
[2016-12-19 05:43] LABS: Glucose,Whole Blood 173 mg/dL (75-99)
[2016-12-19] MEDS: ONDANSETRON 4 MG/2 ML VIAL IVP PRN (05:50)
[2016-12-19] MEDS: HYDROcodone/APAP 10-325MG 1 EACH TAB PO PRN ×2 (06:03→10:38)
[2016-12-19 07:28] LABS: Basophils # (A) 0.1 k/uL (0-0.2); Basophils % (A) 1 %; CH 30.1; CHCM 33.4; Eosinophils # (A) 0.3 k/uL (0-0.7); Eosinophils % (A) 3 %; HDW 2.83; HGB 9.8 gm/dL (11.4-16.0); Luc # (Auto) 0.12; Luc % (Auto) 1; Lymphocytes # (A) 1.3 k/uL (1.0-4.8); Lymphocytes % (A) 12 %; MCH 29.8 pg (25.0-35.0); MCHC 32.8 g/dL (31.0-37.0); MCV 90.8 fL (80.0-100.0); Mean Platelet Volume 7.9; Monocytes # (A) 0.5 k/uL (0-1.0); Monocytes % (A) 5 %; Neutrophils # (A) 7.9 k/uL (1.3-7.7); Neutrophils % (A) 78 %; RDW 14.4 % (11.5-15.5); WBC 10.2 k/uL (3.8-10.6); WBC (Perox) 10.71
[2016-12-19 08:02] LABS: Anion Gap 6 mmol/L; Blood Urea Nitrogen 14 mg/dL (7-17); Calcium 7.9 mg/dL (8.4-10.2); Carbon Dioxide 28 mmol/L (22-30); Chloride 106 mmol/L (98-107); Glucose 159 mg/dL (74-99); Non-African American GFR(MDRD) >60 (>60 ml/min/1.73 sqM); Potassium 3.3 mmol/L (3.5-5.1); Sodium 140 mmol/L (137-145)
[2016-12-19] MEDS: CARVEDILOL 12.5 MG TAB PO SCH (08:23)
[2016-12-19] MEDS: FUROSEMIDE 10 MG/ML 2 ML VIAL IV SCH (08:24)
[2016-12-19] MEDS: HEPARIN SODIUM,PORCINE 5,000 UNIT/ML 1 ML VIAL SQ SCH (08:24)
[2016-12-19] MEDS: LISINOPRIL 20 MG TAB PO SCH (08:25)
[2016-12-19] MEDS: PANTOPRAZOLE 40 MG/10 ML VIAL IVP SCH (08:25)
[2016-12-19] MEDS: LIDOCAINE 5% PATCH TOPICAL SCH (08:25)
[2016-12-19] MEDS: FLUCONAZOLE ORAL SUSP 1,400 MG/35 ML BOTTLE PO SCH (08:44)
[2016-12-19] MEDS: IPRATROPIUM-ALBUTEROL 3 ML NEB INHALATION SCH (09:31)
[2016-12-19] MEDS: SYMBICORT 160-4.5 MCG INHALER INHALATION SCH (09:31)
--- NOTE | 2016-12-19 09:38 | P.DS ---
Providers Date of admission: 12/07/16 15:02 Attending physician: Marychuy Jack Consults: 12/05/16 17:56 Consult Physician Stat Consulting Provider: Anders Sim Consult Reason/Comments: Splenic ANEURYSM Do you want consulting provider notified?: Yes 12/07/16 16:52 Consult Physician Routine Consulting Provider: César Alvarado Consult Reason/Comments: abnormal ct Do you want consulting provider notified?: Yes 12/07/16 16:53 Consult Physician Routine Consulting Provider: Janes Quijano Consult Reason/Comments: abnormal ct Do you want consulting provider notified?: Yes 12/10/16 16:04 Consult Physician Urgent Consulting Provider: Yuan Pack Consult Reason/Comments: esophageal stricture Do you want consulting provider notified?: Already Contacted 12/15/16 12:36 Consult Physician Routine Consulting Provider: Violetta Valverde Consult Reason/Comments: pneumonia Do you want consulting provider notified?: Already Contacted Primary care physician: Vandana Olsen [facility] Course: Please refer to my discharge summary for from yesterday for further details. Additionally patient was cleared by infectious disease patient's sputum cultures are not significant showing some yeast and gram-positive bacilli which is most probably diphtheroids. PHYSICAL EXAMINATION: GENERAL: The patient is alert and oriented x3, not in any acute distress. Well developed, well nourished. HEENT: Pupils are round and equally reacting to light. EOMI. No scleral icterus. No conjunctival pallor. Normocephalic, atraumatic. No pharyngeal erythema. No thyromegaly. CARDIOVASCULAR: S1 and S2 present. No murmurs, rubs, or gallops. PULMONARY: Chest is clear to auscultation, no wheezing or crackles. ABDOMEN: Soft, nontender, nondistended, normoactive bowel sounds. No palpable organomegaly. PEG tube in place acute site area is clean. MUSCULOSKELETAL: No joint swelling or deformity. EXTREMITIES: No cyanosis, clubbing, or pedal edema. NEUROLOGICAL: Gross neurological examination did not reveal any focal deficits. SKIN: No rashes. Patient Condition at Discharge: Good Plan - Discharge Summary New Discharge Prescriptions: New Amoxic-Pot Clav 875-125Mg [Augmentin 875-125] 1 tab PO Q12HR #14 tablet Potassium Chloride Oral Liquid 20 meq PO DAILY #200 ml Fluconazole Oral Susp [Diflucan Oral Susp] 200 mg PO DAILY #7 day Ondansetron HCl [Zofran] 4 mg SL Q8HR PRN #30 tablet PRN Reason: Nausea HYDROcodone/APAP 10-325MG [[place] 10-325] 1 tab PO Q6H PRN #30 tab PRN Reason: Pain Continue diphenhydrAMINE [Benadryl] 50 mg PO HS Cholecalciferol [Vitamin D3] 1,000 unit PO DAILY PARoxetine [Paxil] 20 mg PO HS ALPRAZolam [Xanax] 1 mg PO TID Aspirin 81 mg PO DAILY chew Budesonide-Formot 160-4.5 Mcg [Symbicort 160-4.5 Mcg Inhaler] 2 puff INHALATION RT-BID #1 puff Carvedilol [Coreg*] 25 mg PO BID-W/MEALS #60 tab Isosorbide Mononitrate ER [Imdur] 30 mg PO DAILY #30 tab.er.24h Nitroglycerin Sl Tabs [Nitrostat] 0 mg SUBLINGUAL DIRECTED PRN #25 tab PRN Reason: Chest Pain Glimepiride [Amaryl] 2 mg PO BID Famotidine [Pepcid] 20 mg PO BID Hydrochlorothiazide 25 mg PO DAILY Acetaminophen with Codeine [Tylenol w/codeine #3] 0.5 tab PO TID Acetaminophen [Tylenol] 500 mg PO TID Omeprazole Magnesium [Prilosec OTC] 20 mg PO DAILY Atorvastatin [Lipitor] 40 mg PO HS sitaGLIPtin PHOSPHATE [Januvia] 50 mg PO DAILY Ipratropium-Albuterol Nebulize [Duoneb 0.5 mg-3 mg/3 ml Soln] 3 ml INHALATION RT-BID Changed Lisinopril [Prinivil] 20 mg PO DAILY #0 Discharge Medication List ALPRAZolam [Xanax] 1 mg PO TID 04/09/15 [History] Cholecalciferol [Vitamin D3] 1,000 unit PO DAILY 04/09/15 [History] PARoxetine [Paxil] 20 mg PO HS 04/09/15 [History] diphenhydrAMINE [Benadryl] 50 mg PO HS 04/09/15 [History] Aspirin 81 mg PO DAILY chew 04/12/15 [Rx] Budesonide-Formot 160-4.5 Mcg [Symbicort 160-4.5 Mcg Inhaler] 2 puff INHALATION RT-BID #1 puff 04/12/15 [Rx] Carvedilol [Coreg*] 25 mg PO BID-W/MEALS #60 tab 04/12/15 [Rx] Isosorbide Mononitrate ER [Imdur] 30 mg PO DAILY #30 tab.er.24h 04/12/15 [Rx] Nitroglycerin Sl Tabs [Nitrostat] 0 mg SUBLINGUAL DIRECTED PRN #25 tab [Rx] Famotidine [Pepcid] 20 mg PO BID 12/04/16 [History] Glimepiride [Amaryl] 2 mg PO BID 12/04/16 [History] Hydrochlorothiazide 25 mg PO DAILY 12/04/16 [History] Acetaminophen [Tylenol] 500 mg PO TID 12/05/16 [History] Acetaminophen with Codeine [Tylenol w/codeine #3] 0.5 tab PO TID 12/05/16 [ History] Atorvastatin [Lipitor] 40 mg PO HS 12/05/16 [History] Ipratropium-Albuterol Nebulize [Duoneb 0.5 mg-3 mg/3 ml Soln] 3 ml INHALATION RT -BID 12/05/16 [History] Omeprazole Magnesium [Prilosec OTC] 20 mg PO DAILY 12/05/16 [History] sitaGLIPtin PHOSPHATE [Januvia] 50 mg PO DAILY 12/05/16 [History] Amoxic-Pot Clav 875-125Mg [Augmentin 875-125] 1 tab PO Q12HR #14 tablet [Rx] Lisinopril [Prinivil] 20 mg PO DAILY #0 12/17/16 [Rx] Fluconazole Oral Susp [Diflucan Oral Susp] 200 mg PO DAILY #7 day 12/18/16 [Rx] HYDROcodone/APAP 10-325MG [[place] 10-325] 1 tab PO Q6H PRN #30 tab 12/18/16 [Rx] Ondansetron HCl [Zofran] 4 mg SL Q8HR PRN #30 tablet 12/18/16 [Rx] Potassium Chloride Oral Liquid 20 meq PO DAILY #200 ml 12/18/16 [Rx] Follow up Appointment(s)/Referral(s): Yuan Pack MD [Medical Doctor] - As Needed Pretty Ross MD [Primary Care Provider] - 12/20/16 10:30 am Sarah Bowers MD [STAFF PHYSICIAN] - 12/31/16 2:30 pm [facility], [NON-STAFF] - As Needed Manuelito Sanchez MD [STAFF PHYSICIAN] - 01/02/17 10:15 am Anders Sim MD [STAFF PHYSICIAN] - 2 Weeks Patient Instructions/Handouts: Aspiration Pneumonia (DC), Esophageal Stricture (DC), Tube Feeding (DC) Activity/Diet/Wound Care/Special Instructions: Tube feeding supplies: [facility]: [phone] PET SCAN SCHEDULED FOR SaturdayDecember AT 11 AM-ARRIVE 15-30 MINUTES EARLY - [facility] CLEAR LIQUID DIET, TUBE FEEDING GOAL RATE 50ML/HOUR. OK TO SHOWER DAILY, COVER J -TUBE WITH OCCLUSIVE DRESSING AND CHANGE J-TUBE DRESSING AFTER SHOWERING. Discharge Disposition: HOME WITH HOME HEALTH SERVICES
[2016-12-19] MEDS ORDERED: CHOLESTYRAMINE (WITH SUGAR) 4 GM PACKET PEG/G-TUBE SCH (10:00)
[2016-12-19 11:43] VITALS: BP 161/72; PULSE 93; TEMP 97.9
[2016-12-19 11:48] LABS: Glucose,Whole Blood 180 mg/dL (75-99)
[2016-12-19 12:55] VITALS: BMI 27.4
--- NOTE | 2016-12-19 17:41 | PN ---
DATE OF SERVICE: 12/18/2016 REASON FOR FOLLOWUP: Aspiration pneumonia. INTERVAL HISTORY: The patient is afebrile. She is breathing comfortably. Denies significant chest pain. Minimal cough. No abdominal pain or any diarrhea. On examination, her blood pressure is 182/74 with a pulse of 72, temperature 97.8. She is 94% on room air. General description is an elderly female up in the bed in no distress. RESPIRATORY SYSTEM: Unlabored breathing. Clear to auscultation anteriorly. HEART: S1, S2. Regular rate and rhythm. ABDOMEN: Soft. No tenderness. LABS: Hemoglobin is 9.9, white count of 8.0 with a BUN of 18, creatinine 0.63. Sputum culture is currently pending. DIAGNOSTIC IMPRESSION AND PLAN: 1. Patient with an aspiration pneumonia. Waiting for the sputum culture to finalize to determine her discharge antibiotic. If no resistant pathogen, she will be able to finish therapy with oral Augmentin for about a week. 2. Patient with diarrhea, likely antibiotic-associated. Will add Questran for symptomatic relief. Patient has been advised to increase Probiotic intake. MTDD
--- NOTE | 2016-12-19 21:39 | PN ---
DATE OF SERVICE: 12/19/2016 REASON FOR FOLLOWUP: Aspiration pneumonia. INTERVAL HISTORY: The patient is afebrile. She is breathing comfortably on room air. Patient denies significant chest pain or shortness of breath. Occasional cough. No abdominal pain. Her diarrhea has improved. On examination, blood pressure is 161/72 with a pulse of 93, temperature 97.9. She is 93% on room air. General description is an elderly female up in the bed in no distress. RESPIRATORY SYSTEM: Unlabored breathing with decreased breath sounds at the base. No wheeze. HEART: S1, S2. Regular rate and rhythm. ABDOMEN: Soft. No tenderness. LABS: Hemoglobin is 9.8, white count 10.2 with a BUN of 14, creatinine 0.57. DIAGNOSTIC IMPRESSION AND PLAN: Patient with an episode of aspiration pneumonia acquired in the hospital; however, sputum is negative for any resistant Gram- negative. Antibiotic has been adjusted to Augmentin twice a day for another 7 days to finish the course of therapy. Her discharge was put on hold yesterday, as the sputum cultures were not finalized per micro lab. This was discussed in detail with attending physician. CYNTHIA
--- NOTE | 2016-12-20 12:09 | CDI ---
In responding to this query, please exercise your independent professional judgment. The [facility] Coding Staff and Clinical Documentation Specialists appreciate your assistance in clarifying documentation, maintaining compliance with coding guidelines, accurately documenting patients condition and capturing severity of illness. The fact that a question is asked does not imply that any particular answer is desired or expected. Communication forms are a method of clarifying documentation and are not made part of the Legal Health Record. Thank you in advance for your clarification. Last Revision, March 2015 Documentation Clarification Form Date: 12/20/2016 11:59:00 AM From: Dina LEA Martinez Phone: Admit Date: 12/07/2016 3:02:00 PM Patient Name: Laila Youssef Visit Number: [id number] Discharge Date: Dr. Yuan Pack The patient presented with progressive dysphagia. Open jejunostomy feeding tube placement was performed on 12/13/16, along with excision of omental nodule. In order to assign the appropriate ICD-10 PCS code, please clarify below. In your professional opinion, can you please clarify ____? Greater Omentum Lesser Omentum Other, please specify Please document in your progress notes and discharge summary in order to capture severity of illness and risk of mortality. Include clinical findings that support your diagnosis. FYI: Press F11 to launch patient chart. If you have a question about this query, please contact Andressa Adkins Casing Fluid Tender at [phone] between 8am and 5pm. CYNTHIA
--- NOTE | 2016-12-20 14:10 | CONS ---
Laila is a 66-year-old female admitted to [facility] with history of esophageal stricture. Patient had a CT scan for evaluation, found to have multiple splenic artery aneurysms. The largest measures 14.3 mm. There is also a left adrenal nodule as well as larger one 18 x 13 mm nodule inferior to this. The right adrenal gland is normal. Patient under the care of GI and I was consulted for splenic artery aneurysm. On examination, neck is supple, no bruit appreciated. Chest is clear. Abdomen is soft. VASCULAR EXAMINATION: ( ) are present. Abdomen is not tender. IMPRESSION: Asymptomatic splenic artery aneurysm. At this point, patient has other medical issues and the splenic artery aneurysm is smaller, we will follow with you and when patient discharged, we will follow in the office. At this point, patient does not need any major surgical intervention for splenic artery aneurysm. MTDD
--- NOTE | 2016-12-31 12:02 | P.PN ---
Progress Note - Text In response to query omental nodule was from the greater omentum
== END 2016-12-19 15:48 | disposition home health service (06) | DRG 356 ==
LOC: EC 12:04 → 3OBS 16:11 → OBSVTOIN 12-07 15:02 → 3SUR 12-07 17:20
PROVIDERS: ADMIT Hospitalist; ATTEND Hospitalist
PROC: 0DC58ZZ Extirpation of Matter from Esophagus, Via Natural or Artificial Opening Endoscopic (ICD-10-PCS; principal; 2016-12-07 14:10)
PROC: 0DB58ZX Excision of Esophagus, Via Natural or Artificial Opening Endoscopic, Diagnostic (ICD-10-PCS; principal; 2016-12-07 14:10)
PROC: 0DBS4ZZ (ICD-10-PCS; 2016-12-13)
PROC: 0DH63UZ Insertion of Feeding Device into Stomach, Percutaneous Approach (ICD-10-PCS; 2016-12-13)
DX: C15.5 Malignant neoplasm of lower third of esophagus (principal); J69.0 Pneumonitis due to inhalation of food and vomit; E46 Unspecified protein-calorie malnutrition; B37.0 Candidal stomatitis; I72.8 Aneurysm of other specified arteries; N39.0 Urinary tract infection, site not specified; I11.9 Hypertensive heart disease without heart failure; E11.9 Type 2 diabetes mellitus without complications; B37.3 Candidiasis of vulva and vagina; E78.5 Hyperlipidemia, unspecified; E86.0 Dehydration; E87.6 Hypokalemia; F17.210 Nicotine dependence, cigarettes, uncomplicated; F40.240 Claustrophobia; F41.0 Panic disorder [episodic paroxysmal anxiety]; F43.10 Post-traumatic stress disorder, unspecified; K21.9 Gastro-esophageal reflux disease without esophagitis; K52.9 Noninfective gastroenteritis and colitis, unspecified; R09.02 Hypoxemia; Z79.51 Long term (current) use of inhaled steroids; I25.2 Old myocardial infarction; Z79.82 Long term (current) use of aspirin; Z79.899 Other long term (current) drug therapy; Z80.8 Family history of malignant neoplasm of other organs or systems; Z82.49 Family history of ischemic heart disease and other diseases of the circulatory system; Z79.84 Long term (current) use of oral hypoglycemic drugs; Z88.2 Allergy status to sulfonamides
CPT/HCPCS: 36415; 43239; 43247; 71010; 71020; 71250; 74176; 74177; 80048; 80053; 81001; 81003; 82040; 82150; 82330; 82378; 83036; 83690; 83735; 84100; 84478; 84484; 85025; 86140; 87040; 87070; 87205; 88305; 88341; 88342; 93005; 94640; 94760; 96361; 96365; 96366; 96367; 96375; 96376; 99291

== ENCOUNTER → 2016-12-22 | Outpatient (CLI) | payer MEDICARE ==
--- NOTE | 2016-12-24 19:13 | PE ---
EXAMINATION TYPE: PET CT fusion skull to thigh DATE OF EXAM: 12/22/2016 CLINICAL HISTORY: 66-year-old female initial staging esophageal cancer diagnosed by biopsy on 12/08/19 17. TECHNIQUE: Following the intravenous administration of 10.56 mCi of F-18 FDG, whole body images are performed from the skull base to the midthigh. Images are reviewed on the computer in the coronal, axial, and sagittal planes. Reconstructed rotating images are created on independent workstation and reviewed on the computer. A localization and attenuation correction CT is performed in conjunction with the PET scan. Glucose level: 138 mg/dL COMPARISON: CT 12/07/2016 and 12/05/2016 FINDINGS: PET: There is a cutaneous/subcutaneous nodule measuring 1.1 cm along the right posterior upper neck, axial image 22 that shows focal intense FDG uptake, max SUV 5.6. Inflammatory cutaneous etiology or soft tissue metastatic focus are both in the differential. Tiny 6 mm soft tissue density in the right posterior upper to mid back cutaneous fat, axial image 81 shows minimal FDG uptake, max SUV 0.9. This is a nonspecific finding. Mild uptake within a right hilar lymph node is probably reactive, max SUV 2.9. A 1 cm nodule in the peripheral left base shows minimal uptake and is suspected inflammatory, max SUV 1.4. Prominent fluid layering within the esophagus. Marked circumferential wall thickening of the distal e sophagus with associated intense hypermetabolism, max SUV 13.2. Mild to moderate uptake along the posterior wall of the gastric fundus is likely physiologic, max SUV 4.6. There are a few enlarged gastrohepatic ligament lymph nodes measuring up to 1.6 cm. These are suspici ous even though they show only mild FDG uptake, max SUV 2.9. Additional suspicious finding of focal hypodensity measuring 1.3 cm along the posterior right hepatic dome, axial image 112. This remains somewhat suspicious despite the mild to moderate uptake, max SUV 3.2. Indeterminate 2.0 cm left adrenal gland nodule with mild FDG uptake, max SUV 3.0. A jejunostomy tube is present. There is inflammatory fat stranding in the midline supraumbilical sindhu on with a tiny subcutaneous focus of air, axial image 161. Soft tissue stranding extends into the ome ntum of the anterior intra-abdominal space and is associated with mild FDG uptake, likely postprocedu ral inflammation. There is curvilinear calcification in the central right kidney measuring up to 2.1 cm. A peripherally calcified cystic lesion is not excluded and follow-up is recommended. As this is located centrally w ithin the kidney, it is difficult to determine any associated hypermetabolism. A few nonspecific prominent left periaortic lymph nodes as well as aortocaval lymph nodes measuring u p to 7 mm show no discrete FDG uptake and are nonspecific. A lucent lesion within the left L5 vertebral body shows no discrete FDG uptake and is probably on a d egenerative basis, axial image 178. There is a fatty matrix hemangioma within T11 vertebral body, axi al image 121. This shows no FDG uptake. Otherwise, scattered degenerative uptake within the spine. ATTENUATION CORRECTION CT: There is rightward nasal septal deviation. Visualized paranasal sinuses and mastoid air cells appear clear. No cervical lymphadenopathy seen. The heart is mildly enlarged without pericardial effusion. Coronary vessel calcifications are present and are a marker for coronary artery disease. Ascending aorta is ectatic at 3.8 cm. There is varian t direct takeoff of the left vertebral artery directly from the aortic arch distal to the left subcla vian artery takeoff. Prominent bands of atelectasis in the lower lungs with additional dependent ate lectasis. Patchy groundglass throughout the lungs with reticulonodular and somewhat tree in bud opaci ties throughout. Trace right pleural effusion. Approximately 4 splenic artery aneurysms measuring up to 1.5 cm. No dilated small bowel, free fluid, or free air. No significant stool burden. Mild circumferential bladder wall thickening. Suggestion of pelvic floor relaxation. Pelvic phlebolit hs are present. Uterus appears surgically absent. Left ovary is visualized. Right ovary obscured by c lustered bowel loops. IMPRESSION: 1. Marked circumferential wall thickening of the distal esophagus with associated intense hypermetabo lism compatible with biopsy-proven esophageal carcinoma. 2. A few enlarged gastrohepatic ligament lymph nodes in the upper abdomen measure up to 1.6 cm. These are suspicious for metastatic disease despite the mild uptake. 3. Additional poorly defined hypodensity posterior right hepatic dome is also somewhat suspicious for metastatic disease despite the mild uptake. 4. A few borderline enlarged retroperitoneal lymph nodes show no FDG uptake and are nonspecific, like ly benign. A 2.0 cm left adrenal gland nodule with mild uptake is also nonspecific. As variable uptak e can also be seen in benign adrenal adenomas, this can be reassessed at follow-up. 5. Recommend physical exam correlation for the hypermetabolic 1.1 cm cutaneous/subcutaneous lesion al jenyn the right posterior upper neck. An inflammatory skin lesion is possible. Soft tissue metastatic d eposit is not excluded given the degree of uptake. 6. Possible 2.1 cm complex cyst with peripheral calcifications in the central right kidney. Recommend 6 month follow-up contrast enhanced CT to reassess. 7. Extensive patchy groundglass and reticulonodular densities throughout the lungs. Given fluid layer ing in the esophagus, correlate for chronic aspiration. Trace right effusion. An ill-defined 1 cm lef t basilar pulmonary nodule is likely postinflammatory and can also be reassessed at follow-up. 8. Incidental: Interval J-tube placement. Suspect postprocedural inflammation along the midline epiga stric region extending down into the omental fat. Splenic artery aneurysms measuring up to 1.5 cm and pelvic floor relaxation.
== END | disposition home or self-care (01) ==
LOC: RADPETMAIN 10:47
PROVIDERS: ATTEND Internal Medicine Hematology & Oncology
DX: C15.9 Malignant neoplasm of esophagus, unspecified (principal); E27.8 Other specified disorders of adrenal gland; J98.4 Other disorders of lung
CPT/HCPCS: 78815; A9552

== ENCOUNTER 2017-01-11 04:46 | Emergency (ER) | payer MEDICARE ==
--- NOTE | 2017-01-11 05:00 | ED ---
General Adult HPI - General Source: patient Mode of arrival: wheelchair Limitations: no limitations <Aleksandar Marcelino - Last Filed: 01/11/17 06:53> <Julian Brown - Last Filed: 01/11/17 13:46> - General Chief complaint: Abdominal Pain Stated complaint: J tube came out Time Seen by Provider: 01/11/17 04:50 - History of Present Illness Initial comments: This is a 66-year-old female who presents to the emergency department because she accidentally pulled out her J-tube. Patient has a J-tube in place because of esophageal tumor. Patient is in no pain or distress she states she accidentally cut it while trying to get out of bed this morning. Patient states it went in approximately a week to 10 days ago. The site is not bleeding. Patient denies abdominal pain. (Aleksandar Marcelino) - Related Data Home Medications Medication Instructions Recorded Confirmed ALPRAZolam [Xanax] 1 mg PEG/G-TUBE TID 04/09/15 01/11/17 Cholecalciferol [Vitamin D3] 2,000 unit PEG/G-TUBE DAILY 04/09/15 01/11/17 PARoxetine [Paxil] 20 mg PEG/G-TUBE HS 04/09/15 01/11/17 Famotidine [Pepcid] 20 mg PEG/G-TUBE BID 12/04/16 01/11/17 Glimepiride [Amaryl] 2 mg PEG/G-TUBE BID 12/04/16 01/11/17 Ipratropium-Albuterol Nebulize 3 ml INHALATION RT-BID 12/05/16 01/11/17 [Duoneb 0.5 mg-3 mg/3 ml Soln] Acetaminophen Tab [Tylenol Tab] 650 mg PEG/G-TUBE Q6H PRN 01/11/17 01/11/17 Aspirin 81 mg PEG/G-TUBE DAILY 01/11/17 01/11/17 Atorvastatin [Lipitor] 20 mg PEG/G-TUBE HS 01/11/17 01/11/17 Carvedilol [Coreg*] 25 mg PEG/G-TUBE BID 01/11/17 01/11/17 HYDROcodone/APAP 10-325MG [[place] 0.5 - 1 tab PEG/G-TUBE Q6H PRN 01/11/17 10-325] Lisinopril [Zestril] 20 mg PEG/G-TUBE BID 01/11/17 01/11/17 Ondansetron HCl [Zofran] 4 mg PEG/G-TUBE Q6H PRN 01/11/17 01/11/17 Osmolite 1.5 Ayo 50 ml PEG/G-TUBE Q1H 01/11/17 01/11/17 Potassium Chloride Oral Liquid 20 meq PEG/G-TUBE DAILY 01/11/17 01/11/17 Previous Rx's Medication Instructions Recorded Budesonide-Formot 160-4.5 Mcg 2 puff INHALATION RT-BID #1 puff 04/12/15 [Symbicort 160-4.5 Mcg Inhaler] Allergies Allergy/AdvReac Type Severity Reaction Status Date / Time nickel Allergy Rash/Hives Verified 01/11/17 08:31 phenazopyridine HCl Allergy Anaphylaxis Verified 01/11/17 08:31 [From Pyridium] prochlorperazine Allergy Anaphylaxis Verified 01/11/17 08:31 [From Compazine] prochlorperazine edisylate Allergy Anaphylaxis Verified 01/11/17 08:31 [From Compazine] prochlorperazine maleate Allergy Anaphylaxis Verified 01/11/17 08:31 [From Compazine] Sulfa (Sulfonamide Allergy Unknown Verified 01/11/17 08:31 Antibiotics) metformin AdvReac Nausea & Verified 01/11/17 08:31 Vomiting & Diarrhea Review of Systems ROS Other: All systems not noted in ROS Statement are negative. <Aleksandar Marcelino - Last Filed: 01/11/17 06:53> ROS Other: All systems not noted in ROS Statement are negative. <Julian Brown - Last Filed: 01/11/17 13:46> ROS Statement: Those systems with pertinent positive or pertinent negative responses have been documented in the HPI. Past Medical History Past Medical History: Diabetes Mellitus, Hyperlipidemia, Hypertension, Myocardial Infarction ([place]) Additional Past Medical History / Comment(s): Stress incontinence History of Any Multi-Drug Resistant Organisms: None Reported Past Surgical History: Appendectomy, Cholecystectomy, Heart Catheterization, Hysterectomy Additional Past Surgical History / Comment(s): Bladder sling, stress incontinence. lumpectomy left breast Past Anesthesia/Blood Transfusion Reactions: No Reported Reaction Past Psychological History: Anxiety, Depression, Panic Disorder Smoking Status: Former smoker Past Alcohol Use History: None Reported Past Drug Use History: None Reported - Past Family History Mother Family Medical History: Cancer Additional Family Medical History / Comment(s): Throat Father Family Medical History: Myocardial Infarction ([place]) Additional Family Medical History / Comment(s): Arthrosclorosis Brother(s) Family Medical History: Myocardial Infarction ([place]) <Aleksandar Marcelino - Last Filed: 01/11/17 06:53> General Exam Limitations: no limitations <Aleksandar Marcelino - Last Filed: 01/11/17 06:53> <Julian Brown - Last Filed: 01/11/17 13:46> - General Exam Comments Initial Comments: GENERAL Patient is well-developed and well-nourished. Patient is in mild distress. EYES Patient's pupils are equal and round. Extraocular motion is intact ABDOMEN Is a small opening on the left side of the abdomen where the G-tube was inserted there is no active bleeding SKIN Unremarkable NEURO The patient is alert and oriented 3 PYSCH Patient has normal interpersonal interactions. MUSCULOSKELETAL All 4 extremities have full range of motion. (Aleksandar Marcelino) Course <Aleksandar Marcelino - Last Filed: 01/11/17 06:53> <Julian Brown - Last Filed: 01/11/17 13:46> Vital Signs 01/11/17 01/11/17 01/11/17 04:49 06:40 10:26 Temperature 98.3 F Pulse Rate 72 78 74 Respiratory 18 16 20 Rate Blood Pressure 198/77 178/74 162/91 O2 Sat by Pulse 98 98 Oximetry - Reevaluation(s) Reevaluation #1: 01/11/17 08:42 Interventional radiology call back and stated that they were unable to assist. Case was then discussed with Dr. Hernandez who recommends calling Dr. guidry. Case was then discussed with Dr. guidry was doing cases at [facility] and will come evaluate the patient later. He does request x-ray. 01/11/17 13:05 Dr. guidry has come to evaluate patient and is working on and plan. (Julian Brown) Medical Decision Making <Aleksandar Marcelino - Last Filed: 01/11/17 06:53> - Radiology Data Radiology results: image reviewed (Abdominal x-ray shows nonspecific abdomen. Repeat x-ray with Gastrografin does show contrast into the intestinal lumen.) <Julian Brown - Last Filed: 01/11/17 13:46> - Medical Decision Making I spoke with Dr. Thomas he wanted me to call Dr. Morales so I spoke with Dr. Morales he wanted radiology to try to put in the J-tube. Dr. Brown be taking over care of this patient at 7 AM (Aleksandar Marcelino) Dr. guidry did replace J-tube and x-ray shows good function. She does not have concern for retained foreign body. He states frequently tubes are cut when they are placed. (Julian Brown) Disposition <Aleksandar Marcelino - Last Filed: 01/11/17 06:53> <Julian Brown - Last Filed: 01/11/17 13:46> Clinical Impression: Malfunctioning jejunostomy tube Disposition: HOME SELF-CARE Condition: Stable Instructions: How to Use and Care for Your PEG Tube (ED) Additional Instructions: Please follow-up with your oncologist and primary care physician and surgeon in the next few days for recheck. Return for fever, pain, nonfunctioning J-tube, worsening symptoms or other concerns. Referrals: Pretty Ross MD [Primary Care Provider] - 1-2 days Raudel Guidry DO [Doctor of Osteopathic Medicine] - 1-2 days Yuan Pack MD [Medical Doctor] - 1-2 days
--- NOTE | 2017-01-11 09:11 | XR ---
EXAMINATION TYPE: XR abdomen 2V DATE OF EXAM: 01/11/2017 COMPARISON: 12/07/2016 HISTORY: Pain TECHNIQUE: One view abdominal series FINDINGS: Previous surgery in the gallbladder fossa. Hypertrophic and degenerative change of the spine. Bowel g as pattern nonspecific with no diagnostic evidence of obstruction. Calcifications in the left upper quadrant are compatible with the CT reported history of splenic amy ry aneurysm. Calcification overlying the right kidney as noted by recent CT scan. IMPRESSION: 1. Nonspecific abdomen with no obstruction 2. Splenic artery aneurysms
[2017-01-11] MEDS ORDERED: ONDANSETRON ODT 4 MG TAB PO STA (12:18)
--- NOTE | 2017-01-11 13:50 | XR ---
EXAMINATION TYPE: XR KUB DATE OF EXAM: 01/11/2017 COMPARISON: 01/11/2017 HISTORY: J-tube displacement TECHNIQUE: One view abdominal series FINDINGS: The osseous structures are intact. The bowel gas pattern is nonspecific. Catheter overlying the left mid abdomen is seen and contrast is noted within the small bowel. Previous surgery involving the right upper quadrant is seen and there are splenic artery aneurysm emely cifications which were noted by recent CT scan. Renal calcifications on the right are stable. Arthropathy hips and degenerative change of the spine with vascular calcifications in the pelvis. IMPRESSION: 1. Nonspecific abdomen. Contrast is seen within the jejunum post injection. No extravasation.
--- NOTE | 2017-01-11 13:54 | P.GSCN ---
History of Present Illness Consult date: 01/11/17 History of present illness: Mrs. Youssef is a 66-year-old female who presented emergency room today with the chief complaint of dislodgment of her J-tube. The J-tube was placed approximately 2-3 weeks ago secondary to her need for tube feeds from an obstructing esophageal mass. During the surgery she was found to have apparently a metastatic disease and is not a surgical candidate at this time. She denies any abdominal pain at this time. There is nothing leaking from the tube around the site. This apparently happened at approximately 4 AM. Review of Systems 14 point review systems negative other than those noted in HPI. Past Medical History Past Medical History: Diabetes Mellitus, Hyperlipidemia, Hypertension, Myocardial Infarction ([place]) Additional Past Medical History / Comment(s): Stress incontinence History of Any Multi-Drug Resistant Organisms: None Reported Past Surgical History: Appendectomy, Cholecystectomy, Heart Catheterization, Hysterectomy Additional Past Surgical History / Comment(s): Bladder sling, stress incontinence. lumpectomy left breast Past Anesthesia/Blood Transfusion Reactions: No Reported Reaction Past Psychological History: Anxiety, Depression, Panic Disorder Smoking Status: Former smoker Past Alcohol Use History: None Reported Past Drug Use History: None Reported - Past Family History Mother Family Medical History: Cancer Additional Family Medical History / Comment(s): Throat Father Family Medical History: Myocardial Infarction ([place]) Additional Family Medical History / Comment(s): Arthrosclorosis Brother(s) Family Medical History: Myocardial Infarction ([place]) Medications and Allergies Home Medications Medication Instructions Recorded Confirmed Type ALPRAZolam [Xanax] 1 mg PEG/G-TUBE TID 04/09/15 01/11/17 History Cholecalciferol [Vitamin D3] 2,000 unit PEG/G-TUBE DAILY 04/09/15 01/11/17 History PARoxetine [Paxil] 20 mg PEG/G-TUBE HS 04/09/15 01/11/17 History Budesonide-Formot 160-4.5 Mcg 2 puff INHALATION RT-BID #1 puff 04/12/15 Rx [Symbicort 160-4.5 Mcg Inhaler] Famotidine [Pepcid] 20 mg PEG/G-TUBE BID 12/04/16 01/11/17 History Glimepiride [Amaryl] 2 mg PEG/G-TUBE BID 12/04/16 01/11/17 History Ipratropium-Albuterol Nebulize 3 ml INHALATION RT-BID 12/05/16 01/11/17 History [Duoneb 0.5 mg-3 mg/3 ml Soln] Acetaminophen Tab [Tylenol Tab] 650 mg PEG/G-TUBE Q6H PRN 01/11/17 01/11/17 History Aspirin 81 mg PEG/G-TUBE DAILY 01/11/17 01/11/17 History Atorvastatin [Lipitor] 20 mg PEG/G-TUBE HS 01/11/17 01/11/17 History Carvedilol [Coreg*] 25 mg PEG/G-TUBE BID 01/11/17 01/11/17 History HYDROcodone/APAP 10-325MG [[place] 0.5 - 1 tab PEG/G-TUBE Q6H PRN 01/11/17 History 10-325] Lisinopril [Zestril] 20 mg PEG/G-TUBE BID 01/11/17 01/11/17 History Ondansetron HCl [Zofran] 4 mg PEG/G-TUBE Q6H PRN 01/11/17 01/11/17 History Osmolite 1.5 Ayo 50 ml PEG/G-TUBE Q1H 01/11/17 01/11/17 History Potassium Chloride Oral Liquid 20 meq PEG/G-TUBE DAILY 01/11/17 01/11/17 History Allergies Allergy/AdvReac Type Severity Reaction Status Date / Time nickel Allergy Rash/Hives Verified 01/11/17 08:31 phenazopyridine HCl Allergy Anaphylaxis Verified 01/11/17 08:31 [From Pyridium] prochlorperazine Allergy Anaphylaxis Verified 01/11/17 08:31 [From Compazine] prochlorperazine edisylate Allergy Anaphylaxis Verified 01/11/17 08:31 [From Compazine] prochlorperazine maleate Allergy Anaphylaxis Verified 01/11/17 08:31 [From Compazine] Sulfa (Sulfonamide Allergy Unknown Verified 01/11/17 08:31 Antibiotics) metformin AdvReac Nausea & Verified 01/11/17 08:31 Vomiting & Diarrhea Surgical - Exam Osteopathic Statement: *. No significant issues noted on an osteopathic structural exam other than those noted in the History and Physical/Consult. Vital Signs Temp Pulse Resp BP Pulse Ox 98.3 F 72 18 198/77 98 01/11/17 04:49 01/11/17 04:49 01/11/17 04:49 01/11/17 04:49 01/11/17 04:49 - General well developed, well nourished, no distress - Eyes PERRL, normal ocular movement - ENT no hearing loss, no congestion - Neck no masses - Respiratory normal expansion, normal respiratory effort - Cardiovascular Rhythm: regular - Abdomen J-tube site in the left lower quadrant appears to be at intact with an intact tract. Abdomen: soft, non tender - Neurologic normal sensation - Musculoskeletal normal gait - Psychiatric oriented to time, oriented to person Results - Imaging Abdominal x-ray: report reviewed (Contrast appears to be within the lumen of the jejunum on KUB after placement of J-tube) Assessment and Plan (1) Malfunctioning jejunostomy tube Status: Acute Plan: J-tube was replaced at bedside and Gastrografin tube study was performed appears to be contrast within the lumen indicating J-tube is in the correct place. The patient may be discharged with follow-up. She may restart her tube feeds as tolerated.
[2017-01-11 14:01] VITALS: BP 204/81; PULSE 83; RESP 18; TEMP 98.1
== END 2017-01-11 14:04 | disposition home or self-care (01) ==
LOC: EC 04:46
DX: K94.13 Enterostomy malfunction (principal); E11.9 Type 2 diabetes mellitus without complications; I10 Essential (primary) hypertension; E78.5 Hyperlipidemia, unspecified; I25.2 Old myocardial infarction; F41.9 Anxiety disorder, unspecified; F32.9 Major depressive disorder, single episode, unspecified; Z87.891 Personal history of nicotine dependence; Z91.048 Other nonmedicinal substance allergy status; Z88.2 Allergy status to sulfonamides; Z90.49 Acquired absence of other specified parts of digestive tract; Z88.8 Allergy status to other drugs, medicaments and biological substances; Z79.84 Long term (current) use of oral hypoglycemic drugs; Z79.82 Long term (current) use of aspirin; Z79.899 Other long term (current) drug therapy; Y84.8 Other medical procedures as the cause of abnormal reaction of the patient, or of later complication, without mention of misadventure at the time of the procedure
CPT/HCPCS: 99284; 74000; 74020; Q9967

== ENCOUNTER 2017-01-12 18:13 | Inpatient (IN) | payer MEDICARE ==
--- NOTE | 2017-01-12 19:47 | ED ---
General Adult HPI <Sean Rasmussen - Last Filed: 01/12/17 20:51> - General Source: patient, family, RN notes reviewed Mode of arrival: ambulatory Limitations: no limitations <Stephanie Graff - Last Filed: 01/12/17 22:24> - General Chief complaint: Recheck/Abnormal Lab/Rx Stated complaint: FEEDING TUBE FELL OUT Time Seen by Provider: 01/12/17 19:21 - History of Present Illness Initial comments: 66 yo female presents to the ER with cc of feeding tube falling out. At this time the patient's last known feeding tube placement was around 3:30 in then checked dressing in the feeding tube without. They state they were here last night for the same issue. The feeding tube was placed to weeks ago by Dr. Pack. Patient denies any pain at this time. They state there has not been any drainage from the site there is some bleeding. They state that there is no other symptoms at this time. They were concerned due to the fact thought they should be seen. (Stephanie Graff) - Related Data Home Medications Medication Instructions Recorded Confirmed ALPRAZolam [Xanax] 1 mg PEG/G-TUBE TID 04/09/15 01/12/17 Cholecalciferol [Vitamin D3] 2,000 unit PEG/G-TUBE DAILY 04/09/15 01/12/17 PARoxetine [Paxil] 20 mg PEG/G-TUBE HS 04/09/15 01/12/17 Famotidine [Pepcid] 20 mg PEG/G-TUBE BID 12/04/16 01/12/17 Glimepiride [Amaryl] 2 mg PEG/G-TUBE BID 12/04/16 01/12/17 Ipratropium-Albuterol Nebulize 3 ml INHALATION RT-BID 12/05/16 01/12/17 [Duoneb 0.5 mg-3 mg/3 ml Soln] Acetaminophen Tab [Tylenol Tab] 650 mg PEG/G-TUBE Q6H PRN 01/11/17 01/12/17 Aspirin 81 mg PEG/G-TUBE DAILY 01/11/17 01/12/17 Atorvastatin [Lipitor] 20 mg PEG/G-TUBE HS 01/11/17 01/12/17 Carvedilol [Coreg*] 25 mg PEG/G-TUBE BID 01/11/17 01/12/17 HYDROcodone/APAP 10-325MG [[place] 0.5 - 1 tab PEG/G-TUBE Q6H PRN 01/11/17 10-325] Lisinopril [Zestril] 20 mg PEG/G-TUBE BID 01/11/17 01/12/17 Ondansetron HCl [Zofran] 4 mg PEG/G-TUBE Q6H PRN 01/11/17 01/12/17 Osmolite 1.5 Ayo 50 ml PEG/G-TUBE Q1H 01/11/17 01/12/17 Potassium Chloride Oral Liquid 20 meq PEG/G-TUBE DAILY 01/11/17 01/12/17 Previous Rx's Medication Instructions Recorded Budesonide-Formot 160-4.5 Mcg 2 puff INHALATION RT-BID #1 puff 04/12/15 [Symbicort 160-4.5 Mcg Inhaler] Allergies Allergy/AdvReac Type Severity Reaction Status Date / Time nickel Allergy Rash/Hives Verified 01/12/17 18:33 phenazopyridine HCl Allergy Anaphylaxis Verified 01/12/17 18:33 [From Pyridium] prochlorperazine Allergy Anaphylaxis Verified 01/12/17 18:33 [From Compazine] prochlorperazine edisylate Allergy Anaphylaxis Verified 01/12/17 18:33 [From Compazine] prochlorperazine maleate Allergy Anaphylaxis Verified 01/12/17 18:33 [From Compazine] Sulfa (Sulfonamide Allergy Unknown Verified 01/12/17 18:33 Antibiotics) metformin AdvReac Nausea & Verified 01/12/17 18:33 Vomiting & Diarrhea Review of Systems ROS Other: All systems not noted in ROS Statement are negative. <Sean Rasmussen - Last Filed: 01/12/17 20:51> ROS Other: All systems not noted in ROS Statement are negative. <Stephanie Graff - Last Filed: 01/12/17 22:24> ROS Statement: Those systems with pertinent positive or pertinent negative responses have been documented in the HPI. Past Medical History Past Medical History: Cancer, Diabetes Mellitus, Hyperlipidemia, Hypertension, Myocardial Infarction ([place]) Additional Past Medical History / Comment(s): Stress incontinence History of Any Multi-Drug Resistant Organisms: None Reported Past Surgical History: Appendectomy, Cholecystectomy, Heart Catheterization, Hysterectomy Additional Past Surgical History / Comment(s): Bladder sling, stress incontinence. lumpectomy left breast, feeding tube Past Anesthesia/Blood Transfusion Reactions: No Reported Reaction Past Psychological History: Anxiety, Depression, Panic Disorder Smoking Status: Former smoker Past Alcohol Use History: None Reported Past Drug Use History: None Reported - Past Family History Mother Family Medical History: Cancer Additional Family Medical History / Comment(s): Throat Father Family Medical History: Myocardial Infarction ([place]) Additional Family Medical History / Comment(s): Arthrosclorosis Brother(s) Family Medical History: Myocardial Infarction ([place]) <Stephanie Graff - Last Filed: 01/12/17 22:24> General Exam Limitations: no limitations General appearance: alert, in no apparent distress ENT exam: Present: normal exam, mucous membranes moist Neck exam: Present: normal inspection. Absent: tenderness, meningismus, lymphadenopathy Respiratory exam: Present: normal lung sounds bilaterally. Absent: respiratory distress, wheezes, rales, rhonchi, stridor Cardiovascular Exam: Present: regular rate, normal rhythm, normal heart sounds. Absent: systolic murmur, diastolic murmur, rubs, gallop, clicks GI/Abdominal exam: Present: soft, normal bowel sounds, other (j tube opening observed with minimal bleeding). Absent: distended, tenderness, guarding, rebound, rigid Neurological exam: Present: alert, oriented X3 Psychiatric exam: Present: normal affect, normal mood Skin exam: Present: warm, dry, intact, normal color. Absent: rash <Stephanie Graff - Last Filed: 01/12/17 22:24> Procedures <Sean Rasmussen - Last Filed: 01/12/17 20:51> <Stephanie Graff - Last Filed: 01/12/17 22:24> - Procedures Initial comment: I did attempt to replace the PEG tube it apparently came on around 3:30 this past afternoon. I was unable to replace the PEG tube after numerous attempts I did discuss the case with Dr. Guidry who is covering Dr. Pack he will come in to see the patientO (Sean Rasmussen) Medical Decision Making <Sean Rasmussen - Last Filed: 01/12/17 20:51> <Stephanie Graff - Last Filed: 01/12/17 22:24> - Medical Decision Making 66 yo female presents to the ER with cc of feeding tube falling out. At this time the insertion of the feeding tube was attempted. At this time attempts were done to place a feeding tube. Surgeon director professional services doctor Badger came in to evaluate the patient. This time the patient will be admitted. Yesterday continue IV fluids for the patient and evaluate the patient. Patient is in agreement with this plan. (Stephanie Graff) Disposition <Sean Rasmussen - Last Filed: 01/12/17 20:51> Decision Date: 01/12/17 Decision Time: 22:24 <Stephanie Graff - Last Filed: 01/12/17 22:24> Clinical Impression: Malfunctioning jejunostomy tube Disposition: ADMITTED IP TO THIS HOSP Condition: Stable Referrals: Pretty Ross MD [Primary Care Provider] - 1-2 days
[2017-01-12] MEDS ORDERED: LIDOCAINE URO-JET JELLY 2% 5 ML KIT URETHRAL ONE (19:58)
[2017-01-12] MEDS ORDERED: MORPHINE SULFATE 4 MG/ML SYRINGE IM STA (21:15)
[2017-01-12] MEDS ORDERED: MORPHINE SULFATE 4 MG/ML SYRINGE IV PRN (22:24)
[2017-01-12] MEDS ORDERED: NALOXONE 0.4 MG/ML 1 ML VIAL IV PRN (22:24)
[2017-01-12] MEDS: SODIUM CHLORIDE 0.9% 1,000 ML IV SCH (23:09)
[2017-01-12] MEDS: ENALAPRILAT 1.25 MG/ML 1 ML VIAL IVP PRN (23:10)
[2017-01-13] MEDS: LORazepam 2 MG/ML SYRINGE IV PRN ×4 (00:38→21:17)
[2017-01-13 00:48] LABS: Glucose,Whole Blood 81 mg/dL (75-99)
[2017-01-13] MEDS ORDERED: INSULIN LISPRO (humaLOG) 300 UNIT/3 ML VIAL SQ SCH (02:45)
[2017-01-13 03:36] LABS: Basophils # (A) 0.1 k/uL (0-0.2); Basophils % (A) 1 %; CH 30.6; CHCM 34.4; Eosinophils # (A) 0.2 k/uL (0-0.7); Eosinophils % (A) 2 %; HCT 31.5 % (34.0-46.0); HDW 3.05; HGB 10.3 gm/dL (11.4-16.0); Luc # (Auto) 0.13; Luc % (Auto) 1; Lymphocytes # (A) 2.4 k/uL (1.0-4.8); Lymphocytes % (A) 22 %; MCH 29.3 pg (25.0-35.0); MCHC 32.8 g/dL (31.0-37.0); MCV 89.4 fL (80.0-100.0); Mean Platelet Volume 7.3; Monocytes # (A) 0.5 k/uL (0-1.0); Monocytes % (A) 4 %; Neutrophils # (A) 7.8 k/uL (1.3-7.7); Neutrophils % (A) 71 %; RBC 3.53 m/uL (3.80-5.40); RDW 14.7 % (11.5-15.5); WBC 11.1 k/uL (3.8-10.6); WBC (Perox) 11.51
[2017-01-13 03:45] LABS: ALT 33 U/L (9-52); AST 16 U/L (14-36); Alkaline Phosphatase 104 U/L (38-126); Anion Gap 11 mmol/L; Blood Urea Nitrogen 16 mg/dL (7-17); Calcium 9.2 mg/dL (8.4-10.2); Carbon Dioxide 24 mmol/L (22-30); Chloride 105 mmol/L (98-107); Glucose 82 mg/dL (74-99); Non-African American GFR(MDRD) >60 (>60 ml/min/1.73 sqM); Potassium 3.4 mmol/L (3.5-5.1); Sodium 140 mmol/L (137-145); Total Bilirubin 0.5 mg/dL (0.2-1.3); Total Protein 6.4 g/dL (6.3-8.2)
[2017-01-13] MEDS: HYDROmorphone 1 MG/ML 1 ML SYRINGE IVP PRN ×2 (06:07→12:12)
[2017-01-13] MEDS: hydrALAZINE HCL 20 MG/ML 1 ML VIAL IVP PRN ×3 (06:08→20:43)
[2017-01-13] MEDS: IPRATROPIUM-ALBUTEROL 3 ML NEB INHALATION SCH ×2 (07:25→19:10)
[2017-01-13] MEDS: SYMBICORT 160-4.5 MCG INHALER INHALATION SCH ×2 (07:25→19:09)
[2017-01-13] MEDS: ENALAPRILAT 1.25 MG/ML 1 ML VIAL IVP PRN ×2 (08:13→18:05)
[2017-01-13] MEDS: HEPARIN SODIUM,PORCINE 5,000 UNIT/ML 1 ML VIAL SQ SCH ×2 (08:18→20:20)
[2017-01-13] MEDS: SODIUM CHLORIDE 0.9% 1,000 ML IV SCH ×2 (08:21→18:03)
[2017-01-13 12:12] LABS: Glucose,Whole Blood 120 mg/dL (75-99)
[2017-01-13] MEDS: INSULIN LISPRO (humaLOG) 300 UNIT/3 ML VIAL SQ SCH ×2 (12:12→18:02)
--- NOTE | 2017-01-13 12:39 | P.GSHP ---
History of Present Illness H&P Date: 01/13/17 Chief Complaint: J-tube dislodgment Mrs. Youssef a 66-year-old female who previously was in the emergency department one day ago with J-tube dislodgment. I had replaced the J-tube at that time and confirmed placement with tube study. She been discharged home to continue tube feeds and had been home for approximately 24 hours when the tube was pulled from abdomen again. The tube was originally placed several weeks ago by Dr. Pack. The emergency room physician at the time attempted to replace the tube and was unsuccessful. I attempted to replace the tube and it appears that the tract has closed off. I attempted to pass a wire which was unsuccessful. The patient has an almost completely obstructing esophageal mass and is unable to tolerate any by mouth intake. She has no fevers or chills no abdominal pain she has some nausea and spits up her oral secretions however she does not have any emesis. She has no other complaints at this time. - Review of Systems Comment: 14 point review systems negative other than those noted in history of present illness. Past Medical History Past Medical History: Cancer, COPD, Diabetes Mellitus, Hyperlipidemia, Hypertension, Myocardial Infarction ([place]) Additional Past Medical History / Comment(s): Stress incontinence, esophageal cancer December 2016, kidney stones right kidney, hydronephrosis right kidney, spleen aneurysm, Last Myocardial Infarction Date:: 2014 History of Any Multi-Drug Resistant Organisms: None Reported Past Surgical History: Appendectomy, Cholecystectomy, Heart Catheterization, Hysterectomy Additional Past Surgical History / Comment(s): Bladder sling, stress incontinence. lumpectomy left breast, feeding tube Past Anesthesia/Blood Transfusion Reactions: No Reported Reaction Past Psychological History: Anxiety, Depression, Panic Disorder Additional Psychological History / Comment(s): Clausterphobic, PTSD Smoking Status: Former smoker Past Alcohol Use History: None Reported Past Drug Use History: None Reported - Past Family History Mother Family Medical History: Cancer Additional Family Medical History / Comment(s): Throat Father Family Medical History: Myocardial Infarction ([place]) Additional Family Medical History / Comment(s): Arthrosclorosis Brother(s) Family Medical History: Myocardial Infarction ([place]) Medications and Allergies Home Medications Medication Instructions Recorded Confirmed Type ALPRAZolam [Xanax] 1 mg PEG/G-TUBE TID 04/09/15 01/13/17 History Cholecalciferol [Vitamin D3] 2,000 unit PEG/G-TUBE DAILY 04/09/15 01/13/17 History PARoxetine [Paxil] 20 mg PEG/G-TUBE HS 04/09/15 01/13/17 History Budesonide-Formot 160-4.5 Mcg 2 puff INHALATION RT-BID #1 puff 04/12/15 Rx [Symbicort 160-4.5 Mcg Inhaler] Famotidine [Pepcid] 20 mg PEG/G-TUBE BID 12/04/16 01/13/17 History Glimepiride [Amaryl] 2 mg PEG/G-TUBE BID 12/04/16 01/13/17 History Ipratropium-Albuterol Nebulize 3 ml INHALATION RT-BID 12/05/16 01/13/17 History [Duoneb 0.5 mg-3 mg/3 ml Soln] Acetaminophen Tab [Tylenol Tab] 650 mg PEG/G-TUBE Q6H PRN 01/11/17 01/13/17 History Aspirin 81 mg PEG/G-TUBE DAILY 01/11/17 01/13/17 History Atorvastatin [Lipitor] 20 mg PEG/G-TUBE HS 01/11/17 01/13/17 History Carvedilol [Coreg*] 25 mg PEG/G-TUBE BID 01/11/17 01/13/17 History HYDROcodone/APAP 10-325MG [[place] 0.5 - 1 tab PEG/G-TUBE Q6H PRN 01/11/17 History 10-325] Lisinopril [Zestril] 20 mg PEG/G-TUBE BID 01/11/17 01/13/17 History Osmolite 1.5 Ayo 50 ml PEG/G-TUBE Q1H 01/11/17 01/13/17 History Lidocaine 5% Patch [Lidoderm 5% 1 patch TRANSDERM HS 01/12/17 01/13/17 History Patch] Ondansetron Odt [Zofran ODT] 4 mg SUBLINGUAL Q6HR PRN 01/12/17 01/13/17 History diphenhydrAMINE [Benadryl] 25 mg PEG/G-TUBE TID@0500,1100,1700 01/12/17 History Allergies Allergy/AdvReac Type Severity Reaction Status Date / Time nickel Allergy Rash/Hives Verified 01/13/17 07:27 phenazopyridine HCl Allergy Anaphylaxis Verified 01/13/17 07:27 [From Pyridium] prochlorperazine Allergy Anaphylaxis Verified 01/13/17 07:27 [From Compazine] prochlorperazine edisylate Allergy Anaphylaxis Verified 01/13/17 07:27 [From Compazine] prochlorperazine maleate Allergy Anaphylaxis Verified 01/13/17 07:27 [From Compazine] Sulfa (Sulfonamide Allergy Unknown Verified 01/13/17 07:27 Antibiotics) metformin AdvReac Nausea & Verified 01/13/17 07:27 Vomiting & Diarrhea Surgical - Exam Osteopathic Statement: *. No significant issues noted on an osteopathic structural exam other than those noted in the History and Physical/Consult. Vital Signs Temp Pulse Resp BP Pulse Ox 97.5 F L 71 16 149/64 99 01/12/17 18:30 01/12/17 18:30 01/12/17 18:30 01/12/17 18:30 01/12/17 18:30 - General well developed, no distress - Eyes PERRL - ENT normal mucosa, no congestion - Neck no masses - Respiratory normal expansion, normal respiratory effort - Cardiovascular Rhythm: regular - Abdomen Site of J-tube is open at skin however does not appear to be open past the fascia. Abdomen: soft, non tender - Integumentary no rash - Neurologic normal coordination, normal sensation - Musculoskeletal normal gait - Psychiatric oriented to time, oriented to person, oriented to place Results - Labs 01/13/17 03:12 01/13/17 03:12 Abnormal Lab Results - Last 24 Hours (Table) 01/13/17 01/13/17 01/13/17 Range/Units 03:12 03:12 12:11 WBC 11.1 H (3.8-10.6) k/uL RBC 3.53 L (3.80-5.40) m/uL Hgb 10.3 L (11.4-16.0) gm/dL Hct 31.5 L (34.0-46.0) % Neutrophils # 7.8 H (1.3-7.7) k/uL Potassium 3.4 L (3.5-5.1) mmol/L POC Glucose (mg/dL) 120 H (75-99) mg/dL Albumin 3.4 L (3.5-5.0) g/dL Diabetes panel 01/13/17 Range/Units 03:12 Sodium 140 (137-145) mmol/L Potassium 3.4 L (3.5-5.1) mmol/L Chloride 105 (98-107) mmol/L Carbon Dioxide 24 (22-30) mmol/L BUN 16 (7-17) mg/dL Creatinine 0.60 (0.52-1.04) mg/dL Glucose 82 (74-99) mg/dL Calcium 9.2 (8.4-10.2) mg/dL AST 16 (14-36) U/L ALT 33 (9-52) U/L Alkaline Phosphatase 104 (38-126) U/L Total Protein 6.4 (6.3-8.2) g/dL Albumin 3.4 L (3.5-5.0) g/dL Calcium panel 01/13/17 Range/Units 03:12 Calcium 9.2 (8.4-10.2) mg/dL Albumin 3.4 L (3.5-5.0) g/dL Pituitary panel 01/13/17 Range/Units 03:12 Sodium 140 (137-145) mmol/L Potassium 3.4 L (3.5-5.1) mmol/L Chloride 105 (98-107) mmol/L Carbon Dioxide 24 (22-30) mmol/L BUN 16 (7-17) mg/dL Creatinine 0.60 (0.52-1.04) mg/dL Glucose 82 (74-99) mg/dL Calcium 9.2 (8.4-10.2) mg/dL Adrenal panel 01/13/17 Range/Units 03:12 Sodium 140 (137-145) mmol/L Potassium 3.4 L (3.5-5.1) mmol/L Chloride 105 (98-107) mmol/L Carbon Dioxide 24 (22-30) mmol/L BUN 16 (7-17) mg/dL Creatinine 0.60 (0.52-1.04) mg/dL Glucose 82 (74-99) mg/dL Calcium 9.2 (8.4-10.2) mg/dL Total Bilirubin 0.5 (0.2-1.3) mg/dL AST 16 (14-36) U/L ALT 33 (9-52) U/L Alkaline Phosphatase 104 (38-126) U/L Total Protein 6.4 (6.3-8.2) g/dL Albumin 3.4 L (3.5-5.0) g/dL Assessment and Plan (1) Malfunctioning jejunostomy tube Status: Acute (2) Esophageal adenocarcinoma Status: Acute (3) Esophageal stricture Status: Acute Plan: At this time I was unable to replace the jejunostomy tube. Secondary to her inability to tolerate oral intake the patient will be admitted for IV fluids/ meds and await evaluation of Dr. Pack. It appears that she will have a prolonged period without definitive feeding access she will likely need a PICC line placed for TPN.
--- NOTE | 2017-01-13 13:24 | CONS ---
CONSULTATION DATE OF SERVICE: 01/12/2017 REASON FOR CONSULTATION: Advice regarding diabetes mellitus, hyperlipidemia and hypertension requested by Surgery. HISTORY OF PRESENT ILLNESS: This 66-year-old woman with past medical history of diabetes, hypertension, hyperlipidemia being followed by Dr. Ross in the outpatient setting recently admitted for ulcerated mass of the esophagus. The patient was being worked up for surgery by Dr. Pack and Cardiothoracic Surgery. The details are not known at this time. The PET scan has been done recently which could not be done as an inpatient. The patient had J tube insertion. The patient went home. Patient was getting tube feeds at home. Apparently the tube was dislodged today and the patient admitted for further evaluation and treatment. The blood pressure is elevated because of lack of blood pressure medications. There is no history of fever, rigors. No history of headaches, loss of consciousness or seizures. PAST MEDICAL HISTORY: COPD, diabetes, hypertension, hyperlipidemia, recently diagnosed esophageal cancer. MEDICATIONS: Medications prior to admission include home medications: 1. Benadryl 25 mcg. 2. Lidoderm patch. 3. Xanax. 4. Lipitor. 5. Aspirin. 6. Coreg. 7. Amaryl. 8. Pepcid. 9. Vitamin D3 2000 a day. 10.DuoNeb q.i.d. and p.r.n. 11.[place]. 12.Symbicort 2 puffs b.i.d. 13.Zofran. 14.Zestril 20 mg b.i.d. 15.Paxil. ALLERGIES: NICKEL, PYRIDINE, COMPAZINE AND SULFA AND METFORMIN. FAMILY HISTORY: History of throat cancer. SOCIAL HISTORY: Previous history of smoking. No alcohol intake. REVIEW OF SYSTEMS: ENT: No diminished hearing or vision. CARDIOVASCULAR: As mentioned earlier. RESPIRATORY: As mentioned earlier. GI: No nausea. : No dysuria. NERVOUS SYSTEM: No numbness or weakness. ALLERGY/IMMUNOLOGY: No asthma or hayfever. MUSCULOSKELETAL: As mentioned earlier. HEMATOLOGY/ONCOLOGY: No history of anemia. ENDOCRINE: History of diabetes. CONSTITUTIONAL: As mentioned earlier. DERMATOLOGY: Negative. RHEUMATOLOGY: Negative. PSYCHIATRY: As mentioned earlier. PHYSICAL EXAMINATION: Patient is alert and oriented x3. Pulse 87, blood pressure 199/74, respiration 18, temperature 97.9, pulse ox 96% on room air. HEENT: Conjunctivae normal. Oral mucosa moist. NECK: No jugular venous distention. No carotid bruit. No lymph node enlargement. CARDIOVASCULAR: S1, S2. RESPIRATORY: Breath sounds diminished at the bases. A few scattered rhonchi. No crackles. ABDOMEN: Soft, nontender. No mass palpable. The J-tube was dislodged. LEGS: No edema. No swelling. NERVOUS SYSTEM: Higher function as mentioned. Moves all four limbs. LYMPHATIC: No lymphadenopathy in the neck, axillae or groin. SKIN: No rash, ulcer, bleeding. LAB STUDIES: Glucose 81. ASSESSMENT: 1. Hypertension accelerated. 2. Status post J-tube dislodgement. 3. 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 4. History of recent pneumonia. 5. Diabetes mellitus type 2. 6. Recently urinary tract infection. RECOMMENDATION AND DISCUSSION: In this 66-year-old woman who presented with multiple complex medical issues, will monitor the patient closely, continue the current medications, continue symptomatic treatment. I would recommend close followup with Surgery and initiate p.o. medications once J tube is reinitiated. Otherwise I would recommended p.r.n. hydralazine. See orders for further details. Also recommend to monitor blood sugars closely. Resume the bronchodilator treatment. Otherwise the DVT prophylaxis. We will follow the patient closely. The patient may be asked to follow with Dr. Ross closely after discharge. Hematology oncology also may be consulted. Further recommendations to follow. Thank you Dr. Guidry for letting us participate in the care of this patient. Please see orders for details. MMODL / IJN: [id number] /
[2017-01-13 14:12] LABS: Hemoglobin A1C 6.2 % (4.2-6.1)
[2017-01-13] MEDS: cloNIDine 0.2 MG/24HR PATCH 1 PATCH PATCH TRANSDERM SCH (14:34)
[2017-01-13] MEDS ORDERED: HYDROmorphone 1 MG/ML 1 ML SYRINGE IM PRN (16:31)
[2017-01-13 18:04] LABS: Glucose,Whole Blood 126 mg/dL (75-99)
[2017-01-13] MEDS: cloNIDine HCL 0.1 MG TAB PO PRN (18:04)
[2017-01-13] MEDS: ONDANSETRON 4 MG/2 ML VIAL IVP PRN (18:04)
[2017-01-13 20:05] LABS: Glucose,Whole Blood 99 mg/dL (75-99)
[2017-01-13] MEDS: LIDOCAINE 5% PATCH TOPICAL SCH (20:20)
[2017-01-13] MEDS: PANTOPRAZOLE 40 MG/10 ML VIAL IVP SCH (20:21)
[2017-01-14] MEDS: ONDANSETRON 4 MG/2 ML VIAL IVP PRN ×4 (00:11→19:11)
[2017-01-14] MEDS: cloNIDine HCL 0.1 MG TAB PO PRN ×3 (00:18→22:12)
[2017-01-14] MEDS: HYDROmorphone 1 MG/ML 1 ML SYRINGE IVP PRN ×7 (00:20→22:51)
[2017-01-14 00:25] LABS: Glucose,Whole Blood 123 mg/dL (75-99)
[2017-01-14] MEDS: INSULIN LISPRO (humaLOG) 300 UNIT/3 ML VIAL SQ SCH ×4 (01:30→18:05)
--- NOTE | 2017-01-14 02:39 | P.PN ---
Subjective Principal diagnosis: J-tube dislodgment Doing well. Resting comfortably in bed. No complaints. Objective - Vital Signs Vital signs: Vital Signs Temp 98.4 F 01/13/17 20:05 Pulse 95 01/13/17 20:05 Resp 16 01/13/17 20:05 BP 160/71 01/14/17 01:48 Pulse Ox 96 01/13/17 20:05 Intake & Output 01/13/17 01/13/17 01/14/17 06:59 18:59 06:59 Intake Total 600 800 350 Balance 600 800 350 Weight 60.555 kg Intake: IV 800 350 Sodium Chloride 0.9% 1, 800 350 000 ml @ 100 mls/hr IV . Q10H JESS Rx#:[id number] Intake, IV Titration 600 Amount Sodium Chloride 0.9% 1, 600 000 ml @ 100 mls/hr IV . Q10H JESS Rx#:[id number] Other: Voiding Method Toilet Toilet Toilet Diaper Diaper Diaper # Voids 2 2 - Constitutional General appearance: Present: cooperative - EENT Eyes: Present: PERRLA - Respiratory Details: nonlabored - Cardiovascular Rhythm: regular - Gastrointestinal Gastrointestinal Comment(s): soft/NT/ND - Psychiatric Psychiatric: Present: A&O x's 3 - Labs CBC & Chem 7: 01/13/17 03:12 01/13/17 03:12 Labs: Abnormal Lab Results - Last 24 Hours (Table) 01/13/17 01/13/17 01/13/17 Range/Units 03:12 03:12 03:12 WBC 11.1 H (3.8-10.6) k/uL RBC 3.53 L (3.80-5.40) m/uL Hgb 10.3 L (11.4-16.0) gm/dL Hct 31.5 L (34.0-46.0) % Neutrophils # 7.8 H (1.3-7.7) k/uL Potassium 3.4 L (3.5-5.1) mmol/L POC Glucose (mg/dL) (75-99) mg/dL Hemoglobin A1c 6.2 H (4.2-6.1) % Albumin 3.4 L (3.5-5.0) g/dL 01/13/17 01/13/17 01/14/17 Range/Units 12:11 18:01 00:05 WBC (3.8-10.6) k/uL RBC (3.80-5.40) m/uL Hgb (11.4-16.0) gm/dL Hct (34.0-46.0) % Neutrophils # (1.3-7.7) k/uL Potassium (3.5-5.1) mmol/L POC Glucose (mg/dL) 120 H 126 H 123 H (75-99) mg/dL Hemoglobin A1c (4.2-6.1) % Albumin (3.5-5.0) g/dL Assessment and Plan (1) Malfunctioning jejunostomy tube Status: Acute (2) Esophageal adenocarcinoma Status: Acute (3) Esophageal stricture Status: Acute Plan: Cont. IVF and IV meds. No acute surgical intervention planned, await final recs per Dr. Pack
[2017-01-14 02:51] LABS: Appearance,Urine Clear (Clear); Bilirubin,Urine Negative (Negative); Glucose,Urine (UA) Negative (Negative); Ketones,Urine 3+ (Negative); Leukocyte Esterase,Urine Negative (Negative); Nitrite,Urine Negative (Negative); Protein,Urine Negative (Negative); UA Billing (MACRO vs. MICRO) CHEM; Urobilinogen,Urine <2.0 mg/dL (<2.0)
[2017-01-14] MEDS: LORazepam 2 MG/ML SYRINGE IV PRN ×4 (03:18→22:15)
[2017-01-14 06:12] LABS: Glucose,Whole Blood 123 mg/dL (75-99)
[2017-01-14] MEDS: SODIUM CHLORIDE 0.9% 1,000 ML IV SCH ×3 (06:23→22:57)
[2017-01-14 07:11] LABS: Basophils # (A) 0.1 k/uL (0-0.2); Basophils % (A) 1 %; CH 29.4; CHCM 33.1; Eosinophils % (A) 0 %; HCT 32.6 % (34.0-46.0); HGB 11.2 gm/dL (11.4-16.0); Luc % (Auto) 1; Lymphocytes # (A) 1.8 k/uL (1.0-4.8); Lymphocytes % (A) 15 %; MCH 30.5 pg (25.0-35.0); MCHC 34.3 g/dL (31.0-37.0); MCV 89.1 fL (80.0-100.0); Mean Platelet Volume 7.1; Monocytes # (A) 0.4 k/uL (0-1.0); Monocytes % (A) 3 %; Neutrophils # (A) 9.8 k/uL (1.3-7.7); Neutrophils % (A) 80 %; RBC 3.66 m/uL (3.80-5.40); RDW 14.1 % (11.5-15.5); WBC 12.2 k/uL (3.8-10.6); WBC (Perox) 12.38
[2017-01-14] MEDS: HEPARIN SODIUM,PORCINE 5,000 UNIT/ML 1 ML VIAL SQ SCH ×2 (08:12→19:56)
[2017-01-14] MEDS: PANTOPRAZOLE 40 MG/10 ML VIAL IVP SCH ×2 (08:12→19:57)
[2017-01-14] MEDS: SYMBICORT 160-4.5 MCG INHALER INHALATION SCH ×4 (08:28→21:24)
[2017-01-14] MEDS: IPRATROPIUM-ALBUTEROL 3 ML NEB INHALATION SCH ×3 (08:28→21:25)
--- NOTE | 2017-01-14 09:01 | PN ---
PROGRESS NOTE DATE OF SERVICE: 01/13/2017 This is a progress note. INTERVAL HISTORY: This 66-year-old woman who was admitted with also had accelerated hypertension. The patient was started on p.r.n. medications. The patient also found to be confused as well. Otherwise the patient at this time diagnosed with carcinoma, outpatient evaluation and possible surgery is being planned. PET scan has been done also. The patient also has diabetes. Blood sugar has also been closely monitored. WBC elevated at 11.4, UA is not available at this time. Past medical history reviewed. REVIEW OF SYSTEMS: Cardio system: No angina or palpitations. Respiratory: No cough. GI: No nausea or vomiting. no dysuria. Central nervous system: No numbness, weakness. MEDICATIONS: Reviewed and include: 1. DuoNeb q.i.d. and p.r.n. 2. Symbicort b.i.d. 3. Catapres 0.1 q4h. 4. Vasotec. 5. Heparin. 6. Apresoline. 7. Dilaudid. 8. Ativan p.r.n. 10.Narcan. PHYSICAL EXAM: Patient is alert, oriented times three. Pulse is 79, blood pressure 188/81. Respiration 18, temperature 98.8, pulse ox 94% on room air. HEENT: Conjunctivae normal. Neck: No jugular venous distention. No thyroid enlargement or carotid bruit. Cardiovascular: Heart is S1, S2. Respiratory: Breath sounds diminished in the bases. A few scattered rhonchi and crackles. ABDOMEN: Soft, nontender. Minimal diffuse pain present, otherwise no mass palpable. LEGS: No edema. No swelling. Central nervous system: No focal deficits. LAB STUDIES: WBC 11.9, hemoglobin 10.3. ASSESSMENT: 1. Status post J-tube dislodgement_. 2. Accelerated hypertension and hypertensive urgency. 3. 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 4. Change in mental status acute metabolic encephalopathy. 5. History of recent pneumonia. 6. Diabetes type 2. 7. History of recent urinary tract infection. RECOMMENDATIONS AND DISCUSSION: Recommend to continue current medications. Continue symptomatic treatment. Repeat the UA. Otherwise continue the rest of the medications. I would initiate Catapres. Continue the p.r.n. medication and monitor blood sugars closely. Guarded prognosis because of multiple complex medical issues. Further recommendations to follow. See orders for details. MMODL / IJN: [id number] / [place]
[2017-01-14] MEDS: ENALAPRILAT 1.25 MG/ML 1 ML VIAL IVP PRN ×2 (09:35→20:09)
--- NOTE | 2017-01-14 10:31 | CONS ---
CONSULTATION DATE OF SERVICE: 01/13/2017. REASON FOR CONSULTATION: Esophageal cancer. CHIEF COMPLAINT: Dysphagia. HISTORY: Laila is a very pleasant 66-yea-old lady, she was first evaluated for the 1st time by Dr. Sanchez on 01/02/2017 because of recent diagnosis of esophageal cancer when she presented with progressive dysphagia and 50 pound weight loss. She was seen by Dr. Jack and she was found to have an ulcerated mass at the distal esophagus. Biopsy confirmed poorly differentiated adenocarcinoma. She could not tolerate oral feeding and she had a J-tube placed by Dr. Pack on 12/13/2016. Also at the same time she was found to have omental nodule which was biopsied, which confirmed metastatic disease. Also, her PET scan revealed significant uptake in the distal esophagus at upper abdomen and lymph node and a questionable nodule in the liver. When she first met Dr. Sanchez it was decided to treat her with palliative intent with systemic chemotherapy with carboplatin and Taxol, but she has not received any treatment yet. The patient came into the emergency department because the J-tube fell off and she has been having significant pain in her upper abdomen when she eats. She ended up being admitted to the hospital for hydration and pain management. Overall, she is very weak and tired. She has lost over 50 pounds, as stated above, significant dysphagia even to liquid. She feels nauseated as well. No fever or chills. No melena, hematochezia, hematuria, or hemoptysis. No epistaxis. PAST MEDICAL HISTORY: In addition to what is stated above in regard to her metastatic adenocarcinoma of distal esophagus, she has a history of diabetes, COPD, essential hypertension, hyperlipidemia. FAMILY HISTORY: She has a brother who had colon cancer. SOCIAL HISTORY: She smoked 1 pack of cigarettes daily. She recently quit. No alcohol abuse or substance abuse. REVIEW OF SYSTEMS: As stated above in history of present illness. Otherwise negative. ALLERGIES: She is allergic to Pyridium, Compazine, sulfa, metformin, and nickel. MEDICATIONS: Medications reviewed in her electronic medical record. PHYSICAL EXAMINATION: She is alert, oriented x3. She does not appear to be in distress. VITAL SIGNS are temperature 98.8, afebrile, pulse is 89 and regular, respirations 18, blood pressure 187/74. HEENT is normocephalic, atraumatic. No obvious icterus. Neck is supple. Lungs are clear to auscultation. Heart is regular rate and rhythm. Abdomen is soft. She has tenderness in the epigastric area. Bowel sounds present. Extremities reveal no edema. Skin, no significant bruising or petechia. No peripherally enlarged cervical or supraclavicular nodes. LABORATORY DATA: WBC 11.1, hemoglobin 10.3, hematocrit 31.5, platelets are 240. Sodium 140, potassium 3.4, chloride 101, CO2 is 24, BUN is 16, creatinine 0.6. LFT and alkaline phosphatase are within normal limits. IMPRESSION: 1. Metastatic adenocarcinoma of the distal esophagus as stated above. 2. Very poor nutritional status. J-tube has been malfunctioning and it fell off. 3. Epigastric pain related to her malignancy. RECOMMENDATIONS: IV hydration. Monitor her nutritional status. If J-tube cannot be replaced then PICC line for parenteral nutrition should be highly considered. In regard to her pain management, we will increase the frequency and the dose of the Dilaudid. Based on that, we will determine the need for longer-acting narcotics. The above was discussed in detail with the patient. I have answered all her questions to her satisfaction. Thank you very much for asking me to participate in the care of this nice lady. MMODL / IJN: [id number] /
--- NOTE | 2017-01-14 11:19 | XR ---
EXAMINATION TYPE: XR chest 1V portable DATE OF EXAM: 01/14/2017 CLINICAL HISTORY: Difficulty breathing progress study. TECHNIQUE: Single AP portable upright view of the chest is obtained. COMPARISON: Chest x-ray from December 15, 2016. PET CT December 22, 2016. FINDINGS: There is chronic emphysematous change without suspicious focal airspace opacity, pleural e ffusion, or pneumothorax seen bilaterally. Cardiomegaly is redemonstrated. Osseous structures are int act. Cholecystectomy clips are redemonstrated. IMPRESSION: Chronic emphysematous change and cardiomegaly without suspicious acute pulmonary process.
[2017-01-14 11:59] LABS: Glucose,Whole Blood 148 mg/dL (75-99)
[2017-01-14] MEDS: hydrALAZINE HCL 20 MG/ML 1 ML VIAL IVP PRN ×2 (15:42→22:12)
[2017-01-14] MEDS: SCOPOLAMINE 1.5MG/72HR PATCH TRANSDERM SCH (16:31)
[2017-01-14 18:03] LABS: Glucose,Whole Blood 105 mg/dL (75-99)
--- NOTE | 2017-01-14 19:52 | PN ---
PROGRESS NOTE DATE OF SERVICE: Today is January 14, 2017. CHIEF COMPLAINT: Dysphagia. INTERVAL HISTORY: Laila is seen today as followup. She continued to have some dysphagia. She has epigastric pain. However, it is better with the current dose and frequency of Dilaudid. She denies any fever or chills. No melena, hematochezia or hematuria. MEDICATIONS: Reviewed in her electronic medical record. PHYSICAL EXAMINATION: Alert, oriented times three and in no distress. Temperature 97.6, afebrile, pulse 76 regular, respirations 16, blood pressure 179/77. HEENT: Normocephalic, atraumatic. No icterus. NECK: Supple. Chest equal expansion bilaterally. LUNGS: Clear to auscultation. Heart is regular rhythm. ABDOMEN: Soft. Positive epigastric tenderness. EXTREMITIES: No edema. LABORATORY DATA: WBC of 12.2, hemoglobin 11.2, hematocrit is 32.6, platelets are 287. IMPRESSION: 1. Recent diagnosis of metastatic adenocarcinoma of distal esophagus. 2. Malfunctioning J-tube. 3. Significant dysphagia and poor nutritional status secondary to above. 4. Ongoing epigastric pain, appears to be better with the current dose and frequency of Dilaudid. RECOMMENDATION: 1. Continue current medication regimen. 2. Continue IV hydration. 3. Awaiting surgical opinion about inserting a new J-tube. The other alternative a PEG tube could be considered. However, I doubt this is feasible given the significant large lesion at the distal esophagus. Alternatively, if a J-tube is going to be difficult, then PICC line placement for parenteral nutrition and consideration for palliative radiation therapy. Thank you very much. MMODL / IJN: [id number] /
[2017-01-14] MEDS: LIDOCAINE 5% PATCH TOPICAL SCH (19:56)
[2017-01-15 00:03] LABS: Glucose,Whole Blood 109 mg/dL (75-99)
[2017-01-15] MEDS: INSULIN LISPRO (humaLOG) 300 UNIT/3 ML VIAL SQ SCH ×4 (01:49→18:09)
[2017-01-15] MEDS: HYDROmorphone 1 MG/ML 1 ML SYRINGE IVP PRN ×5 (01:52→21:22)
[2017-01-15] MEDS: ONDANSETRON 4 MG/2 ML VIAL IVP PRN ×3 (03:41→21:21)
[2017-01-15] MEDS: LORazepam 2 MG/ML SYRINGE IV PRN ×3 (04:18→16:35)
[2017-01-15] MEDS: ENALAPRILAT 1.25 MG/ML 1 ML VIAL IVP PRN ×2 (04:26→19:40)
[2017-01-15] MEDS: cloNIDine HCL 0.1 MG TAB PO PRN ×2 (04:42→04:56)
[2017-01-15 05:58] LABS: Glucose,Whole Blood 115 mg/dL (75-99)
[2017-01-15] MEDS ORDERED: LORazepam 2 MG/ML SYRINGE IV ONE (06:00)
[2017-01-15] MEDS: PANTOPRAZOLE 40 MG/10 ML VIAL IVP SCH ×2 (07:14→20:10)
[2017-01-15] MEDS: hydrALAZINE HCL 20 MG/ML 1 ML VIAL IVP PRN ×3 (07:14→21:16)
[2017-01-15] MEDS: SYMBICORT 160-4.5 MCG INHALER INHALATION SCH ×2 (07:18→20:53)
[2017-01-15] MEDS: IPRATROPIUM-ALBUTEROL 3 ML NEB INHALATION SCH ×2 (07:20→20:53)
--- NOTE | 2017-01-15 07:35 | PN ---
PROGRESS NOTE DATE OF SERVICE: 01/14/2017 This 66-year-old woman is admitted with accelerated hypertension, was also on p.r.n. medications. Patient had a J-tube dislodged at this time. Surgery is following the patient closely. Dr. Nguyen has seen the patient. The patient also complaining of epigastric pain at this time. PAST MEDICAL HISTORY: Reviewed. REVIEW OF SYSTEMS: CARDIOVASCULAR: Negative. RESPIRATORY: As mentioned earlier. GI: As mentioned earlier. : No dysuria. NERVOUS SYSTEM: No numbness or weakness. CURRENT MEDICATIONS ARE REVIEWED, INCLUDE: 1. DuoNeb q.i.d. and p.r.n. 2. Symbicort 160-4.5 two puffs p.r.n. 3. Catapres 0.1 q.4 p.r.n. 4. Catapres patch. 5. Vasotec 1.25 p.r.n. 6. Heparin subcutaneous b.i.d. 7. Apresoline 10 mg q.4 p.r.n. 8. Dilaudid 0.5 q.3. p.r.n. and 1 mg q.3. p.r.n. 9. Humalog scale. 10.Lidoderm patch. 11.Ativan p.r.n. 12.Narcan. 13.Protonix. 14.Scopolamine patch. PHYSICAL EXAM: Patient is alert and oriented x3. Pulse 72, blood pressure 188/78, respiration 18, temperature is 97.7, pulse ox 94% on room air. HEENT: Normocephalic, oral mucosa moist. Neck is no jugular venous distention. No carotid bruit. No lymph node enlargement. CARDIOVASCULAR SYSTEM: S1, S2, muffled. No S3, no S4. RESPIRATORY SYSTEM: Breath sounds diminished in the bases, no rhonchi, no crackles. ABDOMEN: Soft, nontender. No mass palpable. LEGS: No edema, no swelling. NERVOUS SYSTEM: Higher functions as mentioned, moves all 4 limbs, no focal deficits. LYMPHATICS: No lymph node enlargement in the neck, axillae or groin. SKIN: No rash, ulcer, bleeding. LAB STUDIES: WBC is 12.2, hemoglobin is 11.2. The lytes are not available. Glucose 148. ASSESSMENT: 1. Status post J-tube dislodgement. 2. Accelerated hypertension and hypertensive urgency. 3. 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 4. Change in mental status and acute metabolic encephalopathy. 5. History of recent pneumonia. 6. Diabetes mellitus type 2. 7. History of recent urinary tract infection. RECOMMENDATION: Continue with the current medications. Continue with the monitoring and symptomatic treatment. Otherwise, at this time I would recommend continue the p.r.n. blood pressure medications. Surgery has evaluated the patient for possible J-tube reinsertion. If the J-tube cannot be reinserted, PICC line and TPN may be needed to ensure nutrition. Otherwise surgical evaluation to proceed. Repeat labs will be ordered. Prognosis guarded because of multiple complex medical issues, symptomatic treatment and further recommendations to follow. MMANDREIL / IJN: [id number] /
[2017-01-15] MEDS ORDERED: IV FLUID CONTINUATION 1,000 ML IV ONE (10:39)
--- NOTE | 2017-01-15 11:23 | P.PN ---
Progress Note - Text Patient had her jejunostomy feeding tube accidentally dislodged. A replacement tube was able to be performed however that after discharge also came out accidentally. The patient now is without any feeding tubes. I discussed the case with her daughter, the patient, and also oncology. The patient is not a surgical candidate for esophagectomy because of the metastatic disease to the peritoneal cavity. We have decided to place a gastrostomy tube at this point. This should allow for better function and will hopefully be easier to replace if another accidental removal occurs. The risks of bleeding, infection, leak, abscess, interference with future gastric surgery was discussed. She understands and wishes to proceed.
[2017-01-15] MEDS ORDERED: DEXAMETHASONE SOD PHOS (MDV) 100 MG/10 ML VIAL IVP ONE (11:45)
[2017-01-15] MEDS ORDERED: PROPOFOL 10 MG/ML 20 ML VIAL IV ONE (11:56)
[2017-01-15] MEDS ORDERED: MIDAZOLAM 2 MG/2 ML VIAL ONE (11:56)
[2017-01-15] MEDS ORDERED: ROCURONIUM BROMIDE 10 MG/ML 10 ML VIAL IV ONE (11:56)
[2017-01-15] MEDS ORDERED: SUCCINYLCHOLINE CHLORIDE 100 MG/5 ML SYR IV ONE (11:56)
[2017-01-15] MEDS ORDERED: ePHEDrine SULFATE/0.9% NACL/PF 50 MG/5 ML SYRINGE IV ONE (11:56)
[2017-01-15] MEDS ORDERED: BUPIVACAINE (PF) 0.25% 30 ML VIAL SQ ONE (11:56)
[2017-01-15] MEDS ORDERED: fentaNYL (PF) 50 MCG/ML 2 ML AMP ONE (11:56)
[2017-01-15] MEDS ORDERED: LIDOCAINE 1% INJ 10MG/ML (20 ML MDV) ONE (11:56)
--- NOTE | 2017-01-15 13:01 | P.OP ---
Date of Procedure: 01/15/17 Preoperative Diagnosis: Postoperative Diagnosis: Procedure(s) Performed: PREOPERATIVE DIAGNOSIS: Malnutrition, esophageal cancer POSTOPERATIVE DIAGNOSIS: Same PROCEDURE: Open gastrostomy tube placement SURGEON: Ramone EBL: 5 Elsa ANESTHESIA: General COMPLICATIONS: None OPERATIVE PROCEDURE: Patient was placed in the operating table in the supine position. The patient was placed under general anesthesia. The abdomen was prepped and draped in usual sterile fashion. A vertical epigastric incision was created using the scalpel. Dissection through the subcutaneous fat and fascia took place using electrocautery. The patient's stomach was grasped. A 3 -0 silk pursestring suture was placed on the anterior aspect of the antrum of the stomach. The 22-Hebrew gastrostomy KELLY tube was advanced into the abdominal cavity through a separate incision lateral to our midline incision. A small gastrotomy was created. The gastrostomy was advanced into the stomach and the balloon was inflated with 20 mL. The pursestring suture was tightened. The stomach was then sutured to the abdominal wall using 4 separate 3-0 silk sutures. The fascia was then closed in 2 layers using #1 Vicryl sutures. The saphenous tissues were closed using 3-0 Vicryl sutures. The skin was closed using rhoda. Marcaine was used around the incision site. Sterile dressings were applied. The bolster was at 4.5 cm. DISPOSITION: Stable to recovery room Implants: Indications for Procedure: Operative Findings: Description of Procedure:
[2017-01-15] MEDS ORDERED: MORPHINE SULFATE 4 MG/ML SYRINGE IV ONE ×2 (13:20→13:28)
[2017-01-15] MEDS ORDERED: ONDANSETRON 4 MG/2 ML VIAL IVP ONE (13:23)
[2017-01-15] MEDS ORDERED: LABETALOL SYRINGE 5 MG/ML IV ONE (13:38)
[2017-01-15] MEDS ORDERED: SODIUM CHLORIDE 0.9% 1,000 ML IV ONE (14:05)
--- NOTE | 2017-01-15 14:07 | CDI ---
In responding to this query, please exercise your independent professional judgment. The [facility] Coding Staff and Clinical Documentation Specialists appreciate your assistance in clarifying documentation, maintaining compliance with coding guidelines, accurately documenting patients condition and capturing severity of illness. The fact that a question is asked does not imply that any particular answer is desired or expected. Communication forms are a method of clarifying documentation and are not made part of the Legal Health Record. Thank you in advance for your clarification. Last Revision, March 2015 Shala Martines [address] [place] [address] Documentation Clarification Form Date: 01/15/2017 1:46:00 PM From: Alyson Judge RN, CDS Admit Date: 01/13/2017 3:55:00 PM Patient Name: Laila Youssef Visit Number: [id number] Dr. Shobha Jack/Imani Pérez NP (revised query from Dr Pack) 66 year old patient admitted for malfunctioning J tube with dislodgement. Open gastrostomy tube placed 01/15. Patient has significant dysphagia and was recent diagnosed with metastatic adenocarcinoma of distal esophagus and esophageal stricture. History/Risk Factors: Esophageal adenocarcinoma, esophageal stricture Clinical Indicators: J tube dislodged, "poor nutrition" per Hem/Onc consult and progress note , "malnutrition" per OP Note, NPO status, Albumin 3.4 Treatment: Replace gastrostomy tube In your professional opinion, can you please clarify if these findings signify one of the following conditions? Mild Protein-Calorie Malnutrition Moderate Protein-Calorie Malnutrition Severe Protein-Calorie Malnutrition Other condition, please specify Unable to determine Please document in your progress notes and discharge summary in order to capture severity of illness and risk of mortality. Include clinical findings that support your diagnosis. FYI: Press F11 to launch patient chart. Thank you. CYNTHIA
[2017-01-15 14:32] LABS: Glucose,Whole Blood 140 mg/dL (75-99)
[2017-01-15] MEDS: HEPARIN SODIUM,PORCINE 5,000 UNIT/ML 1 ML VIAL SQ SCH ×2 (14:40→20:08)
[2017-01-15] MEDS: SODIUM CHLORIDE 0.9% 1,000 ML IV SCH (16:29)
[2017-01-15 17:59] LABS: Glucose,Whole Blood 118 mg/dL (75-99)
--- NOTE | 2017-01-15 18:33 | P.PN ---
Subjective Principal diagnosis: J-tube malfunction Pt seen today in follow up. She continues to have dysphagia with inability to swallow even liquids, she has abd pain, RLQ and epigastric area, she has leanne- rectal pain, sharp, onset few days ago, constant, associated with odor, denies dyuria, vaginal discharge, blood on stool, nothing has really helped the pain. Pt is weak but able to ambulate independently. Objective - Vital Signs Vital signs: Vital Signs Temp 97.0 F L 01/15/17 15:06 Pulse 80 01/15/17 15:06 Resp 18 01/15/17 15:06 BP 182/84 01/15/17 15:06 Pulse Ox 95 01/15/17 15:00 Intake & Output 01/14/17 01/15/17 01/15/17 18:59 06:59 18:59 Intake Total 342 323 5764 Output Total 5 Balance 060 080 5390 Intake: IV 800 1750 Invasive Line 1 1000 Sodium Chloride 0.9% 1, 800 000 ml @ 100 mls/hr IV . Q10H JESS Rx#:[id number] Intake, IV Titration 800 Amount Sodium Chloride 0.9% 1, 800 000 ml @ 100 mls/hr IV . Q10H JESS Rx#:[id number] Oral 0 Output: Estimated Blood Loss 5 Other: Voiding Method Toilet Toilet Toilet Diaper Diaper Diaper Incontinent Incontinent Incontinent # Voids 5 1 1 - Constitutional General appearance: Present: average body habitus, cooperative, no acute distress - EENT Eyes: Present: anicteric sclerae, normal appearance ENT: Present: normal oropharynx - Neck Neck: Present: lymphadenopathy - Respiratory Respiratory: bilateral: CTA - Cardiovascular Heart sounds: normal: S1, S2 Abnormal Heart Sounds: Present: systolic murmur - Peripheral edema leg Peripheral Edema: bilateral: None - Gastrointestinal Localized gastrointestinal: tender: RLQ, epigastric periumbilical - Integumentary Integumentary: Present: normal - Neurologic Neurologic: Present: CNII-XII intact - Musculoskeletal Musculoskeletal: Present: generalized weakness, strength equal bilaterally - Psychiatric Psychiatric: Present: A&O x's 3, appropriate affect, intact judgment & insight - Labs CBC & Chem 7: 01/14/17 06:54 01/13/17 03:12 Labs: Abnormal Lab Results - Last 24 Hours (Table) 01/14/17 01/15/17 01/15/17 Range/Units 23:53 05:54 14:30 POC Glucose (mg/dL) 109 H 115 H 140 H (75-99) mg/dL 01/15/17 Range/Units 17:58 POC Glucose (mg/dL) 118 H (75-99) mg/dL Assessment and Plan (1) Dysphagia Narrative/Plan: J-tube has been pulled out, pt requires it for nutrition as she cannot swallow due to dysphagia from malignancy. She is being seen by Surgery and will await their recommendations. Status: Chronic (2) Esophageal adenocarcinoma Narrative/Plan: Pt has metastatic disease, she has not been able to keep a feeding tube in so her performance status has not been able to improve much. Currently she is not a candidate for chemotherapy. May have to consider palliative radiation to the esophagus to see if mass can be shrunk enough to improve symptoms if a new feeding tube cannot be placed. Status: Chronic (3) Hemorrhoidal skin tag Narrative/Plan: Visible on rectal exam, topical ordered for pt. Status: Acute
[2017-01-15] MEDS: BENZOCAINE 20% HEMORRHOIDAL OINT 28GM RECTAL SCH ×2 (20:08→21:15)
[2017-01-15] MEDS: LIDOCAINE 5% PATCH TOPICAL SCH (20:09)
--- NOTE | 2017-01-15 22:40 | PN ---
PROGRESS NOTE DATE OF SERVICE: 01/15/17 INTERVAL HISTORY: This 66-year-old woman who was admitted with a dislodged J-tube. Underwent open gastrostomy PEG tube replacement by Dr. Pack. The patient tolerated the procedure. No chest pain. No palpitations. No fever. PHYSICAL EXAMINATION: On exam, alert and oriented times three. Pulse is 80, blood pressure 188/70, respiration 18, temp is 98.1, pulse ox 94% on room air. HEENT: Conjunctivae normal. Neck no jugular venous distention. Cardiovascular: S1, S2 muffled. Respiratory: Breath sounds diminished at the bases. No rhonchi. No crackles. Abdomen: is soft, status post gastrostomy tube placement. Legs no edema. No swelling. Neurological: No focal deficits. LAB: WBC 12.3, hgb 11.2. Glucose 148. ASSESSMENT: 1. Status post open gastrostomy tube placement. 2. History of J-tube dislodgement recently. 3. Accelerated hypertension. Hypertensive urgency. 4. 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 5. Change in mental status acute metabolic encephalopathy. 6. History of recent pneumonia. 7. Diabetes type 2. 8. History of recent urinary tract infection. RECOMMENDATIONS AND DISCUSSION: Recommended to continue current medications. Continue to monitor. Symptomatic treatment. Otherwise at this time I will recommend continue the current medications. Continue with symptomatic treatment. p.o. feeds and medications to be started per Dr. Pack's recommendations. Further recommendations to follow. MMODL / IJN: [id number] /
[2017-01-16 00:01] LABS: Glucose,Whole Blood 135 mg/dL (75-99)
[2017-01-16] MEDS: INSULIN LISPRO (humaLOG) 300 UNIT/3 ML VIAL SQ SCH ×4 (00:13→18:24)
[2017-01-16] MEDS: SODIUM CHLORIDE 0.9% 1,000 ML IV SCH ×5 (00:49→18:26)
[2017-01-16] MEDS: HYDROmorphone 1 MG/ML 1 ML SYRINGE IVP PRN ×4 (00:49→13:12)
[2017-01-16] MEDS: hydrALAZINE HCL 20 MG/ML 1 ML VIAL IVP PRN ×2 (03:58→10:03)
[2017-01-16] MEDS: LORazepam 2 MG/ML SYRINGE IV PRN ×2 (04:44→14:52)
[2017-01-16 06:05] LABS: Glucose,Whole Blood 145 mg/dL (75-99)
[2017-01-16] MEDS: IPRATROPIUM-ALBUTEROL 3 ML NEB INHALATION SCH ×2 (07:42→19:19)
[2017-01-16] MEDS: SYMBICORT 160-4.5 MCG INHALER INHALATION SCH ×2 (07:42→19:19)
[2017-01-16] MEDS: PANTOPRAZOLE 40 MG/10 ML VIAL IVP SCH ×2 (08:00→20:29)
[2017-01-16] MEDS: BENZOCAINE 20% HEMORRHOIDAL OINT 28GM RECTAL SCH ×3 (08:00→22:24)
[2017-01-16] MEDS: HEPARIN SODIUM,PORCINE 5,000 UNIT/ML 1 ML VIAL SQ SCH ×2 (08:00→20:29)
[2017-01-16] MEDS: ONDANSETRON 4 MG/2 ML VIAL IVP PRN (11:12)
--- NOTE | 2017-01-16 11:55 | P.PN ---
Subjective Principal diagnosis: Malnutrition Patient underwent open gastrostomy tube placement yesterday. She is complaining of mild abdominal discomfort. She still having complaints of dysphagia. No fevers. Objective - Vital Signs Vital signs: Vital Signs Temp 97.9 F 01/16/17 07:00 Pulse 93 01/16/17 08:00 Resp 15 01/16/17 08:00 BP 171/72 01/16/17 07:00 Pulse Ox 95 01/16/17 07:00 Intake & Output 01/15/17 01/16/17 01/16/17 18:59 06:59 18:59 Intake Total 1750 1600 Output Total 5 Balance 1745 1600 Weight 60.555 kg Intake: IV 1750 1600 Invasive Line 1 1000 Sodium Chloride 0.9% 1, 1600 000 ml @ 100 mls/hr IV . Q10H JESS Rx#:[id number] Oral 0 Output: Estimated Blood Loss 5 Other: Voiding Method Toilet Toilet Toilet Diaper Diaper Diaper Incontinent # Voids 1 3 2 - Exam Abdomen: Soft, nondistended, mild tenderness, dressing clean and dry - Labs CBC & Chem 7: 01/14/17 06:54 01/13/17 03:12 Labs: Abnormal Lab Results - Last 24 Hours (Table) 01/15/17 01/15/17 01/16/17 Range/Units 14:30 17:58 00:00 POC Glucose (mg/dL) 140 H 118 H 135 H (75-99) mg/dL 01/16/17 Range/Units 06:03 POC Glucose (mg/dL) 145 H (75-99) mg/dL Assessment and Plan (1) Malfunctioning jejunostomy tube Narrative/Plan: Will begin gastric feeding today. Gradually increase to goal. Hold off on bolus feeding for 10-14 days. Status: Acute
[2017-01-16 11:59] LABS: Glucose,Whole Blood 117 mg/dL (75-99)
[2017-01-16] MEDS ORDERED: ONDANSETRON ODT 4 MG TAB PEG/G-TUBE PRN (15:06)
[2017-01-16] MEDS ORDERED: ACETAMINOPHEN TAB 325 MG TAB PEG/G-TUBE PRN (15:06)
[2017-01-16] MEDS ORDERED: HYDROcodone/APAP 10-325MG 1 EACH TAB PEG/G-TUBE PRN (15:06)
--- NOTE | 2017-01-16 15:35 | P.PN ---
Subjective Date of service 01/16/2017. Progress note being dictated for Dr. Jack. Interval history: This is a 66-year-old female admitted with recently diagnosed poorly differentiated esophageal adenocarcinoma, accelerated hypertension, and multiple other medical issues. Yesterday G-tube placed. Tube feedings to be initiated as per dietary recommendations once cleared by surgery. Oncology radiology consulted. Hypertensive. Denies chest pain, palpitations. Afebrile. Objective - Vital Signs Vital signs: Vital Signs Temp 97.9 F 01/16/17 15:00 Pulse 80 01/16/17 15:00 Resp 18 01/16/17 15:00 BP 193/80 01/16/17 15:00 Pulse Ox 93 L 01/16/17 15:00 Intake & Output 01/15/17 01/16/17 01/16/17 18:59 06:59 18:59 Intake Total 1750 1600 40 Output Total 5 Balance 1745 1600 40 Weight 60.555 kg Intake: IV 1750 1600 Invasive Line 1 1000 Sodium Chloride 0.9% 1, 1600 000 ml @ 100 mls/hr IV . Q10H JESS Rx#:[id number] Oral 0 40 Output: Estimated Blood Loss 5 Other: Voiding Method Toilet Toilet Toilet Diaper Diaper Diaper Incontinent # Voids 1 3 3 - Exam PHYSICAL EXAM: VITAL SIGNS: As above GENERAL: Sitting up in bed, no acute distress HEENT: Conjunctivae normal. eyes normal. NECK: No JVD. No thyroid enlargement. CARDIOVASCULAR: S1, S2 muffled. No murmur RESPIRATION: Breath sounds diminished in the bases. No rhonchi or crackles. No bronchial breathing. ABDOMEN: Soft, status post G-tube placement, No guarding.Bowel sounds present. LEGS: No edema. no swelling. PSYCHIATRY: Alert and oriented -3, mood and affect normal. NERVOUS SYSTEM: Cranial N 2-12 grossly normal. Moves all 4 limbs. No focal deficits. Strength and sensation grossly intact. Skin: no ulcer no rash Joints: No active swelling. No inflammation. - Labs CBC & Chem 7: 01/14/17 06:54 01/13/17 03:12 Labs: Abnormal Lab Results - Last 24 Hours (Table) 01/15/17 01/16/17 01/16/17 Range/Units 17:58 00:00 06:03 POC Glucose (mg/dL) 118 H 135 H 145 H (75-99) mg/dL 01/16/17 Range/Units 11:57 POC Glucose (mg/dL) 117 H (75-99) mg/dL Assessment and Plan Plan: 1. Status post G-tube placement 2. Recent J-tube dislodgment 3. Accelerated hypertension, hypertensive urgency 4. 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 5. Change in mental status, acute metabolic encephalopathy 6. Diabetes mellitus type 2 Plan: Continue on current medication regime , antihypertensives, monitoring and symptomatic treatment. Tube feeds per dietary recommendations, to be initiated when ok with surgery. As mentioned above oncology radiologist consulted regarding further options. Further recommendations to follow. The impression and plan of care has been dictated as directed. : I performed a H&P examination of this patient and discussed the same with the dictator. I agree with the dictator's note. Any additional findings/opinions/ etc. will be noted.
[2017-01-16] MEDS: CARVEDILOL 12.5 MG TAB PEG/G-TUBE SCH (16:52)
[2017-01-16] MEDS: ALPRAZolam 0.5 MG TAB PEG/G-TUBE SCH ×2 (16:59→22:23)
[2017-01-16] MEDS ORDERED: diphenhydrAMINE 25 MG CAP PEG/G-TUBE SCH (17:00)
[2017-01-16] MEDS: LISINOPRIL 20 MG TAB PEG/G-TUBE SCH (17:06)
[2017-01-16] MEDS: GLIMEPIRIDE 2 MG TAB PEG/G-TUBE SCH (17:42)
[2017-01-16 18:22] LABS: Glucose,Whole Blood 117 mg/dL (75-99)
--- NOTE | 2017-01-16 19:59 | CONS ---
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 HISTORY OF PRESENT ILLNESS: This is a 66-year-old female patient who was diagnosed with adenocarcinoma involving the distal esophagus. The diagnosis was made by an esophagus biopsy on on 2016. 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 There was also a background of Grayson's mucosa with high-grade dysplasia. The final diagnosis favored poorly differentiated adenocarcinoma ultimately. The patient has been seen in consultation by Dr. Sanchez and a staging PET scan was performed on 12/22/2016. The PET scan findings showed the distal esophagus abnormality with associated thickening and hypermetabolic activity consistent with the known esophageal carcinoma. Lymph nodes were noted in the upper abdomen which are suspicious for metastasis. There was a hypodensity in the hepatic dome which was suspicious for metastasis. Other findings showed enlarged abdominal lymph nodes in the retroperitoneum; however, these were more than likely benign. The patient had a chief complaint of difficulty with solids and liquids and ongoing weight loss. Patient was initially treated with a J tube placement for nutritional support. The patient has plans and a decision by Dr. Sanchez to start systemic chemotherapy; however, patient had difficulty with falling and subsequent dislodging of the J tube requiring inpatient admission and supportive care. During the admission process , patient reported associated abdominal pain from the feeding tube site. On 01/15/2017, Dr. Yuan Pack performed open gastrostomy tube placement. This procedure was done in an attempt to regain her nutritional status secondary to dislodgement of the J tube. Patient's overall performance status is fair to poor, and the need for nutritional support was discussed and recommended. Due to her current performance status, she would need to improve her overall conditioning in an attempt to start the planned chemotherapy. PAST MEDICAL HISTORY: As per HPI, COPD, diabetes, hyperlipidemia, hypertension, history of myocardial infarction, kidney stones, right hydronephrosis and spleen aneurysm. Also depression, anxiety disorder and panic disorder. PAST SURGERY HISTORY: As per HPI, appendectomy, cholecystectomy, heart catheterization, hysterectomy, breast lumpectomy, bladder sling for stress incontinence. SOCIAL HISTORY: Former smoker. FAMILY HISTORY: Heart disease. MEDICATIONS: 1. Acetaminophen. 2. Albuterol/ipratropium. 3. Alprazolam. 4. Aspirin. 5. Atorvastatin. 6. Benzocaine. 7. Symbicort. 8. Coreg. 9. Vitamin D3. 10.Catapres. 11.Benadryl. 12.Vasotec. 13.Pepcid. 14.Amaryl. 15.Heparin. 16.[place]. 17.Dilaudid. 18.Humalog. 19.Lidoderm. 20.Zestril. 21.Ativan. 22.Morphine. 23.Narcan. 24.Zofran. 25.Paxil. 26.Saline. 27.Scopolamine. LABORATORY DATA: CBC from 01/14/2017 showed WBC 12.2, hemoglobin 11.2, hematocrit 32.6, platelet count 286,000. REVIEW OF SYSTEMS: CONSTITUTIONAL: Positive for fatigue and weight loss. Negative for fevers, chills. HEENT: Positive for dysphagia, per HPI. Negative for neck masses. RESPIRATORY: Positive for dyspnea on exertion. Negative for chest pain, hemoptysis. ABDOMEN: As per HPI. GENITOURINARY: Negative for hematuria and positive for stress incontinence. Negative for dysuria. NEUROLOGIC: Negative for seizure activity, severe headaches, loss of consciousness, extremity weakness. PHYSICAL EXAM: Well-developed, well-nourished elderly female patient resting comfortably in bed. No acute distress. Performance status is fair. VITAL SIGNS: Pulse 93, respiratory rate 15, temperature 97.9, blood pressure 193 /80, oxygen saturation 93% on room air. HEENT examination is unremarkable. The sclerae are anicteric. Oral cavity shows mucosal lesions. NECK: Without palpable lymphadenopathy. CHEST: Clear to auscultation. No audible wheezes. Heart is regular rate and rhythm. Abdomen has a new G tube which is intact. There is minimal pain around the G tube. There are no abdominal masses. Extremities show no edema or tenderness. On neurologic exam, she is alert and oriented x3. Speech is fluent. Gait not assessed. Sensation is intact. ASSESSMENT: This is a 66-year-old female patient with an adenocarcinoma originating from the distal esophagus with metastasis to regional lymph nodes and possibly liver, based on CT imaging. Patient has severe dysphagia and odynophagia requiring J tube feeding for nutritional support, which was dislodged, causing associated abdominal pain. She was readmitted for dislodging of J tube and had an open gastrostomy tube placement on 01/13/[address] Pack for nutritional support. Patient has been seen by Dr. Sanchez on consultation as well as Ruthann Taylor during this admission. Her overall performance status is fair at this time. She is not an optimal candidate for systemic chemotherapy until her nutritional status has improved. Associated abdominal pain is improving since the G tube has been reinserted. RECOMMENDATIONS: Discussed with the patient including discussion with the patient's daughter regarding proper management and overall game plan for the management of her metastatic adenocarcinoma of the esophagus requiring nutritional support and recent J tube placement. I recommend continued best supportive care in an attempt to improve her overall performance status with G tube feedings. She will also follow up closely with Medical Oncology to reconsider options for systemic therapy if overall performance status improves. Palliative radiation therapy could be recommended if she is not a candidate for chemotherapy and has declining performance status and associated pain and discomfort; however, G tube has been inserted which will improve her nutritional status at this time. Therefore I will hold off on palliative radiation therapy and her overall performance and nutritional status should improve. She will follow up with medical oncology as well. MMODL / IJN: [id number] / CYNTHIA
[2017-01-16] MEDS: FAMOTIDINE 20 MG TAB PEG/G-TUBE SCH (20:28)
[2017-01-16] MEDS: PARoxetine 20 MG TAB PEG/G-TUBE SCH (20:28)
[2017-01-16] MEDS: ATORVASTATIN 20 MG TAB PEG/G-TUBE SCH (20:28)
[2017-01-16] MEDS: LIDOCAINE 5% PATCH TOPICAL SCH (21:06)
[2017-01-16] MEDS: HYDROcodone/APAP 5-325MG 1 EACH TAB PO PRN (22:23)
[2017-01-17] MEDS: INSULIN LISPRO (humaLOG) 300 UNIT/3 ML VIAL SQ SCH ×4 (01:16→18:34)
[2017-01-17] MEDS: HYDROmorphone 1 MG/ML 1 ML SYRINGE IVP PRN ×7 (01:16→23:26)
[2017-01-17 01:28] LABS: Glucose,Whole Blood 121 mg/dL (75-99)
[2017-01-17] MEDS: HYDROcodone/APAP 5-325MG 1 EACH TAB PO PRN ×4 (02:37→19:28)
[2017-01-17] MEDS: SODIUM CHLORIDE 0.9% 1,000 ML IV SCH ×3 (02:38→21:48)
[2017-01-17] MEDS: diphenhydrAMINE 25 MG CAP PEG/G-TUBE PRN ×2 (03:02→11:49)
[2017-01-17 06:13] LABS: Glucose,Whole Blood 113 mg/dL (75-99)
[2017-01-17] MEDS: ALPRAZolam 0.5 MG TAB PEG/G-TUBE SCH ×3 (08:24→21:53)
[2017-01-17] MEDS: ASPIRIN 81 MG PEG/G-TUBE SCH (08:25)
[2017-01-17] MEDS: HEPARIN SODIUM,PORCINE 5,000 UNIT/ML 1 ML VIAL SQ SCH ×2 (08:26→21:46)
[2017-01-17] MEDS: LISINOPRIL 20 MG TAB PEG/G-TUBE SCH ×2 (08:26→21:46)
[2017-01-17] MEDS: PANTOPRAZOLE 40 MG/10 ML VIAL IVP SCH ×2 (08:26→21:46)
[2017-01-17] MEDS: FAMOTIDINE 20 MG TAB PEG/G-TUBE SCH ×2 (08:26→21:46)
[2017-01-17] MEDS: CARVEDILOL 12.5 MG TAB PEG/G-TUBE SCH ×2 (08:27→18:07)
[2017-01-17] MEDS: GLIMEPIRIDE 2 MG TAB PEG/G-TUBE SCH ×2 (08:27→18:07)
[2017-01-17] MEDS: BENZOCAINE 20% HEMORRHOIDAL OINT 28GM RECTAL SCH ×3 (08:28→23:23)
[2017-01-17] MEDS: CHOLECALCIFEROL 1,000 UNIT TAB PEG/G-TUBE SCH (08:28)
[2017-01-17] MEDS: SCOPOLAMINE 1.5MG/72HR PATCH TRANSDERM SCH (08:29)
[2017-01-17] MEDS: SYMBICORT 160-4.5 MCG INHALER INHALATION SCH ×2 (08:31→19:40)
[2017-01-17 08:42] LABS: Basophils # (A) 0.1 k/uL (0-0.2); Basophils % (A) 0 %; CH 30.6; CHCM 33.8; Eosinophils # (A) 0.1 k/uL (0-0.7); Eosinophils % (A) 1 %; HCT 31.7 % (34.0-46.0); HDW 3.26; HGB 10.3 gm/dL (11.4-16.0); Luc % (Auto) 1; Lymphocytes % (A) 12 %; MCH 29.6 pg (25.0-35.0); MCHC 32.6 g/dL (31.0-37.0); MCV 90.8 fL (80.0-100.0); Mean Platelet Volume 7.6; Monocytes # (A) 0.6 k/uL (0-1.0); Monocytes % (A) 4 %; Neutrophils % (A) 82 %; RBC 3.49 m/uL (3.80-5.40); RDW 14.8 % (11.5-15.5); WBC 15.8 k/uL (3.8-10.6); WBC (Perox) 16.83
[2017-01-17 08:48] LABS: Anion Gap 9 mmol/L; Blood Urea Nitrogen 19 mg/dL (7-17); Calcium 9.1 mg/dL (8.4-10.2); Carbon Dioxide 29 mmol/L (22-30); Chloride 104 mmol/L (98-107); Glucose 113 mg/dL (74-99); Non-African American GFR(MDRD) >60 (>60 ml/min/1.73 sqM); Sodium 142 mmol/L (137-145)
[2017-01-17 08:53] LABS: Potassium 2.4 mmol/L (3.5-5.1)
[2017-01-17] MEDS ORDERED: Potassium Replacement Protocol 1 EACH MISC MISCELLANE PRN (10:02)
[2017-01-17] MEDS ORDERED: Magnesium Replacement Protocol 1 EACH MISC MISCELLANE PRN (10:03)
[2017-01-17] MEDS: ONDANSETRON 4 MG/2 ML VIAL IVP PRN (11:08)
[2017-01-17] MEDS: LORazepam 2 MG/ML SYRINGE IV PRN (11:49)
[2017-01-17 12:05] LABS: Glucose,Whole Blood 114 mg/dL (75-99)
[2017-01-17] MEDS: POTASSIUM CHLORIDE 10 MEQ, LIDOCAINE 2% INJ 10 MG in SODIUM CHLORIDE 0.9% 100 ML IVPB SCH ×3 (12:16→15:48)
[2017-01-17] MEDS: POTASSIUM CHLORIDE ORAL LIQUID 40 MEQ/30 ML CUP PO SCH ×3 (12:16→15:49)
[2017-01-17] MEDS: IPRATROPIUM-ALBUTEROL 3 ML NEB INHALATION SCH ×2 (13:28→19:40)
--- NOTE | 2017-01-17 16:38 | P.PN ---
Subjective Principal diagnosis: Malnutrition Patient complaining of some abdominal discomfort at this time. Increased with the increased and rate of tube feeds. Some loose stools. White blood cell count 15. Potassium quite low today. Hemodynamically stable. Objective - Vital Signs Vital signs: Vital Signs Temp 97.6 F 01/17/17 15:00 Pulse 70 01/17/17 15:00 Resp 18 01/17/17 15:00 BP 136/68 01/17/17 15:00 Pulse Ox 98 01/17/17 15:00 Intake & Output 01/16/17 01/17/17 01/17/17 18:59 06:59 18:59 Intake Total 60 180 Balance 60 180 Weight 58.6 kg 61 kg Intake: Oral 40 Tube Feeding 20 180 Other: Voiding Method Toilet Toilet Diaper Diaper # Voids 3 3 - Exam Abdomen: Soft, mild tenderness, mild distention, incision clean and dry - Labs CBC & Chem 7: 01/17/17 07:21 01/17/17 07:21 Labs: Abnormal Lab Results - Last 24 Hours (Table) 01/16/17 01/17/17 01/17/17 Range/Units 18:21 01:15 06:12 WBC (3.8-10.6) k/uL RBC (3.80-5.40) m/uL Hgb (11.4-16.0) gm/dL Hct (34.0-46.0) % Neutrophils # (1.3-7.7) k/uL Potassium (3.5-5.1) mmol/L BUN (7-17) mg/dL Glucose (74-99) mg/dL POC Glucose (mg/dL) 117 H 121 H 113 H (75-99) mg/dL 01/17/17 01/17/17 01/17/17 Range/Units 07:21 07:21 12:03 WBC 15.8 H (3.8-10.6) k/uL RBC 3.49 L (3.80-5.40) m/uL Hgb 10.3 L (11.4-16.0) gm/dL Hct 31.7 L (34.0-46.0) % Neutrophils # 13.0 H (1.3-7.7) k/uL Potassium 2.4 L* (3.5-5.1) mmol/L BUN 19 H (7-17) mg/dL Glucose 113 H (74-99) mg/dL POC Glucose (mg/dL) 114 H (75-99) mg/dL Assessment and Plan (1) Malfunctioning jejunostomy tube Narrative/Plan: Recheck potassium after supplementation. Tentatively plan Port-A-Cath placement tomorrow. Status: Acute
--- NOTE | 2017-01-17 17:38 | P.PN ---
Subjective Progress note being dictated for Dr. Jack. 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 Yesterday G-tube placed. Tube feedings to be initiated as per dietary recommendations once cleared by surgery. Oncology radiology consulted. Hypertensive. Denies chest pain, palpitations. Afebrile. 01/17/2017 potassium 2.4, receiving supplements as per protocol.Tube feeds at goal, complaining of mild abdominal discomfort. Small loose stools. Afebrile, WBC 15.8. Port a cath placement pending.Palliative radiation also discussed as per oncology radiologist if no improvement or not a candidate for chemotherapy, or declining performance or uncontrolled pain. Review of systems: CONSTITUTIONAL: fatigue, generalized weakness, weight loss. HEENT: Dysphagia, including inability to swallow liquids, neck-lymphadenopathy, esophageal cancer CARDIOVASCULAR: No chest pain, orthopnea, PND, no palpitations, no syncope. PULMONARY: No shortness of breath, no cough, no hemoptysis. GASTROINTESTINAL: Positive diarrhea, no nausea, no vomiting, positive abdominal pain-RLQ into mid epigastric, perirectal pain. Normoactive bowel sounds. NEUROLOGICAL: No headaches, no weakness, no numbness. HEMATOLOGICAL: Denies any bleeding or petechiae. GENITOURINARY: Denies any burning micturition, frequency, or urgency. MUSCULOSKELETAL/RHEUMATOLOGICAL: Denies any joint pain, swelling, or any muscle pain. Positive muscle weakness ENDOCRINE: Denies any polyuria or polydipsia. PSYCHIATRIC: No anxiety, no depression The rest of the 14 point review of systems is negative Active Medications Acetaminophen (Tylenol Tab) 650 mg PEG/G-TUBE Q6H PRN PRN Reason: Mild Pain Hydrocodone Bitart/Acetaminophen ([place] 5-325) 1 each PO Q4HR PRN PRN Reason: Moderate Pain Last Admin: 01/17/17 15:46 Dose: 1 each Albuterol/Ipratropium (Duoneb 0.5 Mg-3 Mg/3 Ml Soln) 3 ml INHALATION RT-BID [facility] Last Admin: 01/17/17 13:28 Dose: Not Given Alprazolam (Xanax) 1 mg PEG/G-TUBE TID [facility] Last Admin: 01/17/17 15:46 Dose: 1 mg Aspirin (Aspirin) 81 mg PEG/G-TUBE DAILY [facility] Last Admin: 01/17/17 08:25 Dose: 81 mg Atorvastatin Calcium (Lipitor) 20 mg PEG/G-TUBE HS [facility] Last Admin: 01/16/17 20:28 Dose: 20 mg Benzocaine (Americaine Hemorrhoidal Oint) 1 applic RECTAL TID [facility] Last Admin: 01/17/17 15:49 Dose: 1 applic Budesonide/Formoterol Fumarate (Symbicort 160-4.5 Mcg Inhaler) 2 puff INHALATION RT-BID [facility] Last Admin: 01/17/17 08:31 Dose: 2 puff Carvedilol (Coreg) 25 mg PEG/G-TUBE AC-BID [facility] Last Admin: 01/17/17 08:27 Dose: 25 mg Cholecalciferol (Vitamin D3) 2,000 unit PEG/G-TUBE DAILY [facility] Last Admin: 01/17/17 08:28 Dose: 2,000 unit Clonidine (Catapres) 0.1 mg PO Q4HR PRN PRN Reason: Hypertension Last Admin: 01/15/17 04:56 Dose: 0.1 mg Clonidine HCl (Catapres-Tts 0.2mg Patch) 1 patch TRANSDERM Q7D [facility] Last Admin: 01/13/17 14:34 Dose: 1 patch Diphenhydramine HCl (Benadryl) 25 mg PEG/G-TUBE TID@0500,1100,1700 PRN PRN Reason: Agitation or Acute Anxiety Last Admin: 01/17/17 11:49 Dose: 25 mg Enalaprilat (Vasotec) 1.25 mg IVP Q6HR PRN PRN Reason: Blood Pressure - High Last Admin: 01/15/17 19:40 Dose: 1.25 mg Famotidine (Pepcid) 20 mg PEG/G-TUBE BID [facility] Last Admin: 01/17/17 08:26 Dose: 20 mg Glimepiride (Amaryl) 2 mg PEG/G-TUBE AC-BID [facility] Last Admin: 01/17/17 08:27 Dose: 2 mg Heparin Sodium (Porcine) (Heparin) 5,000 unit SQ Q12HR [facility] Last Admin: 01/17/17 08:26 Dose: 5,000 unit Hydralazine HCl (Apresoline) 10 mg IVP Q4HR PRN PRN Reason: Blood Pressure - High Last Admin: 01/16/17 10:03 Dose: 10 mg Hydromorphone HCl (Dilaudid) 0.5 mg IVP Q3HR PRN PRN Reason: Pain Last Admin: 01/15/17 01:52 Dose: 0.5 mg Hydromorphone HCl (Dilaudid) 1 mg IVP Q3HR PRN PRN Reason: Pain Last Admin: 01/17/17 15:46 Dose: 1 mg Sodium Chloride (Saline 0.9%) 1,000 mls @ 60 mls/hr IV .[id number] [facility] Last Admin: 01/17/17 02:38 Dose: 60 mls/hr Insulin Human Lispro (Humalog) 0 unit SQ 0000,0600,1200,1800 [facility] PRN Reason: Protocol Last Admin: 01/17/17 13:08 Dose: Not Given Lidocaine (Lidoderm) 1 patch TOPICAL HS [facility] Last Admin: 01/16/17 21:06 Dose: 1 patch Lisinopril (Zestril) 20 mg PEG/G-TUBE BID [facility] Last Admin: 01/17/17 08:26 Dose: 20 mg Lorazepam (Ativan) 0.5 mg IV Q6HR PRN PRN Reason: Anxiety Last Admin: 01/17/17 11:49 Dose: 0.5 mg Miscellaneous Information (Potassium Per Protocol) 1 each MISCELLANE DAILY PRN ; Protocol PRN Reason: Per Protocol Miscellaneous Information (Magnesium Per Protocol) 1 each MISCELLANE DAILY PRN ; Protocol PRN Reason: Per Protocol Morphine Sulfate (Morphine Sulfate (Inj)) 4 mg IV Q4HR PRN PRN Reason: Severe Pain Last Admin: 01/13/17 02:04 Dose: 4 mg Naloxone HCl (Narcan) 0.2 mg IV Q2M PRN PRN Reason: Opioid Reversal Ondansetron HCl (Zofran) 4 mg IVP Q6HR PRN PRN Reason: Nausea And Vomiting Last Admin: 01/17/17 11:08 Dose: 4 mg Ondansetron HCl (Zofran Odt) 4 mg PEG/G-TUBE Q6HR PRN PRN Reason: Nausea Pantoprazole Sodium (Protonix) 40 mg IVP BID [facility] Last Admin: 01/17/17 08:26 Dose: 40 mg Paroxetine HCl (Paxil) 20 mg PEG/G-TUBE HS [facility] Last Admin: 01/16/17 20:28 Dose: 20 mg Scopolamine (Transderm-Scop 1.5mg/72hr Patch) 1 patch TRANSDERM Q72H [facility] Last Admin: 01/17/17 08:29 Dose: 1 patch Objective - Vital Signs Vital signs: Vital Signs Temp 97.6 F 01/17/17 15:00 Pulse 70 01/17/17 15:00 Resp 18 01/17/17 15:00 BP 136/68 01/17/17 15:00 Pulse Ox 98 01/17/17 15:00 Intake & Output 01/16/17 01/17/17 01/17/17 18:59 06:59 18:59 Intake Total 60 180 Balance 60 180 Weight 58.6 kg 61 kg Intake: Oral 40 Tube Feeding 20 180 Other: Voiding Method Toilet Toilet Diaper Diaper # Voids 3 3 - Exam PHYSICAL EXAM: VITAL SIGNS: As above GENERAL: Sitting up in bed, no acute distress HEENT: Conjunctivae normal. eyes normal. NECK: No JVD. No thyroid enlargement. CARDIOVASCULAR: S1, S2 muffled. Positive systolic murmur RESPIRATION: Breath sounds diminished in the bases. No rhonchi or crackles. No bronchial breathing. ABDOMEN: Soft, status post G-tube placement, mildly distended ,No guarding.Bowel sounds present. LEGS: No edema. no swelling. PSYCHIATRY: Alert and oriented -3, mood and affect normal. NERVOUS SYSTEM: Cranial N 2-12 grossly normal. Moves all 4 limbs. No focal deficits. Strength and sensation grossly intact. Skin: no ulcer no rash Joints: No active swelling. No inflammation. - Labs CBC & Chem 7: 01/17/17 07:21 01/17/17 07:21 Labs: Abnormal Lab Results - Last 24 Hours (Table) 01/16/17 01/17/17 01/17/17 Range/Units 18:21 01:15 06:12 WBC (3.8-10.6) k/uL RBC (3.80-5.40) m/uL Hgb (11.4-16.0) gm/dL Hct (34.0-46.0) % Neutrophils # (1.3-7.7) k/uL Potassium (3.5-5.1) mmol/L BUN (7-17) mg/dL Glucose (74-99) mg/dL POC Glucose (mg/dL) 117 H 121 H 113 H (75-99) mg/dL 01/17/17 01/17/17 01/17/17 Range/Units 07:21 07:21 12:03 WBC 15.8 H (3.8-10.6) k/uL RBC 3.49 L (3.80-5.40) m/uL Hgb 10.3 L (11.4-16.0) gm/dL Hct 31.7 L (34.0-46.0) % Neutrophils # 13.0 H (1.3-7.7) k/uL Potassium 2.4 L* (3.5-5.1) mmol/L BUN 19 H (7-17) mg/dL Glucose 113 H (74-99) mg/dL POC Glucose (mg/dL) 114 H (75-99) mg/dL Assessment and Plan Plan: 1. Status post G-tube placement 2. Recent J-tube dislodgment 3. Accelerated hypertension, hypertensive urgency 4. 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 5. Change in mental status, acute metabolic encephalopathy 6. Diabetes mellitus type 2 Plan: Continue on current medication regime , antihypertensives, monitoring and symptomatic treatment. Potassium supplemented as ordered by replacement protocol with recheck ordered for this afternoon. Further recommendations as per oncology, pending Port-A-Cath placement as per surgery. Palliative radiation discussed as an option pending patient's responses to systemic oncology therapy. Dietary to further evaluate tube feeding choices; stool for C. diff pending. Further recommendations to follow. The impression and plan of care has been dictated as directed. : I performed a H&P examination of this patient and discussed the same with the dictator. I agree with the dictator's note. Any additional findings/opinions/ etc. will be noted.
[2017-01-17 18:24] LABS: Glucose,Whole Blood 69 mg/dL (75-99)
[2017-01-17 18:30] LABS: Potassium 3.5 mmol/L (3.5-5.1)
[2017-01-17] MEDS: LIDOCAINE 5% PATCH TOPICAL SCH (21:46)
[2017-01-17] MEDS: PARoxetine 20 MG TAB PEG/G-TUBE SCH (21:46)
[2017-01-17] MEDS: ATORVASTATIN 20 MG TAB PEG/G-TUBE SCH (21:46)
[2017-01-18 00:28] LABS: Glucose,Whole Blood 51 mg/dL (75-99)
[2017-01-18] MEDS ORDERED: DEXTROSE 50%-WATER 50 ML SYRINGE IVP ONE (00:31)
[2017-01-18] MEDS: INSULIN LISPRO (humaLOG) 300 UNIT/3 ML VIAL SQ SCH ×4 (00:34→18:08)
[2017-01-18] MEDS: DEXTROSE 50%-WATER 50 ML SYRINGE IVP STA ×2 (00:34→04:33)
[2017-01-18 00:59] LABS: Glucose,Whole Blood 166 mg/dL (75-99)
[2017-01-18] MEDS: DEXTROSE 5% IN WATER 1,000 ML IV SCH ×2 (02:24→21:33)
[2017-01-18 04:34] LABS: Glucose,Whole Blood 57 mg/dL (75-99)
[2017-01-18] MEDS: HYDROmorphone 1 MG/ML 1 ML SYRINGE IVP PRN ×3 (04:53→18:12)
[2017-01-18] MEDS: LORazepam 2 MG/ML SYRINGE IV PRN (04:53)
[2017-01-18 05:01] LABS: Glucose,Whole Blood 148 mg/dL (75-99)
[2017-01-18] MEDS: SYMBICORT 160-4.5 MCG INHALER INHALATION SCH ×2 (07:16→21:10)
[2017-01-18] MEDS: IPRATROPIUM-ALBUTEROL 3 ML NEB INHALATION SCH ×2 (07:16→21:10)
[2017-01-18 08:36] LABS: Anion Gap 7 mmol/L; Blood Urea Nitrogen 14 mg/dL (7-17); Calcium 8.1 mg/dL (8.4-10.2); Carbon Dioxide 26 mmol/L (22-30); Chloride 107 mmol/L (98-107); Glucose 73 mg/dL (74-99); Magnesium 1.7 mg/dL (1.6-2.3); Non-African American GFR(MDRD) >60 (>60 ml/min/1.73 sqM); Sodium 140 mmol/L (137-145)
[2017-01-18 08:41] LABS: Potassium 2.8 mmol/L (3.5-5.1)
[2017-01-18 08:47] LABS: Basophils % (A) 0 %; CH 29.3; CHCM 33.3; Eosinophils # (A) 0.2 k/uL (0-0.7); Eosinophils % (A) 2 %; HCT 28.8 % (34.0-46.0); HDW 3.35; HGB 9.6 gm/dL (11.4-16.0); Luc % (Auto) 1; Lymphocytes # (A) 1.9 k/uL (1.0-4.8); Lymphocytes % (A) 16 %; MCH 29.5 pg (25.0-35.0); MCHC 33.3 g/dL (31.0-37.0); MCV 88.5 fL (80.0-100.0); Mean Platelet Volume 7.2; Monocytes # (A) 0.4 k/uL (0-1.0); Monocytes % (A) 3 %; Neutrophils # (A) 8.7 k/uL (1.3-7.7); Neutrophils % (A) 77 %; RBC 3.25 m/uL (3.80-5.40); RDW 14.2 % (11.5-15.5); WBC 11.3 k/uL (3.8-10.6); WBC (Perox) 12.24
[2017-01-18] MEDS: GLIMEPIRIDE 2 MG TAB PEG/G-TUBE SCH (09:10)
[2017-01-18 09:22] LABS: Glucose,Whole Blood 77 mg/dL (75-99)
[2017-01-18] MEDS ORDERED: Potassium Replacement Protocol 1 EACH MISC MISCELLANE PRN ×2 (09:28→18:09)
[2017-01-18] MEDS: CARVEDILOL 12.5 MG TAB PEG/G-TUBE SCH ×3 (09:31→18:14)
[2017-01-18] MEDS: ALPRAZolam 0.5 MG TAB PEG/G-TUBE SCH ×4 (09:33→21:12)
[2017-01-18] MEDS: CHOLECALCIFEROL 1,000 UNIT TAB PEG/G-TUBE SCH ×2 (09:33→11:21)
[2017-01-18] MEDS: BENZOCAINE 20% HEMORRHOIDAL OINT 28GM RECTAL SCH ×3 (09:33→23:25)
[2017-01-18] MEDS: ASPIRIN 81 MG PEG/G-TUBE SCH ×2 (09:33→11:22)
[2017-01-18] MEDS: ONDANSETRON 4 MG/2 ML VIAL IVP PRN ×2 (09:34→16:41)
[2017-01-18] MEDS: HEPARIN SODIUM,PORCINE 5,000 UNIT/ML 1 ML VIAL SQ SCH ×3 (09:34→21:32)
[2017-01-18] MEDS: LISINOPRIL 20 MG TAB PEG/G-TUBE SCH ×3 (09:34→21:32)
[2017-01-18] MEDS: FAMOTIDINE 20 MG TAB PEG/G-TUBE SCH ×2 (09:34→21:32)
[2017-01-18] MEDS: PANTOPRAZOLE 40 MG/10 ML VIAL IVP SCH ×2 (09:37→21:31)
[2017-01-18] MEDS: SODIUM CHLORIDE 0.9% 1,000 ML IV SCH (09:43)
[2017-01-18] MEDS: POTASSIUM CHLORIDE 10 MEQ, LIDOCAINE 2% INJ 10 MG in SODIUM CHLORIDE 0.9% 100 ML IV SCH ×5 (10:55→21:10)
[2017-01-18 11:58] LABS: Glucose,Whole Blood 91 mg/dL (75-99)
[2017-01-18] MEDS ORDERED: NACL IV SCH ×2 (16:45)
[2017-01-18] MEDS ORDERED: DEXTROSE IV SCH ×2 (16:45)
[2017-01-18] MEDS ORDERED: POTASSIUM CHLORIDE IV SCH ×2 (16:45)
--- NOTE | 2017-01-18 17:46 | P.PN ---
Subjective Progress note being dictated for Dr. Jack. 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 Yesterday G-tube placed. Tube feedings to be initiated as per dietary recommendations once cleared by surgery. Oncology radiology consulted. Hypertensive. Denies chest pain, palpitations. Afebrile. 01/17/2017 potassium 2.4, receiving supplements as per protocol.Tube feeds at goal, complaining of mild abdominal discomfort. Small loose stools. Afebrile, WBC 15.8. Port a cath placement pending.Palliative radiation also discussed as per oncology radiologist if no improvement or not a candidate for chemotherapy, or declining performance or uncontrolled pain. 01/18 T-max 99 with improving leukocytosis. Potassium 3.2 post supplements. Port-A-Cath placement pending. Hypoglycemia earlier related to tube feeds had been placed on hold. Amaryl placed on hold .Denies chest pain, palpitations or increasing shortness of breath. Review of systems: CONSTITUTIONAL: fatigue, generalized weakness, weight loss. HEENT: Dysphagia, including inability to swallow liquids, neck-lymphadenopathy, esophageal cancer CARDIOVASCULAR: No chest pain, orthopnea, PND, no palpitations, no syncope. PULMONARY: No shortness of breath, no cough, no hemoptysis. GASTROINTESTINAL: Positive diarrhea, no nausea, no vomiting, positive abdominal pain-RLQ into mid epigastric, perirectal pain. Normoactive bowel sounds. NEUROLOGICAL: No headaches, no weakness, no numbness. HEMATOLOGICAL: Denies any bleeding or petechiae. GENITOURINARY: Denies any burning micturition, frequency, or urgency. MUSCULOSKELETAL/RHEUMATOLOGICAL: Denies any joint pain, swelling, or any muscle pain. Positive muscle weakness ENDOCRINE: Denies any polyuria or polydipsia. PSYCHIATRIC: No anxiety, no depression The rest of the 14 point review of systems is negative Active Medications Acetaminophen (Tylenol Tab) 650 mg PEG/G-TUBE Q6H PRN PRN Reason: Mild Pain Hydrocodone Bitart/Acetaminophen ([place] 5-325) 1 each PO Q4HR PRN PRN Reason: Moderate Pain Last Admin: 01/17/17 15:46 Dose: 1 each Albuterol/Ipratropium (Duoneb 0.5 Mg-3 Mg/3 Ml Soln) 3 ml INHALATION RT-BID [facility] Last Admin: 01/17/17 13:28 Dose: Not Given Alprazolam (Xanax) 1 mg PEG/G-TUBE TID [facility] Last Admin: 01/17/17 15:46 Dose: 1 mg Aspirin (Aspirin) 81 mg PEG/G-TUBE DAILY [facility] Last Admin: 01/17/17 08:25 Dose: 81 mg Atorvastatin Calcium (Lipitor) 20 mg PEG/G-TUBE HS [facility] Last Admin: 01/16/17 20:28 Dose: 20 mg Benzocaine (Americaine Hemorrhoidal Oint) 1 applic RECTAL TID [facility] Last Admin: 01/17/17 15:49 Dose: 1 applic Budesonide/Formoterol Fumarate (Symbicort 160-4.5 Mcg Inhaler) 2 puff INHALATION RT-BID [facility] Last Admin: 01/17/17 08:31 Dose: 2 puff Carvedilol (Coreg) 25 mg PEG/G-TUBE AC-BID [facility] Last Admin: 01/17/17 08:27 Dose: 25 mg Cholecalciferol (Vitamin D3) 2,000 unit PEG/G-TUBE DAILY [facility] Last Admin: 01/17/17 08:28 Dose: 2,000 unit Clonidine (Catapres) 0.1 mg PO Q4HR PRN PRN Reason: Hypertension Last Admin: 01/15/17 04:56 Dose: 0.1 mg Clonidine HCl (Catapres-Tts 0.2mg Patch) 1 patch TRANSDERM Q7D [facility] Last Admin: 01/13/17 14:34 Dose: 1 patch Diphenhydramine HCl (Benadryl) 25 mg PEG/G-TUBE TID@0500,1100,1700 PRN PRN Reason: Agitation or Acute Anxiety Last Admin: 01/17/17 11:49 Dose: 25 mg Enalaprilat (Vasotec) 1.25 mg IVP Q6HR PRN PRN Reason: Blood Pressure - High Last Admin: 01/15/17 19:40 Dose: 1.25 mg Famotidine (Pepcid) 20 mg PEG/G-TUBE BID [facility] Last Admin: 01/17/17 08:26 Dose: 20 mg Glimepiride (Amaryl) 2 mg PEG/G-TUBE AC-BID [facility] Last Admin: 01/17/17 08:27 Dose: 2 mg Heparin Sodium (Porcine) (Heparin) 5,000 unit SQ Q12HR [facility] Last Admin: 01/17/17 08:26 Dose: 5,000 unit Hydralazine HCl (Apresoline) 10 mg IVP Q4HR PRN PRN Reason: Blood Pressure - High Last Admin: 01/16/17 10:03 Dose: 10 mg Hydromorphone HCl (Dilaudid) 0.5 mg IVP Q3HR PRN PRN Reason: Pain Last Admin: 01/15/17 01:52 Dose: 0.5 mg Hydromorphone HCl (Dilaudid) 1 mg IVP Q3HR PRN PRN Reason: Pain Last Admin: 01/17/17 15:46 Dose: 1 mg Sodium Chloride (Saline 0.9%) 1,000 mls @ 60 mls/hr IV .[id number] [facility] Last Admin: 01/17/17 02:38 Dose: 60 mls/hr Insulin Human Lispro (Humalog) 0 unit SQ 0000,0600,1200,1800 [facility] PRN Reason: Protocol Last Admin: 01/17/17 13:08 Dose: Not Given Lidocaine (Lidoderm) 1 patch TOPICAL HS [facility] Last Admin: 01/16/17 21:06 Dose: 1 patch Lisinopril (Zestril) 20 mg PEG/G-TUBE BID [facility] Last Admin: 01/17/17 08:26 Dose: 20 mg Lorazepam (Ativan) 0.5 mg IV Q6HR PRN PRN Reason: Anxiety Last Admin: 01/17/17 11:49 Dose: 0.5 mg Miscellaneous Information (Potassium Per Protocol) 1 each MISCELLANE DAILY PRN ; Protocol PRN Reason: Per Protocol Miscellaneous Information (Magnesium Per Protocol) 1 each MISCELLANE DAILY PRN ; Protocol PRN Reason: Per Protocol Morphine Sulfate (Morphine Sulfate (Inj)) 4 mg IV Q4HR PRN PRN Reason: Severe Pain Last Admin: 01/13/17 02:04 Dose: 4 mg Naloxone HCl (Narcan) 0.2 mg IV Q2M PRN PRN Reason: Opioid Reversal Ondansetron HCl (Zofran) 4 mg IVP Q6HR PRN PRN Reason: Nausea And Vomiting Last Admin: 01/17/17 11:08 Dose: 4 mg Ondansetron HCl (Zofran Odt) 4 mg PEG/G-TUBE Q6HR PRN PRN Reason: Nausea Pantoprazole Sodium (Protonix) 40 mg IVP BID [facility] Last Admin: 01/17/17 08:26 Dose: 40 mg Paroxetine HCl (Paxil) 20 mg PEG/G-TUBE HS [facility] Last Admin: 01/16/17 20:28 Dose: 20 mg Scopolamine (Transderm-Scop 1.5mg/72hr Patch) 1 patch TRANSDERM Q72H [facility] Last Admin: 01/17/17 08:29 Dose: 1 patch Objective - Vital Signs Vital signs: Vital Signs Temp 99 F 01/18/17 15:00 Pulse 77 01/18/17 15:00 Resp 16 01/18/17 15:00 BP 153/74 01/18/17 15:00 Pulse Ox 95 01/18/17 15:00 Intake & Output 01/17/17 01/18/17 01/18/17 18:59 06:59 18:59 Intake Total 180 1566 540 Balance 180 1566 540 Weight 61 kg 62 kg 62 kg Intake: Intake, IV Titration 1506 Amount Dextrose 5% in Water 1, 1506 000 ml @ 50 mls/hr IV . Q20H [facility] Rx#:[id number] Tube Feeding 180 60 540 Other: Voiding Method Toilet Toilet Toilet Diaper Diaper Diaper # Voids 3 2 1 # Bowel Movements 3 1 2 - Labs CBC & Chem 7: 01/18/17 07:31 01/18/17 17:12 Labs: Abnormal Lab Results - Last 24 Hours (Table) 01/17/17 01/17/17 01/18/17 Range/Units 17:55 18:12 00:26 WBC (3.8-10.6) k/uL RBC (3.80-5.40) m/uL Hgb (11.4-16.0) gm/dL Hct (34.0-46.0) % Neutrophils # (1.3-7.7) k/uL Potassium (3.5-5.1) mmol/L Chloride 109 H (98-107) mmol/L Creatinine (0.52-1.04) mg/dL Glucose (74-99) mg/dL POC Glucose (mg/dL) 69 L 51 L (75-99) mg/dL Calcium (8.4-10.2) mg/dL 01/18/17 01/18/17 01/18/17 Range/Units 00:57 04:30 04:58 WBC (3.8-10.6) k/uL RBC (3.80-5.40) m/uL Hgb (11.4-16.0) gm/dL Hct (34.0-46.0) % Neutrophils # (1.3-7.7) k/uL Potassium (3.5-5.1) mmol/L Chloride (98-107) mmol/L Creatinine (0.52-1.04) mg/dL Glucose (74-99) mg/dL POC Glucose (mg/dL) 166 H 57 L 148 H (75-99) mg/dL Calcium (8.4-10.2) mg/dL 01/18/17 01/18/17 Range/Units 07:31 07:31 WBC 11.3 H (3.8-10.6) k/uL RBC 3.25 L (3.80-5.40) m/uL Hgb 9.6 L (11.4-16.0) gm/dL Hct 28.8 L (34.0-46.0) % Neutrophils # 8.7 H (1.3-7.7) k/uL Potassium 2.8 L* (3.5-5.1) mmol/L Chloride (98-107) mmol/L Creatinine 0.51 L (0.52-1.04) mg/dL Glucose 73 L (74-99) mg/dL POC Glucose (mg/dL) (75-99) mg/dL Calcium 8.1 L (8.4-10.2) mg/dL Assessment and Plan Plan: 1. Status post G-tube placement 2. Recent J-tube dislodgment 3. Accelerated hypertension, hypertensive urgency 4. 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 5. Change in mental status, acute metabolic encephalopathy 6. Diabetes mellitus type 2 Plan: Continue on current medication regime , antihypertensives, monitoring and symptomatic treatment. Continue supplementing Potassium as per replacement protocol in addition to adding potassium to IV fluid maintenance bags. pending Port-A-Cath placement as per surgery. Close monitoring of Accu-Cheks, hold amaryl. Further recommendations to follow. The impression and plan of care has been dictated as directed. : I performed a H&P examination of this patient and discussed the same with the dictator. I agree with the dictator's note. Any additional findings/opinions/ etc. will be noted.
[2017-01-18 18:05] LABS: Glucose,Whole Blood 110 mg/dL (75-99)
--- NOTE | 2017-01-18 18:54 | P.PN ---
Subjective Principal diagnosis: Malnutrition Patient was being prepared for Port-A-Cath placement today however her potassium was once again quite low. Surgery was held for that reason. She has been sleepy today. She is tolerating her tube feeds at goal. Says her abdominal pain is improved. Objective - Vital Signs Vital signs: Vital Signs Temp 99 F 01/18/17 15:00 Pulse 77 01/18/17 15:00 Resp 16 01/18/17 15:00 BP 153/74 01/18/17 15:00 Pulse Ox 95 01/18/17 15:00 Intake & Output 01/17/17 01/18/17 01/18/17 18:59 06:59 18:59 Intake Total 180 1566 540 Balance 180 1566 540 Weight 61 kg 62 kg 62 kg Intake: Intake, IV Titration 1506 Amount Dextrose 5% in Water 1, 1506 000 ml @ 50 mls/hr IV . Q20H [facility] Rx#:[id number] Tube Feeding 180 60 540 Other: Voiding Method Toilet Toilet Toilet Diaper Diaper Diaper # Voids 3 2 1 # Bowel Movements 3 1 2 - Exam Abdomen: Soft, nondistended, mild tenderness at the incision site and G-tube site - Labs CBC & Chem 7: 01/18/17 07:31 01/18/17 17:12 Labs: Abnormal Lab Results - Last 24 Hours (Table) 01/18/17 01/18/17 01/18/17 Range/Units 00:26 00:57 04:30 WBC (3.8-10.6) k/uL RBC (3.80-5.40) m/uL Hgb (11.4-16.0) gm/dL Hct (34.0-46.0) % Neutrophils # (1.3-7.7) k/uL Potassium (3.5-5.1) mmol/L Creatinine (0.52-1.04) mg/dL Glucose (74-99) mg/dL POC Glucose (mg/dL) 51 L 166 H 57 L (75-99) mg/dL Calcium (8.4-10.2) mg/dL 01/18/17 01/18/17 01/18/17 Range/Units 04:58 07:31 07:31 WBC 11.3 H (3.8-10.6) k/uL RBC 3.25 L (3.80-5.40) m/uL Hgb 9.6 L (11.4-16.0) gm/dL Hct 28.8 L (34.0-46.0) % Neutrophils # 8.7 H (1.3-7.7) k/uL Potassium 2.8 L* (3.5-5.1) mmol/L Creatinine 0.51 L (0.52-1.04) mg/dL Glucose 73 L (74-99) mg/dL POC Glucose (mg/dL) 148 H (75-99) mg/dL Calcium 8.1 L (8.4-10.2) mg/dL 01/18/17 01/18/17 Range/Units 17:12 18:04 WBC (3.8-10.6) k/uL RBC (3.80-5.40) m/uL Hgb (11.4-16.0) gm/dL Hct (34.0-46.0) % Neutrophils # (1.3-7.7) k/uL Potassium 3.2 L (3.5-5.1) mmol/L Creatinine (0.52-1.04) mg/dL Glucose (74-99) mg/dL POC Glucose (mg/dL) 110 H (75-99) mg/dL Calcium (8.4-10.2) mg/dL Assessment and Plan (1) Malfunctioning jejunostomy tube Narrative/Plan: Continue supplement potassium. Tentatively plan Port-A-Cath placement for Saturday. Status: Acute
[2017-01-18] MEDS: D5-0.9% NACL WITH KCL 40 MEQ/L 1,000 ML IV SCH (19:56)
[2017-01-18] MEDS: PARoxetine 20 MG TAB PEG/G-TUBE SCH (21:12)
[2017-01-18] MEDS: LIDOCAINE 5% PATCH TOPICAL SCH (21:31)
[2017-01-18] MEDS: ATORVASTATIN 20 MG TAB PEG/G-TUBE SCH (21:32)
[2017-01-18] MEDS: HYDROcodone/APAP 5-325MG 1 EACH TAB PO PRN (21:52)
[2017-01-19 00:30] LABS: Glucose,Whole Blood 114 mg/dL (75-99)
[2017-01-19] MEDS: INSULIN LISPRO (humaLOG) 300 UNIT/3 ML VIAL SQ SCH ×4 (01:11→17:43)
[2017-01-19] MEDS: HYDROmorphone 1 MG/ML 1 ML SYRINGE IVP PRN ×7 (01:45→23:14)
[2017-01-19 06:40] LABS: Glucose,Whole Blood 114 mg/dL (75-99)
[2017-01-19 07:26] LABS: Glucose,Whole Blood 115 mg/dL (75-99)
[2017-01-19] MEDS: LISINOPRIL 20 MG TAB PEG/G-TUBE SCH ×2 (08:25→23:44)
[2017-01-19] MEDS: PANTOPRAZOLE 40 MG/10 ML VIAL IVP SCH ×2 (08:26→21:24)
[2017-01-19] MEDS: ASPIRIN 81 MG PEG/G-TUBE SCH (08:27)
[2017-01-19] MEDS: BENZOCAINE 20% HEMORRHOIDAL OINT 28GM RECTAL SCH ×3 (08:27→22:51)
[2017-01-19] MEDS: CARVEDILOL 12.5 MG TAB PEG/G-TUBE SCH ×2 (08:28→17:35)
[2017-01-19] MEDS: CHOLECALCIFEROL 1,000 UNIT TAB PEG/G-TUBE SCH (08:29)
[2017-01-19] MEDS: HEPARIN SODIUM,PORCINE 5,000 UNIT/ML 1 ML VIAL SQ SCH ×2 (08:30→21:24)
[2017-01-19] MEDS: FAMOTIDINE 20 MG TAB PEG/G-TUBE SCH (08:30)
[2017-01-19] MEDS: ALPRAZolam 0.5 MG TAB PEG/G-TUBE SCH ×3 (08:42→21:23)
[2017-01-19] MEDS: IPRATROPIUM-ALBUTEROL 3 ML NEB INHALATION SCH ×2 (08:50→19:44)
[2017-01-19] MEDS: SYMBICORT 160-4.5 MCG INHALER INHALATION SCH ×2 (08:50→19:44)
[2017-01-19 10:44] LABS: Anion Gap 5 mmol/L; Blood Urea Nitrogen 12 mg/dL (7-17); Calcium 8.1 mg/dL (8.4-10.2); Carbon Dioxide 25 mmol/L (22-30); Chloride 107 mmol/L (98-107); Glucose 121 mg/dL (74-99); Magnesium 1.7 mg/dL (1.6-2.3); Non-African American GFR(MDRD) >60 (>60 ml/min/1.73 sqM); Potassium 3.5 mmol/L (3.5-5.1); Sodium 137 mmol/L (137-145)
[2017-01-19 11:57] LABS: Glucose,Whole Blood 114 mg/dL (75-99)
[2017-01-19] MEDS: D5-0.9% NACL WITH KCL 40 MEQ/L 1,000 ML IV SCH (13:40)
--- NOTE | 2017-01-19 14:19 | P.PN ---
Progress Note - Text The patient is resting comfortably in her bed. She is totally scheduled for a Port-A-Cath placement on Saturday.
[2017-01-19] MEDS: DEXTROSE 5% IN WATER 1,000 ML IV SCH (17:18)
[2017-01-19 17:46] LABS: Glucose,Whole Blood 103 mg/dL (75-99)
--- NOTE | 2017-01-19 18:24 | PN ---
PROGRESS NOTE DATE OF SERVICE: 01/19/2017 This 66-year-old woman who was admitted after G-tube placement, has been closely monitored. The patient is still complaining of abdominal pain. Tube feeds will be started. Surgery is following the patient closely. No chest pain or palpitations. No fever. The patient is not a candidate for radiation at this time per Radiation Oncology. PHYSICAL EXAM: On exam, alert and oriented x3. Pulse 67, blood pressure 159/65, respiration 18, temperature 98.2, pulse ox 94% on room air. HEENT: Conjunctivae normal. NECK: No jugular venous distention. CARDIOVASCULAR: S1 and S2 muffled. RESPIRATORY: Breath sounds diminished at the bases. A few scattered rhonchi and crackles. ABDOMEN: Soft, nontender. No mass palpable. Status post G-tube placement. NERVOUS SYSTEM: No focal deficits. LABS: WBC 11.3, hemoglobin 9.6. ASSESSMENT: 1. Status post J-tube dislodgement, removal and as well as G-tube placement. 2. Accelerated hypertension and hypertensive urgency, present on admission. 3. Recently diagnoses poorly differentiated adenocarcinoma of the lower esophagus with possible metastasis. 4. Change in mental status, acute metabolic encephalopathy. 5. Diabetes mellitus type 2. 6. Abdominal pain secondary from malignancy. RECOMMENDATION AND DISCUSSION: Recommend to continue current medications. Continue symptomatic treatment. Otherwise at this time we will follow the patient closely with Dr. Pack for possible port placement. Otherwise continue to monitor. Guarded prognosis. Further recommendation to follow. MMODL / IJN: [id number] /
[2017-01-19] MEDS: HYDROcodone/APAP 5-325MG 1 EACH TAB PO PRN (21:15)
[2017-01-19] MEDS: ONDANSETRON 4 MG/2 ML VIAL IVP PRN (21:23)
[2017-01-19] MEDS: ATORVASTATIN 20 MG TAB PEG/G-TUBE SCH (21:24)
[2017-01-19] MEDS: LIDOCAINE 5% PATCH TOPICAL SCH (21:24)
[2017-01-19] MEDS: PARoxetine 20 MG TAB PEG/G-TUBE SCH (21:25)
[2017-01-20 00:18] LABS: Glucose,Whole Blood 120 mg/dL (75-99)
[2017-01-20] MEDS: INSULIN LISPRO (humaLOG) 300 UNIT/3 ML VIAL SQ SCH ×4 (00:52→17:36)
[2017-01-20] MEDS: LORazepam 2 MG/ML SYRINGE IV PRN ×3 (01:52→20:10)
[2017-01-20] MEDS: HYDROmorphone 1 MG/ML 1 ML SYRINGE IVP PRN ×8 (02:45→23:01)
[2017-01-20] MEDS: D5-0.9% NACL WITH KCL 40 MEQ/L 1,000 ML IV SCH (05:06)
[2017-01-20] MEDS: ONDANSETRON 4 MG/2 ML VIAL IVP PRN ×3 (05:20→17:02)
[2017-01-20] MEDS: hydrALAZINE HCL 20 MG/ML 1 ML VIAL IVP PRN (05:41)
[2017-01-20 06:00] LABS: Glucose,Whole Blood 126 mg/dL (75-99)
[2017-01-20 06:31] LABS: Glucose,Whole Blood 119 mg/dL (75-99)
[2017-01-20] MEDS: SYMBICORT 160-4.5 MCG INHALER INHALATION SCH ×2 (07:16→21:14)
[2017-01-20] MEDS: IPRATROPIUM-ALBUTEROL 3 ML NEB INHALATION SCH ×2 (07:18→21:14)
[2017-01-20 07:23] LABS: CH 29.1; CHCM 32.7; HCT 31.5 % (34.0-46.0); HDW 3.36; HGB 10.6 gm/dL (11.4-16.0); Hypochromasia Slight; MCH 30.1 pg (25.0-35.0); MCHC 33.5 g/dL (31.0-37.0); MCV 89.6 fL (80.0-100.0); Mean Platelet Volume 7.2; RBC 3.52 m/uL (3.80-5.40); RDW 14.2 % (11.5-15.5); WBC 10.9 k/uL (3.8-10.6)
[2017-01-20] MEDS: POTASSIUM CHLORIDE IV SCH ×4 (07:27→23:02)
[2017-01-20] MEDS: DEXTROSE IV SCH ×4 (07:27→23:02)
[2017-01-20] MEDS: NACL IV SCH ×4 (07:27→23:02)
[2017-01-20] MEDS: HEPARIN SODIUM,PORCINE 5,000 UNIT/ML 1 ML VIAL SQ SCH ×2 (07:33→20:45)
[2017-01-20] MEDS: LISINOPRIL 20 MG TAB PEG/G-TUBE SCH ×2 (07:33→20:37)
[2017-01-20] MEDS: ASPIRIN 81 MG PEG/G-TUBE SCH (07:34)
[2017-01-20] MEDS: ALPRAZolam 0.5 MG TAB PEG/G-TUBE SCH ×3 (07:34→20:37)
[2017-01-20] MEDS: PANTOPRAZOLE 40 MG/10 ML VIAL IVP SCH ×2 (07:34→20:36)
[2017-01-20] MEDS: CHOLECALCIFEROL 1,000 UNIT TAB PEG/G-TUBE SCH (07:34)
[2017-01-20] MEDS: CARVEDILOL 12.5 MG TAB PEG/G-TUBE SCH ×2 (07:35→16:03)
[2017-01-20] MEDS: BENZOCAINE 20% HEMORRHOIDAL OINT 28GM RECTAL SCH ×3 (07:35→20:46)
[2017-01-20] MEDS: HYDROcodone/APAP 5-325MG 1 EACH TAB PO PRN ×2 (07:41→14:01)
[2017-01-20 09:05] LABS: Anion Gap 6 mmol/L; Blood Urea Nitrogen 8 mg/dL (7-17); Calcium 8.6 mg/dL (8.4-10.2); Carbon Dioxide 28 mmol/L (22-30); Chloride 106 mmol/L (98-107); Glucose 121 mg/dL (74-99); Non-African American GFR(MDRD) >60 (>60 ml/min/1.73 sqM); Potassium 3.8 mmol/L (3.5-5.1); Sodium 140 mmol/L (137-145)
--- NOTE | 2017-01-20 09:07 | P.PN ---
Progress Note - Text The patient is resting in bed. She had some difficulties with high gastric residuals with her tube feeds yesterday. Her tube feeds were stopped for 4 hours. We'll resume tube feeds at 20 mL/h this morning. On exam her vital signs are stable. Her abdomen soft. Patient will undergo Port-A-Cath placement by Dr. Morales tomorrow.
[2017-01-20 12:01] LABS: Glucose,Whole Blood 120 mg/dL (75-99)
[2017-01-20] MEDS: cloNIDine 0.2 MG/24HR PATCH 1 PATCH PATCH TRANSDERM SCH (13:41)
[2017-01-20] MEDS: SCOPOLAMINE 1.5MG/72HR PATCH TRANSDERM SCH (16:02)
[2017-01-20 17:43] LABS: Glucose,Whole Blood 104 mg/dL (75-99)
[2017-01-20] MEDS: METOCLOPRAMIDE 5 MG/ML 2 ML VIAL IVP SCH ×2 (18:05→23:01)
[2017-01-20] MEDS: LIDOCAINE 5% PATCH TOPICAL SCH (20:24)
[2017-01-20] MEDS: ATORVASTATIN 20 MG TAB PEG/G-TUBE SCH (20:37)
[2017-01-20] MEDS: PARoxetine 20 MG TAB PEG/G-TUBE SCH (20:37)
--- NOTE | 2017-01-20 20:43 | PN ---
PROGRESS NOTE DATE OF SERVICE: 01/20/2017 This is a progress note. INTERVAL HISTORY: This 66-year-old woman who was admitted after a J-tube dislodgement also a G-tube placement at this time. Patient complaining of abdominal pain. The Port a catheter is being planned for tomorrow and tentatively by Dr. Pack. No chest pain. No palpitations. No fever. Patient seen by Oncology and Radiation Oncology also. EXAM: Alert and oriented times three. Pulse 75. Blood pressure 166/60, respiration 18, temperature 98.6, pulse ox 98% room air. HEENT: Conjunctivae normal. NECK: No jugular venous distention. Cardiovascular: S1, S2 muffled. Respiratory: Breath sounds diminished at the bases. Scattered rhonchi and crackles. Abdomen is soft, nontender. Legs are no edema, no swelling. Central nervous system: No focal deficits. LABS: WBC 10.9, hemoglobin 10.6. ASSESSMENT: 1. Status post J-tube dislodgement and removal, as well as G-tube placement. 2. Accelerate hypertension, hypertensive urgency. Present on admission. 3. History of recently diagnosed poorly differentiated adenocarcinoma of lower esophagus with possible mental status changes. 4. Change in mental status acute metabolic encephalopathy. 5. Diabetes type 2. 6. Abdominal pain secondary to malignancy. RECOMMENDATIONS AND DISCUSSION: Recommend to continue current management. Continue current medications. Symptomatic treatment. Otherwise continue to monitor. Await Port-A-Cath placement per surgery and further plans for chemotherapy per Hematology/Oncology. Prognosis guarded. Continue the pain management. Further recommendations to follow. MMODL / IJN: [id number] /
[2017-01-20 23:59] LABS: Glucose,Whole Blood 121 mg/dL (75-99)
[2017-01-21] MEDS: INSULIN LISPRO (humaLOG) 300 UNIT/3 ML VIAL SQ SCH ×4 (00:30→21:14)
[2017-01-21] MEDS: LORazepam 2 MG/ML SYRINGE IV PRN ×3 (01:52→16:26)
[2017-01-21] MEDS: HYDROmorphone 1 MG/ML 1 ML SYRINGE IVP PRN ×6 (01:52→21:07)
[2017-01-21 05:50] LABS: Glucose,Whole Blood 124 mg/dL (75-99)
[2017-01-21] MEDS: METOCLOPRAMIDE 5 MG/ML 2 ML VIAL IVP SCH ×3 (05:50→19:32)
[2017-01-21] MEDS: CHOLECALCIFEROL 1,000 UNIT TAB PEG/G-TUBE SCH (08:04)
[2017-01-21] MEDS: ALPRAZolam 0.5 MG TAB PEG/G-TUBE SCH ×3 (08:04→21:37)
[2017-01-21] MEDS: CARVEDILOL 12.5 MG TAB PEG/G-TUBE SCH ×2 (08:04→16:26)
[2017-01-21] MEDS: ASPIRIN 81 MG PEG/G-TUBE SCH (08:04)
[2017-01-21] MEDS: BENZOCAINE 20% HEMORRHOIDAL OINT 28GM RECTAL SCH ×3 (08:20→21:24)
[2017-01-21] MEDS: LISINOPRIL 20 MG TAB PEG/G-TUBE SCH ×2 (08:21→21:22)
[2017-01-21] MEDS: PANTOPRAZOLE 40 MG/10 ML VIAL IVP SCH ×2 (08:21→21:22)
[2017-01-21] MEDS: HEPARIN SODIUM,PORCINE 5,000 UNIT/ML 1 ML VIAL SQ SCH ×2 (08:21→21:22)
[2017-01-21] MEDS: IPRATROPIUM-ALBUTEROL 3 ML NEB INHALATION SCH ×2 (08:50→21:29)
[2017-01-21] MEDS: SYMBICORT 160-4.5 MCG INHALER INHALATION SCH ×2 (08:50→21:28)
[2017-01-21 11:59] LABS: Glucose,Whole Blood 114 mg/dL (75-99)
[2017-01-21] MEDS ORDERED: LACTATED RINGERS 1,000 ML IV ONE (18:15)
[2017-01-21] MEDS ORDERED: PROPOFOL 10 MG/ML 20 ML VIAL IV ONE (18:15)
[2017-01-21] MEDS ORDERED: LIDOCAINE 1% INJ 10MG/ML (20 ML MDV) ONE (18:15)
[2017-01-21] MEDS ORDERED: MIDAZOLAM 2 MG/2 ML VIAL ONE (18:15)
[2017-01-21] MEDS ORDERED: fentaNYL (PF) 50 MCG/ML 2 ML AMP ONE (18:15)
[2017-01-21] MEDS ORDERED: SODIUM CHLORIDE 0.9% 50 ML with ceFAZolin 2,000 MG IV ONE ×2 (18:34)
--- NOTE | 2017-01-21 18:42 | P.PN ---
Subjective Progress note being dictated for Dr. Jack. 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 Yesterday G-tube placed. Tube feedings to be initiated as per dietary recommendations once cleared by surgery. Oncology radiology consulted. Hypertensive. Denies chest pain, palpitations. Afebrile. 01/17/2017 potassium 2.4, receiving supplements as per protocol.Tube feeds at goal, complaining of mild abdominal discomfort. Small loose stools. Afebrile, WBC 15.8. Port a cath placement pending.Palliative radiation also discussed as per oncology radiologist if no improvement or not a candidate for chemotherapy, or declining performance or uncontrolled pain. 01/18 T-max 99 with improving leukocytosis. Potassium 3.2 post supplements. Port-A-Cath placement pending. Hypoglycemia earlier related to tube feeds had been placed on hold. Amaryl placed on hold .Denies chest pain, palpitations or increasing shortness of breath. 01/21/2017 tube feeds on hold, awaiting PermCath placement. Complaining of abdominal pain afebrile. Denies chest pain, palpitations or increasing shortness of breath. Objective - Vital Signs Vital signs: Vital Signs Temp 98.5 F 01/21/17 15:00 Pulse 72 01/21/17 15:00 Resp 18 01/21/17 16:00 BP 175/74 01/21/17 15:00 Pulse Ox 95 01/21/17 15:00 Intake & Output 01/20/17 01/21/17 01/21/17 18:59 06:59 18:59 Intake Total 480 240 0 Balance 480 240 0 Weight 76 kg 75.5 kg 75.5 kg Intake: Tube Feeding 480 240 0 Other: Voiding Method Bedside Commode Bedside Commode Bedside Commode Incontinent Incontinent Incontinent # Voids 3 3 1 - Exam PHYSICAL EXAM: VITAL SIGNS: As above GENERAL: Sitting up in bed, no acute distress HEENT: Conjunctivae normal. eyes normal. NECK: No JVD. No thyroid enlargement. CARDIOVASCULAR: S1, S2 muffled. Positive systolic murmur RESPIRATION: Breath sounds diminished in the bases. Scattered rhonchi and crackles. No bronchial breathing. ABDOMEN: Soft, status post G-tube placement, mildly distended ,No guarding.Bowel sounds present. LEGS: No edema. no swelling. PSYCHIATRY: Alert and oriented -3, mood and affect normal. NERVOUS SYSTEM: Cranial N 2-12 grossly normal. Moves all 4 limbs. No focal deficits. Strength and sensation grossly intact - Labs CBC & Chem 7: 01/20/17 06:40 01/20/17 06:40 Labs: Abnormal Lab Results - Last 24 Hours (Table) 01/20/17 01/21/17 01/21/17 Range/Units 23:58 05:49 11:57 POC Glucose (mg/dL) 121 H 124 H 114 H (75-99) mg/dL Assessment and Plan Plan: 1. Status post G-tube placement 2. Recent J-tube dislodgment 3. Accelerated hypertension, hypertensive urgency 4. 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 5. Change in mental status, acute metabolic encephalopathy 6. Diabetes mellitus type 2 Plan: Continue on current medication regime , antihypertensives, monitoring and symptomatic treatment. Port-A-Cath placement pending. Further recommendations from oncology pending.Discharge planning in progress. Further recommendations to follow. The impression and plan of care has been dictated as directed. : I performed a H&P examination of this patient and discussed the same with the dictator. I agree with the dictator's note. Any additional findings/opinions/ etc. will be noted.
[2017-01-21] MEDS ORDERED: HEPARIN SODIUM,PORCINE 100 UNIT/ML 5 ML VIAL IV ONE (18:45)
[2017-01-21] MEDS ORDERED: LIDOCAINE (PF) 10 MG/ML 2 ML VIAL SQ ONE (18:46)
--- NOTE | 2017-01-21 19:08 | P.PCN ---
Date of Procedure: 01/21/17 Preoperative Diagnosis: Postoperative Diagnosis: Procedure(s) Performed: PREOPERATIVE DIAGNOSIS: Esophageal cancer POSTOPERATIVE DIAGNOSIS: Same PROCEDURE: Port-A-Cath placement SURGEON: Ramone EBL: Minimal ANESTHESIA: Sedation COMPLICATIONS: None OPERATIVE PROCEDURE: Patient was brought and placed on the operative table in the supine position. The patient was sedated per anesthesia that time. The chest and neck were prepped and draped in usual sterile fashion. The ultrasound probe was used to identify the location of the right internal jugular vein. The skin was localized with lidocaine. The Seldinger needle was advanced into the IJ under ultrasound guidance. The wire was advanced through the needle under fluoroscopic guidance into the superior vena cava. A port pocket was created in the right infraclavicular location. The catheter was tunneled from the wire entrance site to the port pocket. The port was then connected to the catheter. The dilator introducer was threaded over the guidewire. The guidewire and dilator were then removed. The catheter was advanced through the introducer and introducer was then removed. The tip was seen to be in the right atrial junction. Port was flushed with both saline and a Hep-Lock solution. There was good flow both in and out of the port. The port was sutured in underlying tissues using 3-0 silk sutures. The subcutaneous tissues were reapproximated using 3-0 Vicryl sutures and the skin at both locations using 4-0 Monocryl sutures. Steri-Strips and sterile dressings then applied. DISPOSITION: Stable to recovery room Implants: Indications for Procedure: Operative Findings: Description of Procedure:
--- NOTE | 2017-01-21 19:32 | XR ---
EXAMINATION TYPE: XR chest 1V confirm line plctn DATE OF EXAM: 01/21/2017 COMPARISON: 01/14/2017 HISTORY: Check line placement TECHNIQUE: Single frontal view of the chest is obtained. FINDINGS: There is a right central venous catheter with tip over the upper superior vena cava. There is no pneumothorax. There is blunting of costophrenic angles. IMPRESSION: Central venous catheter appears in good position. There are small pleural effusions that appear new compared to old exam.
[2017-01-21] MEDS ORDERED: hydrALAZINE HCL 20 MG/ML 1 ML VIAL IVP ONE (19:39)
[2017-01-21 19:54] LABS: Glucose,Whole Blood 96 mg/dL (75-99)
[2017-01-21] MEDS: D5-0.45% NACL WITH KCL 40MEQ/L 1,000 ML IV SCH (21:15)
[2017-01-21] MEDS: ATORVASTATIN 20 MG TAB PEG/G-TUBE SCH (21:21)
[2017-01-21] MEDS: LIDOCAINE 5% PATCH TOPICAL SCH (21:22)
[2017-01-21 23:59] LABS: Glucose,Whole Blood 113 mg/dL (75-99)
[2017-01-22] MEDS: HYDROmorphone 1 MG/ML 1 ML SYRINGE IVP PRN ×7 (00:05→22:52)
[2017-01-22] MEDS: METOCLOPRAMIDE 5 MG/ML 2 ML VIAL IVP SCH ×4 (00:06→18:13)
[2017-01-22] MEDS: PARoxetine 20 MG TAB PEG/G-TUBE SCH ×2 (00:06→21:19)
[2017-01-22] MEDS: INSULIN LISPRO (humaLOG) 300 UNIT/3 ML VIAL SQ SCH ×4 (00:11→17:51)
[2017-01-22] MEDS: D5-0.45% NACL WITH KCL 40MEQ/L 1,000 ML IV SCH ×3 (00:25→16:35)
[2017-01-22] MEDS: ONDANSETRON 4 MG/2 ML VIAL IVP PRN ×3 (01:59→19:36)
[2017-01-22 05:44] LABS: Glucose,Whole Blood 131 mg/dL (75-99)
[2017-01-22] MEDS: SYMBICORT 160-4.5 MCG INHALER INHALATION SCH ×2 (06:56→19:07)
[2017-01-22] MEDS: IPRATROPIUM-ALBUTEROL 3 ML NEB INHALATION SCH ×2 (06:56→19:09)
[2017-01-22] MEDS: PANTOPRAZOLE 40 MG/10 ML VIAL IVP SCH ×2 (07:50→21:19)
[2017-01-22] MEDS: CHOLECALCIFEROL 1,000 UNIT TAB PEG/G-TUBE SCH (07:51)
[2017-01-22] MEDS: BENZOCAINE 20% HEMORRHOIDAL OINT 28GM RECTAL SCH ×3 (07:51→21:20)
[2017-01-22] MEDS: CARVEDILOL 12.5 MG TAB PEG/G-TUBE SCH ×2 (07:51→18:12)
[2017-01-22] MEDS: LISINOPRIL 20 MG TAB PEG/G-TUBE SCH ×2 (07:51→21:19)
[2017-01-22] MEDS: ASPIRIN 81 MG PEG/G-TUBE SCH (07:51)
[2017-01-22] MEDS: HEPARIN SODIUM,PORCINE 5,000 UNIT/ML 1 ML VIAL SQ SCH ×2 (07:51→21:19)
[2017-01-22] MEDS: ALPRAZolam 0.5 MG TAB PEG/G-TUBE SCH ×3 (07:56→21:19)
--- NOTE | 2017-01-22 09:06 | FL ---
Fluoroscopy HISTORY: Pain 16 seconds fluoroscopy time supplied to the referring clinician. 1 intraoperative C-arm images docum ent the procedure. See dictated report from general surgery.
[2017-01-22] MEDS: HYDROcodone/APAP 5-325MG 1 EACH TAB PO PRN ×2 (10:45→18:12)
[2017-01-22 15:54] LABS: Glucose,Whole Blood 133 mg/dL (75-99)
[2017-01-22 17:35] LABS: Glucose,Whole Blood 118 mg/dL (75-99)
--- NOTE | 2017-01-22 18:17 | P.PN ---
Subjective Principal diagnosis: Malnutrition Patient is tolerating her tube feeds at this time at 40 mL. Mild pain at the abdominal incision and Port-A-Cath site. Objective - Vital Signs Vital signs: Vital Signs Temp 98.1 F 01/22/17 15:33 Pulse 63 01/22/17 15:33 Resp 15 01/22/17 15:33 BP 123/64 01/22/17 15:33 Pulse Ox 99 01/22/17 15:33 Intake & Output 01/21/17 01/22/17 01/22/17 18:59 06:59 18:59 Intake Total 200 200 160 Output Total 155 Balance 200 45 160 Weight 75.5 kg 70 kg Intake: IV 200 200 Tube Feeding 0 0 160 Output: Urine 150 Estimated Blood Loss 5 Other: Voiding Method Bedside Commode Bedside Commode Bedside Commode Incontinent Incontinent Incontinent # Voids 1 1 2 # Bowel Movements 1 - Exam Abdomen: Soft, mild tenderness, incision clean and dry Chest incision clean and dry - Labs CBC & Chem 7: 01/20/17 06:40 01/20/17 06:40 Labs: Abnormal Lab Results - Last 24 Hours (Table) 01/21/17 01/22/17 01/22/17 Range/Units 23:57 05:42 11:36 POC Glucose (mg/dL) 113 H 131 H 133 H (75-99) mg/dL 01/22/17 Range/Units 17:34 POC Glucose (mg/dL) 118 H (75-99) mg/dL Assessment and Plan (1) Malfunctioning jejunostomy tube Narrative/Plan: Continue advancing tube feeds to goal. May use Port-A-Cath when needed. Status: Acute
[2017-01-22] MEDS: LIDOCAINE 5% PATCH TOPICAL SCH (21:19)
[2017-01-22] MEDS: ATORVASTATIN 20 MG TAB PEG/G-TUBE SCH (21:19)
[2017-01-23] LABS: Glucose,Whole Blood 119 mg/dL (75-99)
[2017-01-23] MEDS: HYDROcodone/APAP 5-325MG 1 EACH TAB PO PRN ×3 (00:03→16:45)
[2017-01-23] MEDS: METOCLOPRAMIDE 5 MG/ML 2 ML VIAL IVP SCH ×4 (00:21→17:43)
[2017-01-23] MEDS: ONDANSETRON 4 MG/2 ML VIAL IVP PRN ×2 (01:55→10:59)
[2017-01-23] MEDS: HYDROmorphone 1 MG/ML 1 ML SYRINGE IVP PRN ×6 (02:06→22:03)
[2017-01-23] MEDS: INSULIN LISPRO (humaLOG) 300 UNIT/3 ML VIAL SQ SCH ×4 (02:52→17:55)
[2017-01-23] MEDS: LORazepam 2 MG/ML SYRINGE IV PRN (04:57)
[2017-01-23] MEDS: D5-0.45% NACL WITH KCL 40MEQ/L 1,000 ML IV SCH ×2 (05:54→21:18)
[2017-01-23 06:28] LABS: Glucose,Whole Blood 125 mg/dL (75-99)
[2017-01-23] MEDS: SYMBICORT 160-4.5 MCG INHALER INHALATION SCH ×2 (07:04→19:22)
[2017-01-23] MEDS: IPRATROPIUM-ALBUTEROL 3 ML NEB INHALATION SCH ×2 (07:04→19:22)
[2017-01-23] MEDS: CARVEDILOL 12.5 MG TAB PEG/G-TUBE SCH ×2 (07:21→17:38)
[2017-01-23] MEDS: ASPIRIN 81 MG PEG/G-TUBE SCH (07:23)
[2017-01-23] MEDS: LISINOPRIL 20 MG TAB PEG/G-TUBE SCH ×2 (07:26→20:16)
[2017-01-23] MEDS: PANTOPRAZOLE 40 MG/10 ML VIAL IVP SCH ×2 (07:27→20:15)
[2017-01-23] MEDS: CHOLECALCIFEROL 1,000 UNIT TAB PEG/G-TUBE SCH (07:29)
[2017-01-23] MEDS: BENZOCAINE 20% HEMORRHOIDAL OINT 28GM RECTAL SCH ×3 (07:30→20:17)
[2017-01-23] MEDS: HEPARIN SODIUM,PORCINE 5,000 UNIT/ML 1 ML VIAL SQ SCH ×2 (07:36→21:19)
[2017-01-23 08:09] LABS: Basophils % (A) 0 %; CH 29.9; CHCM 33.1; Eosinophils # (A) 0.4 k/uL (0-0.7); Eosinophils % (A) 5 %; HDW 3.05; HGB 9.7 gm/dL (11.4-16.0); Luc # (Auto) 0.07; Luc % (Auto) 1; Lymphocytes # (A) 1.6 k/uL (1.0-4.8); Lymphocytes % (A) 19 %; MCH 29.4 pg (25.0-35.0); MCHC 32.4 g/dL (31.0-37.0); MCV 90.5 fL (80.0-100.0); Mean Platelet Volume 7.7; Monocytes # (A) 0.4 k/uL (0-1.0); Monocytes % (A) 5 %; Neutrophils % (A) 71 %; RBC 3.31 m/uL (3.80-5.40); RDW 14.7 % (11.5-15.5); WBC 8.5 k/uL (3.8-10.6); WBC (Perox) 8.53
[2017-01-23 08:28] LABS: Anion Gap 6 mmol/L; Blood Urea Nitrogen 7 mg/dL (7-17); Calcium 8.8 mg/dL (8.4-10.2); Carbon Dioxide 33 mmol/L (22-30); Chloride 100 mmol/L (98-107); Glucose 134 mg/dL (74-99); Non-African American GFR(MDRD) >60 (>60 ml/min/1.73 sqM); Potassium 4.2 mmol/L (3.5-5.1); Sodium 139 mmol/L (137-145)
[2017-01-23] MEDS: ALPRAZolam 0.5 MG TAB PEG/G-TUBE SCH ×3 (10:59→20:16)
[2017-01-23 12:09] LABS: Glucose,Whole Blood 132 mg/dL (75-99)
--- NOTE | 2017-01-23 12:48 | P.PN ---
Subjective Principal diagnosis: Malnutrition Patient says she is having abdominal discomfort today. Her residuals are increased today. Denies nausea. Tube feeds have been held intermittently through the night. Objective - Vital Signs Vital signs: Vital Signs Temp 97.7 F 01/23/17 07:05 Pulse 74 01/23/17 09:18 Resp 17 01/23/17 09:18 BP 170/69 01/23/17 07:05 Pulse Ox 95 01/23/17 07:05 Intake & Output 01/22/17 01/23/17 01/23/17 18:59 06:59 18:59 Intake Total 160 875 150 Balance 160 875 150 Weight 73.5 kg Intake: IV 540 D5-0.45% NaCl with KCl 540 40Meq/l 1,000 ml @ 60 mls /hr IV .[id number] [facility] Rx#: [id number] Tube Feeding 160 335 150 Other: Voiding Method Bedside Commode Toilet Bedside Commode Incontinent Diaper # Voids 2 1 1 # Bowel Movements 1 - Exam Abdomen: Soft, mild upper abdominal tenderness, mild distention, incision clean and dry - Labs CBC & Chem 7: 01/23/17 07:29 01/23/17 07:29 Labs: Abnormal Lab Results - Last 24 Hours (Table) 01/22/17 01/22/17 01/22/17 Range/Units 11:36 17:34 23:58 RBC (3.80-5.40) m/uL Hgb (11.4-16.0) gm/dL Hct (34.0-46.0) % Carbon Dioxide (22-30) mmol/L Glucose (74-99) mg/dL POC Glucose (mg/dL) 133 H 118 H 119 H (75-99) mg/dL 01/23/17 01/23/17 01/23/17 Range/Units 06:24 07:29 07:29 RBC 3.31 L (3.80-5.40) m/uL Hgb 9.7 L (11.4-16.0) gm/dL Hct 30.0 L (34.0-46.0) % Carbon Dioxide 33 H (22-30) mmol/L Glucose 134 H (74-99) mg/dL POC Glucose (mg/dL) 125 H (75-99) mg/dL 09/13/17 Range/Units 12:05 RBC (3.80-5.40) m/uL Hgb (11.4-16.0) gm/dL Hct (34.0-46.0) % Carbon Dioxide (22-30) mmol/L Glucose (74-99) mg/dL POC Glucose (mg/dL) 132 H (75-99) mg/dL Assessment and Plan (1) Malfunctioning jejunostomy tube Narrative/Plan: Will check abdominal x-ray today. Hold feeds for now. Status: Acute
--- NOTE | 2017-01-23 14:20 | XR ---
2 view abdomen HISTORY: Follow-up obstruction 2 views of the abdomen on 3 images correlated to prior abdomen 01/11/2017 Port-A-Cath is noted distal tip overlying the superior vena cava. There is overlying oxygen tubing. L jesse bases show increased attenuation bilaterally, air bronchograms present in the left lower lobe, th ere is blunting of the left costophrenic angle. Surgical clips in the right upper quadrant. No pneumo peritoneum or bowel obstruction evident. Probable phleboliths within the pelvis. Jejunostomy tube no longer seen. Surgical rhoda present in the midline. IMPRESSION: Interval removal jejunostomy tube, postop change. Possible left lower lobe pneumonia, ass ociated effusion greater than right, correlate. No evident bowel obstruction.
--- NOTE | 2017-01-23 17:32 | P.PN ---
Subjective Progress note being dictated for Dr. Jack. 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 Yesterday G-tube placed. Tube feedings to be initiated as per dietary recommendations once cleared by surgery. Oncology radiology consulted. Hypertensive. Denies chest pain, palpitations. Afebrile. 01/17/2017 potassium 2.4, receiving supplements as per protocol.Tube feeds at goal, complaining of mild abdominal discomfort. Small loose stools. Afebrile, WBC 15.8. Port a cath placement pending.Palliative radiation also discussed as per oncology radiologist if no improvement or not a candidate for chemotherapy, or declining performance or uncontrolled pain. 01/18 T-max 99 with improving leukocytosis. Potassium 3.2 post supplements. Port-A-Cath placement pending. Hypoglycemia earlier related to tube feeds had been placed on hold. Amaryl placed on hold .Denies chest pain, palpitations or increasing shortness of breath. 01/21/2017 tube feeds on hold, awaiting Port a Cath placement. Complaining of abdominal pain afebrile. Denies chest pain, palpitations or increasing shortness of breath. 01/22/2017. Port a cath placed. Tolerated procedure well. Tubefeeds resumed currently at 30 mls, with minimal to no residuals. Blood sugars controlled. Complains of abdominal pain. Afebrile. Objective - Vital Signs Vital signs: Vital Signs Temp 98.1 F 01/22/17 15:33 Pulse 63 01/22/17 15:33 Resp 15 01/22/17 15:33 BP 123/64 01/22/17 15:33 Pulse Ox 99 01/22/17 15:33 Intake & Output 01/21/17 01/22/17 01/22/17 18:59 06:59 18:59 Intake Total 200 200 160 Output Total 155 Balance 200 45 160 Weight 75.5 kg 70 kg Intake: IV 200 200 Tube Feeding 0 0 160 Output: Urine 150 Estimated Blood Loss 5 Other: Voiding Method Bedside Commode Bedside Commode Bedside Commode Incontinent Incontinent Incontinent # Voids 1 1 2 # Bowel Movements 1 - Exam PHYSICAL EXAM: VITAL SIGNS: As above GENERAL: Sitting up in bed, no acute distress HEENT: Conjunctivae normal. eyes normal. NECK: No JVD. No thyroid enlargement. Port a cath dressing clean dry and intact. CARDIOVASCULAR: S1, S2 muffled. Positive systolic murmur RESPIRATION: Breath sounds diminished in the bases. Scattered rhonchi and crackles. ABDOMEN: Soft, status post G-tube placement, mildly distended , mild tenderness. No guarding.Bowel sounds present. LEGS: No edema. no swelling. PSYCHIATRY: Alert and oriented -3, mood and affect normal. NERVOUS SYSTEM: Cranial N 2-12 grossly normal. Moves all 4 limbs. No focal deficits. - Labs CBC & Chem 7: 01/23/17 07:29 01/23/17 07:29 Labs: Abnormal Lab Results - Last 24 Hours (Table) 01/21/17 01/22/17 01/22/17 Range/Units 23:57 05:42 11:36 POC Glucose (mg/dL) 113 H 131 H 133 H (75-99) mg/dL Assessment and Plan Plan: 1. Status post G-tube placement 2. Recent J-tube dislodgment 3. Accelerated hypertension, hypertensive urgency 4. 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 5. Change in mental status, acute metabolic encephalopathy 6. Diabetes mellitus type 2 7. Status post port a cath placement Plan: Continue on current medication regime , antihypertensives, monitoring and symptomatic treatment. Maintain Reglan. Slowly advance tube feeding as tolerated. Oncology to discuss further recommendations OP at follow-up visit in one week once discharged. Further recommendations to follow. The impression and plan of care has been dictated as directed. : I performed a H&P examination of this patient and discussed the same with the dictator. I agree with the dictator's note. Any additional findings/opinions/ etc. will be noted.
[2017-01-23] MEDS: SCOPOLAMINE 1.5MG/72HR PATCH TRANSDERM SCH (17:38)
--- NOTE | 2017-01-23 17:39 | P.PN ---
Subjective Progress note being dictated for Dr. Jack. 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 Yesterday G-tube placed. Tube feedings to be initiated as per dietary recommendations once cleared by surgery. Oncology radiology consulted. Hypertensive. Denies chest pain, palpitations. Afebrile. 01/17/2017 potassium 2.4, receiving supplements as per protocol.Tube feeds at goal, complaining of mild abdominal discomfort. Small loose stools. Afebrile, WBC 15.8. Port a cath placement pending.Palliative radiation also discussed as per oncology radiologist if no improvement or not a candidate for chemotherapy, or declining performance or uncontrolled pain. 01/18 T-max 99 with improving leukocytosis. Potassium 3.2 post supplements. Port-A-Cath placement pending. Hypoglycemia earlier related to tube feeds had been placed on hold. Amaryl placed on hold .Denies chest pain, palpitations or increasing shortness of breath. 01/21/2017 tube feeds on hold, awaiting Port a Cath placement. Complaining of abdominal pain afebrile. Denies chest pain, palpitations or increasing shortness of breath. 01/22/2017. Port a cath placed. Tolerated procedure well. Tubefeeds resumed currently at 30 mls, with minimal to no residuals. Blood sugars controlled. Complains of abdominal pain. Afebrile. 01/23/2017 Tube feeds had been advanced to goal of 60 during the evening, developed high residuals requiring tube feeds to be off for a few hours. Maintained on Reglan. Resumed at a lower rate, continues to have increased residuals.Complains of abdominal pain, denies nausea or vomiting. Abdominal x- ray ordered. Denies chest pain, palpitations or increased shortness of breath. Afebrile. Objective - Vital Signs Vital signs: Vital Signs Temp 97.0 F L 01/23/17 15:57 Pulse 65 01/23/17 15:57 Resp 16 01/23/17 15:57 BP 169/72 01/23/17 15:57 Pulse Ox 96 01/23/17 15:57 Intake & Output 01/22/17 01/23/17 01/23/17 18:59 06:59 18:59 Intake Total 160 875 150 Balance 160 875 150 Weight 73.5 kg Intake: IV 540 D5-0.45% NaCl with KCl 540 40Meq/l 1,000 ml @ 60 mls /hr IV .[id number] Rx#: [id number] Tube Feeding 160 335 150 Other: Voiding Method Bedside Commode Toilet Bedside Commode Incontinent Diaper # Voids 2 1 1 # Bowel Movements 1 - Exam PHYSICAL EXAM: VITAL SIGNS: As above GENERAL: Sitting up in bed, no acute distress HEENT: Conjunctivae normal. eyes normal. NECK: No JVD. No thyroid enlargement. Port a cath dressing clean dry and intact. CARDIOVASCULAR: S1, S2 muffled. Positive systolic murmur RESPIRATION: Breath sounds diminished in the bases. Scattered rhonchi with crackles. ABDOMEN: Soft, status post G-tube placement, mildly distended , mild tenderness. No guarding.Bowel sounds present. LEGS: No edema. no swelling. PSYCHIATRY: Alert and oriented -3, mood and affect normal. NERVOUS SYSTEM: Cranial N 2-12 grossly normal. Moves all 4 limbs. No focal deficits. - Labs CBC & Chem 7: 01/23/17 07:29 01/23/17 07:29 Labs: Abnormal Lab Results - Last 24 Hours (Table) 01/22/17 01/22/17 01/23/17 Range/Units 17:34 23:58 06:24 RBC (3.80-5.40) m/uL Hgb (11.4-16.0) gm/dL Hct (34.0-46.0) % Carbon Dioxide (22-30) mmol/L Glucose (74-99) mg/dL POC Glucose (mg/dL) 118 H 119 H 125 H (75-99) mg/dL 01/23/17 01/23/17 01/23/17 Range/Units 07:29 07:29 12:05 RBC 3.31 L (3.80-5.40) m/uL Hgb 9.7 L (11.4-16.0) gm/dL Hct 30.0 L (34.0-46.0) % Carbon Dioxide 33 H (22-30) mmol/L Glucose 134 H (74-99) mg/dL POC Glucose (mg/dL) 132 H (75-99) mg/dL Assessment and Plan Plan: 1. Status post G-tube placement 2. Recent J-tube dislodgment 3. Accelerated hypertension, hypertensive urgency 4. 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 5. Change in mental status, acute metabolic encephalopathy 6. Diabetes mellitus type 2 7. Status post port a cath placement Plan: Continue on current medication regime , antihypertensives, monitoring and symptomatic treatment. Abdominal x-ray pending, tube feeds on hold. Follow closely with surgery. Further recommendations to follow. The impression and plan of care has been dictated as directed. : I performed a H&P examination of this patient and discussed the same with the dictator. I agree with the dictator's note. Any additional findings/opinions/ etc. will be noted.
[2017-01-23 18:21] LABS: Glucose,Whole Blood 118 mg/dL (75-99)
[2017-01-23] MEDS: PARoxetine 20 MG TAB PEG/G-TUBE SCH (20:16)
[2017-01-23] MEDS: LIDOCAINE 5% PATCH TOPICAL SCH (20:16)
[2017-01-23] MEDS: ATORVASTATIN 20 MG TAB PEG/G-TUBE SCH (20:16)
[2017-01-24] MEDS: INSULIN LISPRO (humaLOG) 300 UNIT/3 ML VIAL SQ SCH ×5 (00:37→18:11)
[2017-01-24] MEDS: METOCLOPRAMIDE 5 MG/ML 2 ML VIAL IVP SCH ×5 (00:37→19:46)
[2017-01-24 00:41] LABS: Glucose,Whole Blood 115 mg/dL (75-99)
[2017-01-24] MEDS: LORazepam 2 MG/ML SYRINGE IV PRN (01:24)
[2017-01-24] MEDS: HYDROmorphone 1 MG/ML 1 ML SYRINGE IVP PRN ×7 (01:25→23:58)
[2017-01-24] MEDS: ONDANSETRON 4 MG/2 ML VIAL IVP PRN (04:05)
[2017-01-24] MEDS: SYMBICORT 160-4.5 MCG INHALER INHALATION SCH ×2 (06:52→19:29)
[2017-01-24] MEDS: IPRATROPIUM-ALBUTEROL 3 ML NEB INHALATION SCH ×2 (06:52→19:29)
[2017-01-24 07:13] LABS: Glucose,Whole Blood 157 mg/dL (75-99)
[2017-01-24] MEDS: CARVEDILOL 12.5 MG TAB PEG/G-TUBE SCH ×2 (09:00→16:27)
[2017-01-24] MEDS: ASPIRIN 81 MG PEG/G-TUBE SCH (09:02)
[2017-01-24] MEDS: ALPRAZolam 0.5 MG TAB PEG/G-TUBE SCH ×3 (09:02→20:21)
[2017-01-24] MEDS: LISINOPRIL 20 MG TAB PEG/G-TUBE SCH ×2 (09:03→20:22)
[2017-01-24] MEDS: CHOLECALCIFEROL 1,000 UNIT TAB PEG/G-TUBE SCH (09:03)
[2017-01-24] MEDS: PANTOPRAZOLE 40 MG/10 ML VIAL IVP SCH ×2 (09:04→20:22)
[2017-01-24] MEDS: BENZOCAINE 20% HEMORRHOIDAL OINT 28GM RECTAL SCH ×2 (09:05→16:28)
[2017-01-24] MEDS: HEPARIN SODIUM,PORCINE 5,000 UNIT/ML 1 ML VIAL SQ SCH ×2 (09:06→20:21)
[2017-01-24 12:26] LABS: Glucose,Whole Blood 116 mg/dL (75-99)
--- NOTE | 2017-01-24 16:27 | P.PN ---
Subjective Principal diagnosis: Malnutrition Patient still having difficulty tolerating tube feeds. Per the nursing staff there appears to be some pressure buildup within the stomach causing the connection to the feeding apparatus to become disconnected with subsequent gastric drainage. Still having mild abdominal discomfort. Today's x-ray shows no evidence of obstruction however. Objective - Vital Signs Vital signs: Vital Signs Temp 98.4 F 01/24/17 15:00 Pulse 66 01/24/17 15:00 Resp 18 01/24/17 15:00 BP 146/62 01/24/17 15:00 Pulse Ox 95 01/24/17 15:00 Intake & Output 01/23/17 01/24/17 01/24/17 18:59 06:59 18:59 Intake Total 150 705 200 Balance 150 705 200 Weight 73 kg 73 kg Intake: IV 480 D5-0.45% NaCl with KCl 480 40Meq/l 1,000 ml @ 60 mls /hr IV .[id number] [facility] Rx#: [id number] Tube Feeding 150 225 100 Other 100 Other: Voiding Method Bedside Commode Bedside Commode Diaper Diaper # Voids 1 3 1 - Exam Abdomen: Soft, mild tenderness, incision clean and dry, feeding tube intact - Labs CBC & Chem 7: 01/23/17 07:29 01/23/17 07:29 Labs: Abnormal Lab Results - Last 24 Hours (Table) 01/23/17 01/24/17 01/24/17 Range/Units 17:54 00:32 06:22 POC Glucose (mg/dL) 118 H 115 H 157 H (75-99) mg/dL 01/24/17 Range/Units 11:53 POC Glucose (mg/dL) 116 H (75-99) mg/dL Assessment and Plan (1) Malfunctioning jejunostomy tube Narrative/Plan: Will check upper GI through PEG tube tomorrow. The patient could have some degree of partial small bowel obstruction at the jejunostomy feeding site. Further recommendations will follow. Status: Acute
[2017-01-24 17:31] LABS: Glucose,Whole Blood 106 mg/dL (75-99)
[2017-01-24] MEDS ORDERED: DOCUSATE 100 MG CAP PO SCH (17:45)
--- NOTE | 2017-01-24 17:46 | P.PN ---
Subjective Progress note being dictated for Dr. 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 Yesterday G-tube placed. Tube feedings to be initiated as per dietary recommendations once cleared by surgery. Oncology radiology consulted. Hypertensive. Denies chest pain, palpitations. Afebrile. 01/17/2017 potassium 2.4, receiving supplements as per protocol.Tube feeds at goal, complaining of mild abdominal discomfort. Small loose stools. Afebrile, WBC 15.8. Port a cath placement pending.Palliative radiation also discussed as per oncology radiologist if no improvement or not a candidate for chemotherapy, or declining performance or uncontrolled pain. 01/18 T-max 99 with improving leukocytosis. Potassium 3.2 post supplements. Port-A-Cath placement pending. Hypoglycemia earlier related to tube feeds had been placed on hold. Amaryl placed on hold .Denies chest pain, palpitations or increasing shortness of breath. 01/21/2017 tube feeds on hold, awaiting Port a Cath placement. Complaining of abdominal pain afebrile. Denies chest pain, palpitations or increasing shortness of breath. 01/22/2017. Port a cath placed. Tolerated procedure well. Tubefeeds resumed currently at 30 mls, with minimal to no residuals. Blood sugars controlled. Complains of abdominal pain. Afebrile. 01/23/2017 Tube feeds had been advanced to goal of 60 during the evening, developed high residuals requiring tube feeds to be off for a few hours. Maintained on Reglan. Resumed at a lower rate, continues to have increased residuals.Complains of abdominal pain, denies nausea or vomiting. Abdominal x- ray ordered. Denies chest pain, palpitations or increased shortness of breath. Afebrile. 01/24/2017 abdominal x-ray yesterday reports no obstruction. Complains of no bowel movement in 2-3 days. Complains of abdominal pain. Tube feeds currently at 25 MLS, goal is 60 MLS. Blood sugars controlled. Afebrile. Denies chest pain, palpitations. Objective - Vital Signs Vital signs: Vital Signs Temp 98.4 F 01/24/17 15:00 Pulse 66 01/24/17 15:00 Resp 18 01/24/17 15:00 BP 146/62 01/24/17 15:00 Pulse Ox 95 01/24/17 15:00 Intake & Output 01/23/17 01/24/17 01/24/17 18:59 06:59 18:59 Intake Total 150 705 300 Balance 150 705 300 Weight 73 kg 73 kg Intake: IV 480 D5-0.45% NaCl with KCl 480 40Meq/l 1,000 ml @ 60 mls /hr IV .[id number] [facility] Rx#: [id number] Tube Feeding 150 225 200 Other 100 Other: Voiding Method Bedside Commode Bedside Commode Bedside Commode Diaper Diaper Diaper # Voids 1 3 1 - Exam PHYSICAL EXAM: VITAL SIGNS: As above GENERAL: Sitting up in bed, no acute distress HEENT: Conjunctivae normal. eyes normal. NECK: No JVD. No thyroid enlargement. CARDIOVASCULAR: S1, S2 muffled. Positive systolic murmur RESPIRATION: Breath sounds diminished in the bases. Scattered rhonchi with crackles. ABDOMEN: Soft, status post G-tube placement, mildly distended , minimal tenderness. No guarding.Bowel sounds present. LEGS: No edema. no swelling. PSYCHIATRY: Alert and oriented -3, mood and affect normal. NERVOUS SYSTEM: Cranial N 2-12 grossly normal. Moves all 4 limbs. No focal deficits. - Labs CBC & Chem 7: 01/23/17 07:29 01/23/17 07:29 Labs: Abnormal Lab Results - Last 24 Hours (Table) 01/23/17 01/24/17 01/24/17 Range/Units 17:54 00:32 06:22 POC Glucose (mg/dL) 118 H 115 H 157 H (75-99) mg/dL 01/24/17 01/24/17 Range/Units 11:53 17:29 POC Glucose (mg/dL) 116 H 106 H (75-99) mg/dL Assessment and Plan Plan: 1. Status post G-tube placement 2. Recent J-tube dislodgment 3. Accelerated hypertension, hypertensive urgency 4. 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 5. Change in mental status, acute metabolic encephalopathy 6. Diabetes mellitus type 2 7. Status post port a cath placement Plan: Continue on current medication regime , antihypertensives, monitoring and symptomatic treatment. Scheduled for upper GI via PEG tomorrow with surgery. Further recommendations to follow. The impression and plan of care has been dictated as directed. : I performed a H&P examination of this patient and discussed the same with the dictator. I agree with the dictator's note. Any additional findings/opinions/ etc. will be noted.
[2017-01-24] MEDS: LIDOCAINE 5% PATCH TOPICAL SCH (20:21)
[2017-01-24] MEDS: ATORVASTATIN 20 MG TAB PEG/G-TUBE SCH (20:21)
[2017-01-24] MEDS: HYDROcodone/APAP 5-325MG 1 EACH TAB PO PRN (20:21)
[2017-01-24] MEDS: PARoxetine 20 MG TAB PEG/G-TUBE SCH (20:41)
[2017-01-25] MEDS: BENZOCAINE 20% HEMORRHOIDAL OINT 28GM RECTAL SCH ×4 (00:26→20:46)
[2017-01-25 00:49] LABS: Glucose,Whole Blood 114 mg/dL (75-99)
[2017-01-25] MEDS: INSULIN LISPRO (humaLOG) 300 UNIT/3 ML VIAL SQ SCH ×4 (01:20→18:09)
[2017-01-25] MEDS: D5-0.45% NACL WITH KCL 40MEQ/L 1,000 ML IV SCH ×2 (02:16→20:49)
[2017-01-25] MEDS: LORazepam 2 MG/ML SYRINGE IV PRN ×3 (02:16→15:36)
[2017-01-25] MEDS: HYDROmorphone 1 MG/ML 1 ML SYRINGE IVP PRN ×7 (02:53→21:50)
[2017-01-25 05:52] LABS: Glucose,Whole Blood 116 mg/dL (75-99)
[2017-01-25] MEDS: METOCLOPRAMIDE 5 MG/ML 2 ML VIAL IVP SCH ×4 (06:00→23:30)
[2017-01-25] MEDS: CARVEDILOL 12.5 MG TAB PEG/G-TUBE SCH ×2 (09:39→16:31)
[2017-01-25] MEDS: CHOLECALCIFEROL 1,000 UNIT TAB PEG/G-TUBE SCH (09:42)
[2017-01-25] MEDS: ALPRAZolam 0.5 MG TAB PEG/G-TUBE SCH ×3 (09:42→21:50)
[2017-01-25] MEDS: ASPIRIN 81 MG PEG/G-TUBE SCH (09:42)
[2017-01-25] MEDS: LISINOPRIL 20 MG TAB PEG/G-TUBE SCH ×2 (09:42→21:50)
[2017-01-25] MEDS: PANTOPRAZOLE 40 MG/10 ML VIAL IVP SCH ×2 (09:44→20:49)
[2017-01-25] MEDS: SYMBICORT 160-4.5 MCG INHALER INHALATION SCH ×2 (10:44→20:16)
[2017-01-25] MEDS: HEPARIN SODIUM,PORCINE 5,000 UNIT/ML 1 ML VIAL SQ SCH ×2 (10:45→20:48)
[2017-01-25] MEDS: IPRATROPIUM-ALBUTEROL 3 ML NEB INHALATION SCH ×2 (10:45→20:16)
--- NOTE | 2017-01-25 12:03 | FL ---
EXAMINATION TYPE: FL UGI w small bowel DATE OF EXAM: 01/25/2017 COMPARISON: NONE HISTORY: Concern for obstruction through the percutaneous enteric gastric tube TECHNIQUE: A single contrast UGI study is performed with small bowel follow through. FINDINGS: Machine Accountant image of the abdomen shows no gross abnormality. 12 ounces of thin barium was injected through the percutaneous enteric gastric tube. There is no evid ence of extravasation of contrast. Contrast readily extends through the enteric tube into the gastric lumen without gastroesophageal reflux. The stomach shows normal distensibility, peristalsis, and mucosal folds. No evidence of any mass or ulcer disease. No significant esophageal reflux was seen during real time performance of this study. The duodenal bulb and sweep are unremarkable. The small bowel study shows normal transit to the colon in approximately 130 minutes. There is nikolay l mucosal fold pattern throughout the small bowel. There is no evidence of any stricture or filling defect noted. The terminal ileum is unremarkable. IMPRESSION: No evidence of obstruction or contrast extravasation from an appropriately placed percuta neous enteric gastric tube. Unremarkable exam.
[2017-01-25 12:25] LABS: Glucose,Whole Blood 123 mg/dL (75-99)
[2017-01-25] MEDS ORDERED: MAGNESIUM HYDROXIDE 2,400 MG/10 ML CUP PO PRN (16:03)
--- NOTE | 2017-01-25 16:04 | P.PN ---
Subjective Principal diagnosis: Malnutrition Patient had her upper GI small bowel follow-through performed earlier. No evidence of obstruction. Some flatus but no bowel movement. Still nauseated at times. He was started back on her tube feeds at 25 mL per hour. Objective - Vital Signs Vital signs: Vital Signs Temp 98.4 F 01/25/17 15:00 Pulse 71 01/25/17 15:00 Resp 16 01/25/17 15:00 BP 174/70 01/25/17 15:00 Pulse Ox 96 01/25/17 15:00 Intake & Output 01/24/17 01/25/17 01/25/17 18:59 06:59 18:59 Intake Total 300 0 0 Output Total 150 Balance 150 0 0 Weight 73 kg 68 kg 70.5 kg Intake: Tube Feeding 200 0 0 Other 100 Output: Urine 150 Other: Voiding Method Bedside Commode Toilet Toilet Diaper Diaper Diaper # Voids 1 1 # Bowel Movements 0 - Exam Abdomen: Soft, nondistended, mild tenderness, incision clean and dry - Labs CBC & Chem 7: 01/23/17 07:29 01/23/17 07:29 Labs: Abnormal Lab Results - Last 24 Hours (Table) 01/24/17 01/25/17 01/25/17 Range/Units 17:29 00:41 05:50 POC Glucose (mg/dL) 106 H 114 H 116 H (75-99) mg/dL 01/25/17 Range/Units 12:19 POC Glucose (mg/dL) 123 H (75-99) mg/dL Assessment and Plan (1) Malfunctioning jejunostomy tube Narrative/Plan: Resume tube feeds. Increase to goal. Add milk of magnesia for constipation. Status: Acute
[2017-01-25] MEDS: HYDROcodone/APAP 5-325MG 1 EACH TAB PO PRN ×2 (16:32→20:48)
[2017-01-25 17:40] LABS: Anion Gap 5 mmol/L; Blood Urea Nitrogen 4 mg/dL (7-17); Carbon Dioxide 32 mmol/L (22-30); Chloride 96 mmol/L (98-107); Glucose 115 mg/dL (74-99); Non-African American GFR(MDRD) >60 (>60 ml/min/1.73 sqM); Potassium 4.2 mmol/L (3.5-5.1); Sodium 133 mmol/L (137-145)
[2017-01-25 17:42] LABS: Basophils # (A) 0.1 k/uL (0-0.2); Basophils % (A) 1 %; CH 28.9; CHCM 32.5; Eosinophils # (A) 0.4 k/uL (0-0.7); Eosinophils % (A) 4 %; HCT 30.8 % (34.0-46.0); HGB 10.2 gm/dL (11.4-16.0); Hypochromasia Slight; Luc # (Auto) 0.12; Luc % (Auto) 1; Lymphocytes # (A) 2.5 k/uL (1.0-4.8); Lymphocytes % (A) 23 %; MCH 29.5 pg (25.0-35.0); MCHC 33.1 g/dL (31.0-37.0); MCV 89.2 fL (80.0-100.0); Mean Platelet Volume 6.9; Monocytes # (A) 0.6 k/uL (0-1.0); Monocytes % (A) 6 %; Neutrophils # (A) 7.3 k/uL (1.3-7.7); Neutrophils % (A) 66 %; RBC 3.46 m/uL (3.80-5.40); RDW 13.8 % (11.5-15.5)
[2017-01-25 18:08] LABS: Glucose,Whole Blood 122 mg/dL (75-99)
--- NOTE | 2017-01-25 18:44 | P.PN ---
Subjective Progress note being dictated for Dr. 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 Yesterday G-tube placed. Tube feedings to be initiated as per dietary recommendations once cleared by surgery. Oncology radiology consulted. Hypertensive. Denies chest pain, palpitations. Afebrile. 01/17/2017 potassium 2.4, receiving supplements as per protocol.Tube feeds at goal, complaining of mild abdominal discomfort. Small loose stools. Afebrile, WBC 15.8. Port a cath placement pending.Palliative radiation also discussed as per oncology radiologist if no improvement or not a candidate for chemotherapy, or declining performance or uncontrolled pain. 01/18 T-max 99 with improving leukocytosis. Potassium 3.2 post supplements. Port-A-Cath placement pending. Hypoglycemia earlier related to tube feeds had been placed on hold. Amaryl placed on hold .Denies chest pain, palpitations or increasing shortness of breath. 01/21/2017 tube feeds on hold, awaiting Port a Cath placement. Complaining of abdominal pain afebrile. Denies chest pain, palpitations or increasing shortness of breath. 01/22/2017. Port a cath placed. Tolerated procedure well. Tubefeeds resumed currently at 30 mls, with minimal to no residuals. Blood sugars controlled. Complains of abdominal pain. Afebrile. 01/23/2017 Tube feeds had been advanced to goal of 60 during the evening, developed high residuals requiring tube feeds to be off for a few hours. Maintained on Reglan. Resumed at a lower rate, continues to have increased residuals.Complains of abdominal pain, denies nausea or vomiting. Abdominal x- ray ordered. Denies chest pain, palpitations or increased shortness of breath. Afebrile. 01/24/2017 abdominal x-ray yesterday reports no obstruction. Complains of no bowel movement in 2-3 days. Complains of abdominal pain. Tube feeds currently at 25 MLS, goal is 60 MLS. Blood sugars controlled. Afebrile. Denies chest pain, palpitations. 01/25/17 scheduled for upper GI small bowel follow-through this morning. Tubefeeds currently on hold. Complains of abdominal pain. Currently no complaints of nausea. Objective - Vital Signs Vital signs: Vital Signs Temp 97.9 F 01/25/17 07:29 Pulse 60 01/25/17 07:29 Resp 17 01/25/17 07:50 BP 140/59 01/25/17 07:29 Pulse Ox 96 01/25/17 07:29 Intake & Output 01/24/17 01/25/17 01/25/17 18:59 06:59 18:59 Intake Total 300 0 0 Output Total 150 Balance 150 0 0 Weight 73 kg 68 kg Intake: Tube Feeding 200 0 0 Other 100 Output: Urine 150 Other: Voiding Method Bedside Commode Toilet Toilet Diaper Diaper Diaper # Voids 1 1 # Bowel Movements 0 - Exam PHYSICAL EXAM: VITAL SIGNS: As above GENERAL: Sitting up in bed, no acute distress HEENT: Conjunctivae normal. eyes normal. NECK: No JVD. No thyroid enlargement. CARDIOVASCULAR: S1, S2 muffled. Positive systolic murmur RESPIRATION: Breath sounds diminished in the bases. Scattered rhonchi with fine basilar crackles. ABDOMEN: Soft, status post G-tube placement , minimal tenderness. No guarding.Bowel sounds present. LEGS: No edema. no swelling. PSYCHIATRY: Alert and oriented -3, mood and affect normal. NERVOUS SYSTEM: Cranial N 2-12 grossly normal. Moves all 4 limbs. No focal deficits. - Labs CBC & Chem 7: 01/25/17 17:20 01/25/17 17:20 Labs: Abnormal Lab Results - Last 24 Hours (Table) 01/24/17 01/24/17 01/25/17 Range/Units 11:53 17:29 00:41 POC Glucose (mg/dL) 116 H 106 H 114 H (75-99) mg/dL 01/25/17 Range/Units 05:50 POC Glucose (mg/dL) 116 H (75-99) mg/dL Assessment and Plan Plan: 1. Status post G-tube placement 2. Recent J-tube dislodgment 3. Accelerated hypertension, hypertensive urgency 4. 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 5. Change in mental status, acute metabolic encephalopathy 6. Diabetes mellitus type 2 7. Status post port a cath placement Plan: Continue on current medication regime , antihypertensives, monitoring and symptomatic treatment. Upper GI via PEG pending. Follow closely with surgery. Prognosis guarded.Further recommendations to follow. The impression and plan of care has been dictated as directed. : I performed a H&P examination of this patient and discussed the same with the dictator. I agree with the dictator's note. Any additional findings/opinions/ etc. will be noted.
[2017-01-25] MEDS: PARoxetine 20 MG TAB PEG/G-TUBE SCH (20:48)
[2017-01-25] MEDS: ATORVASTATIN 20 MG TAB PEG/G-TUBE SCH (20:48)
[2017-01-25] MEDS: LIDOCAINE 5% PATCH TOPICAL SCH (20:49)
[2017-01-25] MEDS: ONDANSETRON 4 MG/2 ML VIAL IVP PRN ×2 (20:56)
[2017-01-26 00:31] LABS: Glucose,Whole Blood 129 mg/dL (75-99)
[2017-01-26] MEDS: HYDROcodone/APAP 5-325MG 1 EACH TAB PO PRN ×5 (00:35→21:55)
[2017-01-26] MEDS: HYDROmorphone 1 MG/ML 1 ML SYRINGE IVP PRN ×8 (00:35→20:37)
[2017-01-26] MEDS: INSULIN LISPRO (humaLOG) 300 UNIT/3 ML VIAL SQ SCH ×4 (00:38→18:14)
[2017-01-26] MEDS: ONDANSETRON 4 MG/2 ML VIAL IVP PRN ×3 (03:18→20:35)
[2017-01-26] MEDS: METOCLOPRAMIDE 5 MG/ML 2 ML VIAL IVP SCH ×3 (05:40→18:18)
[2017-01-26 05:52] LABS: Glucose,Whole Blood 146 mg/dL (75-99)
[2017-01-26] MEDS: SYMBICORT 160-4.5 MCG INHALER INHALATION SCH ×2 (07:01→19:42)
[2017-01-26] MEDS: IPRATROPIUM-ALBUTEROL 3 ML NEB INHALATION SCH ×3 (07:01→19:46)
[2017-01-26] MEDS: PANTOPRAZOLE 40 MG/10 ML VIAL IVP SCH ×2 (08:02→20:35)
[2017-01-26] MEDS: BENZOCAINE 20% HEMORRHOIDAL OINT 28GM RECTAL SCH ×3 (08:02→21:54)
[2017-01-26] MEDS: CHOLECALCIFEROL 1,000 UNIT TAB PEG/G-TUBE SCH (08:02)
[2017-01-26] MEDS: ASPIRIN 81 MG PEG/G-TUBE SCH (08:03)
[2017-01-26] MEDS: LISINOPRIL 20 MG TAB PEG/G-TUBE SCH ×2 (08:03→20:35)
[2017-01-26] MEDS: HEPARIN SODIUM,PORCINE 5,000 UNIT/ML 1 ML VIAL SQ SCH ×2 (08:03→20:35)
[2017-01-26] MEDS: CARVEDILOL 12.5 MG TAB PEG/G-TUBE SCH ×2 (08:03→16:29)
[2017-01-26] MEDS: ALPRAZolam 0.5 MG TAB PEG/G-TUBE SCH ×3 (08:06→21:55)
--- NOTE | 2017-01-26 11:35 | P.PN ---
Subjective no significant overnight events. Patient did have leukocytosis without any signs or symptoms of infection at this time. patient denied any fever, chest pain, cough, dysuria, nausea, vomiting, abdominal pain. Objective - Vital Signs Vital signs: Vital Signs Temp 98.3 F 01/26/17 07:00 Pulse 67 01/26/17 07:00 Resp 18 01/26/17 07:00 BP 118/59 01/26/17 07:00 Pulse Ox 96 01/26/17 07:00 Intake & Output 01/25/17 01/26/17 01/26/17 18:59 06:59 18:59 Intake Total 0 200 Balance 0 200 Weight 70.5 kg 70.5 kg Intake: Tube Feeding 0 200 Other: Voiding Method Toilet Toilet Toilet Diaper Diaper Diaper # Voids 1 2 # Bowel Movements 0 - Exam GENERAL: Sitting up in bed, no acute distress HEENT: Conjunctivae normal. eyes normal. NECK: No JVD. No thyroid enlargement. CARDIOVASCULAR: S1, S2 muffled. Positive systolic murmur RESPIRATION: Breath sounds diminished in the bases. Scattered rhonchi with fine basilar crackles. ABDOMEN: Soft, status post G-tube placement , minimal tenderness. No guarding.Bowel sounds present. LEGS: No edema. no swelling. PSYCHIATRY: Alert and oriented -3, mood and affect normal. NERVOUS SYSTEM: Cranial N 2-12 grossly normal. Moves all 4 limbs. No focal deficits. - Labs CBC & Chem 7: 01/25/17 17:20 01/25/17 17:20 Labs: Abnormal Lab Results - Last 24 Hours (Table) 01/25/17 01/25/17 01/25/17 Range/Units 12:19 17:20 17:20 WBC 11.0 H (3.8-10.6) k/uL RBC 3.46 L (3.80-5.40) m/uL Hgb 10.2 L (11.4-16.0) gm/dL Hct 30.8 L (34.0-46.0) % Sodium 133 L (137-145) mmol/L Chloride 96 L (98-107) mmol/L Carbon Dioxide 32 H (22-30) mmol/L BUN 4 L (7-17) mg/dL Glucose 115 H (74-99) mg/dL POC Glucose (mg/dL) 123 H (75-99) mg/dL 01/25/17 01/26/17 01/26/17 Range/Units 17:54 00:28 05:48 WBC (3.8-10.6) k/uL RBC (3.80-5.40) m/uL Hgb (11.4-16.0) gm/dL Hct (34.0-46.0) % Sodium (137-145) mmol/L Chloride (98-107) mmol/L Carbon Dioxide (22-30) mmol/L BUN (7-17) mg/dL Glucose (74-99) mg/dL POC Glucose (mg/dL) 122 H 129 H 146 H (75-99) mg/dL Assessment and Plan Plan: 1. Status post G-tube placement 2. Recent J-tube dislodgment 3. Accelerated hypertension, hypertensive urgency 4. 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 5. Change in mental status, acute metabolic encephalopathy 6. Diabetes mellitus type 2 7. Status post port a cath placement Plan: Continue on current medication regime , antihypertensives, monitoring and symptomatic treatment. Upper GI via PEG pending. Follow closely with surgery. Prognosis guarded.
[2017-01-26 12:05] LABS: Glucose,Whole Blood 118 mg/dL (75-99)
[2017-01-26] MEDS: D5-0.45% NACL WITH KCL 40MEQ/L 1,000 ML IV SCH (15:10)
--- NOTE | 2017-01-26 15:40 | P.PN ---
Subjective Principal diagnosis: Feeding tube malfunction Dr. hall had to change the patient's feeding tube. She was having some abdominal pain and high residuals so a upper GI was done. It showed no evidence of obstruction. She is currently on tube feedings. Complaining of some pain in the lower abdomen. Objective - Vital Signs Vital signs: Vital Signs Temp 98.3 F 01/26/17 07:00 Pulse 67 01/26/17 07:00 Resp 18 01/26/17 07:00 BP 118/59 01/26/17 07:00 Pulse Ox 96 01/26/17 07:00 Intake & Output 01/25/17 01/26/17 01/26/17 18:59 06:59 18:59 Intake Total 0 200 100 Balance 0 200 100 Weight 70.5 kg 70.5 kg Intake: Tube Feeding 0 200 100 Other: Voiding Method Toilet Toilet Toilet Diaper Diaper Diaper # Voids 1 2 # Bowel Movements 0 - Constitutional General appearance: Present: cooperative, no acute distress - Gastrointestinal General gastrointestinal: Present: normal bowel sounds, soft Localized gastrointestinal: surgical scar: diffuse (The PEG tube site has drainage around it.) - Labs CBC & Chem 7: 01/25/17 17:20 01/25/17 17:20 Labs: Abnormal Lab Results - Last 24 Hours (Table) 01/25/17 01/25/17 01/25/17 Range/Units 17:20 17:20 17:54 WBC 11.0 H (3.8-10.6) k/uL RBC 3.46 L (3.80-5.40) m/uL Hgb 10.2 L (11.4-16.0) gm/dL Hct 30.8 L (34.0-46.0) % Sodium 133 L (137-145) mmol/L Chloride 96 L (98-107) mmol/L Carbon Dioxide 32 H (22-30) mmol/L BUN 4 L (7-17) mg/dL Glucose 115 H (74-99) mg/dL POC Glucose (mg/dL) 122 H (75-99) mg/dL 01/26/17 01/26/17 01/26/17 Range/Units 00:28 05:48 12:01 WBC (3.8-10.6) k/uL RBC (3.80-5.40) m/uL Hgb (11.4-16.0) gm/dL Hct (34.0-46.0) % Sodium (137-145) mmol/L Chloride (98-107) mmol/L Carbon Dioxide (22-30) mmol/L BUN (7-17) mg/dL Glucose (74-99) mg/dL POC Glucose (mg/dL) 129 H 146 H 118 H (75-99) mg/dL Assessment and Plan (1) Malfunctioning jejunostomy tube Status: Acute (2) Esophageal adenocarcinoma Status: Chronic Plan: Slowly advance tube feedings. Control pain. Currently nonsurgical.
[2017-01-26] MEDS: SCOPOLAMINE 1.5MG/72HR PATCH TRANSDERM SCH (16:26)
[2017-01-26] MEDS: LORazepam 2 MG/ML SYRINGE IV PRN ×2 (17:26→21:55)
[2017-01-26 18:44] LABS: Glucose,Whole Blood 136 mg/dL (75-99)
[2017-01-26] MEDS: ATORVASTATIN 20 MG TAB PEG/G-TUBE SCH (20:35)
[2017-01-26] MEDS: PARoxetine 20 MG TAB PEG/G-TUBE SCH (20:35)
[2017-01-26] MEDS: LIDOCAINE 5% PATCH TOPICAL SCH (20:35)
[2017-01-27 00:04] LABS: Glucose,Whole Blood 113 mg/dL (75-99)
[2017-01-27] MEDS: HYDROmorphone 1 MG/ML 1 ML SYRINGE IVP PRN ×7 (00:12→22:51)
[2017-01-27] MEDS: D5-0.45% NACL WITH KCL 40MEQ/L 1,000 ML IV SCH ×2 (00:13→23:04)
[2017-01-27] MEDS: METOCLOPRAMIDE 5 MG/ML 2 ML VIAL IVP SCH ×5 (00:13→23:00)
[2017-01-27] MEDS: INSULIN LISPRO (humaLOG) 300 UNIT/3 ML VIAL SQ SCH ×4 (00:43→17:22)
[2017-01-27] MEDS: ONDANSETRON 4 MG/2 ML VIAL IVP PRN (02:02)
[2017-01-27] MEDS: HYDROcodone/APAP 5-325MG 1 EACH TAB PO PRN ×3 (02:02→17:56)
[2017-01-27] MEDS: LORazepam 2 MG/ML SYRINGE IV PRN (05:46)
[2017-01-27 06:11] LABS: Glucose,Whole Blood 114 mg/dL (75-99)
[2017-01-27] MEDS: SYMBICORT 160-4.5 MCG INHALER INHALATION SCH ×2 (08:20→18:57)
[2017-01-27] MEDS: IPRATROPIUM-ALBUTEROL 3 ML NEB INHALATION SCH ×2 (08:21→18:57)
[2017-01-27] MEDS: PANTOPRAZOLE 40 MG/10 ML VIAL IVP SCH ×2 (09:04→20:38)
[2017-01-27] MEDS: HEPARIN SODIUM,PORCINE 5,000 UNIT/ML 1 ML VIAL SQ SCH ×2 (09:04→20:37)
[2017-01-27] MEDS: LISINOPRIL 20 MG TAB PEG/G-TUBE SCH ×2 (09:05→20:38)
[2017-01-27] MEDS: CARVEDILOL 12.5 MG TAB PEG/G-TUBE SCH ×2 (09:05→16:52)
[2017-01-27] MEDS: BENZOCAINE 20% HEMORRHOIDAL OINT 28GM RECTAL SCH ×2 (09:05→17:08)
[2017-01-27] MEDS: CHOLECALCIFEROL 1,000 UNIT TAB PEG/G-TUBE SCH (09:05)
[2017-01-27] MEDS: ASPIRIN 81 MG PEG/G-TUBE SCH (09:05)
[2017-01-27] MEDS: ALPRAZolam 0.5 MG TAB PEG/G-TUBE SCH ×3 (09:08→20:55)
--- NOTE | 2017-01-27 11:02 | P.PN ---
Subjective no significant overnight events. Patient did have leukocytosis without any signs or symptoms of infection at this time. 01/27/2017 Patient is comparing of generalized fatigue. Ordered labs for today and tomorrow morning patient denied any fever, chest pain, cough, dysuria, nausea, vomiting, abdominal pain. Objective - Vital Signs Vital signs: Vital Signs Temp 98.3 F 01/27/17 07:00 Pulse 79 01/27/17 07:00 Resp 18 01/27/17 07:00 BP 146/63 01/27/17 07:00 Pulse Ox 96 01/27/17 08:23 Intake & Output 01/26/17 01/27/17 01/27/17 18:59 06:59 18:59 Intake Total 200 360 Balance 200 360 Weight 70.5 kg 70.5 kg Intake: Tube Feeding 200 360 Other: Voiding Method Toilet Bedside Commode Bedside Commode Bedside Commode Diaper Diaper Diaper # Voids 3 # Bowel Movements 1 - Exam GENERAL: Sitting up in bed, no acute distress HEENT: Conjunctivae normal. eyes normal. NECK: No JVD. No thyroid enlargement. CARDIOVASCULAR: S1, S2 muffled. Positive systolic murmur RESPIRATION: Breath sounds diminished in the bases. Scattered rhonchi with fine basilar crackles. ABDOMEN: Soft, status post G-tube placement , minimal tenderness. No guarding.Bowel sounds present. LEGS: No edema. no swelling. PSYCHIATRY: Alert and oriented -3, mood and affect normal. NERVOUS SYSTEM: Cranial N 2-12 grossly normal. Moves all 4 limbs. No focal deficits. - Labs CBC & Chem 7: 01/25/17 17:20 01/25/17 17:20 Labs: Abnormal Lab Results - Last 24 Hours (Table) 01/26/17 01/26/17 01/27/17 Range/Units 12:01 18:43 00:02 POC Glucose (mg/dL) 118 H 136 H 113 H (75-99) mg/dL 01/27/17 Range/Units 06:10 POC Glucose (mg/dL) 114 H (75-99) mg/dL Assessment and Plan Plan: 1. Status post G-tube placement 2. Recent J-tube dislodgment 3. Accelerated hypertension, hypertensive urgency 4. 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 5. Change in mental status, acute metabolic encephalopathy 6. Diabetes mellitus type 2 7. Status post port a cath placement Plan: Continue on current medication regime , antihypertensives, monitoring and symptomatic treatment. Upper GI via PEG pending. Follow closely with surgery. Prognosis guarded.
[2017-01-27 11:06] LABS: CH 29.7; CHCM 32.7; HCT 30.8 % (34.0-46.0); HDW 2.94; MCH 29.4 pg (25.0-35.0); MCHC 32.3 g/dL (31.0-37.0); MCV 91.1 fL (80.0-100.0); Mean Platelet Volume 7.3; RBC 3.38 m/uL (3.80-5.40); RDW 14.4 % (11.5-15.5); WBC 11.8 k/uL (3.8-10.6)
[2017-01-27 11:22] LABS: Anion Gap 7 mmol/L; Blood Urea Nitrogen 10 mg/dL (7-17); Calcium 8.8 mg/dL (8.4-10.2); Carbon Dioxide 31 mmol/L (22-30); Chloride 99 mmol/L (98-107); Glucose 112 mg/dL (74-99); Non-African American GFR(MDRD) >60 (>60 ml/min/1.73 sqM); Potassium 4.9 mmol/L (3.5-5.1); Sodium 137 mmol/L (137-145)
--- NOTE | 2017-01-27 11:36 | P.PN ---
Subjective Principal diagnosis: Feeding tube malfunction The patient complains of not feeling well. Feels weak. He is tolerating the tube feeding at 40 mL's an hour Objective - Vital Signs Vital signs: Vital Signs Temp 98.3 F 01/27/17 07:00 Pulse 79 01/27/17 07:00 Resp 18 01/27/17 07:00 BP 146/63 01/27/17 07:00 Pulse Ox 96 01/27/17 08:23 Intake & Output 01/26/17 01/27/17 01/27/17 18:59 06:59 18:59 Intake Total 200 360 Balance 200 360 Weight 70.5 kg 70.5 kg Intake: Tube Feeding 200 360 Other: Voiding Method Toilet Bedside Commode Bedside Commode Bedside Commode Diaper Diaper Diaper # Voids 3 # Bowel Movements 1 - Constitutional General appearance: Present: cooperative, no acute distress - Gastrointestinal Gastrointestinal Comment(s): PEG tube site with minimal drainage. No cellulitis General gastrointestinal: Present: normal bowel sounds, soft - Labs CBC & Chem 7: 01/27/17 10:48 01/27/17 10:48 Labs: Abnormal Lab Results - Last 24 Hours (Table) 01/26/17 01/26/17 01/27/17 Range/Units 12:01 18:43 00:02 WBC (3.8-10.6) k/uL RBC (3.80-5.40) m/uL Hgb (11.4-16.0) gm/dL Hct (34.0-46.0) % Carbon Dioxide (22-30) mmol/L Glucose (74-99) mg/dL POC Glucose (mg/dL) 118 H 136 H 113 H (75-99) mg/dL 01/27/17 01/27/17 01/27/17 Range/Units 06:10 10:48 10:48 WBC 11.8 H (3.8-10.6) k/uL RBC 3.38 L (3.80-5.40) m/uL Hgb 10.0 L (11.4-16.0) gm/dL Hct 30.8 L (34.0-46.0) % Carbon Dioxide 31 H (22-30) mmol/L Glucose 112 H (74-99) mg/dL POC Glucose (mg/dL) 114 H (75-99) mg/dL Assessment and Plan (1) Malfunctioning jejunostomy tube Status: Acute (2) Esophageal adenocarcinoma Status: Chronic Plan: Slowly advanced tube feeding to goal. Nonsurgical at this point.
[2017-01-27 12:01] LABS: Glucose,Whole Blood 114 mg/dL (75-99)
[2017-01-27] MEDS: cloNIDine 0.2 MG/24HR PATCH 1 PATCH PATCH TRANSDERM SCH (13:13)
[2017-01-27 17:17] LABS: Glucose,Whole Blood 106 mg/dL (75-99)
[2017-01-27] MEDS: ATORVASTATIN 20 MG TAB PEG/G-TUBE SCH (20:37)
[2017-01-27] MEDS: PARoxetine 20 MG TAB PEG/G-TUBE SCH (20:38)
[2017-01-27] MEDS: LIDOCAINE 5% PATCH TOPICAL SCH (20:38)
[2017-01-28 00:13] LABS: Glucose,Whole Blood 116 mg/dL (75-99)
[2017-01-28] MEDS: INSULIN LISPRO (humaLOG) 300 UNIT/3 ML VIAL SQ SCH ×4 (00:22→18:09)
[2017-01-28] MEDS: BENZOCAINE 20% HEMORRHOIDAL OINT 28GM RECTAL SCH ×4 (00:24→22:06)
[2017-01-28] MEDS: HYDROmorphone 1 MG/ML 1 ML SYRINGE IVP PRN ×3 (01:43→09:57)
[2017-01-28] MEDS: HYDROcodone/APAP 5-325MG 1 EACH TAB PO PRN ×2 (02:50→12:05)
[2017-01-28] MEDS: METOCLOPRAMIDE 5 MG/ML 2 ML VIAL IVP SCH ×3 (05:12→17:14)
[2017-01-28 06:03] LABS: Glucose,Whole Blood 141 mg/dL (75-99)
[2017-01-28 06:27] LABS: CH 28.8; HCT 29.5 % (34.0-46.0); HDW 2.93; HGB 9.6 gm/dL (11.4-16.0); Hypochromasia Slight; MCH 29.4 pg (25.0-35.0); MCHC 32.6 g/dL (31.0-37.0); MCV 90.4 fL (80.0-100.0); Mean Platelet Volume 6.7; RBC 3.27 m/uL (3.80-5.40); RDW 13.7 % (11.5-15.5); WBC 11.5 k/uL (3.8-10.6)
[2017-01-28 06:36] LABS: Anion Gap 5 mmol/L; Blood Urea Nitrogen 10 mg/dL (7-17); Calcium 8.5 mg/dL (8.4-10.2); Carbon Dioxide 29 mmol/L (22-30); Chloride 98 mmol/L (98-107); Glucose 139 mg/dL (74-99); Non-African American GFR(MDRD) >60 (>60 ml/min/1.73 sqM); Potassium 4.5 mmol/L (3.5-5.1); Sodium 132 mmol/L (137-145)
[2017-01-28] MEDS: IPRATROPIUM-ALBUTEROL 3 ML NEB INHALATION SCH ×2 (07:29→20:08)
[2017-01-28] MEDS: SYMBICORT 160-4.5 MCG INHALER INHALATION SCH ×2 (07:29→20:08)
[2017-01-28] MEDS: CHOLECALCIFEROL 1,000 UNIT TAB PEG/G-TUBE SCH (07:47)
[2017-01-28] MEDS: LISINOPRIL 20 MG TAB PEG/G-TUBE SCH ×2 (07:47→21:50)
[2017-01-28] MEDS: CARVEDILOL 12.5 MG TAB PEG/G-TUBE SCH ×2 (07:47→16:52)
[2017-01-28] MEDS: HEPARIN SODIUM,PORCINE 5,000 UNIT/ML 1 ML VIAL SQ SCH ×2 (07:47→21:27)
[2017-01-28] MEDS: PANTOPRAZOLE 40 MG/10 ML VIAL IVP SCH ×2 (07:48→21:26)
[2017-01-28] MEDS: ASPIRIN 81 MG PEG/G-TUBE SCH (07:48)
[2017-01-28] MEDS: ALPRAZolam 0.5 MG TAB PEG/G-TUBE SCH ×3 (07:52→21:49)
[2017-01-28] MEDS: ONDANSETRON 4 MG/2 ML VIAL IVP PRN ×2 (08:17→15:14)
[2017-01-28 11:49] VITALS: BMI 29.5
[2017-01-28 12:17] LABS: Glucose,Whole Blood 127 mg/dL (75-99)
[2017-01-28] MEDS: D5-0.45% NACL WITH KCL 40MEQ/L 1,000 ML IV SCH (12:20)
--- NOTE | 2017-01-28 13:33 | P.PN ---
Subjective Progress note being dictated for Dr. 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 Yesterday G-tube placed. Tube feedings to be initiated as per dietary recommendations once cleared by surgery. Oncology radiology consulted. Hypertensive. Denies chest pain, palpitations. Afebrile. 01/17/2017 potassium 2.4, receiving supplements as per protocol.Tube feeds at goal, complaining of mild abdominal discomfort. Small loose stools. Afebrile, WBC 15.8. Port a cath placement pending.Palliative radiation also discussed as per oncology radiologist if no improvement or not a candidate for chemotherapy, or declining performance or uncontrolled pain. 01/18 T-max 99 with improving leukocytosis. Potassium 3.2 post supplements. Port-A-Cath placement pending. Hypoglycemia earlier related to tube feeds had been placed on hold. Amaryl placed on hold .Denies chest pain, palpitations or increasing shortness of breath. 01/21/2017 tube feeds on hold, awaiting Port a Cath placement. Complaining of abdominal pain afebrile. Denies chest pain, palpitations or increasing shortness of breath. 01/22/2017. Port a cath placed. Tolerated procedure well. Tubefeeds resumed currently at 30 mls, with minimal to no residuals. Blood sugars controlled. Complains of abdominal pain. Afebrile. 01/23/2017 Tube feeds had been advanced to goal of 60 during the evening, developed high residuals requiring tube feeds to be off for a few hours. Maintained on Reglan. Resumed at a lower rate, continues to have increased residuals.Complains of abdominal pain, denies nausea or vomiting. Abdominal x- ray ordered. Denies chest pain, palpitations or increased shortness of breath. Afebrile. 01/24/2017 abdominal x-ray yesterday reports no obstruction. Complains of no bowel movement in 2-3 days. Complains of abdominal pain. Tube feeds currently at 25 MLS, goal is 60 MLS. Blood sugars controlled. Afebrile. Denies chest pain, palpitations. 01/25/17 scheduled for upper GI small bowel follow-through this morning. Tubefeeds currently on hold. Complains of abdominal pain. Currently no complaints of nausea. 01/28/2017 tolerating tube feeds at 55 MLS an hour. Early denies abdominal pain. Denies nausea or vomiting.. Complains of inability to sleep in hospital. Afebrile. Objective - Vital Signs Vital signs: Vital Signs Temp 97.7 F 01/28/17 07:00 Pulse 68 01/28/17 09:24 Resp 18 01/28/17 09:24 BP 141/85 01/28/17 07:00 Pulse Ox 95 01/28/17 07:00 Intake & Output 01/27/17 01/28/17 01/28/17 18:59 06:59 18:59 Intake Total 120 560 130 Balance 120 560 130 Weight 71 kg 71 kg Intake: Tube Feeding 120 560 130 Other: Voiding Method Bedside Commode Bedside Commode Bedside Commode Diaper Diaper Diaper # Voids 2 1 2 # Bowel Movements 1 - Exam PHYSICAL EXAM: VITAL SIGNS: As above GENERAL: Sitting up at side of bed, no acute distress, tired appearing HEENT: Conjunctivae normal. eyes normal. NECK: No JVD. No thyroid enlargement. CARDIOVASCULAR: S1, S2 muffled. Positive systolic murmur RESPIRATION: Breath sounds diminished in the bases. Scattered rhonchi with fine basilar crackles. ABDOMEN: Soft, status post G-tube placement , minimal tenderness. No guarding.Bowel sounds present. LEGS: No edema. no swelling. PSYCHIATRY: Alert and oriented -3, mood and affect normal. NERVOUS SYSTEM: Cranial N 2-12 grossly normal. Moves all 4 limbs. No focal deficits. - Labs CBC & Chem 7: 01/28/17 06:14 01/28/17 06:14 Labs: Abnormal Lab Results - Last 24 Hours (Table) 01/27/17 01/28/17 01/28/17 Range/Units 17:14 00:12 06:02 WBC (3.8-10.6) k/uL RBC (3.80-5.40) m/uL Hgb (11.4-16.0) gm/dL Hct (34.0-46.0) % Sodium (137-145) mmol/L Glucose (74-99) mg/dL POC Glucose (mg/dL) 106 H 116 H 141 H (75-99) mg/dL 01/28/17 01/28/17 01/28/17 Range/Units 06:14 06:14 12:12 WBC 11.5 H (3.8-10.6) k/uL RBC 3.27 L (3.80-5.40) m/uL Hgb 9.6 L (11.4-16.0) gm/dL Hct 29.5 L (34.0-46.0) % Sodium 132 L (137-145) mmol/L Glucose 139 H (74-99) mg/dL POC Glucose (mg/dL) 127 H (75-99) mg/dL Assessment and Plan Plan: 1. Status post G-tube placement 2. Recent J-tube dislodgment 3. Accelerated hypertension, hypertensive urgency 4. 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 5. Change in mental status, acute metabolic encephalopathy 6. Diabetes mellitus type 2 7. Status post port a cath placement Plan: Continue on current medication regime , antihypertensives, monitoring and symptomatic treatment. Upper GI via PEG pending. Follow closely with surgery. Prognosis guarded. The impression and plan of care has been dictated as directed. : I performed a H&P examination of this patient and discussed the same with the dictator. I agree with the dictator's note. Any additional findings/opinions/ etc. will be noted.
--- NOTE | 2017-01-28 14:03 | P.PN ---
Subjective Principal diagnosis: Malnutrition Patient tolerating tube feeds at 55 mL per hour which is her goal. She is currently on Glucerna because of failure of other tube feeds. She did have some loose stools. Still having mild upper abdominal pain. Also complaining of back pain and extremity pain. No fevers. White blood cell count 11.1. Objective - Vital Signs Vital signs: Vital Signs Temp 97.7 F 01/28/17 07:00 Pulse 68 01/28/17 09:24 Resp 18 01/28/17 09:24 BP 141/85 01/28/17 07:00 Pulse Ox 95 01/28/17 07:00 Intake & Output 01/27/17 01/28/17 01/28/17 18:59 06:59 18:59 Intake Total 120 560 130 Balance 120 560 130 Weight 71 kg 71 kg Intake: Tube Feeding 120 560 130 Other: Voiding Method Bedside Commode Bedside Commode Bedside Commode Diaper Diaper Diaper # Voids 2 1 2 # Bowel Movements 1 - Exam Name: Soft, mild incisional tenderness, incision clean and dry - Labs CBC & Chem 7: 01/28/17 06:14 01/28/17 06:14 Labs: Abnormal Lab Results - Last 24 Hours (Table) 01/27/17 01/28/17 01/28/17 Range/Units 17:14 00:12 06:02 WBC (3.8-10.6) k/uL RBC (3.80-5.40) m/uL Hgb (11.4-16.0) gm/dL Hct (34.0-46.0) % Sodium (137-145) mmol/L Glucose (74-99) mg/dL POC Glucose (mg/dL) 106 H 116 H 141 H (75-99) mg/dL 01/28/17 01/28/17 01/28/17 Range/Units 06:14 06:14 12:12 WBC 11.5 H (3.8-10.6) k/uL RBC 3.27 L (3.80-5.40) m/uL Hgb 9.6 L (11.4-16.0) gm/dL Hct 29.5 L (34.0-46.0) % Sodium 132 L (137-145) mmol/L Glucose 139 H (74-99) mg/dL POC Glucose (mg/dL) 127 H (75-99) mg/dL Assessment and Plan (1) Malfunctioning jejunostomy tube Narrative/Plan: Continue tube feeds at goal. Will discuss with oncology the options of fentanyl patch for pain control. Anticipate discharge tomorrow. Status: Acute
[2017-01-28] MEDS: HYDROcodone/APAP 15 ML SOLUTION PO PRN ×2 (17:41→21:51)
[2017-01-28 17:58] LABS: Glucose,Whole Blood 132 mg/dL (75-99)
[2017-01-28] MEDS: LIDOCAINE 5% PATCH TOPICAL SCH (21:27)
[2017-01-28] MEDS: ATORVASTATIN 20 MG TAB PEG/G-TUBE SCH (21:49)
[2017-01-28] MEDS: PARoxetine 20 MG TAB PEG/G-TUBE SCH (21:50)
[2017-01-29 00:02] LABS: Glucose,Whole Blood 146 mg/dL (75-99)
[2017-01-29] MEDS: INSULIN LISPRO (humaLOG) 300 UNIT/3 ML VIAL SQ SCH ×4 (00:03→17:53)
[2017-01-29] MEDS: METOCLOPRAMIDE 5 MG/ML 2 ML VIAL IVP SCH ×4 (00:03→16:44)
[2017-01-29] MEDS: HYDROcodone/APAP 15 ML SOLUTION PO PRN ×5 (02:58→21:17)
[2017-01-29] MEDS: D5-0.45% NACL WITH KCL 40MEQ/L 1,000 ML IV SCH ×2 (05:34→20:00)
[2017-01-29 06:09] LABS: Glucose,Whole Blood 159 mg/dL (75-99)
[2017-01-29] MEDS: CARVEDILOL 12.5 MG TAB PEG/G-TUBE SCH ×2 (08:27→16:45)
[2017-01-29] MEDS: ASPIRIN 81 MG PEG/G-TUBE SCH (08:27)
[2017-01-29] MEDS: CHOLECALCIFEROL 1,000 UNIT TAB PEG/G-TUBE SCH (08:28)
[2017-01-29] MEDS: LISINOPRIL 20 MG TAB PEG/G-TUBE SCH ×2 (08:29→21:16)
[2017-01-29] MEDS: ALPRAZolam 0.5 MG TAB PEG/G-TUBE SCH ×3 (08:30→21:16)
[2017-01-29] MEDS: PANTOPRAZOLE 40 MG/10 ML VIAL IVP SCH ×2 (08:31→21:17)
[2017-01-29] MEDS: HEPARIN SODIUM,PORCINE 5,000 UNIT/ML 1 ML VIAL SQ SCH ×2 (08:34→21:17)
[2017-01-29] MEDS: SYMBICORT 160-4.5 MCG INHALER INHALATION SCH ×2 (08:37→19:29)
[2017-01-29] MEDS: IPRATROPIUM-ALBUTEROL 3 ML NEB INHALATION SCH ×2 (08:37→19:29)
[2017-01-29] MEDS: BENZOCAINE 20% HEMORRHOIDAL OINT 28GM RECTAL SCH ×3 (09:59→21:17)
[2017-01-29 12:03] LABS: Glucose,Whole Blood 172 mg/dL (75-99)
--- NOTE | 2017-01-29 15:26 | P.PN ---
Subjective Principal diagnosis: Malnutrition Patient doing better today. Her pain seems to be better controlled with the fentanyl patch. She is tolerating her tube feeds at goal. Objective - Vital Signs Vital signs: Vital Signs Temp 97.6 F 01/29/17 07:15 Pulse 71 01/29/17 07:15 Resp 16 01/29/17 07:15 BP 182/73 01/29/17 07:15 Pulse Ox 96 01/28/17 23:00 Intake & Output 01/28/17 01/29/17 01/29/17 18:59 06:59 18:59 Intake Total 240 520 120 Balance 240 520 120 Weight 71 kg 69.4 kg Intake: Tube Feeding 240 520 Other 120 Other: Voiding Method Bedside Commode Bedside Commode Bedside Commode Diaper Diaper Diaper # Voids 3 1 # Bowel Movements 1 - Exam Abdomen: Soft, mild tenderness, incision clean and dry - Labs CBC & Chem 7: 01/28/17 06:14 01/28/17 06:14 Labs: Abnormal Lab Results - Last 24 Hours (Table) 01/28/17 01/28/17 01/29/17 Range/Units 17:47 23:58 06:04 POC Glucose (mg/dL) 132 H 146 H 159 H (75-99) mg/dL 01/29/17 Range/Units 12:01 POC Glucose (mg/dL) 172 H (75-99) mg/dL Assessment and Plan (1) Malfunctioning jejunostomy tube Narrative/Plan: Continue tube feeds at goal. Discharge home either later this evening or tomorrow. Status: Acute
--- NOTE | 2017-01-29 16:21 | P.PN ---
Subjective Principal diagnosis: J-tube malfunction, esophageal malignancy Pt seen today in follow up, adjustments were made in her pain meds yesterday, pt feels that pain is a little better. This AM after being told she might be going home pt started vomiting small amts of mucus, no blood noted when visualized. Pt is having diarrhea. Pt asked what if she did not want to treat her cancer what would happen. Objective - Vital Signs Vital signs: Vital Signs Temp 98.3 F 01/29/17 15:00 Pulse 67 01/29/17 15:00 Resp 18 01/29/17 15:00 BP 178/77 01/29/17 15:00 Pulse Ox 99 01/29/17 15:00 Intake & Output 01/28/17 01/29/17 01/29/17 18:59 06:59 18:59 Intake Total 240 520 120 Balance 240 520 120 Weight 71 kg 69.4 kg Intake: Tube Feeding 240 520 Other 120 Other: Voiding Method Bedside Commode Bedside Commode Bedside Commode Diaper Diaper Diaper # Voids 3 1 # Bowel Movements 1 - Constitutional General appearance: Present: average body habitus, cooperative - EENT Eyes: Present: anicteric sclerae, EOMI - Respiratory Respiratory: bilateral: CTA - Cardiovascular Rhythm: regular Heart sounds: normal: S1, S2 Abnormal Heart Sounds: Present: systolic murmur - Peripheral edema leg Peripheral Edema: bilateral: Trace - Gastrointestinal General gastrointestinal: Present: normal bowel sounds, soft - Neurologic Neurologic: Present: CNII-XII intact - Musculoskeletal Musculoskeletal: Present: generalized weakness - Psychiatric Psychiatric: Present: A&O x's 3, appropriate affect, intact judgment & insight - Labs CBC & Chem 7: 01/28/17 06:14 01/28/17 06:14 Labs: Abnormal Lab Results - Last 24 Hours (Table) 01/28/17 01/28/17 01/29/17 Range/Units 17:47 23:58 06:04 POC Glucose (mg/dL) 132 H 146 H 159 H (75-99) mg/dL 01/29/17 Range/Units 12:01 POC Glucose (mg/dL) 172 H (75-99) mg/dL Assessment and Plan (1) Dysphagia Narrative/Plan: Secondary to malignancy. New feeding tube has been placed, pt has been on feedings. Status: Chronic (2) Esophageal adenocarcinoma Narrative/Plan: Pt had feeding tube placed for nutrition and to see if she could rehabilitate and improve her performance status so she could be a candidate for chemotherapy. Pt asked me today about what would happen if she did not want any treatment for her cancer. I explained to her that we would support her decisions and provide her with care accordingly. I did not discuss any further as I would like to speak with her daughter. Will attempt to contact via phone later today or tomorrow. Status: Chronic (3) Hemorrhoidal skin tag Status: Acute Plan: >50% time spent counseling
--- NOTE | 2017-01-29 16:33 | P.PN ---
Subjective Progress note being dictated for Dr. 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 Yesterday G-tube placed. Tube feedings to be initiated as per dietary recommendations once cleared by surgery. Oncology radiology consulted. Hypertensive. Denies chest pain, palpitations. Afebrile. 01/17/2017 potassium 2.4, receiving supplements as per protocol.Tube feeds at goal, complaining of mild abdominal discomfort. Small loose stools. Afebrile, WBC 15.8. Port a cath placement pending.Palliative radiation also discussed as per oncology radiologist if no improvement or not a candidate for chemotherapy, or declining performance or uncontrolled pain. 01/18 T-max 99 with improving leukocytosis. Potassium 3.2 post supplements. Port-A-Cath placement pending. Hypoglycemia earlier related to tube feeds had been placed on hold. Amaryl placed on hold .Denies chest pain, palpitations or increasing shortness of breath. 01/21/2017 tube feeds on hold, awaiting Port a Cath placement. Complaining of abdominal pain afebrile. Denies chest pain, palpitations or increasing shortness of breath. 01/22/2017. Port a cath placed. Tolerated procedure well. Tubefeeds resumed currently at 30 mls, with minimal to no residuals. Blood sugars controlled. Complains of abdominal pain. Afebrile. 01/23/2017 Tube feeds had been advanced to goal of 60 during the evening, developed high residuals requiring tube feeds to be off for a few hours. Maintained on Reglan. Resumed at a lower rate, continues to have increased residuals.Complains of abdominal pain, denies nausea or vomiting. Abdominal x- ray ordered. Denies chest pain, palpitations or increased shortness of breath. Afebrile. 01/24/2017 abdominal x-ray yesterday reports no obstruction. Complains of no bowel movement in 2-3 days. Complains of abdominal pain. Tube feeds currently at 25 MLS, goal is 60 MLS. Blood sugars controlled. Afebrile. Denies chest pain, palpitations. 01/25/17 scheduled for upper GI small bowel follow-through this morning. Tubefeeds currently on hold. Complains of abdominal pain. Currently no complaints of nausea. 01/28/2017 tolerating tube feeds at 55 MLS an hour. Early denies abdominal pain. Denies nausea or vomiting.. Complains of inability to sleep in hospital. Afebrile. 01/29/2017 tolerating tube feeds at goal. Pain meds adjusted yesterday with abdominal pain controlled better .Diarrhea, ruling out C. difficile. Patient discussing possibly not proceeding with chemotherapy. Further recommendations pending from oncology pending discussion with family. Objective - Vital Signs Vital signs: Vital Signs Temp 98.3 F 01/29/17 15:00 Pulse 67 01/29/17 15:00 Resp 18 01/29/17 15:00 BP 178/77 01/29/17 15:00 Pulse Ox 99 01/29/17 15:00 Intake & Output 01/28/17 01/29/17 01/29/17 18:59 06:59 18:59 Intake Total 240 520 120 Balance 240 520 120 Weight 71 kg 69.4 kg Intake: Tube Feeding 240 520 Other 120 Other: Voiding Method Bedside Commode Bedside Commode Bedside Commode Diaper Diaper Diaper # Voids 3 1 # Bowel Movements 1 - Exam PHYSICAL EXAM: VITAL SIGNS: As above GENERAL: Sitting up at side of bed, no acute distress, tired appearing HEENT: Conjunctivae normal. eyes normal. NECK: No JVD. No thyroid enlargement. CARDIOVASCULAR: S1, S2 muffled. Positive systolic murmur RESPIRATION: Breath sounds diminished in the bases. Scattered rhonchi with fine basilar crackles. ABDOMEN: Soft, status post G-tube placement , minimal tenderness. No guarding.Bowel sounds present. LEGS: No edema. no swelling. PSYCHIATRY: Alert and oriented -3, mood and affect normal. NERVOUS SYSTEM: Cranial N 2-12 grossly normal. Moves all 4 limbs. No focal deficits. - Labs CBC & Chem 7: 01/28/17 06:14 01/28/17 06:14 Labs: Abnormal Lab Results - Last 24 Hours (Table) 01/28/17 01/28/17 01/29/17 Range/Units 17:47 23:58 06:04 POC Glucose (mg/dL) 132 H 146 H 159 H (75-99) mg/dL 01/29/17 Range/Units 12:01 POC Glucose (mg/dL) 172 H (75-99) mg/dL Assessment and Plan Plan: 1. Status post G-tube placement 2. Recent J-tube dislodgment 3. Accelerated hypertension, hypertensive urgency 4. 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 5. Change in mental status, acute metabolic encephalopathy 6. Diabetes mellitus type 2 7. Status post port a cath placement Plan: Continue on current medication regime , antihypertensives, monitoring and symptomatic treatment. Further discussion with oncology, patient and family pending. Discharge planning in progress. Prognosis guarded. The impression and plan of care has been dictated as directed. : I performed a H&P examination of this patient and discussed the same with the dictator. I agree with the dictator's note. Any additional findings/opinions/ etc. will be noted.
[2017-01-29] MEDS: SCOPOLAMINE 1.5MG/72HR PATCH TRANSDERM SCH (16:45)
[2017-01-29 17:52] LABS: Glucose,Whole Blood 154 mg/dL (75-99)
[2017-01-29] MEDS: PARoxetine 20 MG TAB PEG/G-TUBE SCH (21:16)
[2017-01-29] MEDS: LIDOCAINE 5% PATCH TOPICAL SCH (21:17)
[2017-01-30] MEDS: ATORVASTATIN 20 MG TAB PEG/G-TUBE SCH (00:08)
[2017-01-30] MEDS: METOCLOPRAMIDE 5 MG/ML 2 ML VIAL IVP SCH ×4 (00:09→17:47)
[2017-01-30] MEDS: INSULIN LISPRO (humaLOG) 300 UNIT/3 ML VIAL SQ SCH ×4 (00:09→17:41)
[2017-01-30 00:17] LABS: Glucose,Whole Blood 114 mg/dL (75-99)
[2017-01-30] MEDS: ONDANSETRON 4 MG/2 ML VIAL IVP PRN ×2 (01:51→08:50)
[2017-01-30] MEDS: HYDROcodone/APAP 15 ML SOLUTION PO PRN ×3 (01:52→15:12)
[2017-01-30 06:27] LABS: Glucose,Whole Blood 175 mg/dL (75-99)
[2017-01-30 07:37] VITALS: RESP 16
[2017-01-30] MEDS: SYMBICORT 160-4.5 MCG INHALER INHALATION SCH (08:21)
[2017-01-30] MEDS: IPRATROPIUM-ALBUTEROL 3 ML NEB INHALATION SCH (08:23)
[2017-01-30] MEDS: ALPRAZolam 0.5 MG TAB PEG/G-TUBE SCH ×2 (08:29→15:12)
[2017-01-30] MEDS: CARVEDILOL 12.5 MG TAB PEG/G-TUBE SCH ×2 (08:29→17:43)
[2017-01-30] MEDS: HEPARIN SODIUM,PORCINE 5,000 UNIT/ML 1 ML VIAL SQ SCH (08:29)
[2017-01-30] MEDS: ASPIRIN 81 MG PEG/G-TUBE SCH (08:29)
[2017-01-30] MEDS: LISINOPRIL 20 MG TAB PEG/G-TUBE SCH (08:29)
[2017-01-30] MEDS: CHOLECALCIFEROL 1,000 UNIT TAB PEG/G-TUBE SCH (08:29)
[2017-01-30] MEDS: BENZOCAINE 20% HEMORRHOIDAL OINT 28GM RECTAL SCH ×2 (08:29→15:23)
[2017-01-30] MEDS: PANTOPRAZOLE 40 MG/10 ML VIAL IVP SCH (08:32)
[2017-01-30 11:46] LABS: Glucose,Whole Blood 154 mg/dL (75-99)
[2017-01-30 11:52] VITALS: PULSE 96
--- NOTE | 2017-01-30 12:03 | P.PN ---
Subjective Principal diagnosis: Malnutrition Patient complaining of some fatigue today. She still remains tolerating her tube feeds at goal. Pain is about the same. Some loose stools. Objective - Vital Signs Vital signs: Vital Signs Temp 97.4 F L 01/30/17 07:15 Pulse 96 01/30/17 08:00 Resp 16 01/30/17 08:00 BP 165/64 01/30/17 07:15 Pulse Ox 96 01/30/17 07:15 Intake & Output 01/29/17 01/30/17 01/30/17 18:59 06:59 18:59 Intake Total 120 1035 220 Balance 120 1035 220 Weight 69.4 kg Intake: IV 540 D5-0.45% NaCl with KCl 540 40Meq/l 1,000 ml @ 60 mls /hr IV .[id number] JESS Rx#: [id number] Tube Feeding 495 220 Other 120 Other: Voiding Method Bedside Commode Bedside Commode Bedside Commode Diaper Diaper Diaper Incontinent Incontinent # Voids 1 1 1 # Bowel Movements 1 1 1 - Exam Abdomen: Soft, mild epigastric tenderness, incision clean and dry - Labs CBC & Chem 7: 01/28/17 06:14 01/28/17 06:14 Labs: Abnormal Lab Results - Last 24 Hours (Table) 01/29/17 01/29/17 01/30/17 Range/Units 12:01 17:49 00:03 POC Glucose (mg/dL) 172 H 154 H 114 H (75-99) mg/dL 01/30/17 01/30/17 Range/Units 06:23 11:40 POC Glucose (mg/dL) 175 H 154 H (75-99) mg/dL Assessment and Plan (1) Malfunctioning jejunostomy tube Narrative/Plan: Continue tube feeds at goal. Anticipate discharge to either home or rehab later today. Status: Acute
--- NOTE | 2017-01-30 16:37 | P.PN ---
Subjective Progress note being dictated for Dr. 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 Yesterday G-tube placed. Tube feedings to be initiated as per dietary recommendations once cleared by surgery. Oncology radiology consulted. Hypertensive. Denies chest pain, palpitations. Afebrile. 01/17/2017 potassium 2.4, receiving supplements as per protocol.Tube feeds at goal, complaining of mild abdominal discomfort. Small loose stools. Afebrile, WBC 15.8. Port a cath placement pending.Palliative radiation also discussed as per oncology radiologist if no improvement or not a candidate for chemotherapy, or declining performance or uncontrolled pain. 01/18 T-max 99 with improving leukocytosis. Potassium 3.2 post supplements. Port-A-Cath placement pending. Hypoglycemia earlier related to tube feeds had been placed on hold. Amaryl placed on hold .Denies chest pain, palpitations or increasing shortness of breath. 01/21/2017 tube feeds on hold, awaiting Port a Cath placement. Complaining of abdominal pain afebrile. Denies chest pain, palpitations or increasing shortness of breath. 01/22/2017. Port a cath placed. Tolerated procedure well. Tubefeeds resumed currently at 30 mls, with minimal to no residuals. Blood sugars controlled. Complains of abdominal pain. Afebrile. 01/23/2017 Tube feeds had been advanced to goal of 60 during the evening, developed high residuals requiring tube feeds to be off for a few hours. Maintained on Reglan. Resumed at a lower rate, continues to have increased residuals.Complains of abdominal pain, denies nausea or vomiting. Abdominal x- ray ordered. Denies chest pain, palpitations or increased shortness of breath. Afebrile. 01/24/2017 abdominal x-ray yesterday reports no obstruction. Complains of no bowel movement in 2-3 days. Complains of abdominal pain. Tube feeds currently at 25 MLS, goal is 60 MLS. Blood sugars controlled. Afebrile. Denies chest pain, palpitations. 01/25/17 scheduled for upper GI small bowel follow-through this morning. Tubefeeds currently on hold. Complains of abdominal pain. Currently no complaints of nausea. 01/28/2017 tolerating tube feeds at 55 MLS an hour. Early denies abdominal pain. Denies nausea or vomiting.. Complains of inability to sleep in hospital. Afebrile. 01/29/2017 tolerating tube feeds at goal. Pain meds adjusted yesterday with abdominal pain controlled better .Diarrhea, ruling out C. difficile. Patient discussing possibly not proceeding with chemotherapy. Further recommendations pending from oncology pending discussion with family. 01/30/2017. Tolerating feeding tube feeds at goal. Loose stools improving. Abdominal discomfort improved. Discharge planning in progress for today as per surgery. Objective - Vital Signs Vital signs: Vital Signs Temp 97.4 F L 01/30/17 07:15 Pulse 96 01/30/17 16:00 Resp 16 01/30/17 16:00 BP 165/64 01/30/17 07:15 Pulse Ox 96 01/30/17 07:15 Intake & Output 01/29/17 01/30/17 01/30/17 18:59 06:59 18:59 Intake Total 120 1035 660 Balance 120 1035 660 Weight 69.4 kg Intake: IV 540 D5-0.45% NaCl with KCl 540 40Meq/l 1,000 ml @ 60 mls /hr IV .[id number] [facility] Rx#: [id number] Tube Feeding 495 660 Other 120 Other: Voiding Method Bedside Commode Bedside Commode Bedside Commode Diaper Diaper Diaper Incontinent Incontinent # Voids 1 1 3 # Bowel Movements 1 1 3 - Exam PHYSICAL EXAM: VITAL SIGNS: As above GENERAL: Lying in bed, no acute distress, tired appearing HEENT: Conjunctivae normal. eyes normal. NECK: No JVD. No thyroid enlargement. CARDIOVASCULAR: S1, S2 muffled. Positive systolic murmur RESPIRATION: Breath sounds diminished in the bases. Scattered rhonchi with fine basilar crackles. ABDOMEN: Soft, status post G-tube placement , minimal tenderness. No guarding.Bowel sounds present. LEGS: No edema. no swelling. PSYCHIATRY: Alert and oriented -3, mood and affect normal. NERVOUS SYSTEM: Cranial N 2-12 grossly normal. Moves all 4 limbs. No focal deficits. - Labs CBC & Chem 7: 01/28/17 06:14 01/28/17 06:14 Labs: Abnormal Lab Results - Last 24 Hours (Table) 01/29/17 01/30/17 01/30/17 Range/Units 17:49 00:03 06:23 POC Glucose (mg/dL) 154 H 114 H 175 H (75-99) mg/dL 01/30/17 Range/Units 11:40 POC Glucose (mg/dL) 154 H (75-99) mg/dL Assessment and Plan Plan: 1. Status post G-tube placement 2. Recent J-tube dislodgment 3. Accelerated hypertension, hypertensive urgency 4. 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 5. Change in mental status, acute metabolic encephalopathy 6. Diabetes mellitus type 2 7. Status post port a cath placement Plan: Continue on current medication regime , antihypertensives, monitoring and symptomatic treatment. Discharge planning in progress. Prognosis guarded. Follow with PCP in 3 days. The impression and plan of care has been dictated as directed. : I performed a H&P examination of this patient and discussed the same with the dictator. I agree with the dictator's note. Any additional findings/opinions/ etc. will be noted.
[2017-01-30 16:47] VITALS: BP 156/71; TEMP 98
[2017-01-30 17:26] LABS: Glucose,Whole Blood 147 mg/dL (75-99)
[2017-01-30] MEDS: D5-0.45% NACL WITH KCL 40MEQ/L 1,000 ML IV SCH (17:44)
== END 2017-01-30 19:17 | disposition home health service (06) | DRG 326 ==
LOC: EC 18:13 → 5MS5E 22:31 → OBSVTOIN 01-13 15:55 → 5MS5E 01-27 21:09
PROVIDERS: ADMIT Surgery; ATTEND Surgery
PROC: 3E0G76Z Introduction of Nutritional Substance into Upper GI, Via Natural or Artificial Opening (ICD-10-PCS; 2017-01-15)
PROC: 0DH60UZ Insertion of Feeding Device into Stomach, Open Approach (ICD-10-PCS; principal; 2017-01-15 09:40)
PROC: 0JH60WZ Insertion of Totally Implantable Vascular Access Device into Chest Subcutaneous Tissue and Fascia, Open Approach (ICD-10-PCS; 2017-01-21)
PROC: 05HM33Z Insertion of Infusion Device into Right Internal Jugular Vein, Percutaneous Approach (ICD-10-PCS; 2017-01-21)
PROC: B5131ZA Fluoroscopy of Right Jugular Veins using Low Osmolar Contrast, Guidance (ICD-10-PCS; 2017-01-21)
DX: K94.13 Enterostomy malfunction (principal); G93.41 Metabolic encephalopathy; E44.0 Moderate protein-calorie malnutrition; C15.5 Malignant neoplasm of lower third of esophagus; C78.6 Secondary malignant neoplasm of retroperitoneum and peritoneum; C77.2 Secondary and unspecified malignant neoplasm of intra-abdominal lymph nodes; E11.649 Type 2 diabetes mellitus with hypoglycemia without coma; D72.829 Elevated white blood cell count, unspecified; I16.0 Hypertensive urgency; K22.2 Esophageal obstruction; G89.3 Neoplasm related pain (acute) (chronic); R13.19 Other dysphagia; I10 Essential (primary) hypertension; K59.00 Constipation, unspecified; J44.9 Chronic obstructive pulmonary disease, unspecified; E78.5 Hyperlipidemia, unspecified; I25.2 Old myocardial infarction; N39.3 Stress incontinence (female) (male); M54.9 Dorsalgia, unspecified; R10.31 Right lower quadrant pain; R59.0 Localized enlarged lymph nodes; R01.1 Cardiac murmur, unspecified; F40.240 Claustrophobia; K62.89 Other specified diseases of anus and rectum; R50.9 Fever, unspecified; F41.0 Panic disorder [episodic paroxysmal anxiety]; R53.1 Weakness; K64.4 Residual hemorrhoidal skin tags; F32.9 Major depressive disorder, single episode, unspecified; R29.6 Repeated falls; G47.9 Sleep disorder, unspecified; R19.7 Diarrhea, unspecified; R11.0 Nausea; F43.10 Post-traumatic stress disorder, unspecified; Z87.442 Personal history of urinary calculi; Z87.01 Personal history of pneumonia (recurrent); Z80.0 Family history of malignant neoplasm of digestive organs; Z80.8 Family history of malignant neoplasm of other organs or systems; Z79.84 Long term (current) use of oral hypoglycemic drugs; Z82.49 Family history of ischemic heart disease and other diseases of the circulatory system; Z79.899 Other long term (current) drug therapy; Z79.82 Long term (current) use of aspirin; Z79.51 Long term (current) use of inhaled steroids; Z88.2 Allergy status to sulfonamides; Z88.8 Allergy status to other drugs, medicaments and biological substances; Z87.448 Personal history of other diseases of urinary system; Z79.891 Long term (current) use of opiate analgesic; Z71.3 Dietary counseling and surveillance; Z90.710 Acquired absence of both cervix and uterus; Z90.49 Acquired absence of other specified parts of digestive tract; Z90.12 Acquired absence of left breast and nipple; Z87.891 Personal history of nicotine dependence; Z91.81 History of falling; Z68.28 Body mass index [BMI] 28.0-28.9, adult; Z87.19 Personal history of other diseases of the digestive system
CPT/HCPCS: 71010; 74000; 74020; 74245; 77001; 80048; 80051; 80053; 81003; 83036; 83735; 84132; 85025; 85027; 87324; 94640; 94760; 96372; 96374; 99284

== ENCOUNTER 2017-02-16 23:53 | Observation (INO) | payer MEDICARE ==
--- NOTE | 2017-02-17 00:48 | ED ---
Dizziness HPI - General Chief Complaint: Dizziness Stated Complaint: low blood pressure,chemo pt Time Seen by Provider: 02/17/17 00:27 Source: patient Mode of arrival: wheelchair Limitations: no limitations - History of Present Illness Initial Comments: This patient is a 66-year-old woman who presents to be evaluated for lightheadedness, generalized fatigue and weakness. Patient also had some mild upper chest discomfort. The symptoms started this morning. Patient states that she was feeling about her usual self last night. Patient does have a history of cancer involving the esophagus and therefore takes her feedings by gastric tube. The patient's daughter had taken her blood pressure at home and it has been hypotensive. MD Complaint: dizziness Onset/Timin -: days(s) Timing: gradual onset Description: lightheadedness, difficulty walking, nausea History of Same: No Severity: moderate Improves With: remaining still Associated Symptoms: chest pain - Related Data Home Medications Medication Instructions Recorded Confirmed ALPRAZolam [Xanax] 1 mg PEG/G-TUBE TID 04/09/15 02/11/17 Cholecalciferol [Vitamin D3] 2,000 unit PEG/G-TUBE DAILY 04/09/15 02/11/17 PARoxetine [Paxil] 20 mg PEG/G-TUBE HS 04/09/15 02/11/17 Famotidine [Pepcid] 20 mg PEG/G-TUBE BID 12/04/16 02/11/17 Glimepiride [Amaryl] 2 mg PEG/G-TUBE BID 12/04/16 02/11/17 Ipratropium-Albuterol Nebulize 3 ml INHALATION RT-BID 12/05/16 02/11/17 [Duoneb 0.5 mg-3 mg/3 ml Soln] Acetaminophen Tab [Tylenol Tab] 650 mg PEG/G-TUBE Q6H PRN 01/11/17 02/11/17 Aspirin 81 mg PEG/G-TUBE DAILY 01/11/17 02/11/17 Atorvastatin [Lipitor] 20 mg PEG/G-TUBE HS 01/11/17 02/11/17 Carvedilol [Coreg*] 25 mg PEG/G-TUBE BID 01/11/17 02/11/17 Lisinopril [Zestril] 20 mg PEG/G-TUBE BID 01/11/17 02/11/17 Lidocaine 5% Patch [Lidoderm 5% 1 patch TRANSDERM HS 01/12/17 02/11/17 Patch] Ondansetron Odt [Zofran ODT] 4 mg SUBLINGUAL Q6HR PRN 01/12/17 02/11/17 diphenhydrAMINE [Benadryl] 25 mg PEG/G-TUBE TID@0500,1100,1700 01/12/17 02/11/17 Previous Rx's Medication Instructions Recorded Budesonide-Formot 160-4.5 Mcg 2 puff INHALATION RT-BID #1 puff 04/12/15 [Symbicort 160-4.5 Mcg Inhaler] HYDROcodone/APAP [[place] Elixir 15 ml PO Q4HR PRN #300 ml 01/30/17 7.5-325Mg/15Ml] Allergies Allergy/AdvReac Type Severity Reaction Status Date / Time nickel Allergy Rash/Hives Verified 02/11/17 09:18 phenazopyridine HCl Allergy Anaphylaxis Verified 02/11/17 09:18 [From Pyridium] prochlorperazine Allergy Anaphylaxis Verified 02/11/17 09:18 [From Compazine] prochlorperazine edisylate Allergy Anaphylaxis Verified 02/11/17 09:18 [From Compazine] prochlorperazine maleate Allergy Anaphylaxis Verified 02/11/17 09:18 [From Compazine] Sulfa (Sulfonamide Allergy Unknown Verified 02/11/17 09:18 Antibiotics) metformin AdvReac Nausea & Verified 02/11/17 09:18 Vomiting & Diarrhea Review of Systems ROS Statement: Those systems with pertinent positive or pertinent negative responses have been documented in the HPI. ROS Other: All systems not noted in ROS Statement are negative. Constitutional: Reports: weakness. Denies: fever, chills Respiratory: Denies: cough, dyspnea, wheezes, hemoptysis Cardiovascular: Reports: as per HPI, chest pain. Denies: palpitations, edema, syncope Gastrointestinal: Reports: nausea. Denies: abdominal pain, vomiting, diarrhea Genitourinary: Denies: dysuria, hematuria Musculoskeletal: Denies: back pain Skin: Denies: rash Neurological: Reports: weakness. Denies: headache, numbness Past Medical History Past Medical History: Cancer, COPD, Diabetes Mellitus, Hyperlipidemia, Hypertension, Myocardial Infarction ([place]) Additional Past Medical History / Comment(s): Stress incontinence, esophageal cancer December 2016, kidney stones right kidney, hydronephrosis right kidney, spleen aneurysm, Last Myocardial Infarction Date:: 2014 History of Any Multi-Drug Resistant Organisms: None Reported Past Surgical History: Appendectomy, Cholecystectomy, Heart Catheterization, Hysterectomy Additional Past Surgical History / Comment(s): Bladder sling, stress incontinence. lumpectomy left breast, feeding tube Past Anesthesia/Blood Transfusion Reactions: No Reported Reaction Past Psychological History: Anxiety, Depression, Panic Disorder Smoking Status: Former smoker Past Alcohol Use History: None Reported Past Drug Use History: None Reported - Past Family History Mother Family Medical History: Cancer Additional Family Medical History / Comment(s): Throat Father Family Medical History: Myocardial Infarction ([place]) Additional Family Medical History / Comment(s): Arthrosclorosis Brother(s) Family Medical History: Myocardial Infarction ([place]) General Exam Limitations: no limitations General appearance: alert, in no apparent distress Head exam: Present: atraumatic, normocephalic Eye exam: Present: normal appearance. Absent: scleral icterus, conjunctival injection ENT exam: Present: mucous membranes dry Respiratory exam: Present: decreased breath sounds (Right lung base). Absent: respiratory distress, wheezes, rales, rhonchi, stridor Cardiovascular Exam: Present: regular rate, normal rhythm, normal heart sounds. Absent: systolic murmur, diastolic murmur, rubs, gallop GI/Abdominal exam: Present: soft, other (Gastric tube site is normal in appearance with a trace of leakage around the tube that appears to be consistent with gastric fluid.). Absent: distended, tenderness, guarding, rebound, mass Extremities exam: Present: normal inspection, normal capillary refill. Absent: pedal edema, calf tenderness Back exam: Present: normal inspection Neurological exam: Present: alert, oriented X3 Skin exam: Present: warm, dry, intact, pallor. Absent: cyanosis, diaphoretic, erythema, petechiae, mottled Course Vital Signs 02/17/17 02/17/17 02/17/17 00:01 00:10 03:15 Temperature 98 F Pulse Rate 88 73 74 Respiratory 16 16 18 Rate Blood Pressure 101/56 104/54 O2 Sat by Pulse 97 97 Oximetry 02/17/17 02/17/17 04:28 04:34 Temperature 95.1 F L Pulse Rate 68 70 Respiratory 16 16 Rate Blood Pressure 104/53 95/51 O2 Sat by Pulse 97 98 Oximetry EKG Findings - EKG Results: EKG: interpreted by ERMD, sinus rhythm (Rate approximate 72 bpm), normal axis, normal ST/T, no acute changes - Blocks, [place], Hypertrophy, ST Abn: Chamber hypertrophy or enlargement: only voltage criteria for left ventricular hypertrophy Medical Decision Making - Lab Data Result diagrams: 02/17/17 01:08 02/17/17 01:08 Lab Results 02/17/17 02/17/17 02/17/17 Range/Units 01:08 01:08 01:08 WBC 7.8 (3.8-10.6) k/uL RBC 3.37 L (3.80-5.40) m/uL Hgb 9.8 L (11.4-16.0) gm/dL Hct 29.8 L (34.0-46.0) % MCV 88.4 (80.0-100.0) fL MCH 29.0 (25.0-35.0) pg MCHC 32.8 (31.0-37.0) g/dL RDW 14.4 (11.5-15.5) % Plt Count 224 (150-450) k/uL Neutrophils % 70 % Lymphocytes % 24 % Monocytes % 1 % Eosinophils % 4 % Basophils % 0 % Neutrophils # 5.5 (1.3-7.7) k/uL Lymphocytes # 1.9 (1.0-4.8) k/uL Monocytes # 0.1 (0-1.0) k/uL Eosinophils # 0.3 (0-0.7) k/uL Basophils # 0.0 (0-0.2) k/uL PT (9.0-12.0) sec INR (<1.2) APTT (22.0-30.0) sec D-Dimer (<0.60) mg/L FEU Sodium 132 L (137-145) mmol/L Potassium 3.9 (3.5-5.1) mmol/L Chloride 93 L (98-107) mmol/L Carbon Dioxide 28 (22-30) mmol/L Anion Gap 11 mmol/L BUN 55 H (7-17) mg/dL Creatinine 0.90 (0.52-1.04) mg/dL Est GFR (MDRD) Af Amer >60 (>60 ml/min/1.73 sqM) Est GFR (MDRD) Non-Af >60 (>60 ml/min/1.73 sqM) Glucose 87 (74-99) mg/dL Plasma Lactic Acid Carlos (0.7-2.0) mmol/L Calcium 8.8 (8.4-10.2) mg/dL Magnesium 2.1 (1.6-2.3) mg/dL Total Bilirubin 0.2 (0.2-1.3) mg/dL AST 18 (14-36) U/L ALT 34 (9-52) U/L Alkaline Phosphatase 102 (38-126) U/L Total Creatine Kinase <20 L (30-135) U/L CK-MB (CK-2) <0.2 (0.0-2.4) ng/mL CK-MB (CK-2) Rel Index Troponin I <0.012 (0.000-0.034) ng/mL Total Protein 6.2 L (6.3-8.2) g/dL Albumin 3.1 L (3.5-5.0) g/dL Amylase 43 (30-110) U/L Lipase 105 (23-300) U/L Urine Color Urine Appearance (Clear) Urine pH (5.0-8.0) Ur Specific [place] (1.001-1.035) Urine Protein (Negative) Urine Glucose (UA) (Negative) Urine Ketones (Negative) Urine Blood (Negative) Urine Nitrite (Negative) Urine Bilirubin (Negative) Urine Urobilinogen (<2.0) mg/dL Ur Leukocyte Esterase (Negative) Urine RBC (0-5) /hpf Urine WBC (0-5) /hpf Urine WBC Clumps (None) /hpf Ur Squamous Epith Cells (0-4) /hpf Ur Transition Epith Cell (0-1) /hpf Amorphous Sediment (None) /hpf Urine Bacteria (None) /hpf Hyaline Casts (0-2) /lpf Urine Mucus (None) /hpf 02/17/17 02/17/17 02/17/17 Range/Units 01:08 01:08 01:35 WBC (3.8-10.6) k/uL RBC (3.80-5.40) m/uL Hgb (11.4-16.0) gm/dL Hct (34.0-46.0) % MCV (80.0-100.0) fL MCH (25.0-35.0) pg MCHC (31.0-37.0) g/dL RDW (11.5-15.5) % Plt Count (150-450) k/uL Neutrophils % % Lymphocytes % % Monocytes % % Eosinophils % % Basophils % % Neutrophils # (1.3-7.7) k/uL Lymphocytes # (1.0-4.8) k/uL Monocytes # (0-1.0) k/uL Eosinophils # (0-0.7) k/uL Basophils # (0-0.2) k/uL PT 10.5 (9.0-12.0) sec INR 1.0 (<1.2) APTT 23.5 (22.0-30.0) sec D-Dimer 0.98 H (<0.60) mg/L FEU Sodium (137-145) mmol/L Potassium (3.5-5.1) mmol/L Chloride (98-107) mmol/L Carbon Dioxide (22-30) mmol/L Anion Gap mmol/L BUN (7-17) mg/dL Creatinine (0.52-1.04) mg/dL Est GFR (MDRD) Af Amer (>60 ml/min/1.73 sqM) Est GFR (MDRD) Non-Af (>60 ml/min/1.73 sqM) Glucose (74-99) mg/dL Plasma Lactic Acid Carlos 1.4 (0.7-2.0) mmol/L Calcium (8.4-10.2) mg/dL Magnesium (1.6-2.3) mg/dL Total Bilirubin (0.2-1.3) mg/dL AST (14-36) U/L ALT (9-52) U/L Alkaline Phosphatase (38-126) U/L Total Creatine Kinase (30-135) U/L CK-MB (CK-2) (0.0-2.4) ng/mL CK-MB (CK-2) Rel Index Troponin I (0.000-0.034) ng/mL Total Protein (6.3-8.2) g/dL Albumin (3.5-5.0) g/dL Amylase (30-110) U/L Lipase (23-300) U/L Urine Color Yellow Urine Appearance Cloudy H (Clear) Urine pH 5.0 (5.0-8.0) Ur Specific [place] 1.013 (1.001-1.035) Urine Protein Negative (Negative) Urine Glucose (UA) Negative (Negative) Urine Ketones Negative (Negative) Urine Blood Negative (Negative) Urine Nitrite Negative (Negative) Urine Bilirubin Negative (Negative) Urine Urobilinogen <2.0 (<2.0) mg/dL Ur Leukocyte Esterase Small H (Negative) Urine RBC <1 (0-5) /hpf Urine WBC 7 H (0-5) /hpf Urine WBC Clumps Rare H (None) /hpf Ur Squamous Epith Cells 8 H (0-4) /hpf Ur Transition Epith Cell 1 (0-1) /hpf Amorphous Sediment Rare H (None) /hpf Urine Bacteria Rare H (None) /hpf Hyaline Casts 3 H (0-2) /lpf Urine Mucus Rare H (None) /hpf Disposition Clinical Impression: Dehydration, Hypotension Disposition: ADMITTED IP TO THIS [facility] Condition: Poor Referrals: Pretty Ross MD [Primary Care Provider] - 1-2 days
[2017-02-17 01:33] LABS: ALT 34 U/L (9-52); AST 18 U/L (14-36); Alkaline Phosphatase 102 U/L (38-126); Amylase 43 U/L (30-110); Anion Gap 11 mmol/L; Blood Urea Nitrogen 55 mg/dL (7-17); Calcium 8.8 mg/dL (8.4-10.2); Carbon Dioxide 28 mmol/L (22-30); Chloride 93 mmol/L (98-107); Glucose 87 mg/dL (74-99); Magnesium 2.1 mg/dL (1.6-2.3); Non-African American GFR(MDRD) >60 (>60 ml/min/1.73 sqM); Potassium 3.9 mmol/L (3.5-5.1); Sodium 132 mmol/L (137-145); Total Bilirubin 0.2 mg/dL (0.2-1.3); Total Protein 6.2 g/dL (6.3-8.2)
[2017-02-17 01:35] LABS: Partial Thromboplastin Time 23.5 sec (22.0-30.0); Prothrombin Time 10.5 sec (9.0-12.0)
[2017-02-17 01:40] LABS: Basophils % (A) 0 %; CH 29.6; CHCM 33.6; Eosinophils # (A) 0.3 k/uL (0-0.7); Eosinophils % (A) 4 %; HCT 29.8 % (34.0-46.0); HDW 2.67; HGB 9.8 gm/dL (11.4-16.0); Luc # (Auto) 0.04; Luc % (Auto) 1; Lymphocytes # (A) 1.9 k/uL (1.0-4.8); Lymphocytes % (A) 24 %; MCHC 32.8 g/dL (31.0-37.0); MCV 88.4 fL (80.0-100.0); Mean Platelet Volume 7.9; Monocytes # (A) 0.1 k/uL (0-1.0); Monocytes % (A) 1 %; Neutrophils # (A) 5.5 k/uL (1.3-7.7); Neutrophils % (A) 70 %; RBC 3.37 m/uL (3.80-5.40); RDW 14.4 % (11.5-15.5); WBC 7.8 k/uL (3.8-10.6)
[2017-02-17 01:44] LABS: Creatine Kinase <20 U/L (30-135)
[2017-02-17 01:57] LABS: Creatine Kinase MB <0.2 ng/mL (0.0-2.4); Troponin I <0.012 ng/mL (0.000-0.034)
[2017-02-17 02:02] LABS: Amorphous Sediment,Urine Rare /hpf; Appearance,Urine Cloudy (Clear); Bacteria,Urine Rare /hpf; Bilirubin,Urine Negative (Negative); Glucose,Urine (UA) Negative (Negative); Ketones,Urine Negative (Negative); Leukocyte Esterase,Urine Small (Negative); Mucus,Urine Rare /hpf; Nitrite,Urine Negative (Negative); Particle Count 2007; Protein,Urine Negative (Negative); RBC,Urine <1 /hpf (0-5); Specific Gravity,Urine 1.013 (1.001-1.035); Squamous Epithelial Cell,Urine 8 /hpf (0-4); Transitional Epi Cells,Urine 1 /hpf (0-1); UA Billing (MACRO vs. MICRO) MICRO; Urobilinogen,Urine <2.0 mg/dL (<2.0); WBC,Urine 7 /hpf (0-5)
--- NOTE | 2017-02-17 02:03 | XR ---
History: Reason: chest pain Exam: XR CXR 1 VIEW Comparison: 01/21/2017 FINDINGS: The lungs are clear. The cardiac and mediastinal contours are within limits. Right port again noted. Status post cholecystectomy. Visualized osseous structures appear unremarkable. IMPRESSION: No evidence of acute disease. Right port again noted. Status post cholecystectomy.
[2017-02-17] MEDS ORDERED: HYDROcodone/APAP 7.5-325MG 1 EACH TAB PEG/G-TUBE ONE (02:10)
[2017-02-17] MEDS ORDERED: RX INFO: IV CONTRAST WAS GIVEN 1 EACH MISC MISCELLANE PRN (02:19)
--- NOTE | 2017-02-17 05:07 | CT ---
History: Reason: Pain Exam: CTA CHEST axial images through the chest following administration of 60 cc of Omnipaque 350 contrast intravenously with multiplanar reformatted images Technique more: CTDI is 47.40 mGy and DLP is 247.80 mGy-cm. Technique more: This CT exam was performed using one or more of the following dose reduction techniques: automated exposure control, adjustment of the mA and/or kV according to patient size, and/or use of iterative reconstruction technique. Comparison: 12/07/2016 and PET/CT 12/22/2016 FINDINGS: No evidence of filling defect to suggest pulmonary embolism. Thoracic aorta within limits. Coronary calcifications noted. No pericardial or pleural effusion. Likely partially imaged conglomeration of nodes at the area of the celiac trunk. Appearance of low-density liver lesions within the visualized partially imaged liver concerning for metastatic disease. Appearance of wall thickening of the distal esophagus and GE junction concerning for infiltrative process. Small fluid level within the midesophagus. Enlarged prevascular and AP window lymph nodes. Right port. The central airways are patent. Multiple bilateral pulmonary nodules concerning for metastatic disease. Areas of basilar atelectasis. Heterogeneous appearance of multiple osseous structures concerning for metastatic disease. IMPRESSION: No evidence of filling defect to suggest pulmonary embolism. Coronary calcifications noted. Likely partially imaged conglomeration of nodes at the area of the celiac trunk. Appearance of low-density liver lesions within the visualized partially imaged liver concerning for metastatic disease. Appearance of wall thickening of the distal esophagus and GE junction concerning for infiltrative process. Small fluid level within the midesophagus. Enlarged prevascular and AP window lymph nodes. Right port. The central airways are patent. Areas of basilar atelectasis. Multiple bilateral pulmonary nodules concerning for metastatic disease. Heterogeneous appearance of multiple osseous structures concerning for metastatic disease.
[2017-02-17] MEDS ORDERED: NALOXONE 0.4 MG/ML 1 ML VIAL IV PRN (05:14)
[2017-02-17] MEDS: SODIUM CHLORIDE 0.9% 2,000 ML IV ONE ×2 (05:19→05:21)
[2017-02-17] MEDS ORDERED: ALPRAZolam 0.5 MG TAB PEG/G-TUBE STA (05:46)
[2017-02-17] MEDS ORDERED: HYDROcodone/APAP 15 ML SOLUTION PEG/G-TUBE ONE (05:47)
[2017-02-17] MEDS: SODIUM CHLORIDE 0.9% 1,000 ML IV SCH ×2 (07:07→17:42)
[2017-02-17] MEDS ORDERED: HYDROcodone/APAP 15 ML SOLUTION PO PRN (10:15)
[2017-02-17] MEDS ORDERED: ACETAMINOPHEN TAB 325 MG TAB PEG/G-TUBE PRN (10:15)
[2017-02-17] MEDS ORDERED: ONDANSETRON ODT 4 MG TAB PEG/G-TUBE PRN (10:15)
[2017-02-17] MEDS ORDERED: CHOLECALCIFEROL 1,000 UNIT TAB PEG/G-TUBE SCH (10:30)
[2017-02-17] MEDS ORDERED: IPRATROPIUM-ALBUTEROL 3 ML NEB INHALATION PRN (10:32)
[2017-02-17] MEDS ORDERED: diphenhydrAMINE ELIXIR 25 MG/10 ML CUP PEG/G-TUBE SCH (11:00)
[2017-02-17] MEDS: HEPARIN SODIUM,PORCINE 5,000 UNIT/ML 1 ML VIAL SQ SCH ×3 (11:30→23:37)
[2017-02-17] MEDS: CARVEDILOL 12.5 MG TAB PEG/G-TUBE SCH ×2 (11:32→21:19)
[2017-02-17] MEDS: ALPRAZolam 0.5 MG TAB PEG/G-TUBE SCH ×3 (11:32→21:19)
[2017-02-17] MEDS: FAMOTIDINE 20 MG TAB PEG/G-TUBE SCH (11:35)
[2017-02-17] MEDS: LISINOPRIL 20 MG TAB PEG/G-TUBE SCH ×2 (11:36→21:19)
[2017-02-17] MEDS: HYDROCHLOROTHIAZIDE 25 MG TAB PEG/G-TUBE SCH (11:36)
[2017-02-17] MEDS: GLIMEPIRIDE 2 MG TAB PEG/G-TUBE SCH ×3 (11:36→21:19)
[2017-02-17] MEDS: HYDROcodone/APAP 15 ML SOLUTION PEG/G-TUBE PRN (11:38)
[2017-02-17 11:54] LABS: Glucose,Whole Blood 68 mg/dL (75-99)
[2017-02-17 13:46] LABS: Glucose,Whole Blood 90 mg/dL (75-99)
[2017-02-17] MEDS: ONDANSETRON ODT 4 MG TAB PO PRN ×2 (15:48→21:19)
--- NOTE | 2017-02-17 16:02 | HP ---
HISTORY AND PHYSICAL DATE OF SERVICE: 02/17/2017 CHIEF COMPLAINT: Dizziness and low blood pressure. 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 The patient apparently had a UTI. Patient on outpatient antibiotics. Patient tiredness and weakness. Patient dehydrated. Patient taken to [facility] and was admitted for further evaluation. Blood pressure was found to be low on admission, which was 101/56. There is no history of fever. No history of headache, loss of consciousness or seizures. PAST MEDICAL HISTORY: History of esophageal malignancy, COPD, hypertension, hyperlipidemia, diabetes mellitus type 2. MEDICATIONS: Prior to admission include home medications are: 1. Fentanyl patch 12 mcg every 72 hours. 2. Benadryl 50 mcg per PEG tube q.h.s. 3. Paxil 20 mg PEG tube q.h.s. 4. Zofran 4 mg q.6h p.r.n. 5. Zestril 20 mg per PEG tube b.i.d. 6. DuoNeb b.i.d. 7. HydroDIURIL 25 mg p.o. daily. 8. Transfer 15 mL q.4h p.r.n. 9. Amaryl 2 mg p.o. b.i.d. 10.Pepcid 20 mg b.i.d. 11.Vitamin D 3000 daily. 12.Coreg 25 mg per PEG tube b.i.d. 13.Symbicort 160/4.5 two puffs b.i.d. 14.Lipitor 20 mg q.h.s. 15.Aspirin 81 mg. 16.Tylenol 650 daily. 17.Xanax 1 mg p.o. t.i.d. ALLERGIES: MULTIPLE ALLERGIES: NICKEL, PYRIDIUM, COMPAZINE, SULFA AND METFORMIN. FAMILY HISTORY: History of throat cancer. SOCIAL HISTORY: History of smoking. No history of current smoking and alcohol. REVIEW OF SYSTEMS: ENT: No diminished hearing or vision. CARDIOVASCULAR: No angina. RESPIRATORY: As mentioned earlier. GI: As mentioned earlier. : No dysuria. NERVOUS SYSTEM: No numbness or weakness. ALLERGY/IMMUNOLOGY: No asthma or hayfever. MUSCULOSKELETAL: As mentioned earlier. HEMATOLOGY/ONCOLOGY: As mentioned earlier. ENDOCRINE: Diabetes. CONSTITUTIONAL: As mentioned earlier. DERMATOLOGY: Negative. RHEUMATOLOGY: Negative. PSYCHIATRY: As mentioned earlier. PHYSICAL EXAMINATION: Patient is alert, oriented. Pulse 73, blood pressure 101/56, respirations 16, temperature 98 degrees, pulse ox 97% room air. HEENT: Conjunctivae normal. Oral mucosa dry. NECK: No jugular venous distention. No carotid bruit. No lymph node enlargement. CARDIOVASCULAR: S1, S2. No S3, no S4 RESPIRATORY: Breath sounds diminished in the bases. Scattered rhonchi and expiratory wheezing and crackles. ABDOMEN: Soft. G-tube in place. LEGS: No edema, no swelling. NERVOUS SYSTEM: Higher functions as mentioned earlier. Moves all four limbs. No focal deficits LYMPHATICS: No lymphadenopathy in the neck, axillae or groin. SKIN: No rash, ulcer or bleeding. LABS: WBC 7.8, hemoglobin 9.8. D-dimer is 0.9. Sodium 132. UA noted. ASSESSMENT: 1. Dehydration, hypotension for evaluation. 2. History of carcinoma of esophagus on chemotherapy. 3. Status post G-tube. 4. Urinary tract infection. 5. Anemia multifactorial. 6. Diabetes type 2. 7. Hypertension. 8. Hyperlipidemia. 9. Anxiety, depression and panic disorder. RECOMMENDATION AND DISCUSSION: Recommend to continue current management and symptomatic treatment. Otherwise at this time I would recommend continue with IV fluids. Course IV antibiotics. Obtain cultures. Monitor blood sugars closely. Continue the tube feeds. Continue rest of the home medications. Guarded prognosis because of multiple complex medical issues. Discussed with the patient and copy of dictation forwarded to Dr. Ross, who is the primary physician. MMODL / IJN: [id number] /
[2017-02-17 18:40] LABS: Glucose,Whole Blood 120 mg/dL (75-99)
[2017-02-17] MEDS: SYMBICORT 160-4.5 MCG INHALER INHALATION SCH (19:02)
[2017-02-17] MEDS ORDERED: IPRATROPIUM-ALBUTEROL 3 ML NEB INHALATION SCH (20:00)
[2017-02-17] MEDS ORDERED: NON-FORMULARY DRUG (Carvedilol [Coreg] 25 MG) PEG/G-TUBE SCH (21:00)
[2017-02-17] MEDS ORDERED: CARVEDILOL 12.5 MG TAB PEG/G-TUBE SCH (21:00)
[2017-02-17] MEDS: PARoxetine 20 MG TAB PEG/G-TUBE SCH (21:19)
[2017-02-17] MEDS: MELATONIN 3 MG TABLET PEG/G-TUBE SCH (21:19)
[2017-02-17] MEDS: diphenhydrAMINE ELIXIR 25 MG/10 ML CUP PEG/G-TUBE SCH (21:19)
[2017-02-17] MEDS: ATORVASTATIN 20 MG TAB PEG/G-TUBE SCH (21:20)
[2017-02-18] MEDS: ONDANSETRON 4 MG/2 ML VIAL IVP PRN ×3 (02:13→19:30)
[2017-02-18] MEDS: HYDROcodone/APAP 15 ML SOLUTION PEG/G-TUBE PRN ×5 (02:31→20:52)
[2017-02-18] MEDS: SODIUM CHLORIDE 0.9% 1,000 ML IV SCH ×4 (04:47→18:00)
[2017-02-18 06:33] LABS: Basophils % (A) 0 %; CH 28.6; CHCM 31.5; Eosinophils # (A) 0.2 k/uL (0-0.7); Eosinophils % (A) 5 %; HCT 27.5 % (34.0-46.0); HDW 2.81; HGB 8.6 gm/dL (11.4-16.0); Hypochromasia Slight; Luc # (Auto) 0.08; Luc % (Auto) 2; Lymphocytes # (A) 1.4 k/uL (1.0-4.8); Lymphocytes % (A) 37 %; MCH 28.6 pg (25.0-35.0); MCHC 31.4 g/dL (31.0-37.0); Mean Platelet Volume 7.1; Monocytes # (A) 0.1 k/uL (0-1.0); Monocytes % (A) 2 %; Neutrophils # (A) 2.1 k/uL (1.3-7.7); Neutrophils % (A) 54 %; RBC 3.02 m/uL (3.80-5.40); RDW 13.4 % (11.5-15.5); WBC 3.8 k/uL (3.8-10.6); WBC (Perox) 4.11
[2017-02-18 06:44] LABS: Anion Gap 8 mmol/L; Blood Urea Nitrogen 17 mg/dL (7-17); Calcium 8.3 mg/dL (8.4-10.2); Carbon Dioxide 25 mmol/L (22-30); Chloride 103 mmol/L (98-107); Glucose 74 mg/dL (74-99); Non-African American GFR(MDRD) >60 (>60 ml/min/1.73 sqM); Potassium 3.5 mmol/L (3.5-5.1); Sodium 136 mmol/L (137-145)
[2017-02-18 06:52] LABS: Glucose,Whole Blood 71 mg/dL (75-99)
[2017-02-18] MEDS: ALPRAZolam 0.5 MG TAB PEG/G-TUBE SCH ×3 (07:36→20:53)
[2017-02-18] MEDS: HYDROCHLOROTHIAZIDE 25 MG TAB PEG/G-TUBE SCH (07:41)
[2017-02-18] MEDS: CHOLECALCIFEROL 1,000 UNIT TAB PEG/G-TUBE SCH (07:41)
[2017-02-18] MEDS: CARVEDILOL 12.5 MG TAB PEG/G-TUBE SCH ×2 (07:41→20:53)
[2017-02-18] MEDS: FAMOTIDINE 20 MG TAB PEG/G-TUBE SCH ×2 (07:41→20:53)
[2017-02-18] MEDS: GLIMEPIRIDE 2 MG TAB PEG/G-TUBE SCH ×2 (07:41→20:53)
[2017-02-18] MEDS: LISINOPRIL 20 MG TAB PEG/G-TUBE SCH ×2 (07:41→20:53)
[2017-02-18] MEDS: HEPARIN SODIUM,PORCINE 5,000 UNIT/ML 1 ML VIAL SQ SCH ×3 (07:41→23:32)
[2017-02-18] MEDS: SYMBICORT 160-4.5 MCG INHALER INHALATION SCH ×2 (07:54→20:15)
[2017-02-18] MEDS ORDERED: ASPIRIN 81 MG PEG/G-TUBE SCH (09:00)
[2017-02-18 11:19] LABS: Glucose,Whole Blood 73 mg/dL (75-99)
[2017-02-18] MEDS: METOCLOPRAMIDE 5 MG/ML 2 ML VIAL IVP PRN (11:25)
--- NOTE | 2017-02-18 16:12 | P.CONS ---
History of Present Illness - Reason for Consult Consult date: 02/18/17 esophegeal adenocarcinoma Requesting physician: Eduar Meng - Chief Complaint dizziness - History of Present Illness Pt seen today on consult for metastatic adenocarcinoma of the esophagus, she had her 1st carbo/taxol/herceptin last week. Hematologically she seems to have tolerated treatment fairly well, we will cont to monitor counts as andrea will be in the next 3-7 days, pt did not get GCSF support. Pt was not able to tell us much about her coming to the hospital other then she was feeling dizzy and she threw up blood x1 and has copughed up small amounts of blood several times. She denies fever, SOB, MAULIK, she states tolerating her PEG tube feedings well without abd pain or bloating. Pt recently had a 17 days admit being discharged on 01/30, please refer to Dr. Nguyen's consult dated 01/12 as nothing has changed other then pt has had chemo. Review of Systems 10 point ROS is as stated in HPI, pt is poor historian Past Medical History Past Medical History: Cancer, COPD, Diabetes Mellitus, Hyperlipidemia, Hypertension, Myocardial Infarction ([place]) Additional Past Medical History / Comment(s): Stress incontinence, esophageal cancer December 2016, kidney stones right kidney, hydronephrosis right kidney, spleen aneurysm, Last Myocardial Infarction Date:: 2014 History of Any Multi-Drug Resistant Organisms: None Reported Past Surgical History: Appendectomy, Cholecystectomy, Heart Catheterization, Hysterectomy Additional Past Surgical History / Comment(s): Bladder sling, stress incontinence. lumpectomy left breast, feeding tube Past Anesthesia/Blood Transfusion Reactions: No Reported Reaction Past Psychological History: Anxiety, Depression, Panic Disorder Additional Psychological History / Comment(s): Clausterphobic, PTSD Smoking Status: Former smoker Past Alcohol Use History: None Reported Past Drug Use History: None Reported - Past Family History Mother Family Medical History: Cancer Additional Family Medical History / Comment(s): Throat Father Family Medical History: Myocardial Infarction ([place]) Additional Family Medical History / Comment(s): Arthrosclorosis Brother(s) Family Medical History: Myocardial Infarction ([place]) Medications and Allergies Home Medications Medication Instructions Recorded Confirmed Type ALPRAZolam [Xanax] 1 mg PEG/G-TUBE TID 04/09/15 02/17/17 History Cholecalciferol [Vitamin D3] 2,000 unit PEG/G-TUBE DAILY 04/09/15 02/17/17 History PARoxetine [Paxil] 20 mg PEG/G-TUBE HS 04/09/15 02/17/17 History Budesonide-Formot 160-4.5 Mcg 2 puff INHALATION RT-BID #1 puff 04/12/15 Rx [Symbicort 160-4.5 Mcg Inhaler] Famotidine [Pepcid] 20 mg PEG/G-TUBE BID@0500,2200 12/04/16 02/17/17 History Glimepiride [Amaryl] 2 mg PEG/G-TUBE BID 12/04/16 02/17/17 History Ipratropium-Albuterol Nebulize 3 ml INHALATION RT-BID 12/05/16 02/17/17 History [Duoneb 0.5 mg-3 mg/3 ml Soln] Acetaminophen Tab [Tylenol] 650 mg PEG/G-TUBE DAILY@1900 PRN 01/11/17 02/17/17 History Aspirin 81 mg PEG/G-TUBE DAILY 01/11/17 02/17/17 History Atorvastatin [Lipitor] 20 mg PEG/G-TUBE HS 01/11/17 02/17/17 History Lisinopril [Zestril] 20 mg PEG/G-TUBE BID 01/11/17 02/17/17 History Ondansetron Odt [Zofran ODT] 4 mg SUBLINGUAL Q6HR PRN 01/12/17 02/17/17 History diphenhydrAMINE [Benadryl] 50 mg PEG/G-TUBE HS 01/12/17 02/17/17 History Carvedilol [Coreg] 25 mg PEG/G-TUBE BID 02/17/17 02/17/17 History HYDROcodone/APAP [[place] Elixir 15 ml PEG/G-TUBE Q4HR PRN 02/17/17 02/17/17 History 7.5-325Mg/15Ml] Hydrochlorothiazide [Hydrodiuril] 25 mg PEG/G-TUBE DAILY 02/17/17 02/17/17 History fentaNYL 12MCG/HR PATCH [Duragesic 1 patch TRANSDERM Q72H 02/17/17 02/17/17 History 12MCG/HR] Cefuroxime Axetil [Ceftin] 500 mg PO BID #10 tab 02/18/17 Rx Allergies Allergy/AdvReac Type Severity Reaction Status Date / Time nickel Allergy Rash/Hives Verified 02/17/17 12:06 phenazopyridine HCl Allergy Anaphylaxis Verified 02/17/17 12:06 [From Pyridium] prochlorperazine Allergy Anaphylaxis Verified 02/17/17 12:06 [From Compazine] prochlorperazine edisylate Allergy Anaphylaxis Verified 02/17/17 12:06 [From Compazine] prochlorperazine maleate Allergy Anaphylaxis Verified 02/17/17 12:06 [From Compazine] Sulfa (Sulfonamide Allergy Unknown Verified 02/17/17 12:06 Antibiotics) metformin AdvReac Nausea & Verified 02/17/17 12:06 Vomiting & Diarrhea Physical Exam Vitals: Vital Signs Temp Pulse Resp BP Pulse Ox 02/18/17 07:55 93 L 02/18/17 07:00 97.1 F L 79 16 131/67 94 L 02/17/17 23:39 98.3 F 02/17/17 23:00 96.0 F L 94 16 110/70 93 L 02/17/17 16:00 73 18 02/17/17 15:00 97.8 F 73 18 101/59 93 L Intake and Output 02/17/17 02/18/17 02/18/17 22:59 06:59 14:59 Intake Total 400 400 400 Balance 400 400 400 Intake: Tube Feeding 400 400 400 Other: Voiding Method Bedside Commode Bedside Commode # Bowel Movements 1 Weight 59.5 kg Patient Weight 02/19/17 06:59 Weight 59.5 kg - Constitutional General appearance: average body habitus, cooperative, no acute distress - EENT Eyes: anicteric sclerae, EOMI, normal appearance ENT: normal oropharynx - Neck Neck: no lymphadenopathy - Respiratory Respiratory: bilateral: CTA - Cardiovascular Rhythm: regular Heart sounds: normal: S1, S2 - Gastrointestinal General gastrointestinal: normal bowel sounds, soft - Neurologic Neurologic: CNII-XII intact - Musculoskeletal Musculoskeletal: generalized weakness, strength equal bilaterally Results CBC & Chem 7: 02/18/17 05:30 02/18/17 05:30 Labs: Abnormal Lab Results - Last 24 Hours (Table) 02/17/17 02/18/17 02/18/17 Range/Units 18:35 05:30 05:30 RBC 3.02 L (3.80-5.40) m/uL Hgb 8.6 L (11.4-16.0) gm/dL Hct 27.5 L (34.0-46.0) % Sodium 136 L (137-145) mmol/L Creatinine 0.50 L (0.52-1.04) mg/dL POC Glucose (mg/dL) 120 H (75-99) mg/dL Calcium 8.3 L (8.4-10.2) mg/dL 02/18/17 02/18/17 Range/Units 06:51 11:17 RBC (3.80-5.40) m/uL Hgb (11.4-16.0) gm/dL Hct (34.0-46.0) % Sodium (137-145) mmol/L Creatinine (0.52-1.04) mg/dL POC Glucose (mg/dL) 71 L 73 L (75-99) mg/dL Calcium (8.4-10.2) mg/dL Microbiology - Last 24 Hours (Table) 02/17/17 01:35 Urine Culture - Final Urine,Voided 02/17/17 01:08 Blood Culture - Preliminary Blood No Growth after 24 hours Chest x-ray: report reviewed CT scan - chest: report reviewed Assessment and Plan (1) Esophageal adenocarcinoma Narrative/Plan: pt is s/p 1st chemotherapy with monoclonal antibody trastuzumab. CBC daily as counts could drop due to chemo andrea. Close monitoring of CBC, transfuse as needed. Status: Chronic (2) Hematemesis Narrative/Plan: Close monitoring of pt. Most likely r/t to bleeding from tumor. If significant drop in Hgb or additional hematemesis may need to consider some palliative radiation to stop any acute bleeding. Will monitor CBC and I & O daily. Status: Acute (3) Dehydration Narrative/Plan: Dietitian consulted for recommendations to prevent dehydration, improve nutrition Status: Acute
[2017-02-18 17:08] LABS: Glucose,Whole Blood 100 mg/dL (75-99)
--- NOTE | 2017-02-18 17:33 | P.GSCN ---
History of Present Illness Consult date: 02/18/17 Reason for Consult: Esophageal cancer History of present illness: Patient is well-known to our service. She had a jejunostomy tube initially placed for obstructing esophageal cancer. Her J-tube fell out on more than one occasion and eventually was switched to a open gastrostomy tube. She has done fairly well with that. We were asked to see this patient for some greenish drainage around the G-tube site. She denies pain at that location. She is afebrile. She was admitted with dizziness and low blood pressure per the nursing staff. She has been tolerating her tube feeds at home quite well she states. Some loose stools at times. She did have an episode of hematemesis but states she has been having intermittent vomiting all along. She has persistent dysphagia and is only on clear liquids at home which she typically avoid swallowing Review of Systems The patient denies any acute changes in vision or hearing, no chest pain or shortness of breath, no dysuria or hematuria, no headache, no runny nose, no rectal bleeding or melena, no unexplained weight loss Past Medical History Past Medical History: Cancer, COPD, Diabetes Mellitus, Hyperlipidemia, Hypertension, Myocardial Infarction ([place]) Additional Past Medical History / Comment(s): Stress incontinence, esophageal cancer December 2016, kidney stones right kidney, hydronephrosis right kidney, spleen aneurysm, Last Myocardial Infarction Date:: 2014 History of Any Multi-Drug Resistant Organisms: None Reported Past Surgical History: Appendectomy, Cholecystectomy, Heart Catheterization, Hysterectomy Additional Past Surgical History / Comment(s): Bladder sling, stress incontinence. lumpectomy left breast, feeding tube Past Anesthesia/Blood Transfusion Reactions: No Reported Reaction Past Psychological History: Anxiety, Depression, Panic Disorder Additional Psychological History / Comment(s): Clausterphobic, PTSD Smoking Status: Former smoker Past Alcohol Use History: None Reported Past Drug Use History: None Reported - Past Family History Mother Family Medical History: Cancer Additional Family Medical History / Comment(s): Throat Father Family Medical History: Myocardial Infarction ([place]) Additional Family Medical History / Comment(s): Arthrosclorosis Brother(s) Family Medical History: Myocardial Infarction ([place]) Medications and Allergies Home Medications Medication Instructions Recorded Confirmed Type ALPRAZolam [Xanax] 1 mg PEG/G-TUBE TID 04/09/15 02/17/17 History Cholecalciferol [Vitamin D3] 2,000 unit PEG/G-TUBE DAILY 04/09/15 02/17/17 History PARoxetine [Paxil] 20 mg PEG/G-TUBE HS 04/09/15 02/17/17 History Budesonide-Formot 160-4.5 Mcg 2 puff INHALATION RT-BID #1 puff 04/12/15 Rx [Symbicort 160-4.5 Mcg Inhaler] Famotidine [Pepcid] 20 mg PEG/G-TUBE BID@0500,2200 12/04/16 02/17/17 History Glimepiride [Amaryl] 2 mg PEG/G-TUBE BID 12/04/16 02/17/17 History Ipratropium-Albuterol Nebulize 3 ml INHALATION RT-BID 12/05/16 02/17/17 History [Duoneb 0.5 mg-3 mg/3 ml Soln] Acetaminophen Tab [Tylenol] 650 mg PEG/G-TUBE DAILY@1900 PRN 01/11/17 02/17/17 History Aspirin 81 mg PEG/G-TUBE DAILY 01/11/17 02/17/17 History Atorvastatin [Lipitor] 20 mg PEG/G-TUBE HS 01/11/17 02/17/17 History Lisinopril [Zestril] 20 mg PEG/G-TUBE BID 01/11/17 02/17/17 History Ondansetron Odt [Zofran ODT] 4 mg SUBLINGUAL Q6HR PRN 01/12/17 02/17/17 History diphenhydrAMINE [Benadryl] 50 mg PEG/G-TUBE HS 01/12/17 02/17/17 History Carvedilol [Coreg] 25 mg PEG/G-TUBE BID 02/17/17 02/17/17 History HYDROcodone/APAP [[place] Elixir 15 ml PEG/G-TUBE Q4HR PRN 02/17/17 02/17/17 History 7.5-325Mg/15Ml] Hydrochlorothiazide [Hydrodiuril] 25 mg PEG/G-TUBE DAILY 02/17/17 02/17/17 History fentaNYL 12MCG/HR PATCH [Duragesic 1 patch TRANSDERM Q72H 02/17/17 02/17/17 History 12MCG/HR] Cefuroxime Axetil [Ceftin] 500 mg PO BID #10 tab 02/18/17 Rx Allergies Allergy/AdvReac Type Severity Reaction Status Date / Time nickel Allergy Rash/Hives Verified 02/17/17 12:06 phenazopyridine HCl Allergy Anaphylaxis Verified 02/17/17 12:06 [From Pyridium] prochlorperazine Allergy Anaphylaxis Verified 02/17/17 12:06 [From Compazine] prochlorperazine edisylate Allergy Anaphylaxis Verified 02/17/17 12:06 [From Compazine] prochlorperazine maleate Allergy Anaphylaxis Verified 02/17/17 12:06 [From Compazine] Sulfa (Sulfonamide Allergy Unknown Verified 02/17/17 12:06 Antibiotics) metformin AdvReac Nausea & Verified 02/17/17 12:06 Vomiting & Diarrhea Surgical - Exam Vital Signs Temp Pulse Resp Pulse Ox 98 F 88 16 97 02/17/17 00:01 02/17/17 00:01 02/17/17 00:01 02/17/17 00:01 Physical exam: General: Well-developed, well-nourished HEENT: Normocephalic, sclerae nonicteric Abdomen: Nontender, nondistended, G-tube site without inflammation, small amount of normal-appearing drainage around the tube and a small amount of granulation tissue noted Extremities: No edema Neuro: Alert and oriented Results - Labs 02/18/17 05:30 02/18/17 05:30 Abnormal Lab Results - Last 24 Hours (Table) 02/17/17 02/18/17 02/18/17 Range/Units 18:35 05:30 05:30 RBC 3.02 L (3.80-5.40) m/uL Hgb 8.6 L (11.4-16.0) gm/dL Hct 27.5 L (34.0-46.0) % Sodium 136 L (137-145) mmol/L Creatinine 0.50 L (0.52-1.04) mg/dL POC Glucose (mg/dL) 120 H (75-99) mg/dL Calcium 8.3 L (8.4-10.2) mg/dL 02/18/17 02/18/17 02/18/17 Range/Units 06:51 11: 17:05 RBC (3.80-5.40) m/uL Hgb (11.4-16.0) gm/dL Hct (34.0-46.0) % Sodium (137-145) mmol/L Creatinine (0.52-1.04) mg/dL POC Glucose (mg/dL) 71 L 73 L 100 H (75-99) mg/dL Calcium (8.4-10.2) mg/dL Microbiology - Last 24 Hours (Table) 02/17/17 01:35 Urine Culture - Final Urine,Voided 02/17/17 01:08 Blood Culture - Preliminary Blood No Growth after 24 hours Diabetes panel 02/18/17 Range/Units 05:30 Sodium 136 L (137-145) mmol/L Potassium 3.5 (3.5-5.1) mmol/L Chloride 103 (98-107) mmol/L Carbon Dioxide 25 (22-30) mmol/L BUN 17 (7-17) mg/dL Creatinine 0.50 L (0.52-1.04) mg/dL Glucose 74 (74-99) mg/dL Calcium 8.3 L (8.4-10.2) mg/dL Calcium panel 02/18/17 Range/Units 05:30 Calcium 8.3 L (8.4-10.2) mg/dL Pituitary panel 02/18/17 Range/Units 05:30 Sodium 136 L (137-145) mmol/L Potassium 3.5 (3.5-5.1) mmol/L Chloride 103 (98-107) mmol/L Carbon Dioxide 25 (22-30) mmol/L BUN 17 (7-17) mg/dL Creatinine 0.50 L (0.52-1.04) mg/dL Glucose 74 (74-99) mg/dL Calcium 8.3 L (8.4-10.2) mg/dL Adrenal panel 02/18/17 Range/Units 05:30 Sodium 136 L (137-145) mmol/L Potassium 3.5 (3.5-5.1) mmol/L Chloride 103 (98-107) mmol/L Carbon Dioxide 25 (22-30) mmol/L BUN 17 (7-17) mg/dL Creatinine 0.50 L (0.52-1.04) mg/dL Glucose 74 (74-99) mg/dL Calcium 8.3 L (8.4-10.2) mg/dL Assessment and Plan (1) Esophageal adenocarcinoma Narrative/Plan: No surgical intervention planned. Continue tube feeds at goal. Status: Chronic
[2017-02-18] MEDS: MELATONIN 3 MG TABLET PEG/G-TUBE SCH (20:53)
[2017-02-18] MEDS: diphenhydrAMINE ELIXIR 25 MG/10 ML CUP PEG/G-TUBE SCH (20:53)
[2017-02-18] MEDS: PARoxetine 20 MG TAB PEG/G-TUBE SCH (20:53)
[2017-02-18] MEDS: ATORVASTATIN 20 MG TAB PEG/G-TUBE SCH (20:54)
[2017-02-19] MEDS: HYDROcodone/APAP 15 ML SOLUTION PEG/G-TUBE PRN ×4 (01:36→14:31)
[2017-02-19] MEDS: SODIUM CHLORIDE 0.9% 1,000 ML IV SCH ×3 (03:59→10:08)
[2017-02-19] MEDS: ONDANSETRON 4 MG/2 ML VIAL IVP PRN ×2 (03:59→15:28)
[2017-02-19 06:41] LABS: Basophils % (A) 0 %; CH 29.2; CHCM 32.8; Eosinophils # (A) 0.1 k/uL (0-0.7); Eosinophils % (A) 4 %; HCT 26.3 % (34.0-46.0); HDW 2.88; HGB 8.7 gm/dL (11.4-16.0); Luc # (Auto) 0.07; Luc % (Auto) 2; Lymphocytes # (A) 1.4 k/uL (1.0-4.8); Lymphocytes % (A) 47 %; MCH 29.4 pg (25.0-35.0); MCHC 32.9 g/dL (31.0-37.0); MCV 89.4 fL (80.0-100.0); Mean Platelet Volume 7.9; Monocytes # (A) 0.1 k/uL (0-1.0); Monocytes % (A) 4 %; Neutrophils # (A) 1.2 k/uL (1.3-7.7); Neutrophils % (A) 42 %; RBC 2.95 m/uL (3.80-5.40); RDW 14.1 % (11.5-15.5); WBC 2.9 k/uL (3.8-10.6)
[2017-02-19 07:03] LABS: Anion Gap 8 mmol/L; Blood Urea Nitrogen 8 mg/dL (7-17); Calcium 7.9 mg/dL (8.4-10.2); Carbon Dioxide 23 mmol/L (22-30); Chloride 106 mmol/L (98-107); Glucose 108 mg/dL (74-99); Non-African American GFR(MDRD) >60 (>60 ml/min/1.73 sqM); Potassium 3.2 mmol/L (3.5-5.1); Sodium 137 mmol/L (137-145)
[2017-02-19] MEDS: SYMBICORT 160-4.5 MCG INHALER INHALATION SCH (07:22)
[2017-02-19] MEDS: HEPARIN SODIUM,PORCINE 5,000 UNIT/ML 1 ML VIAL SQ SCH ×2 (08:01→15:26)
[2017-02-19] MEDS: CARVEDILOL 12.5 MG TAB PEG/G-TUBE SCH (08:02)
[2017-02-19] MEDS: CHOLECALCIFEROL 1,000 UNIT TAB PEG/G-TUBE SCH (08:02)
[2017-02-19] MEDS: FAMOTIDINE 20 MG TAB PEG/G-TUBE SCH (08:02)
[2017-02-19] MEDS: ALPRAZolam 0.5 MG TAB PEG/G-TUBE SCH ×2 (08:02→15:23)
[2017-02-19] MEDS: HYDROCHLOROTHIAZIDE 25 MG TAB PEG/G-TUBE SCH (08:02)
[2017-02-19] MEDS: METOCLOPRAMIDE 5 MG/ML 2 ML VIAL IVP PRN (08:02)
[2017-02-19] MEDS: GLIMEPIRIDE 2 MG TAB PEG/G-TUBE SCH (08:02)
[2017-02-19] MEDS: LISINOPRIL 20 MG TAB PEG/G-TUBE SCH (08:02)
[2017-02-19 08:03] VITALS: BP 176/80; PULSE 69; RESP 16; TEMP 97.3
[2017-02-19] MEDS ORDERED: Potassium Replacement Protocol 1 EACH MISC MISCELLANE PRN ×2 (09:01→10:18)
[2017-02-19] MEDS ORDERED: Magnesium Replacement Protocol 1 EACH MISC MISCELLANE PRN (09:02)
[2017-02-19 10:42] VITALS: BMI 26.4
[2017-02-19] MEDS ORDERED: POTASSIUM CHLORIDE 20 MEQ in WATER FOR INJECTION 1 100ML.BAG IVPB ONE (10:45)
[2017-02-19 11:10] LABS: Glucose,Whole Blood 100 mg/dL (75-99)
[2017-02-19] MEDS: MAGNESIUM SULFATE-D5W PMX 1 GM in DEXTROSE/WATER 1 100ML.BAG IVPB SCH ×2 (11:19→12:15)
--- NOTE | 2017-02-19 11:31 | P.PN ---
Subjective Progress Note Date: 02/18/17 Principal diagnosis: Dehydration Progress note being dictated for Dr. Jack. Interval history: This a 66-year-old female admitted with dehydration, hypotension in a patient with history of metastatic adenocarcinoma of the esophagus, on chemotherapy, recent G-tube placement , acute UTI, and multiple other medical issues. Maintained on IV fluid hydration, IV antibiotics with significant clinical improvement. Sodium 136. Tolerating tube feeds with minimal to no residuals. Mild nausea and vomiting earlier this morning. No diarrhea/loose stools this morning. Tested negative for C. difficile. Surgical evaluation of G-tube pending. Objective - Vital Signs Vital signs: Vital Signs Temp 98.2 F 02/18/17 15:00 Pulse 80 02/18/17 15:00 Resp 20 02/18/17 15:00 BP 156/63 02/18/17 15:00 Pulse Ox 92 L 02/18/17 15:00 Intake & Output 02/17/17 02/18/17 02/18/17 18:59 06:59 18:59 Intake Total 600 600 400 Balance 600 600 400 Weight 59.5 kg 59.5 kg Intake: Tube Feeding 600 600 400 Other: Voiding Method Bedside Commode Bedside Commode # Bowel Movements 1 - Exam PHYSICAL EXAM: VITAL SIGNS: As above GENERAL: Sitting up in bed, tired appearing HEENT: Conjunctivae normal. eyes normal. Oral mucosa moist NECK: No JVD. No thyroid enlargement. No LNs CARDIOVASCULAR: S1, S2 muffled. No murmur RESPIRATION: Breath sounds diminished in the bases. No rhonchi or crackles. ABDOMEN: Soft, nontender . No guarding. no masses palpable.Bowel sounds heard. G-tube present without inflammation. LEGS: No edema. no swelling PSYCHIATRY: Alert and oriented -3, mood and affect normal. NERVOUS SYSTEM: Cranial N 2-12 grossly normal. Moves all 4 limbs. Diffuse weakness No focal deficits. No sensory deficit. Skin: no ulcer no rash Joints: No active swelling. No inflammation. - Labs CBC & Chem 7: 02/19/17 05:55 02/19/17 05:55 Labs: Abnormal Lab Results - Last 24 Hours (Table) 02/17/17 02/18/17 02/18/17 Range/Units 18:35 05:30 05:30 RBC 3.02 L (3.80-5.40) m/uL Hgb 8.6 L (11.4-16.0) gm/dL Hct 27.5 L (34.0-46.0) % Sodium 136 L (137-145) mmol/L Creatinine 0.50 L (0.52-1.04) mg/dL POC Glucose (mg/dL) 120 H (75-99) mg/dL Calcium 8.3 L (8.4-10.2) mg/dL 02/18/17 02/18/17 Range/Units 06:51 11:17 RBC (3.80-5.40) m/uL Hgb (11.4-16.0) gm/dL Hct (34.0-46.0) % Sodium (137-145) mmol/L Creatinine (0.52-1.04) mg/dL POC Glucose (mg/dL) 71 L 73 L (75-99) mg/dL Calcium (8.4-10.2) mg/dL Microbiology - Last 24 Hours (Table) 02/17/17 01:35 Urine Culture - Final Urine,Voided 02/17/17 01:08 Blood Culture - Preliminary Blood No Growth after 24 hours Assessment and Plan Plan: 1. Dehydration, hypotension. 2. [ Esophageal adenocarcinoma, on chemotherapy]. 3. [ Recent G-tube placement]. 4. [ UTI]. 5. [ Anemia, multifactorial]. 6. [ Diabetes mellitus type 2]. 7. [] Hypertension 8. Hyperlipidemia 9. Anxiety, depression and panic disorder Plan: Continue on current medication regime ,monitoring and symptomatic treatment. Reglan added to med regime. Maintain IV fluid hydration, antibiotics. Strict aspiration precautions. Surgical evaluation/ recommendations pending. Discharge planning in progress for tomorrow. The impression and plan of care has been dictated as directed as a scribe. : I performed a H&P examination of this patient and discussed the same with the dictator. I agree with the dictator's note. Any additional findings/opinions/ etc. will be noted.
--- NOTE | 2017-02-19 11:54 | P.DS ---
Providers Date of admission: 02/17/17 05:14 Expected date of discharge: 02/19/17 Attending physician: Marychuy Jacob Consults: 02/17/17 05:15 Consult Physician Routine Consulting Provider: Manuelito Sanchez Consult Reason/Comments: your patient Do you want consulting provider notified?: Yes 02/17/17 16:15 Consult Physician Urgent Consulting Provider: Yuan Pack Consult Reason/Comments: Drainage around PEG tube site Do you want consulting provider notified?: Yes Primary care physician: Vandana Olsen [facility] Course: Final Diagnoses: 1. Dehydration, hypotension, multifactorial. Diarrhea resolved, negative for C. difficile colitis. Nausea/vomiting/Hematemesis, improved, most likely related to tumor. 2. Esophageal adenocarcinoma, on chemotherapy]. 3. Recent G-tube placement]. 4. UTI]. 5. Anemia, multifactorial]. 6. Diabetes mellitus type 2]. 7. Hypertension 8. Hyperlipidemia 9. Anxiety, depression and panic disorder 10. Hypomagnesemia 11. Hypokalemia Hospital course:This is a 66-year-old female admitted with dehydration, hypotension in a patient with history of metastatic adenocarcinoma of the esophagus, on chemotherapy, recent G-tube placement , acute UTI, and multiple other medical issues. Minimal hematemesis, most likely related to tumor, hemoglobin stable. No palliative radiation recommended at this time per oncology .urine culture negative but complained of burning, frequency, symptomatic UTI, improved with antibiotic therapy.Maintained on IV fluid hydration, IV antibiotics, electrolyte supplementation with significant clinical improvement. Sodium WNL,VSS. Tolerating tube feeds with minimal to no residuals. PEG tube evaluated by surgery with no surgical intervention recommended and tube feeds ordered to continue. Cleared by all consults for discharge. Patient is being discharged home with daughters in a stable condition with guarded prognosis. The impression and plan of care has been dictated as directed as a scribe. : I performed a H&P examination of this patient and discussed the same with the dictator. I agree with the dictator's note. Any additional findings/opinions/ etc. will be noted. Patient Condition at Discharge: Stable Plan - Discharge Summary New Discharge Prescriptions: New Cefuroxime Axetil [Ceftin] 500 mg PO BID #10 tab Continue Cholecalciferol [Vitamin D3] 2,000 unit PEG/G-TUBE DAILY PARoxetine [Paxil] 20 mg PEG/G-TUBE HS ALPRAZolam [Xanax] 1 mg PEG/G-TUBE TID Budesonide-Formot 160-4.5 Mcg [Symbicort 160-4.5 Mcg Inhaler] 2 puff INHALATION RT-BID #1 puff Glimepiride [Amaryl] 2 mg PEG/G-TUBE BID Famotidine [Pepcid] 20 mg PEG/G-TUBE BID@0500,2200 Ipratropium-Albuterol Nebulize [Duoneb 0.5 mg-3 mg/3 ml Soln] 3 ml INHALATION RT-BID Lisinopril [Zestril] 20 mg PEG/G-TUBE BID Atorvastatin [Lipitor] 20 mg PEG/G-TUBE HS Aspirin 81 mg PEG/G-TUBE DAILY Acetaminophen Tab [Tylenol] 650 mg PEG/G-TUBE DAILY@1900 PRN PRN Reason: Pain Ondansetron Odt [Zofran ODT] 4 mg SUBLINGUAL Q6HR PRN PRN Reason: Nausea diphenhydrAMINE [Benadryl] 50 mg PEG/G-TUBE HS fentaNYL 12MCG/HR PATCH [Duragesic 12MCG/HR] 1 patch TRANSDERM Q72H HYDROcodone/APAP [[place] 7.5-325Mg/15Ml] 15 ml PEG/G-TUBE Q4HR PRN PRN Reason: Pain Carvedilol [Coreg] 25 mg PEG/G-TUBE BID Hydrochlorothiazide [Hydrodiuril] 25 mg PEG/G-TUBE DAILY Discharge Medication List ALPRAZolam [Xanax] 1 mg PEG/G-TUBE TID 04/09/15 [History] Cholecalciferol [Vitamin D3] 2,000 unit PEG/G-TUBE DAILY 04/09/15 [History] PARoxetine [Paxil] 20 mg PEG/G-TUBE HS 04/09/15 [History] Budesonide-Formot 160-4.5 Mcg [Symbicort 160-4.5 Mcg Inhaler] 2 puff INHALATION RT-BID #1 puff 04/12/15 [Rx] Famotidine [Pepcid] 20 mg PEG/G-TUBE BID@0500,2200 12/04/16 [History] Glimepiride [Amaryl] 2 mg PEG/G-TUBE BID 12/04/16 [History] Ipratropium-Albuterol Nebulize [Duoneb 0.5 mg-3 mg/3 ml Soln] 3 ml INHALATION RT -BID 12/05/16 [History] Acetaminophen Tab [Tylenol] 650 mg PEG/G-TUBE DAILY@1900 PRN 01/11/17 [History] Aspirin 81 mg PEG/G-TUBE DAILY 01/11/17 [History] Atorvastatin [Lipitor] 20 mg PEG/G-TUBE HS 01/11/17 [History] Lisinopril [Zestril] 20 mg PEG/G-TUBE BID 01/11/17 [History] Ondansetron Odt [Zofran ODT] 4 mg SUBLINGUAL Q6HR PRN 01/12/17 [History] diphenhydrAMINE [Benadryl] 50 mg PEG/G-TUBE HS 01/12/17 [History] Carvedilol [Coreg] 25 mg PEG/G-TUBE BID 02/17/17 [History] HYDROcodone/APAP [[place] 7.5-325Mg/15Ml] 15 ml PEG/G-TUBE Q4HR PRN [History] Hydrochlorothiazide [Hydrodiuril] 25 mg PEG/G-TUBE DAILY 02/17/17 [History] fentaNYL 12MCG/HR PATCH [Duragesic 12MCG/HR] 1 patch TRANSDERM Q72H 02/17/17 [ History] Cefuroxime Axetil [Ceftin] 500 mg PO BID #10 tab 02/18/17 [Rx] Follow up Appointment(s)/Referral(s): Pretty Ross MD [Primary Care Provider] - 3 Days Manuelito Sanchez MD [STAFF PHYSICIAN] - 02/27/17 2:45 pm Ambulatory/Diagnostic Orders: Complete Blood Count w/diff [LAB.AMB] Time Frame: 3 Days, Location: Determined By Patient Activity/Diet/Wound Care/Special Instructions: Tube feeding: glucerna 1.2 50ml/hr contin., 30ml free water q4H Activityi: limited till F/U
== END 2017-02-19 16:45 | disposition home or self-care (01) ==
LOC: EC 23:53 → 5ONC 02-17 05:14
PROVIDERS: ADMIT Hospitalist; ATTEND Hospitalist
DX: E86.0 Dehydration (principal); I95.9 Hypotension, unspecified; R07.89 Other chest pain; J44.9 Chronic obstructive pulmonary disease, unspecified; I10 Essential (primary) hypertension; E78.5 Hyperlipidemia, unspecified; E11.9 Type 2 diabetes mellitus without complications; I25.2 Old myocardial infarction; C15.9 Malignant neoplasm of esophagus, unspecified; N39.0 Urinary tract infection, site not specified; F32.9 Major depressive disorder, single episode, unspecified; F41.0 Panic disorder [episodic paroxysmal anxiety]; N39.3 Stress incontinence (female) (male); F43.10 Post-traumatic stress disorder, unspecified; K92.0 Hematemesis; E83.42 Hypomagnesemia; E87.6 Hypokalemia; D64.9 Anemia, unspecified; C79.9 Secondary malignant neoplasm of unspecified site; Z93.1 Gastrostomy status; Z79.82 Long term (current) use of aspirin; Z79.84 Long term (current) use of oral hypoglycemic drugs; Z79.899 Other long term (current) drug therapy; Z79.51 Long term (current) use of inhaled steroids; Z88.2 Allergy status to sulfonamides; Z88.8 Allergy status to other drugs, medicaments and biological substances; Z91.048 Other nonmedicinal substance allergy status; Z82.49 Family history of ischemic heart disease and other diseases of the circulatory system; Z80.8 Family history of malignant neoplasm of other organs or systems; Z87.891 Personal history of nicotine dependence
CPT/HCPCS: 96376 ×2; 96361 ×4; 96365; 96366 ×2; 96367; 96372 ×3; 96375 ×2; 99284; 36415; 94640; 94760; 93005; 85379; 80053; 80048 ×2; 82150; 82550; 82553; 83605; 83690; 83735 ×2; 84484; 85025 ×3; 85610; 85730; 81001; 87040; 87324; 87086; 71010; 71275; G0378 ×3; J1644 ×3; J2765 ×2; Q9967; J3480; J2405 ×2; J0696 ×3; J3475; J1642

== ENCOUNTER → 2017-04-06 | Outpatient (CLI) | payer MEDICARE, OTHER ==
--- NOTE | 2017-04-07 12:33 | PE ---
EXAMINATION TYPE: PET CT fusion skull to thigh DATE OF EXAM: 04/06/2017 CLINICAL HISTORY: 67-year-old female subsequent staging for esophageal cancer, chemotherapy last on . TECHNIQUE: Following the intravenous administration of 11.94 mCi of F-18 FDG, whole body images are performed from the skull base to the midthigh. Images are reviewed on the computer in the coronal, axial, and sagittal planes. Reconstructed rotating images are created on independent workstation and reviewed on the computer. A localization and attenuation correction CT is performed in conjunction with the PET scan. Glucose level: 117 mg/dL COMPARISON: 12/22/2016 FINDINGS: PET: Symmetrical uptake at the vocal folds likely product of phonation. Previously seen nodular cutaneous/subcutaneous uptake along the right posterior base of skull shows o nly poorly defined soft tissue thickening and minimal uptake, max SUV now 1.3 versus 5.6, previously. There is an enlarging left supraclavicular lymph node measuring 1 cm that shows mild FDG uptake, max SUV 2.6. Some patchy opacities in the posterior lungs show very minimal mild FDG uptake suggesting an inflamma tory etiology. A 1.3 cm patch of opacity peripheral left midlung is slightly larger measuring 1 cm, previously. Minimal FDG uptake here, maximal SUV 1.5 probably inflammatory. There are a number of new, bilateral 6 mm and smaller pulmonary nodules. These are too small for accu rate PET characterization. A couple nodules are larger such as in the anterior right midlung now measuring 7 mm versus 5 mm, pre viously axial image 85 Prominent fluid distention of the esophagus. There is improvement in the degree of thickening of the distal esophagus with decrease in the extent and intensity of FDG uptake, max SUV 6.0 versus 13.2, pr eviously. Redemonstrated hypodense lesion in the posterior right hepatic dome. This no longer shows discrete FD G uptake suggesting treated disease. There are new hypodense liver lesions measuring up to 1.6 cm, approximately 6. These nodes show no si gnificant FDG uptake. The possibility of interval treated metastatic lesions is possible. PEG tube is now present. There is moderate FDG uptake along the tract of the PEG tube likely on a pos tsurgical basis. Focal hypodensity showing partial peripheral calcification mid right kidney measures 2.1 cm, not sign ificantly changed. No discrete FDG uptake here. Stable nodularity of the left adrenal gland measuring up to 1.7 cm. There is mild associated uptake a s seen previously, maximum SUV 2.7 versus 3.0, previously. Relatively similar gastrohepatic ligament lymphadenopathy measuring up to 1.5 cm but now not showing any discrete FDG uptake, suggesting treated disease. There is a new omental nodularity, for example, axial image 142, 146, 150, 152, 167 with associated v ariable mild FDG uptake, max SUV 1.8. Variable mild bowel uptake likely physiologic muscular activity. Hypermetabolic sclerotic focus upper right sternum, max SUV 2.5 Focal sclerotic lesion involving the T4 vertebral body is new, max SUV 6.0. There is a new 1 cm sclerotic focus right sacrum adjacent to the SI joint, max SUV 4.0. New 8 mm focus of sclerosis along the anterior margin of the left sacrum is too small for PET charact erization. ATTENUATION CORRECTION CT: Right anterior chest wall injection port with catheter tip at the cavoatrial junction. Rightward nasal septal deviation. Visualized paranasal sinuses and mastoid air cells are clear. No c ervical lymphadenopathy. Heart is upper limits of normal in size. Coronary vessel calcifications are present and there are mar kers for coronary artery disease. No pericardial effusion. Mildly ectatic ascending aorta at 3.6 cm. There is direct takeoff of the left vertebral artery directly from the aortic arch but distal to the takeoff of the left subclavian artery. Stable nonenlarged precarinal lymph node. Several nodular densities have a tree-in-bud appearance suggesting the superior segment right lower l obe axial image 75 suggesting an inflammatory etiology. Approximate 3 peripherally calcified splenic artery aneurysms, largest measuring 1.5 cm, stable. No dilated small bowel, free fluid, or free air. Bones: Sclerotic focus in T4, bilateral sacrum, and upper right sternum as mentioned above. Fatty mat keerthi or meningioma T11 vertebral body. IMPRESSION: 1. Mixed response. Improvement as follows: Distal esophageal neoplasm shows decrease in size and degr ee of FDG uptake (Max SUV 6.0 vs 13.2, previously), hypermetabolic cutaneous nodule along the posteri or right neck has essentially resolved, the lesion in the posterior right hepatic dome no longer show s uptake, approximately 6 other liver lesions probably representing interval new but now treated meta stases, and gastrohepatic ligament lymph nodes, while stable in size no longer show significant FDG u ptake. 2. However, disease progression is characterized as follows: Numerous new or enlarging 7 mm and smal ler pulmonary nodules, (too small for adequate PET characterization), suspicious 1 cm left supraclavi cular lymph node, osteosclerotic metastases (involving the sternal body, T4, and bilateral sacral ala ), and mild hypermetabolism involving new omental nodularity suspicious for small metastatic omental deposits. 3. Incidental: Prominent fluid within the esophagus and some tree-in-bud opacities in the superior se gment right lower lobe. Findings could represent sequela of mild aspiration.
== END | disposition home or self-care (01) ==
LOC: RADPETMAIN 07:53
PROVIDERS: ATTEND Internal Medicine Hematology & Oncology
DX: C79.51 Secondary malignant neoplasm of bone (principal); C15.5 Malignant neoplasm of lower third of esophagus; R91.8 Other nonspecific abnormal finding of lung field
CPT/HCPCS: 78815; A9552

== ENCOUNTER 2017-06-04 08:06 | Day surgery (SDC) | payer MEDICARE, OTHER ==
[2017-05-31 12:00] VITALS: BMI 20.5
[~2017-06-04 08:06] MED LIST: LACTATED RINGERS 1,000 ML IV SCH; LIDOCAINE 1% 20 ML VIAL (10MG/ML) FOR IV START INTRADERMA PRN
[2017-06-04 09:41] VITALS: RESP 18; TEMP 97.9
[2017-06-04 09:54] LABS: Glucose,Whole Blood 161 mg/dL (75-99)
[2017-06-04] MEDS ORDERED: PROPOFOL 10 MG/ML 20 ML VIAL IV ONE (10:05)
[2017-06-04] MEDS ORDERED: LIDOCAINE 1% INJ 10MG/ML (20 ML MDV) ONE (10:05)
[2017-06-04 10:51] VITALS: BP 157/69; PULSE 73
--- NOTE | 2017-06-09 19:37 | P.PCN ---
Date of Procedure: 06/04/17 Procedure(s) Performed: Procedure: Esophagoscopy and biopsy. Preoperative diagnosis: History of esophageal cancer with obstructive dysphagia. Postoperative diagnosis: 1. Mass in the distal esophagus consistent with cancer filling the lumen with retained secretions and food debris in the esophagus consistent with esophageal obstruction. 2. Biopsies obtained from the esophageal mass. 3. No attempt was made to pass the endoscope into the stomach and duodenum. Preparation and sedation: Was provided by anesthesia. Brief clinical history: The patient is a 67-year-old female who was diagnosed in November 2016 with metastatic cancer of the esophagus. The patient had progressive dysphagia over the prior 2 months at that time. The patient was started on chemotherapy. She has required tube feedings, initially through jejunostomy feeding tube and more recently through a gastrostomy feeding tube while receiving chemotherapy. The patient is referred for this evaluation to assess the response of her tumor to therapy and for consideration of allowing oral intake. Procedure: With the patient on her left lateral decubitus position and after informed consent and adequate sedation I passed the Olympus-GIF 160 video upper endoscope through the cricopharyngeus down the esophagus. There was retained secretions and food debris in the esophagus probably representing refluxed stomach contents and saliva and secretions. In the distal esophagus there was an obstructing mass consistent with cancer filling the lumen of the esophagus even when the esophagus is fully distended. I did not make any attempt to force the endoscope through that area into the stomach, but instead, I obtained pictures of the mass and multiple biopsies, then the endoscope was withdrawn. The patient tolerated the procedure well. Plan: I summarized the findings to the patient and her daughter. Will continue using the gastrostomy access for her feeding for now and keep NPO based on the findings today. I answered all questions they had regarding esophageal stent placement. She will follow-up with you as planned and we would be happy to see in the future if needed.
== END 2017-06-04 10:59 | disposition home or self-care (01) ==
LOC: ORWHC2ENDO 08:06
DX: C15.9 Malignant neoplasm of esophagus, unspecified (principal); K22.2 Esophageal obstruction; Z93.1 Gastrostomy status; Z92.21 Personal history of antineoplastic chemotherapy; J44.9 Chronic obstructive pulmonary disease, unspecified; E11.9 Type 2 diabetes mellitus without complications; I25.10 Atherosclerotic heart disease of native coronary artery without angina pectoris; I10 Essential (primary) hypertension; E78.5 Hyperlipidemia, unspecified; I25.2 Old myocardial infarction; Z87.442 Personal history of urinary calculi; F17.210 Nicotine dependence, cigarettes, uncomplicated; F43.10 Post-traumatic stress disorder, unspecified; F32.9 Major depressive disorder, single episode, unspecified; F41.9 Anxiety disorder, unspecified; Z88.2 Allergy status to sulfonamides; Z88.8 Allergy status to other drugs, medicaments and biological substances; Z91.09 Other allergy status, other than to drugs and biological substances
CPT/HCPCS: 88305; 43239; J2001; J2704

== ENCOUNTER 2017-06-20 21:53 | Inpatient (IN) | payer MEDICARE, OTHER ==
--- NOTE | 2017-06-20 22:44 | XR ---
EXAMINATION TYPE: XR chest 1V portable DATE OF EXAM: 06/20/2017 COMPARISON: 05/08/2017 HISTORY: Weakness TECHNIQUE: Single frontal view of the chest is obtained. FINDINGS: There is some coarsening of interstitial pulmonary markings. Thoracic aorta is atheromatou s. There is right central venous catheter with the tip in the right atrium. There is no sign of a pne umothorax. I see no definite pleural effusion. Bony thorax is intact. IMPRESSION: There are new pulmonary interstitial infiltrates compared to last exam. Normal heart. I do not suspect heart failure.
[2017-06-20 22:46] LABS: INR 1.1 (<1.2); Partial Thromboplastin Time 25.8 sec (22.0-30.0); Prothrombin Time 10.4 sec (9.0-12.0)
[2017-06-20 22:48] LABS: ALT 26 U/L (9-52); AST 13 U/L (14-36); Albumin 3.3 g/dL (3.5-5.0); Alkaline Phosphatase 118 U/L (38-126); Anion Gap 11 mmol/L; Blood Urea Nitrogen 34 mg/dL (7-17); Calcium 8.6 mg/dL (8.4-10.2); Carbon Dioxide 34 mmol/L (22-30); Chloride 88 mmol/L (98-107); Creatine Kinase <20 U/L (30-135); Glucose 155 mg/dL (74-99); Sodium 133 mmol/L (137-145); Total Bilirubin 0.3 mg/dL (0.2-1.3); Total Protein 6.3 g/dL (6.3-8.2)
[2017-06-20 22:53] LABS: Potassium 2.9 mmol/L (3.5-5.1)
--- NOTE | 2017-06-20 22:55 | ED ---
Weakness HPI - General Chief complaint: Weakness Stated complaint: abd pain Time Seen by Provider: 06/20/17 22:12 Source: EMS Mode of arrival: EMS Limitations: altered mental status (Mild delirium) - History of Present Illness Initial comments: This patient is a 67-year-old woman presenting to the emergency department to be evaluated for a number of complaints that been developing over the past couple of days. The patient has been having increased generalized weakness and fatigue. She also had some vomiting at home that was described as brown and concerning for possible GI bleeding. The patient also has had increasing distention of her abdomen and is complaining of generalized abdominal pains. Finally family had noticed that there was some blood coming from the patient's umbilicus. History is limited from the patient as she does appear to be mildly delirious, and most of the history is obtained from the patient's daughters. MD Complaint: generalized weakness, lack of energy -: days(s) Location: generalized - Related Data Home Medications Medication Instructions Recorded Confirmed ALPRAZolam [Xanax] 1 mg PEG/G-TUBE TID PRN 04/09/15 06/20/17 Cholecalciferol [Vitamin D3] 2,000 unit PEG/G-TUBE DAILY 04/09/15 06/20/17 PARoxetine [Paxil] 20 mg PEG/G-TUBE HS 04/09/15 06/20/17 Famotidine [Pepcid] 20 mg PEG/G-TUBE BID@0500,2200 12/04/16 06/20/17 Glimepiride [Amaryl] 2 mg PEG/G-TUBE BID 12/04/16 06/20/17 Ipratropium-Albuterol Nebulize 3 ml INHALATION RT-BID 12/05/16 06/20/17 [Duoneb 0.5 mg-3 mg/3 ml Soln] Acetaminophen Tab [Tylenol] 650 mg PEG/G-TUBE DAILY@1900 PRN 01/11/17 06/20/17 Ondansetron Odt [Zofran ODT] 4 mg SUBLINGUAL Q6HR PRN 01/12/17 06/20/17 diphenhydrAMINE [Benadryl] 50 mg PEG/G-TUBE HS 01/12/17 06/20/17 Carvedilol [Coreg] 25 mg PEG/G-TUBE BID 02/17/17 06/20/17 Hydrochlorothiazide [Hydrodiuril] 25 mg PEG/G-TUBE DAILY 02/17/17 06/20/17 HYDROcodone/APAP 7.5-325MG [[place] 1 tab PEG/G-TUBE Q4H PRN 05/08/17 06/20/17 7.5-325] fentaNYL [Duragesic 25MCG/HR] 1 patch TRANSDERM Q72H 05/08/17 06/20/17 Lactulose [Cephulac] 20 gm PO BID PRN 05/20/17 06/20/17 Atorvastatin [Lipitor] 40 mg PEG/G-TUBE HS 05/31/17 06/20/17 Previous Rx's Medication Instructions Recorded Budesonide-Formot 160-4.5 Mcg 2 puff INHALATION RT-BID #1 puff 04/12/15 [Symbicort 160-4.5 Mcg Inhaler] Allergies Allergy/AdvReac Type Severity Reaction Status Date / Time nickel Allergy Rash/Hives Verified 06/20/17 22:42 phenazopyridine HCl Allergy Anaphylaxis Verified 06/20/17 22:42 [From Pyridium] prochlorperazine Allergy Anaphylaxis Verified 06/20/17 22:42 [From Compazine] prochlorperazine edisylate Allergy Anaphylaxis Verified 06/20/17 22:42 [From Compazine] prochlorperazine maleate Allergy Anaphylaxis Verified 06/20/17 22:42 [From Compazine] Sulfa (Sulfonamide Allergy Unknown Verified 06/20/17 22:42 Antibiotics) metformin AdvReac Nausea & Verified 06/20/17 22:42 Vomiting & Diarrhea Review of Systems ROS Statement: Those systems with pertinent positive or pertinent negative responses have been documented in the HPI. ROS Other: All systems not noted in ROS Statement are negative. Limitations: ROS unobtainable due to patients medical condition (Delirium) Constitutional: Reports: weakness Respiratory: Denies: cough, dyspnea Cardiovascular: Denies: chest pain, palpitations, orthopnea, edema, syncope Gastrointestinal: Reports: abdominal pain, nausea, vomiting, diarrhea, hematemesis (Possible hematemesis). Denies: constipation, melena, hematochezia Genitourinary: Denies: dysuria, hematuria Musculoskeletal: Denies: back pain Skin: Denies: rash Neurological: Reports: weakness (Generalized). Denies: headache Hematological/Lymphatic: Reports: as per HPI Past Medical History Past Medical History: Cancer, COPD, Diabetes Mellitus, Hyperlipidemia, Hypertension, Myocardial Infarction ([place]) Additional Past Medical History / Comment(s): Stress incontinence, wears briefs , esophageal cancer December 2016, has had 5 rounds of chemo, kidney stones, hydronephrosis right kidney, spleen aneurysm, Last Myocardial Infarction Date:: 2014 History of Any Multi-Drug Resistant Organisms: None Reported Past Surgical History: Appendectomy, Cholecystectomy, Heart Catheterization, Hysterectomy Additional Past Surgical History / Comment(s): Bladder sling, stress incontinence. lumpectomy left breast, feeding tube, infusion port Past Anesthesia/Blood Transfusion Reactions: No Reported Reaction Past Psychological History: Anxiety, Depression, Panic Disorder Smoking Status: Former smoker - Past Family History Mother Family Medical History: Cancer Additional Family Medical History / Comment(s): Throat Father Family Medical History: Myocardial Infarction ([place]) Additional Family Medical History / Comment(s): Arthrosclorosis Brother(s) Family Medical History: Myocardial Infarction ([place]) General Exam Limitations: no limitations General appearance: alert, obtunded Head exam: Present: atraumatic, normocephalic Eye exam: Present: normal appearance, PERRL, EOMI. Absent: scleral icterus, conjunctival injection ENT exam: Present: mucous membranes dry Neck exam: Present: full ROM Respiratory exam: Present: normal lung sounds bilaterally. Absent: respiratory distress, wheezes, rales, rhonchi, stridor Cardiovascular Exam: Present: normal rhythm, tachycardia, normal heart sounds. Absent: systolic murmur, diastolic murmur, rubs, gallop GI/Abdominal exam: Present: soft, distended, tenderness (There is mild generalized tenderness without rebound or guarding), diminished bowel sounds, other (Is a gastric tube in the left upper quadrant which is normal in appearance. There is a spot of dried blood at the umbilicus, there appears to be a very superficial laceration/abrasion possibly related to the cap Of the feeding tube). Absent: guarding, rebound, rigid, organomegaly, mass, pulsatile mass, hernia Extremities exam: Present: normal inspection, normal capillary refill. Absent: pedal edema, calf tenderness Back exam: Present: normal inspection. Absent: CVA tenderness (R), CVA tenderness (L) Neurological exam: Present: alert Skin exam: Present: warm, dry, intact, pallor. Absent: rash Course Vital Signs 06/20/17 06/20/17 06/20/17 22:05 23:16 23:27 Temperature 97.9 F 98.8 F Pulse Rate 104 H 88 88 Respiratory 18 18 18 Rate Blood Pressure 118/69 109/59 118/61 O2 Sat by Pulse 95 97 95 Oximetry 06/21/17 06/21/17 06/21/17 00:40 02:35 03:17 Temperature Pulse Rate 87 94 90 Respiratory 18 18 17 Rate Blood Pressure 109/59 104/52 100/53 O2 Sat by Pulse 98 97 97 Oximetry 06/21/17 06/21/17 06/21/17 05:13 05:37 06:50 Temperature 99.0 F Pulse Rate 88 89 92 Respiratory 18 18 18 Rate Blood Pressure 103/53 117/57 113/56 O2 Sat by Pulse 96 96 Oximetry EKG Findings - EKG Results: EKG: interpreted by ERMD, sinus rhythm (Rate approximately 92 bpm), normal axis , normal QRS - Blocks, [place], Hypertrophy, ST Abn: Chamber hypertrophy or enlargement: left ventricular hypertrophy or enlargement (LVE) Repolarization changes or abnormalities: nonspecific abnormality, ST segment, and/or T wave Medical Decision Making - Medical Decision Making This patient is a 67-year-old woman presenting to be evaluated for constellation of symptoms. On the exam the patient's abdomen is concerning for possible obstruction and she is sent for computed tomography scan which does reveal most likely an ileus. Her labs do show moderate anemia and also moderate hypokalemia. Patient be admitted, case discussed with Dr. Quijano, covering for oncology who was treatment recommendations have been incorporated. In addition patient will see Dr. Morales regarding the ileus. Her gastric tube was connected to suction which did result in a small amount of clear liquid , that does not appear consistent with GI bleed at this point. Please note that there was a prolonged treatment delay due to computer downtime during this patient's care, that came as I was entering the admission orders in the computer. - Lab Data Result diagrams: 06/20/17 22:04 06/20/17 22:04 Lab Results 06/20/17 06/20/17 06/20/17 Range/Units 22:04 22:04 22:04 WBC 2.9 L (3.8-10.6) k/uL RBC 2.69 L (3.80-5.40) m/uL Hgb 8.1 L D (11.4-16.0) gm/dL Hct 24.9 L (34.0-46.0) % MCV 92.5 (80.0-100.0) fL MCH 30.2 (25.0-35.0) pg MCHC 32.7 (31.0-37.0) g/dL RDW 16.7 H (11.5-15.5) % Plt Count 77 L (150-450) k/uL Neutrophils % (Manual) 24 % Band Neutrophils % 15 % Lymphocytes % (Manual) 45 % Monocytes % (Manual) 15 % Eosinophils % (Manual) 2 % Basophils % (Manual) 1 % Neutrophils # (Manual) 1.10 L (1.3-7.7) k/uL Lymphocytes # (Manual) 1.31 (1.0-4.8) k/uL Monocytes # (Manual) 0.44 (0-1.0) k/uL Eosinophils # (Manual) 0.06 (0-0.7) k/uL Basophils # (Manual) 0.03 (0-0.2) k/uL Nucleated RBCs 0 (0-0) /100 WBC Toxic Vacuolation Present Polychromasia Present Poikilocytosis (manual Present Anisocytosis Slight PT (9.0-12.0) sec INR (<1.2) APTT (22.0-30.0) sec Sodium 133 L (137-145) mmol/L Potassium 2.9 L* (3.5-5.1) mmol/L Chloride 88 L (98-107) mmol/L Carbon Dioxide 34 H (22-30) mmol/L Anion Gap 11 mmol/L BUN 34 H (7-17) mg/dL Creatinine 0.70 (0.52-1.04) mg/dL Est GFR (MDRD) Af Amer >60 (>60 ml/min/1.73 sqM) Est GFR (MDRD) Non-Af >60 (>60 ml/min/1.73 sqM) Glucose 155 H (74-99) mg/dL Plasma Lactic Acid Carlos (0.7-2.0) mmol/L Calcium 8.6 (8.4-10.2) mg/dL Magnesium 2.0 (1.6-2.3) mg/dL Total Bilirubin 0.3 (0.2-1.3) mg/dL AST 13 L (14-36) U/L ALT 26 (9-52) U/L Alkaline Phosphatase 118 (38-126) U/L Total Creatine Kinase <20 L (30-135) U/L CK-MB (CK-2) <0.2 (0.0-2.4) ng/mL CK-MB (CK-2) Rel Index Troponin I <0.012 (0.000-0.034) ng/mL Total Protein 6.3 (6.3-8.2) g/dL Albumin 3.3 L (3.5-5.0) g/dL TSH 1.620 (0.465-4.680) mIU/L Urine Color Urine Appearance (Clear) Urine pH (5.0-8.0) Ur Specific [place] (1.001-1.035) Urine Protein (Negative) Urine Glucose (UA) (Negative) Urine Ketones (Negative) Urine Blood (Negative) Urine Nitrite (Negative) Urine Bilirubin (Negative) Urine Urobilinogen (<2.0) mg/dL Ur Leukocyte Esterase (Negative) Urine RBC (0-5) /hpf Urine WBC (0-5) /hpf Ur Squamous Epith Cells (0-4) /hpf Urine Bacteria (None) /hpf Urine Mucus (None) /hpf 06/20/17 06/20/17 06/21/17 Range/Units 22:04 22:04 00:57 WBC (3.8-10.6) k/uL RBC (3.80-5.40) m/uL Hgb (11.4-16.0) gm/dL Hct (34.0-46.0) % MCV (80.0-100.0) fL MCH (25.0-35.0) pg MCHC (31.0-37.0) g/dL RDW (11.5-15.5) % Plt Count (150-450) k/uL Neutrophils % (Manual) % Band Neutrophils % % Lymphocytes % (Manual) % Monocytes % (Manual) % Eosinophils % (Manual) % Basophils % (Manual) % Neutrophils # (Manual) (1.3-7.7) k/uL Lymphocytes # (Manual) (1.0-4.8) k/uL Monocytes # (Manual) (0-1.0) k/uL Eosinophils # (Manual) (0-0.7) k/uL Basophils # (Manual) (0-0.2) k/uL Nucleated RBCs (0-0) /100 WBC Toxic Vacuolation Polychromasia Poikilocytosis (manual Anisocytosis PT 10.4 (9.0-12.0) sec INR 1.1 (<1.2) APTT 25.8 (22.0-30.0) sec Sodium (137-145) mmol/L Potassium (3.5-5.1) mmol/L Chloride (98-107) mmol/L Carbon Dioxide (22-30) mmol/L Anion Gap mmol/L BUN (7-17) mg/dL Creatinine (0.52-1.04) mg/dL Est GFR (MDRD) Af Amer (>60 ml/min/1.73 sqM) Est GFR (MDRD) Non-Af (>60 ml/min/1.73 sqM) Glucose (74-99) mg/dL Plasma Lactic Acid [place] 1.8 (0.7-2.0) mmol/L Calcium (8.4-10.2) mg/dL Magnesium (1.6-2.3) mg/dL Total Bilirubin (0.2-1.3) mg/dL AST (14-36) U/L ALT (9-52) U/L Alkaline Phosphatase (38-126) U/L Total Creatine Kinase (30-135) U/L CK-MB (CK-2) (0.0-2.4) ng/mL CK-MB (CK-2) Rel Index Troponin I (0.000-0.034) ng/mL Total Protein (6.3-8.2) g/dL Albumin (3.5-5.0) g/dL TSH (0.465-4.680) mIU/L Urine Color Yellow Urine Appearance Cloudy H (Clear) Urine pH 5.5 (5.0-8.0) Ur Specific [place] 1.014 (1.001-1.035) Urine Protein Trace H (Negative) Urine Glucose (UA) Negative (Negative) Urine Ketones Negative (Negative) Urine Blood Negative (Negative) Urine Nitrite Positive H (Negative) Urine Bilirubin Negative (Negative) Urine Urobilinogen <2.0 (<2.0) mg/dL Ur Leukocyte Esterase Trace H (Negative) Urine RBC <1 (0-5) /hpf Urine WBC 6 H (0-5) /hpf Ur Squamous Epith Cells <1 (0-4) /hpf Urine Bacteria Many H (None) /hpf Urine Mucus Rare H (None) /hpf Critical Care Time Critical Care Time: Yes (30 minutes) Disposition Clinical Impression: Hypokalemia, Abdominal pain, Ileus Disposition: ADMITTED IP TO THIS HOSP Condition: Poor
[2017-06-20 22:59] LABS: Anisocytosis Slight; HCT 24.9 % (34.0-46.0); MCH 30.2 pg (25.0-35.0); MCHC 32.7 g/dL (31.0-37.0); MCV 92.5 fL (80.0-100.0); Mean Platelet Volume 7.8; RBC 2.69 m/uL (3.80-5.40); RDW 16.7 % (11.5-15.5); WBC 2.9 k/uL (3.8-10.6)
[2017-06-20 23:00] LABS: Creatine Kinase MB <0.2 ng/mL (0.0-2.4); Troponin I <0.012 ng/mL (0.000-0.034)
[2017-06-20 23:22] LABS: HGB 8.1 gm/dL (11.4-16.0)
[2017-06-20 23:23] LABS: Platelet Count 77 k/uL (150-450)
[2017-06-20 23:38] LABS: Band Neutrophils % 15 %; Basophils # (M) 0.03 k/uL (0-0.2); Eosinophils # (M) 0.06 k/uL (0-0.7); Lymphocytes # (M) 1.31 k/uL (1.0-4.8); Monocytes # (M) 0.44 k/uL (0-1.0); Neutrophils % (M) 24 %; Nucleated Red Blood Cells 0 /100 WBC (0-0); Polychromasia Present; Total Cells Counted 200
[2017-06-20 23:39] LABS: Poikilocytosis (M) Present
[2017-06-20] MEDS ORDERED: MORPHINE SULFATE 4 MG/ML SYRINGE IV STA (23:41)
[2017-06-20 23:43] LABS: Toxic Vacuolation Present
[2017-06-20] MEDS ORDERED: SODIUM CHLORIDE 0.9% 1,000 ML IV ONE (23:45)
--- NOTE | 2017-06-20 23:56 | CT ---
EXAMINATION TYPE: CT abdomen pelvis wo con DATE OF EXAM: 06/20/2017 COMPARISON: 05/09/2017 HISTORY: abd pain, bleeding from umbilicus CT DLP: 473.10 mGycm Automated exposure control for dose reduction was used. TECHNIQUE: Helical acquisition of images was performed from the lung bases through the pelvis. FINDINGS: There is a patchy nodular infiltrate at the lung bases. There is a 3 cm hypodense area in the superio r right lobe of the liver. There are clips from cholecystectomy. There are other scattered hypodense foci in the liver that measure up to 2.5 cm. Spleen appears normal in size. There is a 1 cm calcified splenic granuloma. There are extensive calcifications in the splenic artery. There is no evidence of a pancreatic mass. Gastrostomy tube is noted. Bile ducts are not dilated. Cholecystectomy is noted. There is a 2.5 cm left adrenal mass. There are multiple vascular calcifications in the right kidney. There is no hydronephrosis. There is no retroperitoneal adenopathy. There is a moderate amount of flu id in the right colon. Bladder distends smoothly. There is fecal material in the rectum. Right colon is mildly enlarged. There is no sign of free air. There is no evidence of ascites. There is osteopeni a. I see no compression fracture in the lumbar spine. There is a 1 cm sclerotic focus in the L4 verte bral body. IMPRESSION: THERE IS NODULAR LOWER LOBE PULMONARY INFILTRATE THAT COULD RELATE TO METASTATIC DISEASE AND APPEARS WORSE THAN LAST CT SCAN OF 05/01/2017. THERE ARE MULTIPLE HYPODENSE LIVER LESIONS THAT ARE INCREASED AND CONSISTENT WITH METASTATIC DISEASE. THERE IS LEFT ADRENAL MASS THAT IS SLIGHTLY INCREASED COMPARE D TO LAST EXAM AND ALSO CONSISTENT WITH METASTATIC DISEASE. LARGE BOWEL DILATION ON THE RIGHT SIDE WITH FLUID LEVELS CONSISTENT WITH ILEUS. Sclerotic focus in L4 vertebral body is new compared to 12/05/2016 and consistent with metastatic dise ase.
[2017-06-21] MEDS ORDERED: cefTRIAXone IN SWFI 1,000 MG/10 ML SYRINGE IVP STA (00:06)
[2017-06-21] MEDS ORDERED: RX INFO: IV CONTRAST WAS GIVEN 1 EACH MISC MISCELLANE PRN (00:27)
[2017-06-21] MEDS ORDERED: HYDROmorphone 0.5 MG/0.5 ML SYRINGE IVP STA (01:47)
--- NOTE | 2017-06-21 01:50 | CT ---
EXAMINATION TYPE: CT chest angio for PE DATE OF EXAM: 06/21/2017 COMPARISON: 12/07/2016 HISTORY: abd pain, bleeding from umbilicus, ongoing chemo for esoghageal CA, prior on pacs CT DLP: 243.30 mGycm Automated exposure control for dose reduction was used. CONTRAST: CT Chest for pulmonary embolism performed with with IV Contrast, patient injected with 70 mL of Omnip aque 350. There are 3-D post processed images. FINDINGS: There is extensive nodular pulmonary infiltrate. There are numerous small pulmonary nodules throughou t the lungs. These measure up to 1 cm. There is no pericardial effusion. There is some infiltrate and atelectasis at the posterior lung bases. There is a fluid-filled dilated esophagus. I see no filling defects in the pulmonary arteries. There is no evidence of aortic aneurysm or dissec tion. There are nonspecific paratracheal lymph nodes that measure up to 1 cm. There are bronchial lym ph nodes that measure up to 1 cm. There is osteosclerosis in the T3 vertebral body. IMPRESSION: No evidence of pulmonary embolism. Multiple small pulmonary nodules consistent with metastatic diseas e. Mild infiltrates at the lung bases. Lung abnormalities are new compared to old CT scan. There is o steoblastic change in T3 vertebral body consistent with metastatic disease that appears new. Fluid-filled esophagus consistent with distal obstruction or reflux. Nonspecific mediastinal and bronchial lymph nodes.
[2017-06-21 01:59] LABS: Appearance,Urine Cloudy (Clear); Bacteria,Urine Many /hpf; Bilirubin,Urine Negative (Negative); Blood,Urine Negative (Negative); Color,Urine Yellow; Glucose,Urine (UA) Negative (Negative); Ketones,Urine Negative (Negative); Leukocyte Esterase,Urine Trace (Negative); Mucus,Urine Rare /hpf; Nitrite,Urine Positive (Negative); PH, Urine 5.5 (5.0-8.0); Protein,Urine Trace (Negative); RBC,Urine <1 /hpf (0-5); Specific Gravity,Urine 1.014 (1.001-1.035); Squamous Epithelial Cell,Urine <1 /hpf (0-4); Urobilinogen,Urine <2.0 mg/dL (<2.0); WBC,Urine 6 /hpf (0-5)
[2017-06-21] MEDS ORDERED: POTASSIUM CHLORIDE 20 MEQ in WATER FOR INJECTION 1 100ML.BAG IVPB STA (04:10)
[2017-06-21] MEDS: SODIUM CHLORIDE 0.9% 1,000 ML IV SCH (05:13)
[2017-06-21] MEDS: HYDROmorphone 0.5 MG/0.5 ML SYRINGE IVP PRN ×5 (05:35→19:32)
[2017-06-21] MEDS: ONDANSETRON 4 MG/2 ML VIAL IVP PRN ×2 (05:53→17:58)
[2017-06-21] MEDS ORDERED: LACTULOSE 20 GM/30 ML CUP PO PRN (12:19)
[2017-06-21] MEDS ORDERED: ALPRAZolam 0.5 MG TAB PEG/G-TUBE PRN (12:19)
[2017-06-21] MEDS ORDERED: cefTRIAXone IN SWFI 1,000 MG/10 ML SYRINGE IVP SCH (12:30)
[2017-06-21 13:03] LABS: Anisocytosis Slight; Basophils % (A) 0 %; Eosinophils % (A) 0 %; HCT 22.5 % (34.0-46.0); HGB 7.3 gm/dL (11.4-16.0); Hypochromasia Slight; Lymphocytes # (A) 0.9 k/uL (1.0-4.8); Lymphocytes % (A) 27 %; MCH 29.9 pg (25.0-35.0); MCHC 32.4 g/dL (31.0-37.0); MCV 92.4 fL (80.0-100.0); Mean Platelet Volume 8.4; Monocytes # (A) 0.4 k/uL (0-1.0); Monocytes % (A) 13 %; Neutrophils # (A) 1.8 k/uL (1.3-7.7); Neutrophils % (A) 55 %; RBC 2.44 m/uL (3.80-5.40); RDW 16.6 % (11.5-15.5); WBC 3.3 k/uL (3.8-10.6)
[2017-06-21 13:06] LABS: Platelet Count 76 k/uL (150-450)
[2017-06-21 13:18] LABS: ALT 23 U/L (9-52); AST 15 U/L (14-36); Albumin 2.9 g/dL (3.5-5.0); Anion Gap 9 mmol/L; Blood Urea Nitrogen 28 mg/dL (7-17); Calcium 8.8 mg/dL (8.4-10.2); Carbon Dioxide 35 mmol/L (22-30); Chloride 92 mmol/L (98-107); Glucose 140 mg/dL (74-99); Magnesium 1.9 mg/dL (1.6-2.3); Potassium 3.7 mmol/L (3.5-5.1); Sodium 136 mmol/L (137-145); Total Bilirubin 0.2 mg/dL (0.2-1.3); Total Protein 5.9 g/dL (6.3-8.2)
[2017-06-21 13:19] LABS: Alkaline Phosphatase 117 U/L (38-126)
--- NOTE | 2017-06-21 14:10 | P.GSCN ---
History of Present Illness Consult date: 06/21/17 Reason for Consult: Abdominal distention History of present illness: Patient is known to our service. She has an obstructing esophageal cancer. Currently undergoing chemoradiation. Recently she has had some abdominal bloating. Some bilious drainage around the G-tube site. Mild abdominal discomforts. Some issues with chronic constipation. Recently however she was tolerating her tube feeds at goal. CAT scan showed some dilation of the colon proximally. No history of colonoscopy. There is stool in the distal rectum. The history is obtained from the patient's daughter by phone. Review of Systems The patient denies any acute changes in vision or hearing, no dysphagia or odynophagia, no chest pain or shortness of breath, no dysuria or hematuria, no headache, no runny nose, no rectal bleeding or melena Past Medical History Past Medical History: Cancer, COPD, Diabetes Mellitus, Hyperlipidemia, Hypertension, Myocardial Infarction ([place]) Additional Past Medical History / Comment(s): Stress incontinence, wears briefs , esophageal cancer December 2016, has had 5 rounds of chemo, kidney stones, hydronephrosis right kidney, spleen aneurysm, Last Myocardial Infarction Date:: 2014 History of Any Multi-Drug Resistant Organisms: None Reported Past Surgical History: Appendectomy, Cholecystectomy, Heart Catheterization, Hysterectomy Additional Past Surgical History / Comment(s): Bladder sling, stress incontinence. lumpectomy left breast, feeding tube, infusion port Past Anesthesia/Blood Transfusion Reactions: No Reported Reaction Past Psychological History: Anxiety, Depression, Panic Disorder Smoking Status: Former smoker - Past Family History Mother Family Medical History: Cancer Additional Family Medical History / Comment(s): Throat Father Family Medical History: Myocardial Infarction ([place]) Additional Family Medical History / Comment(s): Arthrosclorosis Brother(s) Family Medical History: Myocardial Infarction ([place]) Medications and Allergies Home Medications Medication Instructions Recorded Confirmed Type ALPRAZolam [Xanax] 1 mg PEG/G-TUBE TID 04/09/15 06/20/17 History Cholecalciferol [Vitamin D3] 2,000 unit PEG/G-TUBE DAILY 04/09/15 06/20/17 History PARoxetine [Paxil] 20 mg PEG/G-TUBE HS 04/09/15 06/20/17 History Budesonide-Formot 160-4.5 Mcg 2 puff INHALATION RT-BID #1 puff 04/12/15 Rx [Symbicort 160-4.5 Mcg Inhaler] Famotidine [Pepcid] 20 mg PEG/G-TUBE BID@0500,2200 12/04/16 06/20/17 History Glimepiride [Amaryl] 2 mg PEG/G-TUBE BID 12/04/16 06/20/17 History Ipratropium-Albuterol Nebulize 3 ml INHALATION RT-BID 12/05/16 06/20/17 History [Duoneb 0.5 mg-3 mg/3 ml Soln] Acetaminophen Tab [Tylenol] 650 mg PEG/G-TUBE DAILY@1900 PRN 01/11/17 06/20/17 History Ondansetron Odt [Zofran ODT] 4 mg SUBLINGUAL Q6HR PRN 01/12/17 06/20/17 History diphenhydrAMINE [Benadryl] 50 mg PEG/G-TUBE HS 01/12/17 06/20/17 History Carvedilol [Coreg] 25 mg PEG/G-TUBE BID 02/17/17 06/20/17 History Hydrochlorothiazide [Hydrodiuril] 25 mg PEG/G-TUBE DAILY 02/17/17 06/20/17 History HYDROcodone/APAP 7.5-325MG [[place] 1 tab PEG/G-TUBE Q4H PRN 05/08/17 06/20/17 History 7.5-325] fentaNYL [Duragesic 25MCG/HR] 1 patch TRANSDERM Q72H 05/08/17 06/20/17 History Lactulose [Cephulac] 10 gm PO BID PRN 05/20/17 06/21/17 History Atorvastatin [Lipitor] 40 mg PEG/G-TUBE HS 05/31/17 06/20/17 History Allergies Allergy/AdvReac Type Severity Reaction Status Date / Time nickel Allergy Rash/Hives Verified 06/20/17 22:42 phenazopyridine HCl Allergy Anaphylaxis Verified 06/20/17 22:42 [From Pyridium] prochlorperazine Allergy Anaphylaxis Verified 06/20/17 22:42 [From Compazine] prochlorperazine edisylate Allergy Anaphylaxis Verified 06/20/17 22:42 [From Compazine] prochlorperazine maleate Allergy Anaphylaxis Verified 06/20/17 22:42 [From Compazine] Sulfa (Sulfonamide Allergy Unknown Verified 06/20/17 22:42 Antibiotics) metformin AdvReac Nausea & Verified 06/20/17 22:42 Vomiting & Diarrhea Surgical - Exam Vital Signs Temp Pulse Resp BP Pulse Ox 97.9 F 104 H 18 118/69 95 06/20/17 22:05 06/20/17 22:05 06/20/17 22:05 06/20/17 22:05 06/20/17 22:05 Physical exam: General: Well-developed, malnourished HEENT: Normocephalic, sclerae nonicteric Abdomen: Mild distention, mild tenderness, some bilious drainage around the G- tube site Extremities: No edema Neuro: Alert and confused Results - Labs 06/21/17 12:40 06/21/17 12:40 Abnormal Lab Results - Last 24 Hours (Table) 06/20/17 06/20/17 06/20/17 Range/Units 22:04 22:04 22:04 WBC 2.9 L (3.8-10.6) k/uL RBC 2.69 L (3.80-5.40) m/uL Hgb 8.1 L D (11.4-16.0) gm/dL Hct 24.9 L (34.0-46.0) % RDW 16.7 H (11.5-15.5) % Plt Count 77 L (150-450) k/uL Neutrophils # (Manual) 1.10 L (1.3-7.7) k/uL Lymphocytes # (1.0-4.8) k/uL Sodium 133 L (137-145) mmol/L Potassium 2.9 L* (3.5-5.1) mmol/L Chloride 88 L (98-107) mmol/L Carbon Dioxide 34 H (22-30) mmol/L BUN 34 H (7-17) mg/dL Glucose 155 H (74-99) mg/dL AST 13 L (14-36) U/L Total Creatine Kinase <20 L (30-135) U/L Total Protein (6.3-8.2) g/dL Albumin 3.3 L (3.5-5.0) g/dL Urine Appearance (Clear) Urine Protein (Negative) Urine Nitrite (Negative) Ur Leukocyte Esterase (Negative) Urine WBC (0-5) /hpf Urine Bacteria (None) /hpf Urine Mucus (None) /hpf 06/21/17 06/21/17 06/21/17 Range/Units 00:57 12:40 12:40 WBC 3.3 L (3.8-10.6) k/uL RBC 2.44 L (3.80-5.40) m/uL Hgb 7.3 L (11.4-16.0) gm/dL Hct 22.5 L (34.0-46.0) % RDW 16.6 H (11.5-15.5) % Plt Count 76 L (150-450) k/uL Neutrophils # (Manual) (1.3-7.7) k/uL Lymphocytes # 0.9 L (1.0-4.8) k/uL Sodium 136 L (137-145) mmol/L Potassium (3.5-5.1) mmol/L Chloride 92 L (98-107) mmol/L Carbon Dioxide 35 H (22-30) mmol/L BUN 28 H (7-17) mg/dL Glucose 140 H (74-99) mg/dL AST (14-36) U/L Total Creatine Kinase (30-135) U/L Total Protein 5.9 L (6.3-8.2) g/dL Albumin 2.9 L (3.5-5.0) g/dL Urine Appearance Cloudy H (Clear) Urine Protein Trace H (Negative) Urine Nitrite Positive H (Negative) Ur Leukocyte Esterase Trace H (Negative) Urine WBC 6 H (0-5) /hpf Urine Bacteria Many H (None) /hpf Urine Mucus Rare H (None) /hpf Microbiology - Last 24 Hours (Table) 06/21/17 00:57 Urine Culture - Preliminary Urine,Catheterized Diabetes panel 06/20/17 06/21/17 Range/Units 22:04 12:40 Sodium 133 L 136 L (137-145) mmol/L Potassium 2.9 L* 3.7 (3.5-5.1) mmol/L Chloride 88 L 92 L (98-107) mmol/L Carbon Dioxide 34 H 35 H (22-30) mmol/L BUN 34 H 28 H (7-17) mg/dL Creatinine 0.70 0.62 (0.52-1.04) mg/dL Glucose 155 H 140 H (74-99) mg/dL Calcium 8.6 8.8 (8.4-10.2) mg/dL AST 13 L 15 (14-36) U/L ALT 26 23 (9-52) U/L Alkaline Phosphatase 118 117 (38-126) U/L Total Protein 6.3 5.9 L (6.3-8.2) g/dL Albumin 3.3 L 2.9 L (3.5-5.0) g/dL Thyroid panel 06/20/17 Range/Units 22:04 TSH 1.620 (0.465-4.680) mIU/L Calcium panel 06/20/17 06/21/17 Range/Units 22:04 12:40 Calcium 8.6 8.8 (8.4-10.2) mg/dL Albumin 3.3 L 2.9 L (3.5-5.0) g/dL Pituitary panel 06/20/17 06/21/17 Range/Units 22:04 12:40 Sodium 133 L 136 L (137-145) mmol/L Potassium 2.9 L* 3.7 (3.5-5.1) mmol/L Chloride 88 L 92 L (98-107) mmol/L Carbon Dioxide 34 H 35 H (22-30) mmol/L BUN 34 H 28 H (7-17) mg/dL Creatinine 0.70 0.62 (0.52-1.04) mg/dL Glucose 155 H 140 H (74-99) mg/dL Calcium 8.6 8.8 (8.4-10.2) mg/dL TSH 1.620 (0.465-4.680) mIU/L Adrenal panel 06/20/17 06/21/17 Range/Units 22:04 12:40 Sodium 133 L 136 L (137-145) mmol/L Potassium 2.9 L* 3.7 (3.5-5.1) mmol/L Chloride 88 L 92 L (98-107) mmol/L Carbon Dioxide 34 H 35 H (22-30) mmol/L BUN 34 H 28 H (7-17) mg/dL Creatinine 0.70 0.62 (0.52-1.04) mg/dL Glucose 155 H 140 H (74-99) mg/dL Calcium 8.6 8.8 (8.4-10.2) mg/dL Total Bilirubin 0.3 0.2 (0.2-1.3) mg/dL AST 13 L 15 (14-36) U/L ALT 26 23 (9-52) U/L Alkaline Phosphatase 118 117 (38-126) U/L Total Protein 6.3 5.9 L (6.3-8.2) g/dL Albumin 3.3 L 2.9 L (3.5-5.0) g/dL Assessment and Plan (1) Abdominal pain Narrative/Plan: Will discontinue the suction on the gastrostomy tube and switched to dependent drainage. Depending on the output reconsider starting tube feeds tomorrow. Dulcolax suppositories daily. Again her history and plan of action was discussed with the daughter by phone. Current Visit: Yes Status: Acute Code(s): R10.9 - UNSPECIFIED ABDOMINAL PAIN OMED Code(s): 88857216
[2017-06-21] MEDS: HEPARIN SODIUM,PORCINE 5,000 UNIT/ML 1 ML VIAL SQ SCH ×2 (14:18→21:26)
[2017-06-21] MEDS: PANTOPRAZOLE 40 MG/10 ML VIAL IVP SCH ×2 (14:18→21:48)
[2017-06-21] MEDS ORDERED: VANCOMYCIN IV PER PHARMACY 1 EACH MISC MISCELLANE PRN (16:59)
[2017-06-21] MEDS: CEFEPIME 2 GM in SODIUM CHLORIDE 0.9% 50 ML IVPB SCH (17:58)
[2017-06-21] MEDS: BISACODYL 10 MG SUPP RECTAL SCH (17:58)
--- NOTE | 2017-06-21 18:25 | HP ---
HISTORY AND PHYSICAL DATE OF SERVICE: 06/21/2017 CHIEF COMPLAINTS: Multiple complaints, including abdominal distention, weakness, fatigue and vomiting. HISTORY OF PRESENT ILLNESS: This 67-year-old woman with a past medical history of recently diagnosed esophageal cancer has a PEG tube placed. The patient is receiving radiation therapy and chemotherapy as well. The patient was noted to have diffuse abdominal discomfort and weakness. The patient had abdominal bloating also. Some biliary drainage of the G-tube was also noted. CT scan of the abdomen and pelvis was done which showed nodular lower lobe pulmonary infiltrate. Multiple hypodense liver lesions were also noted, which is rather increased. A chest CTA was also done which showed no evidence of pulmonary embolism. Multiple pulmonary nodules were noted. Fluid-filled esophagus with distal obstruction was also noted. The white count is 3.3, hemoglobin 7.3, and platelets 76, indicating pancytopenia. The patient is running a mild fever. The patient is admitted for further evaluation and treatment. There is no history or any headache, loss of consciousness, seizures. PAST MEDICAL HISTORY: 1. History of esophageal carcinoma with antecedent treatments, as mentioned earlier. 2. COPD. 3. Diabetes mellitus. 4. Hypertension. 5. Hyperlipidemia. 6. History of myocardial infarction. 7. History of anxiety, depression, panic disorder. HOME MEDICATIONS: 1. Lactulose 10 grams b.i.d. p.r.n. 2. Duragesic patch 25 mcg q.72 p.r.n. 3. Benadryl 50 mg per PEG tube. 4. Paxil 20 mg per PEG tube. 5. Zofran 4 mg q.6 p.r.n. 6. DuoNeb b.i.d. 7. HydroDIURIL 25 mg daily. 8. [place] 7.5 q.4 p.r.n. 9. Amaryl 2 mg p.o. b.i.d. 10.Pepcid 20 mg b.i.d. 11.Vitamin D3 2000 daily. 12.Coreg 25 mg b.i.d. 13.Symbicort 160/4.5 two puffs b.i.d. 14.Lipitor 40 mg at bedtime. 15.Tylenol 650 daily. 16.Xanax 1 tablet p.o. t.i.d. ALLERGIES: 1. NICKEL. 2. PYRIDIUM. 3. COMPAZINE. 4. SULFA. 5. ANTIBIOTICS. 6. METFORMIN. FAMILY HISTORY: History of throat cancer in the family. SOCIAL HISTORY: Previous history of smoking. No history of alcohol intake. REVIEW OF SYSTEMS: ENT: Diminished hearing. Diminished vision. CARDIOVASCULAR SYSTEM: No angina, palpitations. RESPIRATORY SYSTEM: As mentioned earlier. GI: As mentioned earlier. : No dysuria or retention. NERVOUS SYSTEM: No numbness, weakness. ALLERGY/IMMUNOLOGY: No asthma, hayfever. MUSCULOSKELETAL: As mentioned earlier. HEMATOLOGY/ONCOLOGY: No history of anemia. ENDOCRINE: No history of diabetes, hypothyroidism. CONSTITUTIONAL: As mentioned earlier. DERMATOLOGY: Negative. RHEUMATOLOGY: Negative. PSYCHIATRY: As mentioned earlier. PHYSICAL EXAMINATION: Patient is alert, oriented x3. Pulse is 91, blood pressure 110/70, respiration 16, temperature 98.5, pulse ox 97% on room air. HEENT: Conjunctivae normal. Oral mucosa moist. NECK: No jugular venous distention. No carotid bruit. No lymph node enlargement. CARDIOVASCULAR SYSTEM: S1, S2 muffled. No S3. No S4. RESPIRATORY SYSTEM: Breath sounds diminished at the bases. A few scattered rhonchi and crackles. ABDOMEN: Soft. Mild diffuse distention present. G-tube in situ. No mass palpable. Bowel sounds diminished. Minimal bleeding around the umbilicus. LEGS: Minimal edema. NERVOUS SYSTEM: Higher functions as mentioned earlier. Moves all 4 limbs. Mild diffuse weakness. LYMPHATICS: No lymph node palpable in neck, axillae or groin. SKIN: No ulcer, rash, bleeding. LABS: WBC 3.3, hemoglobin 7.3, platelets 76. Sodium 136, potassium 3.7. UA noted. ASSESSMENT: 1. Abdominal pain, possibly ileus. 2. Esophageal carcinoma with metastases to the liver and lung, possibly progressing per CT. 3. Large bowel dilatation on the right side with fluid levels consistent with ileus on the CT. 4. Chronic obstructive pulmonary disease. 5. Rule out sepsis. 6. Pancytopenia secondary to chemoradiation. 7. Esophageal cancer, on chemoradiation. 8. Generalized weakness. 9. Hypertension. 10.Diabetes mellitus, type 2. 11.Hyponatremia. RECOMMENDATIONS AND DISCUSSION: In this 67-year-old woman who presented with multiple complex medical issues, we will monitor the patient closely, continue the current medications, continue with symptomatic treatment. Otherwise at this time I would recommend suction and further manipulation of the G-tube per Dr. Pack. Continue to monitor. I would also recommend a course of bronchodilators and empiric antibiotics. Also follow the cultures to rule out possible sepsis because of the neutropenia and pancytopenia. Otherwise, resume the rest of the medications. DVT prophylaxis. Guarded prognosis because of multiple complex medical issues. I reviewed the consultants' notes and x-rays and CT scans and discussed with the family. Prognosis guarded. See orders for further details. Further recommendations to follow. MMODL / IJN: [id number] /
[2017-06-21] MEDS ORDERED: ACETAMINOPHEN TAB 325 MG TAB PEG/G-TUBE PRN (19:00)
[2017-06-21] MEDS: VANCOMYCIN 1,250 MG in SODIUM CHLORIDE 0.9% 250 ML IVPB SCH (19:38)
[2017-06-21] MEDS: IPRATROPIUM-ALBUTEROL 3 ML NEB INHALATION SCH (21:10)
[2017-06-21] MEDS: SYMBICORT 160-4.5 MCG INHALER INHALATION SCH (21:10)
[2017-06-21] MEDS: PARoxetine 20 MG TAB PEG/G-TUBE SCH (21:19)
[2017-06-21] MEDS: ATORVASTATIN 40 MG TAB PEG/G-TUBE SCH (21:19)
[2017-06-21] MEDS: CARVEDILOL 12.5 MG TAB PEG/G-TUBE SCH (21:19)
[2017-06-21] MEDS: diphenhydrAMINE 25 MG CAP PEG/G-TUBE SCH (21:19)
[2017-06-21] MEDS: GLIMEPIRIDE 2 MG TAB PEG/G-TUBE SCH (21:19)
[2017-06-22] MEDS: CEFEPIME 2 GM in SODIUM CHLORIDE 0.9% 50 ML IVPB SCH ×4 (00:12→23:11)
--- NOTE | 2017-06-22 00:28 | P.CONS ---
History of Present Illness - Reason for Consult Consult date: 06/21/17 Ileus, metastatic esophageal adenoca - Chief Complaint Nausea and vomitting - History of Present Illness The pt is a 67 yr old WF, diagnosed with advanced esophageal stricture in , with biopsies showing adenoca. She had a J tube placed for feeding in early 12/27, with an omental nodule biopsied at the time, confirming metastatic disease. PET showed upper abdominal heri and omental metastases. She had a prolonged hospitalization in 01/27 for tube malfunction and abdominal pain. She was then treated with carboplatin /Taxol/Hercpetin. She did have a partial response initially, but then was noted to have progression at the primary site on EGD done in late 05/30. She was then started on palliative RT The pt had developed progressive abdominal distension and pain, associated with weakness. She had been lethargic, and had apparently coughed up small amounts of blood. mild bleeding had also been noted from a mass in the umbilical area. Her heart rate at home was elevated CT scans in the ER showed ileus, with CTA negative for PE. Progression of malignancy was noted. Case was d/w with the ER physician, and the pt admitted for further management. Review of Systems Constitutional: Reports chronic pain, Reports poor appetite, Reports weakness Eyes: denies blurred vision, denies pain Ears: deny: decreased hearing, ear discharge, earache, tinnitus Ears, nose, mouth and throat: Reports dysphagia, Reports odynophagia, Denies headache, Denies sore throat Cardiovascular: Reports decreased exercise tolerance, Reports palpitations Respiratory: Reports hemoptysis (Questionable), Denies cough Gastrointestinal: Reports as per HPI, Reports abdominal pain, Reports constipation Genitourinary: Reports as per HPI Menstruation: Reports postmenopausal Musculoskeletal: Reports muscle weakness Integumentary: Denies pruritus, Denies rash Neurological: Reports change in mentation, Reports weakness Psychiatric: Reports difficulty concentrating Endocrine: Reports fatigue, Reports weight change Hematologic/Lymphatic: Reports as per HPI Past Medical History Past Medical History: Cancer, COPD, Diabetes Mellitus, Hyperlipidemia, Hypertension, Myocardial Infarction ([place]) Additional Past Medical History / Comment(s): Stress incontinence, wears briefs , esophageal cancer December 2016, has had 5 rounds of chemo, kidney stones, hydronephrosis right kidney, spleen aneurysm, Last Myocardial Infarction Date:: 2014 History of Any Multi-Drug Resistant Organisms: None Reported Past Surgical History: Appendectomy, Cholecystectomy, Heart Catheterization, Hysterectomy Additional Past Surgical History / Comment(s): Bladder sling, stress incontinence. lumpectomy left breast, feeding tube, infusion port Past Anesthesia/Blood Transfusion Reactions: No Reported Reaction Past Psychological History: Anxiety, Depression, Panic Disorder Smoking Status: Former smoker - Past Family History Mother Family Medical History: Cancer Additional Family Medical History / Comment(s): Throat Father Family Medical History: Myocardial Infarction (ND) Additional Family Medical History / Comment(s): Arthrosclorosis Brother(s) Family Medical History: Myocardial Infarction (ND) Medications and Allergies Home Medications Medication Instructions Recorded Confirmed Type ALPRAZolam [Xanax] 1 mg PEG/G-TUBE TID 04/09/15 06/20/17 History Cholecalciferol [Vitamin D3] 2,000 unit PEG/G-TUBE DAILY 04/09/15 06/20/17 History PARoxetine [Paxil] 20 mg PEG/G-TUBE HS 04/09/15 06/20/17 History Budesonide-Formot 160-4.5 Mcg 2 puff INHALATION RT-BID #1 puff 04/12/15 Rx [Symbicort 160-4.5 Mcg Inhaler] Famotidine [Pepcid] 20 mg PEG/G-TUBE BID@0500,2200 12/04/16 06/20/17 History Glimepiride [Amaryl] 2 mg PEG/G-TUBE BID 12/04/16 06/20/17 History Ipratropium-Albuterol Nebulize 3 ml INHALATION RT-BID 12/05/16 06/20/17 History [Duoneb 0.5 mg-3 mg/3 ml Soln] Acetaminophen Tab [Tylenol] 650 mg PEG/G-TUBE DAILY@1900 PRN 01/11/17 06/20/17 History Ondansetron Odt [Zofran ODT] 4 mg SUBLINGUAL Q6HR PRN 01/12/17 06/20/17 History diphenhydrAMINE [Benadryl] 50 mg PEG/G-TUBE HS 01/12/17 06/20/17 History Carvedilol [Coreg] 25 mg PEG/G-TUBE BID 02/17/17 06/20/17 History Hydrochlorothiazide [Hydrodiuril] 25 mg PEG/G-TUBE DAILY 02/17/17 06/20/17 History HYDROcodone/APAP 7.5-325MG [[place] 1 tab PEG/G-TUBE Q4H PRN 05/08/17 06/20/17 History 7.5-325] fentaNYL [Duragesic 25MCG/HR] 1 patch TRANSDERM Q72H 05/08/17 06/20/17 History Lactulose [Cephulac] 10 gm PO BID PRN 05/20/17 06/21/17 History Atorvastatin [Lipitor] 40 mg PEG/G-TUBE HS 05/31/17 06/20/17 History Allergies Allergy/AdvReac Type Severity Reaction Status Date / Time nickel Allergy Rash/Hives Verified 06/20/17 22:42 phenazopyridine HCl Allergy Anaphylaxis Verified 06/20/17 22:42 [From Pyridium] prochlorperazine Allergy Anaphylaxis Verified 06/20/17 22:42 [From Compazine] prochlorperazine edisylate Allergy Anaphylaxis Verified 06/20/17 22:42 [From Compazine] prochlorperazine maleate Allergy Anaphylaxis Verified 06/20/17 22:42 [From Compazine] Sulfa (Sulfonamide Allergy Unknown Verified 06/20/17 22:42 Antibiotics) metformin AdvReac Nausea & Verified 06/20/17 22:42 Vomiting & Diarrhea Physical Exam Vitals: Vital Signs Temp Pulse Pulse Resp BP BP Pulse Ox 06/21/17 08:20 98.5 F 91 16 110/70 97 06/21/17 06:50 99.0 F 92 18 113/56 96 06/21/17 05:37 89 18 117/57 06/21/17 05:13 88 18 103/53 96 06/21/17 03:17 90 17 100/53 97 06/21/17 02:35 94 18 104/52 97 06/21/17 00:40 87 18 109/59 98 06/20/17 23:27 88 18 118/61 95 06/20/17 23:16 98.8 F 88 18 109/59 97 06/20/17 22:05 97.9 F 104 H 18 118/69 95 Intake and Output 02/08/18 02/09/18 02/09/18 22:59 06:59 14:59 Intake Total 190 Balance 190 Intake: Intake, IV Titration 190 Amount Potassium Chloride 20 meq 50 In Water For Injection 1 100ml.bag @ 50 mls/hr IVPB ONCE STA Rx#: [id number] Sodium Chloride 0.9% 1, 140 000 ml @ 20 mls/hr IV . Q24H PENDING SALE TO [facility] Rx#:[id number] Other: Weight 49.895 kg 49.895 kg Patient Weight 06/22/17 06:59 Weight 49.895 kg - Constitutional Chronically ill General appearance: no acute distress, thin - EENT alopecia Eyes: EOMI, PERRLA ENT: hearing grossly normal, normal oropharynx - Neck Neck: no lymphadenopathy - Respiratory no increased repiratory distress Respiratory: bilateral: diminished - Cardiovascular Rhythm: regular Heart sounds: normal: S1, S2 - Gastrointestinal Peg tube with green, bile-like output, ordered to LIS, although currently capped General gastrointestinal: decreased bowel sounds, distended Localized gastrointestinal: tender: epigastric periumbilical, suprabubic, midline - Integumentary Integumentary: normal - Neurologic No focal defects. Lethargic, slow affect, but responses are appropriate - Musculoskeletal Musculoskeletal: generalized weakness, strength equal bilaterally - Psychiatric lethargic, flat facial affect Results CBC & Chem 7: 06/21/17 12:40 06/21/17 12:40 Labs: Abnormal Lab Results - Last 24 Hours (Table) 06/20/17 06/20/17 06/20/17 Range/Units 22:04 22:04 22:04 WBC 2.9 L (3.8-10.6) k/uL RBC 2.69 L (3.80-5.40) m/uL Hgb 8.1 L D (11.4-16.0) gm/dL Hct 24.9 L (34.0-46.0) % RDW 16.7 H (11.5-15.5) % Plt Count 77 L (150-450) k/uL Neutrophils # (Manual) 1.10 L (1.3-7.7) k/uL Lymphocytes # (1.0-4.8) k/uL Sodium 133 L (137-145) mmol/L Potassium 2.9 L* (3.5-5.1) mmol/L Chloride 88 L (98-107) mmol/L Carbon Dioxide 34 H (22-30) mmol/L BUN 34 H (7-17) mg/dL Glucose 155 H (74-99) mg/dL AST 13 L (14-36) U/L Total Creatine Kinase <20 L (30-135) U/L Total Protein (6.3-8.2) g/dL Albumin 3.3 L (3.5-5.0) g/dL Urine Appearance (Clear) Urine Protein (Negative) Urine Nitrite (Negative) Ur Leukocyte Esterase (Negative) Urine WBC (0-5) /hpf Urine Bacteria (None) /hpf Urine Mucus (None) /hpf 06/21/17 06/21/17 06/21/17 Range/Units 00:57 12:40 12:40 WBC 3.3 L (3.8-10.6) k/uL RBC 2.44 L (3.80-5.40) m/uL Hgb 7.3 L (11.4-16.0) gm/dL Hct 22.5 L (34.0-46.0) % RDW 16.6 H (11.5-15.5) % Plt Count 76 L (150-450) k/uL Neutrophils # (Manual) (1.3-7.7) k/uL Lymphocytes # 0.9 L (1.0-4.8) k/uL Sodium 136 L (137-145) mmol/L Potassium (3.5-5.1) mmol/L Chloride 92 L (98-107) mmol/L Carbon Dioxide 35 H (22-30) mmol/L BUN 28 H (7-17) mg/dL Glucose 140 H (74-99) mg/dL AST (14-36) U/L Total Creatine Kinase (30-135) U/L Total Protein 5.9 L (6.3-8.2) g/dL Albumin 2.9 L (3.5-5.0) g/dL Urine Appearance Cloudy H (Clear) Urine Protein Trace H (Negative) Urine Nitrite Positive H (Negative) Ur Leukocyte Esterase Trace H (Negative) Urine WBC 6 H (0-5) /hpf Urine Bacteria Many H (None) /hpf Urine Mucus Rare H (None) /hpf Microbiology - Last 24 Hours (Table) 06/21/17 00:57 Urine Culture - Preliminary Urine,Catheterized CT scan - abdomen: report reviewed CT scan - chest: report reviewed CT scan - pelvis: report reviewed Assessment and Plan (1) Abdominal pain Narrative/Plan: This is felt to be secondary to possible ileus. She is iimproved with bowel rest and PEG tube to drainage. Surgery has been consulted. Await their input Current Visit: Yes Status: Acute Code(s): R10.9 - UNSPECIFIED ABDOMINAL PAIN SNOMED Code(s): 75020221 (2) Hypokalemia Narrative/Plan: Supplement K+ per floor protocol Current Visit: Yes Status: Acute Code(s): E87.6 - HYPOKALEMIA SNOMED Code( s): 56513246 (3) Ileus Narrative/Plan: Probably due to pain meds. Carcinomatosis is less likely. Improved clinically as noted. Mgmt per surgery Current Visit: Yes Status: Acute Code(s): K56.7 - ILEUS, UNSPECIFIED SNOMED Code(s): 221441965 (4) Esophageal stricture Narrative/Plan: This is due to progression of malignancy at the primary site. She has started palliative RT Current Visit: No Status: Acute Code(s): K22.2 - ESOPHAGEAL OBSTRUCTION SNOMED Code(s): 62705743 (5) Esophageal adenocarcinoma Narrative/Plan: CT scans this admission show progressive disease. RT is for palliative purposes only. Per Dr Sanchez, her primary oncologist, prognosis is felt to be poor Current Visit: No Status: Chronic Priority: Medium Code(s): C15.9 - MALIGNANT NEOPLASM OF ESOPHAGUS, UNSPECIFIED SNOMED Code(s): 957369169 (6) Pancytopenia due to antineoplastic chemotherapy Narrative/Plan: Her pancytopania is still persistent despite being off chemo for some weeks. CHeck for nutritional deficiencies. Monitor counts and supplement as needed Current Visit: Yes Status: Acute Code(s): D61.810 - ANTINEOPLASTIC CHEMOTHERAPY INDUCED PANCYTOPENIA; T45.1X5A - ADVERSE EFFECT OF ANTINEOPLASTIC AND IMMUNOSUP DRUGS, INIT SNOMED Code(s): 730766273312752
[2017-06-22] MEDS: HYDROmorphone 0.5 MG/0.5 ML SYRINGE IVP PRN ×3 (05:28→15:53)
[2017-06-22] MEDS: SODIUM CHLORIDE 0.9% 1,000 ML IV SCH (05:31)
[2017-06-22 07:12] LABS: Anisocytosis Slight; Basophils % (A) 0 %; Eosinophils % (A) 0 %; HCT 25.2 % (34.0-46.0); HGB 7.9 gm/dL (11.4-16.0); Hypochromasia Slight; Lymphocytes # (A) 0.7 k/uL (1.0-4.8); Lymphocytes % (A) 19 %; MCH 29.5 pg (25.0-35.0); MCHC 31.3 g/dL (31.0-37.0); MCV 94.2 fL (80.0-100.0); Mean Platelet Volume 7.7; Monocytes # (A) 0.2 k/uL (0-1.0); Monocytes % (A) 6 %; Neutrophils # (A) 2.7 k/uL (1.3-7.7); Neutrophils % (A) 72 %; RBC 2.68 m/uL (3.80-5.40); RDW 16.5 % (11.5-15.5); WBC 3.8 k/uL (3.8-10.6)
[2017-06-22 07:15] LABS: Platelet Count 86 k/uL (150-450)
[2017-06-22 07:23] LABS: Anion Gap 11 mmol/L; Blood Urea Nitrogen 25 mg/dL (7-17); Calcium 9.4 mg/dL (8.4-10.2); Carbon Dioxide 34 mmol/L (22-30); Chloride 96 mmol/L (98-107); Glucose 212 mg/dL (74-99); Magnesium 1.9 mg/dL (1.6-2.3); Sodium 141 mmol/L (137-145)
[2017-06-22] MEDS: VANCOMYCIN 1,250 MG in SODIUM CHLORIDE 0.9% 250 ML IVPB SCH (07:43)
[2017-06-22] MEDS: BISACODYL 10 MG SUPP RECTAL SCH (07:46)
[2017-06-22] MEDS: CARVEDILOL 12.5 MG TAB PEG/G-TUBE SCH ×2 (07:47→21:05)
[2017-06-22] MEDS: GLIMEPIRIDE 2 MG TAB PEG/G-TUBE SCH ×2 (07:47→21:04)
[2017-06-22] MEDS: CHOLECALCIFEROL 1,000 UNIT TAB PEG/G-TUBE SCH (07:47)
[2017-06-22] MEDS: HYDROCHLOROTHIAZIDE 25 MG TAB PEG/G-TUBE SCH (07:47)
[2017-06-22] MEDS: HEPARIN SODIUM,PORCINE 5,000 UNIT/ML 1 ML VIAL SQ SCH ×2 (07:48→21:04)
[2017-06-22] MEDS: PANTOPRAZOLE 40 MG/10 ML VIAL IVP SCH ×2 (07:48→21:04)
[2017-06-22] MEDS: IPRATROPIUM-ALBUTEROL 3 ML NEB INHALATION SCH ×2 (09:21→21:39)
[2017-06-22] MEDS: SYMBICORT 160-4.5 MCG INHALER INHALATION SCH ×2 (09:21→21:39)
--- NOTE | 2017-06-22 09:37 | P.PN ---
Progress Note - Text Progress Note Date: 06/22/17 The patient is resting in bed. She's had her gastrostomy tube connected to low intermittent suction. There is some bilious fluid in the canister. On exam vital signs are stable. Her abdomen is soft. The patient will start tube feeds. Her prognosis is poor.
[2017-06-22] MEDS: ONDANSETRON 4 MG/2 ML VIAL IVP PRN ×2 (09:56→15:53)
[2017-06-22 10:44] LABS: Iron Saturation 14.75 (12.00-45.00)
[2017-06-22 11:56] LABS: Glucose,Whole Blood 190 mg/dL (75-99)
[2017-06-22] MEDS: VANCOMYCIN 1,000 MG in SODIUM CHLORIDE 0.9% 250 ML IVPB SCH (17:42)
[2017-06-22 17:58] LABS: Glucose,Whole Blood 192 mg/dL (75-99)
--- NOTE | 2017-06-22 19:08 | PN ---
PROGRESS NOTE DATE OF SERVICE: 06/22/2017 This 67-year-old woman who was admitted with abdominal pain and possibly ileus is being closely monitored. Patient also has esophageal carcinoma with multiple metastases. Also, the patient is on NG tube suction. Surgery is recommending to initiate tube feeds, but patient is apparently refusing. The patient is complaining of severe pain, also. The patient is mildly confused. PAST MEDICAL HISTORY: Reviewed. REVIEW OF SYSTEMS: CARDIOVASCULAR: No angina, palpitations. RESPIRATORY: As mentioned earlier. GI: As mentioned earlier. : No dysuria. NERVOUS: Diffusely weak. CURRENT MEDICATIONS: Reviewed, include: 1. Tylenol 650 per PEG daily. 2. [place] 7.5. 3. DuoNeb. 4. Xanax. 5. Lipitor 40 mg. 6. Dulcolax. 7. Symbicort 160/4.5, 2 puffs q.i.d. 8. Coreg. 9. Cefepime 2 g q.8h. 10.Vitamin D3. 11.Benadryl. 12.Duragesic patch. 13.HydroDIURIL. 14.Dilaudid. PHYSICAL EXAM: Patient is alert, oriented x1. Pulse 90, blood pressure 174/94, respiration 18, temperature 99.7 degrees, pulse ox 97% on 2L. HEENT: Conjunctivae normal. Oral mucosa moist. NECK: No jugular venous distention. No carotid bruits. No lymph node enlargement. CARDIOVASCULAR: S1, S2 muffled. RESPIRATORY: Breath sounds diminished in the bases. A few scattered rhonchi and crackles. ABDOMEN: Soft. Obese, mild diffuse discomfort on palpation. No guarding. No rigidity. No mass palpable. LEGS: No edema. No swelling. NERVOUS SYSTEM: Diffusely weak. LABS: WBC 3.8, hemoglobin 7.9. Otherwise, glucose 121. UA gram-negative bacilli. ASSESSMENT: 1. Abdominal pain, possibly ileus, on intermittent nasogastric suction. 2. Possible urinary tract infection. 3. History of carcinoma with metastatic liver and lung, possibly progressing per recent CT. 4. Large-bowel dilatation on the right side with fluid levels consistent with ileus on the CT. 5. Chronic obstructive pulmonary disease. 6. Rule out sepsis. 7. Pancytopenia secondary to chemotherapy and radiation. 8. Generalized weakness. 9. Hypertension. 10.Diabetes mellitus type 2. 11.Hyponatremia. RECOMMENDATIONS AND DISCUSSION: Recommend to continue current medical management and continue symptomatic treatment. Otherwise, continue with broad-spectrum IV antibiotics. Follow the cultures. Otherwise, tube feeds per Surgery. Continue fentanyl patch. Continue the rest of the medications. Repeat labs in the morning. Monitor blood sugars closely. Potassium is corrected at this time. Hemoglobin is still 7.9. Continue to monitor. Prognosis guarded because of multiple complex medical issues. Further recommendations to follow. MMODL / IJN: [id number] / [place]
[2017-06-22] MEDS: ATORVASTATIN 40 MG TAB PEG/G-TUBE SCH (21:04)
[2017-06-22] MEDS: PARoxetine 20 MG TAB PEG/G-TUBE SCH (21:04)
[2017-06-22] MEDS: diphenhydrAMINE 25 MG CAP PEG/G-TUBE SCH (21:08)
[2017-06-22] MEDS: HYDROcodone/APAP 7.5-325MG 1 EACH TAB PEG/G-TUBE PRN (21:08)
[2017-06-23 00:04] LABS: Glucose,Whole Blood 118 mg/dL (75-99)
[2017-06-23 06:04] LABS: Glucose,Whole Blood 196 mg/dL (75-99)
[2017-06-23] MEDS: VANCOMYCIN 1,000 MG in SODIUM CHLORIDE 0.9% 250 ML IVPB SCH ×2 (06:18→18:22)
[2017-06-23] MEDS: SODIUM CHLORIDE 0.9% 1,000 ML IV SCH (07:37)
[2017-06-23 07:53] LABS: Anion Gap 14 mmol/L; Blood Urea Nitrogen 30 mg/dL (7-17); Calcium 9.3 mg/dL (8.4-10.2); Carbon Dioxide 30 mmol/L (22-30); Chloride 101 mmol/L (98-107); Glucose 200 mg/dL (74-99); Potassium 3.5 mmol/L (3.5-5.1); Sodium 145 mmol/L (137-145)
[2017-06-23] MEDS: IPRATROPIUM-ALBUTEROL 3 ML NEB INHALATION SCH ×2 (08:02→20:02)
[2017-06-23] MEDS: SYMBICORT 160-4.5 MCG INHALER INHALATION SCH ×2 (08:02→20:02)
--- NOTE | 2017-06-23 08:28 | P.PN ---
Progress Note - Text Progress Note Date: 06/23/17 The patient's nose complaints of abdominal pain. Her tube feedings were started yesterday. On exam her vital signs are stable. Her abdomen soft. Patient's condition is guarded. She'll continue to receive supportive care.
[2017-06-23 08:35] LABS: Anisocytosis Slight; Basophils % (A) 0 %; Eosinophils % (A) 0 %; HCT 29.4 % (34.0-46.0); HGB 8.7 gm/dL (11.4-16.0); Hypochromasia Moderate; Lymphocytes # (A) 0.7 k/uL (1.0-4.8); Lymphocytes % (A) 12 %; MCH 28.6 pg (25.0-35.0); MCHC 29.7 g/dL (31.0-37.0); MCV 96.4 fL (80.0-100.0); Mean Platelet Volume 7.6; Monocytes # (A) 0.3 k/uL (0-1.0); Monocytes % (A) 4 %; Neutrophils # (A) 5.1 k/uL (1.3-7.7); Neutrophils % (A) 83 %; RBC 3.05 m/uL (3.80-5.40); RDW 16.8 % (11.5-15.5); WBC 6.2 k/uL (3.8-10.6)
[2017-06-23 08:45] LABS: Platelet Count 93 k/uL (150-450)
[2017-06-23] MEDS: CEFEPIME 2 GM in SODIUM CHLORIDE 0.9% 50 ML IVPB SCH ×2 (08:54→15:40)
[2017-06-23] MEDS: CHOLECALCIFEROL 1,000 UNIT TAB PEG/G-TUBE SCH (09:01)
[2017-06-23] MEDS: HEPARIN SODIUM,PORCINE 5,000 UNIT/ML 1 ML VIAL SQ SCH ×2 (09:01→22:32)
[2017-06-23] MEDS: CARVEDILOL 12.5 MG TAB PEG/G-TUBE SCH ×2 (09:01→22:46)
[2017-06-23] MEDS: BISACODYL 10 MG SUPP RECTAL SCH (09:01)
[2017-06-23] MEDS: GLIMEPIRIDE 2 MG TAB PEG/G-TUBE SCH ×2 (09:01→22:47)
[2017-06-23] MEDS: HYDROCHLOROTHIAZIDE 25 MG TAB PEG/G-TUBE SCH (09:02)
[2017-06-23] MEDS: PANTOPRAZOLE 40 MG/10 ML VIAL IVP SCH ×2 (09:02→22:32)
[2017-06-23] MEDS: HYDROcodone/APAP 7.5-325MG 1 EACH TAB PEG/G-TUBE PRN (09:17)
[2017-06-23 11:55] LABS: Glucose,Whole Blood 165 mg/dL (75-99)
[2017-06-23] MEDS: ONDANSETRON 4 MG/2 ML VIAL IVP PRN (12:53)
[2017-06-23] MEDS ORDERED: VANCOMYCIN TROUGH DUE 1 EACH MISC MISCELLANE ONE (17:00)
--- NOTE | 2017-06-23 17:36 | PN ---
PROGRESS NOTE DATE OF SERVICE: 06/23/2017. INTERVAL HISTORY: This 67-year-old woman who was admitted with abdominal pain. Possible ileus is being closely monitored. The patient is feeling slightly better. Patient has diffuse aches and pains. Surgery is following the patient closely. No chest pain. No palpitations. No shortness of breath. PHYSICAL EXAM: Alert and oriented x2. Pulse is 86, blood pressure 175/70, respiration 18, temperature 98.7, pulse ox 93% on room air. HEENT is conjunctivae normal. Oral mucosa moist. Neck is no jugular venous distention. No carotid bruit. No lymph node enlargement. Cardiovascular: S1, S2 muffled. Respiratory: Breath sounds diminished in the bases. A few scattered rhonchi and crackles. ABDOMEN: Soft, nontender. Legs are no edema. No swelling. Central nervous system: No focal deficits. LABS: At this time: WBC 6.2, hemoglobin 8.7. ASSESSMENT: 1. Abdominal pain possibly ileus status post nasogastric suction. 2. Urinary tract infection with possible sepsis. 3. History of esophageal carcinoma with metastatic liver, lung possibly progressive per recent CT scan. 4. Large bowel dilatation right side fluid levels consistent with on the CAT scan. 5. Chronic obstructive pulmonary disease. 6. Rule out sepsis. 7. Pancytopenia secondary to chemotherapy and radiation. 8. Generalized weakness. 9. Hypertension. 10.Diabetes type 2. 11.Hyponatremia. RECOMMENDATIONS AND DISCUSSION: Recommend to continue current medications, symptomatic treatment. Continue with IV antibiotics. Continue the rest of the medications. Prognosis guarded because of multiple complex medical issues. Radiation. Further recommendations to follow. MMODL / IJN: [id number] / MTDD
[2017-06-23 17:52] LABS: Glucose,Whole Blood 124 mg/dL (75-99)
[2017-06-23] MEDS: HYDROmorphone 0.5 MG/0.5 ML SYRINGE IVP PRN (22:31)
[2017-06-23] MEDS: ATORVASTATIN 40 MG TAB PEG/G-TUBE SCH (22:46)
[2017-06-23] MEDS: PARoxetine 20 MG TAB PEG/G-TUBE SCH (22:47)
[2017-06-23] MEDS: diphenhydrAMINE 25 MG CAP PEG/G-TUBE SCH (22:47)
--- NOTE | 2017-06-24 00:38 | P.PN ---
Subjective Progress Note Date: 06/23/17 the patient appears somewhat stronger and more alert today. Tube feeds have been restarted and she appears to be tolerating it well. abdominal pain has improved Objective - Vital Signs Vital signs: Vital Signs Temp 98.7 F 06/23/17 15:00 Pulse 86 06/23/17 15:00 Resp 18 06/23/17 15:00 BP 175/79 06/23/17 15:00 Pulse Ox 93 L 06/23/17 15:00 Intake & Output 06/23/17 06/23/17 06/24/17 06:59 18:59 06:59 Intake Total 410 Output Total 50 Balance 360 Weight 54 kg Intake: IV 410 Sodium Chloride 0.9% 1, 160 000 ml @ 20 mls/hr IV . Q24H JESS Rx#:[id number] Vancomycin 1,250 mg In 250 Sodium Chloride 0.9% 250 ml @ 125 mls/hr IVPB Q12H JESS Rx#:[id number] Output: Gastric Drainage 50 Other: Voiding Method Diaper Bedside Commode Incontinent Diaper Incontinent # Voids 1 # Bowel Movements 1 1 - Constitutional General appearance: Present: no acute distress - EENT Eyes: Present: EOMI, PERRLA ENT: Present: hearing grossly normal, normal oropharynx - Respiratory Respiratory: bilateral: CTA - Cardiovascular Rhythm: regular Heart sounds: normal: S1, S2 - Gastrointestinal Gastrointestinal Comment(s): PEG tube site appears clean. No evidence of any recurrent bleeding from the umbilicus mass General gastrointestinal: Present: normal bowel sounds, soft - Integumentary Integumentary: Present: normal - Neurologic Neurologic: Present: CNII-XII intact - Musculoskeletal Musculoskeletal: Present: generalized weakness, strength equal bilaterally - Psychiatric Psychiatric: Present: A&O x's 3, appropriate affect - Labs CBC & Chem 7: 06/23/17 06:47 06/23/17 06:47 Labs: Abnormal Lab Results - Last 24 Hours (Table) 06/22/17 06/23/17 06/23/17 Range/Units 06:43 06:03 06:47 RBC 3.05 L (3.80-5.40) m/uL Hgb 8.7 L (11.4-16.0) gm/dL Hct 29.4 L (34.0-46.0) % MCHC 29.7 L (31.0-37.0) g/dL RDW 16.8 H (11.5-15.5) % Plt Count 93 L (150-450) k/uL Lymphocytes # 0.7 L (1.0-4.8) k/uL BUN (7-17) mg/dL Glucose (74-99) mg/dL POC Glucose (mg/dL) 196 H (75-99) mg/dL Iron 32 L (50-170) ug/dL TIBC 217 L (228-460) ug/dL Ferritin 686.8 H (10.0-291.0) ng/mL Vitamin B12 1228.0 H (200.0-944.0) pg/mL 06/23/17 06/23/17 06/23/17 Range/Units 06:47 11:52 17:50 RBC (3.80-5.40) m/uL Hgb (11.4-16.0) gm/dL Hct (34.0-46.0) % MCHC (31.0-37.0) g/dL RDW (11.5-15.5) % Plt Count (150-450) k/uL Lymphocytes # (1.0-4.8) k/uL BUN 30 H (7-17) mg/dL Glucose 200 H (74-99) mg/dL POC Glucose (mg/dL) 165 H 124 H (75-99) mg/dL Iron (50-170) ug/dL TIBC (228-460) ug/dL Ferritin (10.0-291.0) ng/mL Vitamin B12 (200.0-944.0) pg/mL Microbiology - Last 24 Hours (Table) 06/21/17 00:57 Urine Culture - Final Urine,Catheterized Escherichia coli 06/20/17 22:04 Blood Culture - Preliminary Blood No Growth after 48 hours Assessment and Plan (1) Abdominal pain Narrative/Plan: this may have been related to an ileus. With decompression, and abdominal exam, as well as symptoms are much improved. As noted, tube feeds have been restarted. Surgery is following. Current Visit: Yes Status: Acute Code(s): R10.9 - UNSPECIFIED ABDOMINAL PAIN SNOMED Code(s): 83996663 (2) Ileus Narrative/Plan: improved clinically, with placement of PEG tube tube drainage. Current Visit: Yes Status: Acute Code(s): K56.7 - ILEUS, UNSPECIFIED SNOMED Code(s): 041568929 (3) Esophageal stricture Narrative/Plan: malignant, due to progression at her primary site. She will resume palliative radiation tomorrow. Current Visit: No Status: Acute Code(s): K22.2 - ESOPHAGEAL OBSTRUCTION SNOMED Code(s): 25512427 (4) Esophageal adenocarcinoma Current Visit: No Status: Chronic Priority: Medium Code(s): C15.9 - MALIGNANT NEOPLASM OF ESOPHAGUS, UNSPECIFIED SNOMED Code(s): 392012289 (5) Pancytopenia due to antineoplastic chemotherapy Narrative/Plan: counts are stable in a safe range. There is no indication for transfusion currently. Continue to follow Current Visit: Yes Status: Acute Code(s): D61.810 - ANTINEOPLASTIC CHEMOTHERAPY INDUCED PANCYTOPENIA; T45.1X5A - ADVERSE EFFECT OF ANTINEOPLASTIC AND IMMUNOSUP DRUGS, INIT SNOMED Code(s): 666594780874821
[2017-06-24] MEDS: CEFEPIME 2 GM in SODIUM CHLORIDE 0.9% 50 ML IVPB SCH ×3 (01:12→16:41)
[2017-06-24 01:15] LABS: Glucose,Whole Blood 113 mg/dL (75-99)
[2017-06-24 06:04] LABS: Glucose,Whole Blood 150 mg/dL (75-99)
[2017-06-24] MEDS: SODIUM CHLORIDE 0.9% 1,000 ML IV SCH (07:06)
[2017-06-24] MEDS: VANCOMYCIN 1,000 MG in SODIUM CHLORIDE 0.9% 250 ML IVPB SCH ×2 (07:06→19:35)
[2017-06-24 07:17] LABS: Anisocytosis Slight; Basophils % (A) 0 %; Eosinophils % (A) 0 %; HCT 33.7 % (34.0-46.0); HGB 10.3 gm/dL (11.4-16.0); Hypochromasia Moderate; Lymphocytes # (A) 1.2 k/uL (1.0-4.8); Lymphocytes % (A) 14 %; MCHC 30.5 g/dL (31.0-37.0); Mean Platelet Volume 7.1; Monocytes # (A) 0.3 k/uL (0-1.0); Monocytes % (A) 4 %; Neutrophils # (A) 6.9 k/uL (1.3-7.7); Neutrophils % (A) 81 %; Platelet Count 125 k/uL (150-450); RBC 3.55 m/uL (3.80-5.40); RDW 16.8 % (11.5-15.5); WBC 8.6 k/uL (3.8-10.6)
[2017-06-24] MEDS: SYMBICORT 160-4.5 MCG INHALER INHALATION SCH ×2 (07:31→20:18)
[2017-06-24] MEDS: IPRATROPIUM-ALBUTEROL 3 ML NEB INHALATION SCH ×2 (07:32→20:18)
[2017-06-24 07:46] LABS: Anion Gap 18 mmol/L; Blood Urea Nitrogen 27 mg/dL (7-17); Calcium 9.2 mg/dL (8.4-10.2); Carbon Dioxide 25 mmol/L (22-30); Chloride 103 mmol/L (98-107); Glucose 147 mg/dL (74-99); Sodium 146 mmol/L (137-145)
[2017-06-24 07:57] LABS: Potassium 2.5 mmol/L (3.5-5.1)
[2017-06-24] MEDS: BISACODYL 10 MG SUPP RECTAL SCH (08:33)
[2017-06-24] MEDS: GLIMEPIRIDE 2 MG TAB PEG/G-TUBE SCH ×2 (08:34→21:47)
[2017-06-24] MEDS: HYDROCHLOROTHIAZIDE 25 MG TAB PEG/G-TUBE SCH (08:34)
[2017-06-24] MEDS: CHOLECALCIFEROL 1,000 UNIT TAB PEG/G-TUBE SCH (08:34)
[2017-06-24] MEDS: CARVEDILOL 12.5 MG TAB PEG/G-TUBE SCH ×2 (08:34→21:47)
[2017-06-24] MEDS ORDERED: POTASSIUM CHLORIDE 2 MEQ/ML 20 ML VIAL IVPB SCH (09:00)
[2017-06-24] MEDS: HEPARIN SODIUM,PORCINE 5,000 UNIT/ML 1 ML VIAL SQ SCH ×2 (10:04→22:31)
[2017-06-24] MEDS: POTASSIUM CHLORIDE 40 MEQ in SODIUM CHLORIDE 0.9% 250 ML IV SCH ×2 (10:04→16:41)
[2017-06-24] MEDS: PANTOPRAZOLE 40 MG/10 ML VIAL IVP SCH ×2 (10:04→23:17)
[2017-06-24] MEDS: 0.9% NACL WITH KCL 40 MEQ/L 1,000 ML IV SCH (10:22)
--- NOTE | 2017-06-24 11:21 | XR ---
EXAMINATION TYPE: XR chest 1V portable DATE OF EXAM: 06/24/2017 COMPARISON: 06/20/2017 HISTORY: Pain TECHNIQUE: Single frontal view of the chest is obtained. FINDINGS: Mediport catheter noted with arthropathy of the shoulders. Hyperinflation suggests COPD wi th suspected chronic interstitial lung disease. Surgical clips in the abdomen noted. Small nodule in the left upper lobe measuring 5 mm stable. IMPRESSION: 1. Suspect pulmonary nodules with interstitial prominence which may been the basis of a pneumonitis o r chronic interstitial lung disease correlate clinically.
[2017-06-24 11:52] LABS: Glucose,Whole Blood 162 mg/dL (75-99)
[2017-06-24] MEDS: HYDROmorphone 0.5 MG/0.5 ML SYRINGE IVP PRN ×2 (11:55→23:16)
--- NOTE | 2017-06-24 13:24 | P.PN ---
Subjective Progress Note Date: 06/24/17 Principal diagnosis: Malfunctioning G tube Patient having difficulties over the weekend with her feeding tube. Apparently when they are irrigating the gastrostomy tube the irrigant is coming around the G-tube site. She is having mild pain at the gastrostomy site. Objective - Vital Signs Vital signs: Vital Signs Temp 99.2 F 06/24/17 07:00 Pulse 129 H 06/24/17 07:00 Resp 16 06/24/17 07:00 BP 173/85 06/24/17 07:00 Pulse Ox 95 06/24/17 07:00 Intake & Output 06/23/17 06/24/17 06/24/17 18:59 06:59 18:59 Weight 54 kg Other: Voiding Method Bedside Commode Bedside Commode Diaper Diaper Diaper Incontinent Incontinent Incontinent # Voids 1 3 # Bowel Movements 1 2 - Exam Abdomen: Soft, mild tenderness at PEG tube site, some bilious drainage - Labs CBC & Chem 7: 06/24/17 06:46 06/24/17 06:46 Labs: Abnormal Lab Results - Last 24 Hours (Table) 06/22/17 06/22/17 06/23/17 Range/Units 06:43 06:43 17:50 RBC (3.80-5.40) m/uL Hgb (11.4-16.0) gm/dL Hct (34.0-46.0) % MCHC (31.0-37.0) g/dL RDW (11.5-15.5) % Plt Count (150-450) k/uL Sodium (137-145) mmol/L Potassium (3.5-5.1) mmol/L BUN (7-17) mg/dL Glucose (74-99) mg/dL POC Glucose (mg/dL) 124 H (75-99) mg/dL Iron 32 L (50-170) ug/dL TIBC 217 L (228-460) ug/dL Ferritin 686.8 H (10.0-291.0) ng/mL Vitamin B12 1228.0 H (200.0-944.0) pg/mL RBC Folate 1,663 H (280 - 791) ng/mL 06/24/17 06/24/17 06/24/17 Range/Units 01:14 06:03 06:46 RBC 3.55 L (3.80-5.40) m/uL Hgb 10.3 L (11.4-16.0) gm/dL Hct 33.7 L (34.0-46.0) % MCHC 30.5 L (31.0-37.0) g/dL RDW 16.8 H (11.5-15.5) % Plt Count 125 L (150-450) k/uL Sodium (137-145) mmol/L Potassium (3.5-5.1) mmol/L BUN (7-17) mg/dL Glucose (74-99) mg/dL POC Glucose (mg/dL) 113 H 150 H (75-99) mg/dL Iron (50-170) ug/dL TIBC (228-460) ug/dL Ferritin (10.0-291.0) ng/mL Vitamin B12 (200.0-944.0) pg/mL RBC Folate (280 - 791) ng/mL 06/24/17 06/24/17 Range/Units 06:46 11:49 RBC (3.80-5.40) m/uL Hgb (11.4-16.0) gm/dL Hct (34.0-46.0) % MCHC (31.0-37.0) g/dL RDW (11.5-15.5) % Plt Count (150-450) k/uL Sodium 146 H (137-145) mmol/L Potassium 2.5 L* (3.5-5.1) mmol/L BUN 27 H (7-17) mg/dL Glucose 147 H (74-99) mg/dL POC Glucose (mg/dL) 162 H (75-99) mg/dL Iron (50-170) ug/dL TIBC (228-460) ug/dL Ferritin (10.0-291.0) ng/mL Vitamin B12 (200.0-944.0) pg/mL RBC Folate (280 - 791) ng/mL Microbiology - Last 24 Hours (Table) 06/20/17 22:04 Blood Culture - Preliminary Blood No Growth after 72 hours 06/21/17 00:57 Urine Culture - Final Urine,Catheterized Escherichia coli Assessment and Plan (1) Abdominal pain Current Visit: Yes Status: Acute Code(s): R10.9 - UNSPECIFIED ABDOMINAL PAIN SNOMED Code(s): 65635572 (2) Gastrostomy complication Narrative/Plan: Will perform a contrast study through the gastrostomy site. Not convinced that change in the gastrostomy at this point will be beneficial. Current Visit: Yes Status: Acute Code(s): K94.20 - GASTROSTOMY COMPLICATION , UNSPECIFIED SNOMED Code(s): 676851836
[2017-06-24] MEDS: FLUCONAZOLE IN NACL,ISO-OSM 100 MG in SALINE 1 50ML.BAG IVPB SCH (13:38)
--- NOTE | 2017-06-24 14:12 | XR ---
EXAMINATION TYPE: XR KUB portable DATE OF EXAM: 06/24/2017 1:54 PM CLINICAL HISTORY: PEG tube placement TECHNIQUE: Single supine KUB image of the abdomen is obtained. COMPARISON: None. FINDINGS: Scattered gas is seen in non-distended small bowel loops. PEG tube is noted and there is co ntrast within the stomach and proximal small bowel. Mediport catheter in the chest noted. Surgical clips in the right upper quadrant noted. Hypertrophic and degenerative change of the spine with diffuse osteopenia. IMPRESSION: 1. PEG tube appears within the gastric body with contrast contained in the stomach and small bowel.
[2017-06-24 15:23] VITALS: BMI 23.2
--- NOTE | 2017-06-24 15:49 | P.CRDCN ---
History of Present Illness Consult date: 06/24/17 Consult reason: other Chief complaint: tachycardia History of present illness: Mrs. Youssef is pleasant 67-year-old female past medical history significant for hypertension, esophageal cancer with mets to the liver and lung , COPD, diabetes mellitus, chronic mild triple vessel CAD and dyslipidemia. She last had chemotherapy approximately 1-month ago. We have been asked to see her in consultation for tachycardia. She presented to the hospital with c/o abdominal pain, vomiting and weakness on 06/20 and was found to have an ileus. She has a PEG tube in place and has not been receiving any nutrition since admission secondary to ileus with a drainage tube to She has not been receiving any medications either. Blood cultures obtained are negative for growth at 72 hours. Urine culture is positive for escherichia coli in the urine. She is being treated with broad spectrum antibiotics vancomycin and cefipime. Potassium today 2.5 and is being replaced. Per nursing staff she is garner lethargic and less verbal over the last 24-hours. EKG on arrival reveals sinus mechanism with non-specific ST abnormalites, consistent with old EKG. Repeat today reveals sinus tachycardia with no evidence of arrhythmia. Chest xray this morning reveals pulmonary nodules with interstitial prominence which may be the basis of a pneumonitis or chronic interstiltial lung disease. No overt signs of failure. Laboratory data reviewed, hgb 10.3, plt 125, potassium 2.5, magnesium 2.0, creatinine 0.62. Current cardiac medications include coreg 25 mg BID, hydrochlorothiazide 25 mg daily, and atorvastatin 40 mg daily. Most recent cardiac catheterization performed 03/2015 reveals 20-30% mid circumflex stenosis, 30-40% mid RCA stenosis and 20-30% mid LAD disease. Maximum medical therapy recommended at that time. Most recent echocardiogram on 04/2017 preserved LV systolic function with EF 55- 60%, aortic valve mildly thickened, moderate aortic regurgitation and trace to mild MR. Review of Systems At the time of my exam: CONSTITUTIONAL: Denies fever. Denies chills. EYES: Denies blurred vision. Denies vision changes. Denies eye pain. EARS, NOSE, MOUTH & THROAT: Denies headache. Denies sore throat. Denies ear pain. CARDIOVASCULAR: Denies chest pain. Denies shortness of breath. Denies orthopnea. Denies PND. Denies palpitations. RESPIRATORY: Denies cough. GASTROINTESTINAL: Denies abdominal pain. Denies diarrhea. Denies constipation. Denies nausea. Denies vomiting. MUSCULOSKELETAL: Denies myalgias. INTEGUMENTARY: Denies pruitis. Denies rash. NEUROLOGIC: Denies numbness. Denies tingling. Denies weakness. PSYCHIATRIC: Denies anxiety. Denies depression. ENDOCRINE: Denies fatigue. Denies weight change. Denies polydipsia. Denies polyurina. GENITOURINARY: Denies burning, hematuria or urgency with micturation. HEMATOLOGIC: Denies history of anemia. Denies bleeding. Past Medical History Past Medical History: Cancer, COPD, Diabetes Mellitus, Hyperlipidemia, Hypertension, Myocardial Infarction (PR) Additional Past Medical History / Comment(s): Stress incontinence, wears briefs , esophageal cancer December 2016, has had 5 rounds of chemo, kidney stones, hydronephrosis right kidney, spleen aneurysm, Last Myocardial Infarction Date:: 2014 History of Any Multi-Drug Resistant Organisms: None Reported Past Surgical History: Appendectomy, Cholecystectomy, Heart Catheterization, Hysterectomy Additional Past Surgical History / Comment(s): Bladder sling, stress incontinence. lumpectomy left breast, feeding tube, infusion port Past Anesthesia/Blood Transfusion Reactions: No Reported Reaction Past Psychological History: Anxiety, Depression, Panic Disorder Smoking Status: Former smoker - Past Family History Mother Family Medical History: Cancer Additional Family Medical History / Comment(s): Throat Father Family Medical History: Myocardial Infarction (PR) Additional Family Medical History / Comment(s): Arthrosclorosis Brother(s) Family Medical History: Myocardial Infarction (PR) Medications and Allergies Home Medications Medication Instructions Recorded Confirmed Type ALPRAZolam [Xanax] 1 mg PEG/G-TUBE TID 04/09/15 06/20/17 History Cholecalciferol [Vitamin D3] 2,000 unit PEG/G-TUBE DAILY 04/09/15 06/20/17 History PARoxetine [Paxil] 20 mg PEG/G-TUBE HS 04/09/15 06/20/17 History Budesonide-Formot 160-4.5 Mcg 2 puff INHALATION RT-BID #1 puff 04/12/15 Rx [Symbicort 160-4.5 Mcg Inhaler] Famotidine [Pepcid] 20 mg PEG/G-TUBE BID@0500,2200 12/04/16 06/20/17 History Glimepiride [Amaryl] 2 mg PEG/G-TUBE BID 12/04/16 06/20/17 History Ipratropium-Albuterol Nebulize 3 ml INHALATION RT-BID 12/05/16 06/20/17 History [Duoneb 0.5 mg-3 mg/3 ml Soln] Acetaminophen Tab [Tylenol] 650 mg PEG/G-TUBE DAILY@1900 PRN 01/11/17 06/20/17 History Ondansetron Odt [Zofran ODT] 4 mg SUBLINGUAL Q6HR PRN 01/12/17 06/20/17 History diphenhydrAMINE [Benadryl] 50 mg PEG/G-TUBE HS 01/12/17 06/20/17 History Carvedilol [Coreg] 25 mg PEG/G-TUBE BID 02/17/17 06/20/17 History Hydrochlorothiazide [Hydrodiuril] 25 mg PEG/G-TUBE DAILY 02/17/17 06/20/17 History HYDROcodone/APAP 7.5-325MG [[place] 1 tab PEG/G-TUBE Q4H PRN 05/08/17 06/20/17 History 7.5-325] fentaNYL [Duragesic 25MCG/HR] 1 patch TRANSDERM Q72H 05/08/17 06/20/17 History Lactulose [Cephulac] 10 gm PO BID PRN 05/20/17 06/21/17 History Atorvastatin [Lipitor] 40 mg PEG/G-TUBE HS 05/31/17 06/20/17 History Allergies Allergy/AdvReac Type Severity Reaction Status Date / Time nickel Allergy Rash/Hives Verified 06/20/17 22:42 phenazopyridine HCl Allergy Anaphylaxis Verified 06/20/17 22:42 [From Pyridium] prochlorperazine Allergy Anaphylaxis Verified 06/20/17 22:42 [From Compazine] prochlorperazine edisylate Allergy Anaphylaxis Verified 06/20/17 22:42 [From Compazine] prochlorperazine maleate Allergy Anaphylaxis Verified 06/20/17 22:42 [From Compazine] Sulfa (Sulfonamide Allergy Unknown Verified 06/20/17 22:42 Antibiotics) metformin AdvReac Nausea & Verified 06/20/17 22:42 Vomiting & Diarrhea Physical Exam Vitals: Vital Signs Temp Pulse Resp BP Pulse Ox 06/24/17 07:00 99.2 F 129 H 16 173/85 95 06/23/17 23:00 99.3 F 115 H 16 163/85 91 L 06/23/17 15:00 98.7 F 86 18 175/79 93 L Intake and Output 06/23/17 06/24/17 06/24/17 22:59 06:59 14:59 Other: Voiding Method Bedside Commode Bedside Commode Diaper Diaper Diaper Incontinent Incontinent Incontinent # Voids 3 # Bowel Movements 2 Blood pressure 173/85 heart rate 129 afebrile GENERAL: This is a 67-year-old female in no apparent distress at the time of my examination. Generalized pallor. HEENT: Head is atraumatic, normocephalic. Pupils are equal, round. Sclerae anicteric. Conjunctivae are clear. Mucous membranes of the mouth are dry. Neck is supple. There is no jugular venous distention. No carotid bruit is heard. LUNGS: Course rhonchi, no wheezes or rales. No chest wall tenderness is noted on palpation or with deep breathing. Diminished. HEART: Regular rate and rhythm with systolic ejection murmur, no rubs or gallops. S1 and S2 heard. ABDOMEN: Soft, mildly tender. EXTREMITIES: No evidence of peripheral edema and no calf tenderness noted. VASCULAR: Radial and dorsalis pedis pulses palpated, no evidence of clubbing. NEUROLOGIC: Patient is awake, alert and oriented x3. Results 06/24/17 06:46 06/24/17 06:46 CBC 06/24/17 Range/Units 06:46 WBC 8.6 (3.8-10.6) k/uL RBC 3.55 L (3.80-5.40) m/uL Hgb 10.3 L (11.4-16.0) gm/dL Hct 33.7 L (34.0-46.0) % Plt Count 125 L (150-450) k/uL Comprehensive Metabolic Panel 06/24/17 Range/Units 06:46 Sodium 146 H (137-145) mmol/L Potassium 2.5 L* (3.5-5.1) mmol/L Chloride 103 (98-107) mmol/L Carbon Dioxide 25 (22-30) mmol/L BUN 27 H (7-17) mg/dL Creatinine 0.62 (0.52-1.04) mg/dL Glucose 147 H (74-99) mg/dL Calcium 9.2 (8.4-10.2) mg/dL Current Medications Generic Name Dose Route Start Last Admin Trade Name Andersonq PRN Reason Stop Dose Admin Acetaminophen 650 mg 06/21/17 19:00 Tylenol Tab PEG/G-TUBE DAILY@1900 PRN Mild Pain Hydrocodone Bitart/Acetaminophen 1 each 06/21/17 12:19 06/23/17 09:17 [place] 7.5-325 PEG/G-TUBE 1 each Q4H PRN Administration Moderate Pain Albuterol/Ipratropium 3 ml 06/21/17 20:00 06/24/17 07:32 Duoneb 0.5 Mg-3 Mg/3 Ml Soln INHALATION Not Given RT-BID [facility] Alprazolam 1 mg 06/21/17 12:19 06/22/17 18:22 Xanax PEG/G-TUBE 1 mg TID PRN Administration Anxiety Atorvastatin Calcium 40 mg 06/21/17 21:00 06/23/17 22:46 Lipitor PEG/G-TUBE Not Given HS [facility] Bisacodyl 10 mg 06/21/17 14:15 06/24/17 08:33 Dulcolax RECTAL Not Given DAILY [facility] Budesonide/Formoterol Fumarate 2 puff 06/21/17 20:00 06/24/17 07:31 Symbicort 160-4.5 Mcg Inhaler INHALATION Not Given RT-BID [facility] Carvedilol 25 mg 06/21/17 21:00 06/24/17 08:34 Coreg PEG/G-TUBE Not Given BID [facility] Cholecalciferol 2,000 unit 06/22/17 09:00 06/24/17 08:34 Vitamin D3 PEG/G-TUBE Not Given DAILY [facility] Diphenhydramine HCl 50 mg 06/21/17 21:00 06/23/17 22:47 Benadryl PEG/G-TUBE Not Given HS [facility] Fentanyl 1 patch 06/21/17 12:30 06/24/17 13:38 Duragesic 25mcg/Hr Patch TRANSDERM 1 patch Q72H JESS Administration Glimepiride 2 mg 06/21/17 21:00 06/24/17 08:34 Amaryl PEG/G-TUBE Not Given BID JESS Heparin Sodium (Porcine) 5,000 unit 06/21/17 12:30 06/24/17 10:04 Heparin SQ 5,000 unit Q12HR JESS Administration Hydrochlorothiazide 25 mg 06/22/17 09:00 06/24/17 08:34 Hydrodiuril PEG/G-TUBE Not Given DAILY J[facility] Hydromorphone HCl 0.5 mg 06/21/17 04:01 06/24/17 11:55 Dilaudid IVP 0.5 mg Q3H PRN Administration Pain Sodium Chloride 1,000 mls @ 20 mls/hr 06/21/17 03:15 06/24/17 07:06 Saline 0.9% IV 20 mls/hr .Q24H JESS Administration Cefepime HCl 2 gm/ Sodium 50 mls @ 100 mls/hr 06/21/17 17:00 06/24/17 10:00 Chloride IVPB 100 mls/hr Q8HR JESS Administration Vancomycin HCl 1,000 mg/ 250 mls @ 125 mls/hr 06/22/17 18:00 06/24/17 07:06 Sodium Chloride IVPB 125 mls/hr Q12H JESS Administration Potassium Chloride/Sodium Chloride 1,000 mls @ 50 mls/hr 06/24/17 08:15 06/24 10:22 Ns-Kcl 40 Meq/L Iv Solution IV 50 mls/hr .Q20H JESS Administration Potassium Chloride 40 meq/ 270 mls @ 67.5 mls/hr 06/24/17 09:00 06/24/17 10: 04 Sodium Chloride IV 06/24/17 16:59 67.5 mls/hr Q4H JESS Administration Fluconazole/Sodium Chloride 50 mls @ 50 mls/hr 06/24/17 11:00 06/24/17 13:38 100 mg/ IV Solution IVPB 50 mls/hr DAILY JESS Administration Lactulose 20 gm 06/21/17 12:19 Cephulac PO BID PRN Constipation Metoprolol Tartrate 5 mg 06/24/17 13:45 Lopressor IVP BID JESS Ondansetron HCl 4 mg 06/21/17 05:47 06/23/17 12:53 Zofran IVP 4 mg Q6HR PRN Administration Nausea And Vomiting Pantoprazole Sodium 40 mg 06/21/17 12:30 06/24/17 10:04 Protonix IVP 40 mg BID JESS Administration Paroxetine HCl 20 mg 06/21/17 21:00 06/23/17 22:47 Paxil PEG/G-TUBE Not Given HS JESS Intake and Output 06/23/17 06/24/17 06/24/17 22:59 06:59 14:59 Other: Voiding Method Bedside Commode Bedside Commode Diaper Diaper Diaper Incontinent Incontinent Incontinent # Voids 3 # Bowel Movements 2 06/24/17 06:46 06/24/17 06:46 Assessment and Plan Assessment: ASSESSMENT 1. Sinus tachycardia, possibly some septic component as well as not receiving medications since admission 2. Esophageal cancer with metastasis to lung and liver 3. Ileus 4. Hypertension, uncontrolled 5. Dyslipidemia 6. Mild non-obstructive heart disease 7. Diabetes mellitus 8. COPD 9. Hypokalemia PLAN Give lopressor 5 mg IV BID in place of carvedilol. Continue this while her PEG tube is not in use. Once she is tolerating medications via PEG, this is to be discontinued. Apply cardiac personnel monitor. Replace potassium per protocol. Further recommendations to follow. Thank you kindly for this consultation. Nurse Practitioner note has been reviewed, I agree with a documented findings and plan of care. Patient was seen and examined.
[2017-06-24] MEDS: METOPROLOL TARTRATE 5 MG/5 ML VIAL IVP SCH (16:41)
[2017-06-24] MEDS ORDERED: FUROSEMIDE 10 MG/ML 4 ML VIAL IV STA (18:57)
[2017-06-24] MEDS ORDERED: FUROSEMIDE 10 MG/ML 4 ML VIAL ONE (18:59)
[2017-06-24 19:14] LABS: ABG Base Excess -0.2 mmol/L; ABG HCO3 25 mmol/L (21-25); ABG Oxygen Saturation 92.6 % (94-97); ABG PCO2 42 mmHg (35-45); ABG PH 7.39 (7.35-7.45); ABG PO2 74 mmHg (83-108); ABG TCO2 26 mmol/L (19-24)
--- NOTE | 2017-06-24 19:33 | XR ---
EXAMINATION TYPE: XR chest 1V portable DATE OF EXAM: 06/24/2017 COMPARISON: Today HISTORY: Difficulty breathing TECHNIQUE: Single frontal view of the chest is obtained. FINDINGS: There is no heart failure nor confluent pneumonic infiltrate. There is coarsening of inter stitial markings. Heart size is normal. There is no pleural effusion. There is right central venous c atheter with tip in the superior vena cava. There are chest leads. IMPRESSION: Mild fibrotic changes. No acute lung disease. No change compared to exam earlier today.
[2017-06-24 20:03] LABS: Glucose,Whole Blood 206 mg/dL (75-99)
[2017-06-24 21:26] LABS: Calcium 9.2 mg/dL (8.4-10.2); Potassium 4.5 mmol/L (3.5-5.1)
[2017-06-24 21:36] LABS: Anisocytosis Slight; Basophils % (A) 0 %; Eosinophils % (A) 0 %; HCT 34.8 % (34.0-46.0); HGB 10.7 gm/dL (11.4-16.0); Hypochromasia Moderate; Lymphocytes # (A) 1.6 k/uL (1.0-4.8); Lymphocytes % (A) 15 %; MCH 29.4 pg (25.0-35.0); MCHC 30.6 g/dL (31.0-37.0); MCV 95.9 fL (80.0-100.0); Mean Platelet Volume 7.5; Monocytes # (A) 0.4 k/uL (0-1.0); Monocytes % (A) 4 %; Neutrophils # (A) 8.4 k/uL (1.3-7.7); Neutrophils % (A) 80 %; Platelet Count 135 k/uL (150-450); Poikilocytosis Slight; RBC 3.63 m/uL (3.80-5.40); RDW 16.9 % (11.5-15.5); WBC 10.6 k/uL (3.8-10.6)
[2017-06-24] MEDS: PARoxetine 20 MG TAB PEG/G-TUBE SCH (21:47)
[2017-06-24] MEDS: ATORVASTATIN 40 MG TAB PEG/G-TUBE SCH (21:47)
[2017-06-24] MEDS: diphenhydrAMINE 25 MG CAP PEG/G-TUBE SCH (21:47)
[2017-06-24] MEDS ORDERED: ACETAMINOPHEN IV (For NPO) 1,000 MG in EMPTY BAG 1 BAG IVPB PRN (21:51)
[2017-06-24 21:56] LABS: Glucose,Whole Blood 199 mg/dL (75-99)
--- NOTE | 2017-06-24 22:00 | PN ---
PROGRESS NOTE DATE OF SERVICE: 06/24/2017. HISTORY: This 67-year-old woman with history of esophageal carcinoma, was admitted with abdominal pain, ileus, also had a UTI. Today the patient has had increased respiratory difficulty. The patient also had problems with the G-tube over the weekend and Dr. Pack is evaluating the patient with contrast study. G-tube change is not being contemplated at this time. The patient has increased shortness of breath. The patient also had change in mental status. The patient also has tachycardia. The patient is being closely monitored at this time on telemetry floor. PAST MEDICAL HISTORY: Reviewed. REVIEW OF SYSTEMS: Could not be taken, the patient is extremely short of breath. The patient is on a partial nonrebreather mask at this time. CURRENT MEDICATIONS: 1. Tylenol 650 daily. 2. [place] 7.5 every 4 hours p.r.n. 3. DuoNeb q.i.d. and p.r.n. 4. Xanax 1 mg t.i.d. p.r.n. 5. Lipitor 40 mg at bedtime. 6. Dulcolax 10 mg daily. 7. Symbicort 2.5 two puffs b.i.d. 8. Coreg 25 mg b.i.d. 9. 2 grams IV every 8 hours. 10.Vitamin D3, 2000 daily. 11.Dilaudid. 12.Duragesic patch. 13.Fluconazole 100 mg IV daily. 14.Amaryl. 15.Heparin 5000 daily. 16.HydroDIURIL. 17.Dilaudid. 18.Zofran. 19.Protonix. 20.Vancomycin IV. PHYSICAL EXAM: Patient is alert, oriented x3. Pulse is 129, blood pressure is 173/85, respirations 16, temperature 99.2, pulse ox 94% on room air. HEENT: Conjunctivae normal. Oral mucosa moist. NECK: No jugular venous distention. No lymph node enlargement. CARDIOVASCULAR: S1 and S2. No S4. RESPIRATORY: Breath sounds diminished in the bases. Bilateral scattered rhonchi and crackles. ABDOMEN: Soft, nontender. No mass palpable. LEGS: No edema, no swelling. NERVOUS SYSTEM: Higher functions as mentioned earlier. Moves all 4 limbs. Diffusely weak. LABS: WBC 5.4, hemoglobin 10, sodium 146, potassium 2.5, corrected to 3.8. ASSESSMENT: 1. Tachycardia and shortness of breath with possible sepsis. 2. Rule out aspiration pneumonia. 3. Escherichia coli with urinary tract infection. 4. Rule out of fluid overload. 5. Urinary tract infection with possible sepsis. 6. Abdominal pain, possibly ileus, status post nasogastric suction. 7. Rule out a G-tube malfunction. 8. History of esophageal carcinoma with metastases to liver and lungs, possible progressive per most recent CT scan. 9. Large bowel dilatation with fluid levels consistent with ileus on the CT scan. 10.Chronic obstructive pulmonary disease. 11.Pancytopenia secondary to chemotherapy and radiation. 12.Generalized weakness. 13.Hypertension. 14.Diabetes type 2. 15.Hyponatremia. RECOMMENDATIONS: Recommend to continue current medications, continue with monitoring and symptomatic treatment. Continue bronchodilators. Continue the rest of the medications. Guarded prognosis because of multiple complex medical issues. Prognosis guarded. We will transfer the patient to ICU. Bronchodilators. Continue the antibiotics. Will obtain cultures. Infectious disease evaluation, Pulmonary evaluation and Critical Care evaluation by Dr. Ca. I had a detailed discussion with the family, who understand and agree. Currently the patient is FULL CODE. Closely follow with Hematology/ Oncology. Further recommendations to follow. MMODL / IJN: [id number] / CYNTHIA
[2017-06-24] MEDS: MEROPENEM 1 GM in SODIUM CHLORIDE 0.9% 100 ML IVPB SCH (22:29)
[2017-06-24] MEDS: INSULIN ASPART 100 UNIT/ML 1 ML 10 ML VIAL SQ SCH (22:30)
--- NOTE | 2017-06-24 22:33 | P.CONS ---
History of Present Illness - Reason for Consult Consult date: 06/24/17 - Chief Complaint Progressive shortness of breath - History of Present Illness 67-year-old female with a history of metastatic adenocarcinoma of the esophagus recently has undergone evaluations have included repeat endoscopy. At the present time there is evidence of complete obstruction still occurring with evidence of some particular matter in the esophagus likely from reflux around the tumor. The patient was evaluated by her oncologist and with evidence of progression of her disease despite her many chemotherapy regimens that included carboplatinum, Taxol and Herceptin she was sent for palliative with radiation therapy. She presents to Hospital feeling very poorly with increasing weakness and increasing abdominal pain. Was found evidence of an ileus and has been seen by general surgery. She is given bowel rest was having some mild improvement with this evening had a major change of her status such that she became very short of breath. The patient's attending physician was made aware of the situation and she has in the middle of a transfer to the intensive care unit. Patient is evidence of significant tachypnea with respiratory rate of 42 and diminished mentation from her baseline. Family is extremely anxious. Medical record was reviewed including her current diagnosis of metastatic adenocarcinoma of the esophagus, with obstruction who is being treated with palliative radiation therapy. The patient's daughter is present who is a nurse and the patient's CODE STATUS is noted to be full. The daughter relates they're trying to determine best option at this point in time. I take the opportunity distress the patient is currently receiving palliative therapy in that a full CODE STATUS is not aligned with the current course of therapy. Review of Systems ROS unobtainable: due to mental status Past Medical History Past Medical History: Cancer, COPD, Diabetes Mellitus, Hyperlipidemia, Hypertension, Myocardial Infarction ([place]) Additional Past Medical History / Comment(s): Stress incontinence, wears briefs , esophageal cancer December 2016, has had 5 rounds of chemo, kidney stones, hydronephrosis right kidney, spleen aneurysm,. 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 lumpectomy left breast, feeding tube, infusion port Past Anesthesia/Blood Transfusion Reactions: No Reported Reaction Past Psychological History: Anxiety, Depression, Panic Disorder Smoking Status: Former smoker - Past Family History Mother Family Medical History: Cancer Additional Family Medical History / Comment(s): Throat Father Family Medical History: Myocardial Infarction ([place]) Additional Family Medical History / Comment(s): Arthrosclorosis Brother(s) Family Medical History: Myocardial Infarction ([place]) Medications and Allergies Home Medications and Allergies Comment(s): Current Medications Acetaminophen (Tylenol Tab) 650 mg PEG/G-TUBE DAILY@1900 PRN PRN Reason: Mild Pain Hydrocodone Bitart/Acetaminophen ([place] 7.5-325) 1 each PEG/G-TUBE Q4H PRN PRN Reason: Moderate Pain Last Admin: 06/23/17 09:17 Dose: 1 each Albuterol/Ipratropium (Duoneb 0.5 Mg-3 Mg/3 Ml Soln) 3 ml INHALATION RT-BID [facility] Last Admin: 06/24/17 20:18 Dose: Not Given Alprazolam (Xanax) 1 mg PEG/G-TUBE TID PRN PRN Reason: Anxiety Last Admin: 06/22/17 18:22 Dose: 1 mg Atorvastatin Calcium (Lipitor) 40 mg PEG/G-TUBE [facility] Last Admin: 06/24/17 21:47 Dose: Not Given Bisacodyl (Dulcolax) 10 mg RECTAL DAILY [facility] Last Admin: 06/24/17 08:33 Dose: Not Given Budesonide/Formoterol Fumarate (Symbicort 160-4.5 Mcg Inhaler) 2 puff INHALATION RT-BID [facility] Last Admin: 06/24/17 20:18 Dose: Not Given Carvedilol (Coreg) 25 mg PEG/G-TUBE BID [facility] Last Admin: 06/24/17 21:47 Dose: Not Given Cholecalciferol (Vitamin D3) 2,000 unit PEG/G-TUBE DAILY [facility] Last Admin: 06/24/17 08:34 Dose: Not Given Diphenhydramine HCl (Benadryl) 50 mg PEG/G-TUBE [facility] Last Admin: 06/24/17 21:47 Dose: Not Given Fentanyl (Duragesic 25mcg/Hr Patch) 1 patch TRANSDERM Q72H [facility] Last Admin: 06/24/17 13:38 Dose: 1 patch Glimepiride (Amaryl) 2 mg PEG/G-TUBE BID [facility] Last Admin: 06/24/17 21:47 Dose: Not Given Heparin Sodium (Porcine) (Heparin) 5,000 unit SQ Q12HR [facility] Last Admin: 06/24/17 10:04 Dose: 5,000 unit Hydrochlorothiazide (Hydrodiuril) 25 mg PEG/G-TUBE DAILY [facility] Last Admin: 06/24/17 08:34 Dose: Not Given Hydromorphone HCl (Dilaudid) 0.5 mg IVP Q3H PRN PRN Reason: Pain Last Admin: 06/24/17 11:55 Dose: 0.5 mg Sodium Chloride (Saline 0.9%) 1,000 mls @ 20 mls/hr IV .Q24H [facility] Last Admin: 06/24/17 07:06 Dose: 20 mls/hr Vancomycin HCl 1,000 mg/ (Sodium Chloride) 250 mls @ 125 mls/hr IVPB Q12H [facility] Last Admin: 06/24/17 19:35 Dose: 125 mls/hr Potassium Chloride/Sodium Chloride (Ns-Kcl 40 Meq/L Iv Solution) 1,000 mls @ 50 mls/hr IV .Q20H [facility] Last Admin: 06/24/17 10:22 Dose: 50 mls/hr Fluconazole/Sodium Chloride (100 mg/ IV Solution) 50 mls @ 50 mls/hr IVPB DAILY [facility] Last Admin: 06/24/17 13:38 Dose: 50 mls/hr Meropenem 1 gm/ Sodium (Chloride) 100 mls @ 100 mls/hr IVPB Q8H [facility] Acetaminophen 1,000 mg/ IV (Solution) 100 mls @ 400 mls/hr IVPB Q6HR PRN PRN Reason: Fever Stop: 06/25/17 18:14 Insulin Aspart (Novolog) 0 unit SQ Q6HR [facility] PRN Reason: Protocol Lactulose (Cephulac) 20 gm PO BID PRN PRN Reason: Constipation Metoprolol Tartrate (Lopressor) 5 mg IVP Q12H [facility] Last Admin: 06/24/17 16:41 Dose: 5 mg Ondansetron HCl (Zofran) 4 mg IVP Q6HR PRN PRN Reason: Nausea And Vomiting Last Admin: 06/23/17 12:53 Dose: 4 mg Pantoprazole Sodium (Protonix) 40 mg IVP BID [facility] Last Admin: 06/24/17 10:04 Dose: 40 mg Paroxetine HCl (Paxil) 20 mg PEG/G-TUBE [facility] Last Admin: 06/24/17 21:47 Dose: Not Given Home Medications Medication Instructions Recorded Confirmed Type ALPRAZolam [Xanax] 1 mg PEG/G-TUBE TID 04/09/15 06/20/17 History Cholecalciferol [Vitamin D3] 2,000 unit PEG/G-TUBE DAILY 04/09/15 06/20/17 History PARoxetine [Paxil] 20 mg PEG/G-TUBE HS 04/09/15 06/20/17 History Budesonide-Formot 160-4.5 Mcg 2 puff INHALATION RT-BID #1 puff 04/12/15 Rx [Symbicort 160-4.5 Mcg Inhaler] Famotidine [Pepcid] 20 mg PEG/G-TUBE BID@0500,2200 12/04/16 06/20/17 History Glimepiride [Amaryl] 2 mg PEG/G-TUBE BID 12/04/16 06/20/17 History Ipratropium-Albuterol Nebulize 3 ml INHALATION RT-BID 12/05/16 06/20/17 History [Duoneb 0.5 mg-3 mg/3 ml Soln] Acetaminophen Tab [Tylenol] 650 mg PEG/G-TUBE DAILY@1900 PRN 01/11/17 06/20/17 History Ondansetron Odt [Zofran ODT] 4 mg SUBLINGUAL Q6HR PRN 01/12/17 06/20/17 History diphenhydrAMINE [Benadryl] 50 mg PEG/G-TUBE HS 01/12/17 06/20/17 History Carvedilol [Coreg] 25 mg PEG/G-TUBE BID 02/17/17 06/20/17 History Hydrochlorothiazide [Hydrodiuril] 25 mg PEG/G-TUBE DAILY 02/17/17 06/20/17 History HYDROcodone/APAP 7.5-325MG [[place] 1 tab PEG/G-TUBE Q4H PRN 05/08/17 06/20/17 History 7.5-325] fentaNYL [Duragesic 25MCG/HR] 1 patch TRANSDERM Q72H 05/08/17 06/20/17 History Lactulose [Cephulac] 10 gm PO BID PRN 05/20/17 06/21/17 History Atorvastatin [Lipitor] 40 mg PEG/G-TUBE HS 05/31/17 06/20/17 History Allergies Allergy/AdvReac Type Severity Reaction Status Date / Time nickel Allergy Rash/Hives Verified 06/20/17 22:42 phenazopyridine HCl Allergy Anaphylaxis Verified 06/20/17 22:42 [From Pyridium] prochlorperazine Allergy Anaphylaxis Verified 06/20/17 22:42 [From Compazine] prochlorperazine edisylate Allergy Anaphylaxis Verified 06/20/17 22:42 [From Compazine] prochlorperazine maleate Allergy Anaphylaxis Verified 06/20/17 22:42 [From Compazine] Sulfa (Sulfonamide Allergy Unknown Verified 06/20/17 22:42 Antibiotics) metformin AdvReac Nausea & Verified 06/20/17 22:42 Vomiting & Diarrhea Physical Exam Vitals: Vital Signs Temp Pulse Pulse Resp BP BP Pulse Ox 06/24/17 19:41 99.2 F 121 H 32 H 136/63 95 06/24/17 19:33 100.3 F H 124 H 30 H 136/58 94 L 06/24/17 16:00 101.0 F H 125 H 28 H 190/93 93 L 06/24/17 07:00 99.2 F 129 H 16 173/85 95 06/23/17 23:00 99.3 F 115 H 16 163/85 91 L Intake and Output 06/24/17 06/24/17 06/24/17 06:59 14:59 22:59 Other: Voiding Method Bedside Commode Diaper Diaper Incontinent Incontinent # Voids 3 1 # Bowel Movements 2 1 Weight 54 kg Patient Weight 06/25/17 06:59 Weight 54 kg 67-year-old woman who is evidence of pallor, cachexia and alopecia is frankly tachypneic, in respiratory distress with poor mentation. HEENT: Anicteric conjunctiva are pale, nasal mucosa without bleeding, oral mucosa is dry and coated but no bleeding is noted, no material is noted in the oral cavity Neck: The neck is supple without significant lymphadenopathy or thyromegaly. Lungs: There is symmetrical air entry hour there are roro bronchial sounds with coarse crackles in the left base, left upper zones with some wheezing and a few wheezes to the right chest. Heart: Tachycardic and irregular with an audible S1 and S2 soft S4 no distinct murmur click or rub is noted. Abdomen: PEG tube site has evidence of drainage around the site. Some minimal skin irritation but no breakdown is seen. Abdomen is not grossly distended, it is not rigid and patient is poorly responsive determine if she is having much tenderness at this time. Extremities: Extremities reveal evidence of the extensive muscular wasting, skin is thin character and of poor turgor but no roro breakdown is noted at this time Neuro: Patient's eyes are open not responding to the observer. As noted she is in respiratory distress. Results CBC & Chem 7: 06/24/17 20:49 06/24/17 20:49 Labs: Abnormal Lab Results - Last 24 Hours (Table) 06/22/17 06/24/17 06/24/17 Range/Units 06:43 01:14 06:03 RBC (3.80-5.40) m/uL Hgb (11.4-16.0) gm/dL Hct (34.0-46.0) % MCHC (31.0-37.0) g/dL RDW (11.5-15.5) % Plt Count (150-450) k/uL Neutrophils # (1.3-7.7) k/uL ABG pO2 (83-108) mmHg ABG Total CO2 (19-24) mmol/L ABG O2 Saturation (94-97) % Sodium (137-145) mmol/L Potassium (3.5-5.1) mmol/L Chloride (98-107) mmol/L BUN (7-17) mg/dL Creatinine (0.52-1.04) mg/dL Glucose (74-99) mg/dL POC Glucose (mg/dL) 113 H 150 H (75-99) mg/dL RBC Folate 1,663 H (280 - 791) ng/mL 06/24/17 06/24/17 06/24/17 Range/Units 06:46 06:46 11:49 RBC 3.55 L (3.80-5.40) m/uL Hgb 10.3 L (11.4-16.0) gm/dL Hct 33.7 L (34.0-46.0) % MCHC 30.5 L (31.0-37.0) g/dL RDW 16.8 H (11.5-15.5) % Plt Count 125 L (150-450) k/uL Neutrophils # (1.3-7.7) k/uL ABG pO2 (83-108) mmHg ABG Total CO2 (19-24) mmol/L ABG O2 Saturation (94-97) % Sodium 146 H (137-145) mmol/L Potassium 2.5 L* (3.5-5.1) mmol/L Chloride (98-107) mmol/L BUN 27 H (7-17) mg/dL Creatinine (0.52-1.04) mg/dL Glucose 147 H (74-99) mg/dL POC Glucose (mg/dL) 162 H (75-99) mg/dL RBC Folate (280 - 791) ng/mL 06/24/17 06/24/17 06/24/17 Range/Units 19:11 20:01 20:49 RBC (3.80-5.40) m/uL Hgb (11.4-16.0) gm/dL Hct (34.0-46.0) % MCHC (31.0-37.0) g/dL RDW (11.5-15.5) % Plt Count (150-450) k/uL Neutrophils # (1.3-7.7) k/uL ABG pO2 74 L (83-108) mmHg ABG Total CO2 26 H (19-24) mmol/L ABG O2 Saturation 92.6 L (94-97) % Sodium 153 H (137-145) mmol/L Potassium (3.5-5.1) mmol/L Chloride 116 H (98-107) mmol/L BUN 45 H (7-17) mg/dL Creatinine 1.21 H (0.52-1.04) mg/dL Glucose 203 H (74-99) mg/dL POC Glucose (mg/dL) 206 H (75-99) mg/dL RBC Folate (280 - 791) ng/mL 06/24/17 06/24/17 Range/Units 20:49 21:53 RBC 3.63 L (3.80-5.40) m/uL Hgb 10.7 L (11.4-16.0) gm/dL Hct (34.0-46.0) % MCHC 30.6 L (31.0-37.0) g/dL RDW 16.9 H (11.5-15.5) % Plt Count 135 L (150-450) k/uL Neutrophils # 8.4 H (1.3-7.7) k/uL ABG pO2 (83-108) mmHg ABG Total CO2 (19-24) mmol/L ABG O2 Saturation (94-97) % Sodium (137-145) mmol/L Potassium (3.5-5.1) mmol/L Chloride (98-107) mmol/L BUN (7-17) mg/dL Creatinine (0.52-1.04) mg/dL Glucose (74-99) mg/dL POC Glucose (mg/dL) 199 H (75-99) mg/dL RBC Folate (280 - 791) ng/mL Microbiology - Last 24 Hours (Table) 06/20/17 22:04 Blood Culture - Preliminary Blood No Growth after 72 hours Laboratory Results WBC 10.6 k/uL (3.8-10.6) 06/24/17 20:49 RBC 3.63 m/uL (3.80-5.40) L 06/24/17 20:49 Hgb 10.7 gm/dL (11.4-16.0) L 06/24/17 20:49 Hct 34.8 % (34.0-46.0) 06/24/17 20:49 MCV 95.9 fL (80.0-100.0) 06/24/17 20:49 MCH 29.4 pg (25.0-35.0) 06/24/17 20:49 MCHC 30.6 g/dL (31.0-37.0) L 06/24/17 20:49 RDW 16.9 % (11.5-15.5) H 06/24/17 20:49 Plt Count 135 k/uL (150-450) L 06/24/17 20:49 Neutrophils % 80 % 06/24/17 20:49 Neutrophils % (Manual) 24 % 06/20/17 22:04 Band Neutrophils % 15 % 06/20/17 22:04 Lymphocytes % 15 % 06/24/17 20:49 Lymphocytes % (Manual) 45 % 06/20/17 22:04 Monocytes % 4 % 06/24/17 20:49 Monocytes % (Manual) 15 % 06/20/17 22:04 Eosinophils % 0 % 06/24/17 20:49 Eosinophils % (Manual) 2 % 06/20/17 22:04 Basophils % 0 % 06/24/17 20:49 Basophils % (Manual) 1 % 06/20/17 22:04 Neutrophils # 8.4 k/uL (1.3-7.7) H 06/24/17 20:49 Neutrophils # (Manual) 1.10 k/uL (1.3-7.7) L 06/20/17 22:04 Lymphocytes # 1.6 k/uL (1.0-4.8) 06/24/17 20:49 Lymphocytes # (Manual) 1.31 k/uL (1.0-4.8) 06/20/17 22:04 Monocytes # 0.4 k/uL (0-1.0) 06/24/17 20:49 Monocytes # (Manual) 0.44 k/uL (0-1.0) 06/20/17 22:04 Eosinophils # 0.0 k/uL (0-0.7) 06/24/17 20:49 Eosinophils # (Manual) 0.06 k/uL (0-0.7) 06/20/17 22:04 Basophils # 0.0 k/uL (0-0.2) 06/24/17 20:49 Basophils # (Manual) 0.03 k/uL (0-0.2) 06/20/17 22:04 Nucleated RBCs 0 /100 WBC (0-0) 06/20/17 22:04 Toxic Vacuolation Present 06/20/17 22:04 Polychromasia Present 06/20/17 22:04 Hypochromasia Moderate 06/24/17 20:49 Poikilocytosis Slight 06/24/17 20:49 Poikilocytosis (manual Present 06/20/17 22:04 Anisocytosis Slight 06/24/17 20:49 PT 10.4 sec (9.0-12.0) 06/20/17 22:04 INR 1.1 (<1.2) 06/20/17 22:04 APTT 25.8 sec (22.0-30.0) 06/20/17 22:04 Sample Site Rbrach 06/24/17 19:11 ABG pH 7.39 (7.35-7.45) 06/24/17 19:11 ABG pCO2 42 mmHg (35-45) 06/24/17 19:11 ABG pO2 74 mmHg (83-108) L 06/24/17 19:11 ABG HCO3 25 mmol/L (21-25) 06/24/17 19:11 ABG Total CO2 26 mmol/L (19-24) H 06/24/17 19:11 ABG O2 Saturation 92.6 % (94-97) L 06/24/17 19:11 ABG Base Excess -0.2 mmol/L 06/24/17 19:11 Pancho Test Yes 06/24/17 19:11 FiO2 100 % 06/24/17 19:11 Sodium 153 mmol/L (137-145) H 06/24/17 20:49 Potassium 4.5 mmol/L (3.5-5.1) 06/24/17 20:49 Chloride 116 mmol/L (98-107) H 06/24/17 20:49 Carbon Dioxide 25 mmol/L (22-30) 06/24/17 20:49 Anion Gap 12 mmol/L 06/24/17 20:49 BUN 45 mg/dL (7-17) H 06/24/17 20:49 Creatinine 1.21 mg/dL (0.52-1.04) H 06/24/17 20:49 Est GFR (MDRD) Af Amer 53 (>60 ml/min/1.73 sqM) 06/24/17 20:49 Est GFR (MDRD) Non-Af 44 (>60 ml/min/1.73 sqM) 06/24/17 20:49 Glucose 203 mg/dL (74-99) H 06/24/17 20:49 POC Glucose (mg/dL) 199 mg/dL (75-99) H 06/24/17 21:53 POC Glu [employer] TROY SofiaBritton luisn 06/24/17 21:53 Plasma Lactic Acid Carlos 0.9 mmol/L (0.7-2.0) 06/24/17 14:46 Calcium 9.2 mg/dL (8.4-10.2) 06/24/17 20:49 Magnesium 2.0 mg/dL (1.6-2.3) 06/24/17 06:46 Iron 32 ug/dL (50-170) L 06/22/17 06:43 TIBC 217 ug/dL (228-460) L 06/22/17 06:43 Iron Saturation 14.75 (12.00-45.00) 06/22/17 06:43 Ferritin 686.8 ng/mL (10.0-291.0) H 06/22/17 06:43 Total Bilirubin 0.2 mg/dL (0.2-1.3) 06/21/17 12:40 AST 15 U/L (14-36) 06/21/17 12:40 ALT 23 U/L (9-52) 06/21/17 12:40 Alkaline Phosphatase 117 U/L (38-126) 06/21/17 12:40 Total Creatine Kinase <20 U/L (30-135) L 06/20/17 22:04 CK-MB (CK-2) <0.2 ng/mL (0.0-2.4) 06/20/17 22:04 CK-MB (CK-2) Rel Index 06/20/17 22:04 Troponin I <0.012 ng/mL (0.000-0.034) 06/20/17 22:04 Total Protein 5.9 g/dL (6.3-8.2) L 06/21/17 12:40 Albumin 2.9 g/dL (3.5-5.0) L 06/21/17 12:40 Vitamin B12 1228.0 pg/mL (200.0-944.0) H 06/22/17 06:43 RBC Folate 1,663 ng/mL (280 - 791) H 06/22/17 06:43 TSH 1.620 mIU/L (0.465-4.680) 06/20/17 22:04 Urine Color Yellow 06/21/17 00:57 Urine Appearance Cloudy (Clear) H 06/21/17 00:57 Urine pH 5.5 (5.0-8.0) 06/21/17 00:57 Ur Specific [place] 1.014 (1.001-1.035) 06/21/17 00:57 Urine Protein Trace (Negative) H 06/21/17 00:57 Urine Glucose (UA) Negative (Negative) 06/21/17 00:57 Urine Ketones Negative (Negative) 06/21/17 00:57 Urine Blood Negative (Negative) 06/21/17 00:57 Urine Nitrite Positive (Negative) H 06/21/17 00:57 Urine Bilirubin Negative (Negative) 06/21/17 00:57 Urine Urobilinogen <2.0 mg/dL (<2.0) 06/21/17 00:57 Ur Leukocyte Esterase Trace (Negative) H 06/21/17 00:57 Urine RBC <1 /hpf (0-5) 06/21/17 00:57 Urine WBC 6 /hpf (0-5) H 06/21/17 00:57 Ur Squamous Epith Cells <1 /hpf (0-4) 06/21/17 00:57 Urine Bacteria Many /hpf (None) H 06/21/17 00:57 Urine Mucus Rare /hpf (None) H 06/21/17 00:57 Vancomycin Trough 14.2 ug/mL 06/23/17 16:50 Microbiology 06/20/17 22:04 Blood Blood Culture - Preliminary No Growth after 72 hours Abdominal x-ray: image reviewed (Chest x-ray reviewed with evidence of COPD no acute volume overload or pneumonic infiltrate) Assessment and Plan (1) Esophageal adenocarcinoma Current Visit: No Status: Chronic Priority: Medium Code(s): C15.9 - MALIGNANT NEOPLASM OF ESOPHAGUS, UNSPECIFIED SNOMED Code(s): 939539728 (2) Ileus Current Visit: Yes Status: Acute Code(s): K56.7 - ILEUS, UNSPECIFIED SNOMED Code(s): 295012993 (3) Esophageal stricture Current Visit: No Status: Acute Code(s): K22.2 - ESOPHAGEAL OBSTRUCTION SNOMED Code(s): 20793945 (4) Aspiration pneumonia Narrative/Plan: 67-year-old female presented to hospital with significant abdominal discomforts and acute illness. Was diagnosed with ileus with bowel rest is had some minimal improvement. It is noted she has metastatic adenocarcinoma of the esophagus and has been started on by mouth negative radiation therapy. Patient is now developed evidence of respiratory failure and likely has had an aspiration event as etiology. As a microbial therapy will be tailored to include meropenem, she is receiving antifungal therapy with fluconazole and that shall continue. And vancomycin is currently being given until we have further data. It is noted the prognosis is very poor. The patient's CODE STATUS is full and this was discussed with her daughter who is a nurse, there is a distinct disconnect between her CODE STATUS at her palliative therapy. As noted patient is transferred to the intensive care unit and likely will require BiPAP therapy. Current Visit: Yes Status: Acute Code(s): J69.0 - PNEUMONITIS DUE TO INHALATION OF FOOD AND VOMIT SNOMED Code(s): 690474348
[2017-06-25] MEDS: LORazepam 2 MG/ML INJ IV PRN ×2 (01:29→23:41)
[2017-06-25] MEDS: INSULIN ASPART 100 UNIT/ML 1 ML 10 ML VIAL SQ SCH ×4 (01:42→17:45)
[2017-06-25 03:40] LABS: Hemoglobin A1C 6.5 % (4.0-6.0)
[2017-06-25] MEDS: MEROPENEM 1 GM in SODIUM CHLORIDE 0.9% 100 ML IVPB SCH ×2 (05:46→12:36)
[2017-06-25] MEDS: SODIUM CHLORIDE 0.9% 1,000 ML IV SCH (05:46)
[2017-06-25] MEDS: METOPROLOL TARTRATE 5 MG/5 ML VIAL IVP SCH ×2 (05:46→15:59)
[2017-06-25 06:06] LABS: Glucose,Whole Blood 140 mg/dL (75-99)
[2017-06-25] MEDS: VANCOMYCIN 1,000 MG in SODIUM CHLORIDE 0.9% 250 ML IVPB SCH (06:08)
[2017-06-25] MEDS: HYDROmorphone 0.5 MG/0.5 ML SYRINGE IVP PRN ×3 (06:18→18:48)
[2017-06-25 06:34] LABS: Calcium 9.1 mg/dL (8.4-10.2); Potassium 3.5 mmol/L (3.5-5.1)
[2017-06-25] MEDS ORDERED: POTASSIUM CHLORIDE 20 MEQ in WATER FOR INJECTION 1 100ML.BAG IVPB ONE (06:46)
[2017-06-25 07:29] LABS: Anisocytosis Slight; Basophils % (A) 0 %; Eosinophils % (A) 0 %; HCT 33.9 % (34.0-46.0); HGB 10.2 gm/dL (11.4-16.0); Hypochromasia Moderate; Lymphocytes # (A) 1.4 k/uL (1.0-4.8); Lymphocytes % (A) 14 %; MCH 28.9 pg (25.0-35.0); MCV 96.2 fL (80.0-100.0); Mean Platelet Volume 7.6; Monocytes # (A) 0.4 k/uL (0-1.0); Monocytes % (A) 4 %; Neutrophils # (A) 7.9 k/uL (1.3-7.7); Neutrophils % (A) 80 %; Platelet Count 109 k/uL (150-450); Poikilocytosis Slight; RBC 3.53 m/uL (3.80-5.40); RDW 16.7 % (11.5-15.5); WBC 9.9 k/uL (3.8-10.6)
[2017-06-25] MEDS: SYMBICORT 160-4.5 MCG INHALER INHALATION SCH (08:21)
[2017-06-25] MEDS: IPRATROPIUM-ALBUTEROL 3 ML NEB INHALATION SCH (08:21)
--- NOTE | 2017-06-25 08:30 | XR ---
EXAMINATION TYPE: XR chest 1V DATE OF EXAM: 06/25/2017 COMPARISON: Prior chest x-ray 06/24/2017 HISTORY: Shortness of breath TECHNIQUE: Single frontal view of the chest is obtained. FINDINGS: Right-sided Port-A-Cath is again noted, distal tip of the catheter is overlying the region of the cavoatrial junction. There is no evident pneumothorax or pleural effusion. There are overlyin g cardiac leads and tubing. Surgical clips are present in the right upper quadrant. There is a mild s juan curvature. No evident airspace disease. Cardiac mediastinal silhouette, pulmonary vascularity a nd vinicius are stable. The patient is rotated. IMPRESSION: Findings are similar to prior exam. No acute abnormalities evident.
--- NOTE | 2017-06-25 08:39 | P.CNPUL ---
History of Present Illness Consult date: 06/25/17 Reason for consult: other Chief complaint: Weakness/respiratory distress/impending respiratory failure History of present illness: Consult dated 06/25/2017 67-year-old female who presents on June 21. She apparently presented to the emergency department to be evaluated for a number of complaints which have been developing for a couple days prior to admission. She was having symptomatic weakness and fatigue. She also has some nausea and vomiting while she was at home. There was a concern for GI bleed. In addition, the patient apparently had abdominal distention and she was complaining of generalized abdominal pains. Also, the patient had mental status changes and was somewhat delirious. Most of this history apparently was obtained from the patient's daughter Lloyd Gramajo it's a nurse here at the hospital. Apparently last night, and a rapid response was called. The patient was moved from select care to intensive care unit for respiratory distress. I was called. We put her on the BiPAP at 10 and 5 and 100%. She's been weaned down to 65%. 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 The patient is on a saline IV with 40 potassium at 50 mL an hour and another saline IV at only 20 mL an hour. In addition to the esophageal cancer, the patient apparently has a history of COPD diabetes hyperlipidemia hypertension myocardial infarction stress incontinence kidney stones. The patient apparently has had 5 rounds of chemotherapy. She's currently in the ICU. She very lethargic. BiPAP in place. She is poorly responsive. She is a full code. That should be addressed. Review of Systems She is poorly responsive and I can get no history from her. Family members are not currently available. ROS unobtainable: due to mental status Past Medical History Past Medical History: Cancer, COPD, Diabetes Mellitus, Hyperlipidemia, Hypertension, Myocardial Infarction ([place]) Additional Past Medical History / Comment(s): Stress incontinence, wears briefs , esophageal cancer December 2016, has had 5 rounds of chemo, kidney stones, hydronephrosis right kidney, spleen aneurysm,. 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 lumpectomy left breast, feeding tube, infusion port Past Anesthesia/Blood Transfusion Reactions: No Reported Reaction Past Psychological History: Anxiety, Depression, Panic Disorder Smoking Status: Former smoker - Past Family History Mother Family Medical History: Cancer Additional Family Medical History / Comment(s): Throat Father Family Medical History: Myocardial Infarction (AL) Additional Family Medical History / Comment(s): Arthrosclorosis Brother(s) Family Medical History: Myocardial Infarction (AL) Medications and Allergies Home Medications Medication Instructions Recorded Confirmed Type ALPRAZolam [Xanax] 1 mg PEG/G-TUBE TID 04/09/15 06/20/17 History Cholecalciferol [Vitamin D3] 2,000 unit PEG/G-TUBE DAILY 04/09/15 06/20/17 History PARoxetine [Paxil] 20 mg PEG/G-TUBE HS 04/09/15 06/20/17 History Budesonide-Formot 160-4.5 Mcg 2 puff INHALATION RT-BID #1 puff 04/12/15 Rx [Symbicort 160-4.5 Mcg Inhaler] Famotidine [Pepcid] 20 mg PEG/G-TUBE BID@0500,2200 12/04/16 06/20/17 History Glimepiride [Amaryl] 2 mg PEG/G-TUBE BID 12/04/16 06/20/17 History Ipratropium-Albuterol Nebulize 3 ml INHALATION RT-BID 12/05/16 06/20/17 History [Duoneb 0.5 mg-3 mg/3 ml Soln] Acetaminophen Tab [Tylenol] 650 mg PEG/G-TUBE DAILY@1900 PRN 01/11/17 06/20/17 History Ondansetron Odt [Zofran ODT] 4 mg SUBLINGUAL Q6HR PRN 01/12/17 06/20/17 History diphenhydrAMINE [Benadryl] 50 mg PEG/G-TUBE HS 01/12/17 06/20/17 History Carvedilol [Coreg] 25 mg PEG/G-TUBE BID 02/17/17 06/20/17 History Hydrochlorothiazide [Hydrodiuril] 25 mg PEG/G-TUBE DAILY 02/17/17 06/20/17 History HYDROcodone/APAP 7.5-325MG [[place] 1 tab PEG/G-TUBE Q4H PRN 05/08/17 06/20/17 History 7.5-325] fentaNYL [Duragesic 25MCG/HR] 1 patch TRANSDERM Q72H 05/08/17 06/20/17 History Lactulose [Cephulac] 10 gm PO BID PRN 05/20/17 06/21/17 History Atorvastatin [Lipitor] 40 mg PEG/G-TUBE HS 05/31/17 06/20/17 History Allergies Allergy/AdvReac Type Severity Reaction Status Date / Time nickel Allergy Rash/Hives Verified 06/20/17 22:42 phenazopyridine HCl Allergy Anaphylaxis Verified 06/20/17 22:42 [From Pyridium] prochlorperazine Allergy Anaphylaxis Verified 06/20/17 22:42 [From Compazine] prochlorperazine edisylate Allergy Anaphylaxis Verified 06/20/17 22:42 [From Compazine] prochlorperazine maleate Allergy Anaphylaxis Verified 06/20/17 22:42 [From Compazine] Sulfa (Sulfonamide Allergy Unknown Verified 06/20/17 22:42 Antibiotics) metformin AdvReac Nausea & Verified 06/20/17 22:42 Vomiting & Diarrhea Physical Exam Osteopathic Statement: *. No significant issues noted on an osteopathic structural exam other than those noted in the History and Physical/Consult. Vitals: Vital Signs Temp Pulse Pulse Pulse Resp BP BP 06/25/17 08:21 88 06/25/17 07:40 99.7 F H 06/25/17 07:30 99.7 F H 93 29 H 126/69 06/25/17 07:00 101.1 F H 93 31 H 135/67 06/25/17 06:30 93 30 H 153/73 06/25/17 06:00 100.7 F H 85 35 H 155/79 06/25/17 05:30 106 H 35 H 156/79 06/25/17 05:00 106 H 35 H 154/78 06/25/17 04:30 105 H 34 H 152/78 06/25/17 04:00 101 F H 103 H 31 H 143/74 06/25/17 03:30 104 H 35 H 131/72 06/25/17 03:00 103 H 32 H 136/68 02/13/18 02:30 102 H 24 119/66 06/25/17 02:00 101 H 16 113/66 06/25/17 01:30 105 H 22 130/71 06/25/17 01:00 102 H 30 H 122/72 06/25/17 00:30 101 H 9 L 118/67 18 00:20 100.1 F H 102 H 7 L 118/67 06/25/17 00:10 102 H 4 L 114/68 06/25/17 00:00 103 H 30 H 119/69 06/24/17 23:50 101 H 13 119/69 06/24/17 23:40 101 H 26 H 118/64 06/24/17 23:30 108 H 18 157/88 06/24/17 23:20 105 H 35 H 157/88 06/24/17 23:10 108 H 36 H 143/86 06/24/17 23:00 107 H 39 H 146/84 06/24/17 22:50 108 H 29 H 146/84 06/24/17 22:40 106 H 11 L 133/77 06/24/17 22:30 108 H 19 141/88 06/24/17 22:20 109 H 11 L 141/88 06/24/17 22:10 106 H 13 134/89 06/24/17 22:00 108 H 28 H 128/73 06/24/17 21:50 109 H 40 H 128/73 06/24/17 21:40 110 H 35 H 135/66 06/24/17 21:30 109 H 35 H 129/82 06/24/17 21:20 108 H 33 H 129/82 06/24/17 21:10 108 H 28 H 141/77 06/24/17 21:00 109 H 33 H 141/79 06/24/17 20:50 110 H 35 H 141/79 06/24/17 20:40 116 H 38 H 122/70 06/24/17 20:30 113 H 36 H 122/70 06/24/17 20:20 112 H 36 H 113/59 06/24/17 20:10 112 H 33 H 109/61 06/24/17 20:00 101.5 F H 113 H 35 H 109/61 122/70 06/24/17 19:41 99.2 F 121 H 32 H 136/63 06/24/17 19:33 100.3 F H 124 H 30 H 136/58 06/24/17 16:00 101.0 F H 125 H 28 H 190/93 Pulse Ox 06/25/17 08:21 06/25/17 07:40 06/25/17 07:30 95 06/25/17 07:00 96 06/25/17 06:30 98 06/25/17 06:00 94 L 06/25/17 05:30 95 06/25/17 05:00 95 06/25/17 04:30 95 06/25/17 04:00 96 06/25/17 03:30 95 06/25/17 03:00 96 06/25/17 02:30 97 06/25/17 02:00 98 06/25/17 01:30 98 06/25/17 01:00 97 06/25/17 00:30 98 06/25/17 00:20 99 06/25/17 00:10 98 06/25/17 00:00 97 06/24/17 23:50 97 06/24/17 23:40 96 06/24/17 23:30 98 06/24/17 23:20 96 06/24/17 23:10 98 06/24/17 23:00 99 06/24/17 22:50 99 06/24/17 22:40 99 06/24/17 22:30 99 06/24/17 22:20 98 06/24/17 22:10 98 06/24/17 22:00 99 06/24/17 21:50 98 06/24/17 21:40 98 06/24/17 21:30 98 06/24/17 21:20 98 06/24/17 21:10 97 06/24/17 21:00 97 06/24/17 20:50 96 06/24/17 20:40 92 L 06/24/17 20:30 89 L 06/24/17 20:20 88 L 06/24/17 20:10 85 L 06/24/17 20:00 80 L 06/24/17 19:41 95 06/24/17 19:33 94 L 06/24/17 16:00 93 L Intake and Output 06/24/17 06/25/17 06/25/17 22:59 06:59 14:59 Intake Total 940 70 Output Total 370 45 Balance 570 25 Intake: IV 240 20 Sodium Chloride 0.9% 1, 240 20 000 ml @ 20 mls/hr IV . Q24H JESS Rx#:[id number] Intake, IV Titration 700 50 Amount 0.9% NaCl with KCl 40 Meq 600 50 /l 1,000 ml @ 50 mls/hr IV .Q20H JESS Rx#: [id number] Meropenem 1 gm In Sodium 100 Chloride 0.9% 100 ml @ 100 mls/hr IVPB Q8H JESS Rx#:[id number] Output: Urine 370 45 Other: Voiding Method Indwelling Catheter Indwelling Catheter # Voids 1 # Bowel Movements 1 1 Weight 54 kg 52.2 kg No acute distress, lethargic and somnolent, BiPAP mask in place. HEENT examination is grossly unremarkable. BiPAP prevents the evaluation of the oral cavity. Neck supple. Full range of motion. No adenopathy thyromegaly or neck vein distention. Cardiovascular examination reveals regular rhythm rate. S1-S2 normal. No S3 or S4. No discernible murmur noted. Heart rate 100. Lungs reveal coarse rhonchi. Breath sounds are diminished. This some expiratory wheezes. A few scattered rhonchi noted.. Abdomen soft bowel sounds are heard. No masses or tenderness. Extremities are intact. No cyanosis clubbing or edema. Skin is without rash or lesion. Skin is pale Neurologic examination cannot be adequately assessed Results - Laboratory Findings CBC and BMP: 06/25/17 05:44 06/25/17 05:44 ABG ABG pH 7.39 (7.35-7.45) 06/24/17 19:11 ABG pCO2 42 mmHg (35-45) 06/24/17 19:11 ABG pO2 74 mmHg (83-108) L 06/24/17 19:11 ABG O2 Saturation 92.6 % (94-97) L 06/24/17 19:11 PT/INR, D-dimer PT 10.4 sec (9.0-12.0) 06/20/17 22:04 INR 1.1 (<1.2) 06/20/17 22:04 Abnormal lab findings: Abnormal Labs 06/20/17 06/20/17 06/20/17 22:04 22:04 22:04 WBC 2.9 L RBC 2.69 L Hgb 8.1 L D Hct 24.9 L MCHC RDW 16.7 H Plt Count 77 L Neutrophils # Neutrophils # (Manual) 1.10 L Lymphocytes # ABG pO2 ABG Total CO2 ABG O2 Saturation Sodium 133 L Potassium 2.9 L* Chloride 88 L Carbon Dioxide 34 H BUN 34 H Creatinine Glucose 155 H POC Glucose (mg/dL) Hemoglobin A1c Iron TIBC Ferritin AST 13 L Total Creatine Kinase <20 L Total Protein Albumin 3.3 L Vitamin B12 RBC Folate Urine Appearance Urine Protein Urine Nitrite Ur Leukocyte Esterase Urine WBC Urine Bacteria Urine Mucus 06/21/17 06/21/17 06/21/17 00:57 12:40 12:40 WBC 3.3 L RBC 2.44 L Hgb 7.3 L Hct 22.5 L MCHC RDW 16.6 H Plt Count 76 L Neutrophils # Neutrophils # (Manual) Lymphocytes # 0.9 L ABG pO2 ABG Total CO2 ABG O2 Saturation Sodium 136 L Potassium Chloride 92 L Carbon Dioxide 35 H BUN 28 H Creatinine Glucose 140 H POC Glucose (mg/dL) Hemoglobin A1c Iron TIBC Ferritin AST Total Creatine Kinase Total Protein 5.9 L Albumin 2.9 L Vitamin B12 RBC Folate Urine Appearance Cloudy H Urine Protein Trace H Urine Nitrite Positive H Ur Leukocyte Esterase Trace H Urine WBC 6 H Urine Bacteria Many H Urine Mucus Rare H 06/22/17 06/22/17 06/22/17 06:43 06:43 06:43 WBC RBC 2.68 L Hgb 7.9 L Hct 25.2 L MCHC RDW 16.5 H Plt Count 86 L Neutrophils # Neutrophils # (Manual) Lymphocytes # 0.7 L ABG pO2 ABG Total CO2 ABG O2 Saturation Sodium Potassium Chloride 96 L Carbon Dioxide 34 H BUN 25 H Creatinine Glucose 212 H POC Glucose (mg/dL) Hemoglobin A1c Iron 32 L TIBC 217 L Ferritin 686.8 H AST Total Creatine Kinase Total Protein Albumin Vitamin B12 1228.0 H RBC Folate Urine Appearance Urine Protein Urine Nitrite Ur Leukocyte Esterase Urine WBC Urine Bacteria Urine Mucus 06/22/17 06/22/17 06/22/17 06:43 11:53 17:55 WBC RBC Hgb Hct MCHC RDW Plt Count Neutrophils # Neutrophils # (Manual) Lymphocytes # ABG pO2 ABG Total CO2 ABG O2 Saturation Sodium Potassium Chloride Carbon Dioxide BUN Creatinine Glucose POC Glucose (mg/dL) 190 H 192 H Hemoglobin A1c Iron TIBC Ferritin AST Total Creatine Kinase Total Protein Albumin Vitamin B12 RBC Folate 1,663 H Urine Appearance Urine Protein Urine Nitrite Ur Leukocyte Esterase Urine WBC Urine Bacteria Urine Mucus 06/23/17 06/23/17 06/23/17 00:03 06:03 06:47 WBC RBC 3.05 L Hgb 8.7 L Hct 29.4 L MCHC 29.7 L RDW 16.8 H Plt Count 93 L Neutrophils # Neutrophils # (Manual) Lymphocytes # 0.7 L ABG pO2 ABG Total CO2 ABG O2 Saturation Sodium Potassium Chloride Carbon Dioxide BUN Creatinine Glucose POC Glucose (mg/dL) 118 H 196 H Hemoglobin A1c Iron TIBC Ferritin AST Total Creatine Kinase Total Protein Albumin Vitamin B12 RBC Folate Urine Appearance Urine Protein Urine Nitrite Ur Leukocyte Esterase Urine WBC Urine Bacteria Urine Mucus 06/23/17 06/23/17 06/23/17 06:47 11:52 17:50 WBC RBC Hgb Hct MCHC RDW Plt Count Neutrophils # Neutrophils # (Manual) Lymphocytes # ABG pO2 ABG Total CO2 ABG O2 Saturation Sodium Potassium Chloride Carbon Dioxide BUN 30 H Creatinine Glucose 200 H POC Glucose (mg/dL) 165 H 124 H Hemoglobin A1c Iron TIBC Ferritin AST Total Creatine Kinase Total Protein Albumin Vitamin B12 RBC Folate Urine Appearance Urine Protein Urine Nitrite Ur Leukocyte Esterase Urine WBC Urine Bacteria Urine Mucus 06/24/17 06/24/17 06/24/17 01:14 06:03 06:46 WBC RBC 3.55 L Hgb 10.3 L Hct 33.7 L MCHC 30.5 L RDW 16.8 H Plt Count 125 L Neutrophils # Neutrophils # (Manual) Lymphocytes # ABG pO2 ABG Total CO2 ABG O2 Saturation Sodium Potassium Chloride Carbon Dioxide BUN Creatinine Glucose POC Glucose (mg/dL) 113 H 150 H Hemoglobin A1c Iron TIBC Ferritin AST Total Creatine Kinase Total Protein Albumin Vitamin B12 RBC Folate Urine Appearance Urine Protein Urine Nitrite Ur Leukocyte Esterase Urine WBC Urine Bacteria Urine Mucus 06/24/17 06/24/17 06/24/17 06:46 11:49 19:11 WBC RBC Hgb Hct MCHC RDW Plt Count Neutrophils # Neutrophils # (Manual) Lymphocytes # ABG pO2 74 L ABG Total CO2 26 H ABG O2 Saturation 92.6 L Sodium 146 H Potassium 2.5 L* Chloride Carbon Dioxide BUN 27 H Creatinine Glucose 147 H POC Glucose (mg/dL) 162 H Hemoglobin A1c Iron TIBC Ferritin AST Total Creatine Kinase Total Protein Albumin Vitamin B12 RBC Folate Urine Appearance Urine Protein Urine Nitrite Ur Leukocyte Esterase Urine WBC Urine Bacteria Urine Mucus 06/24/17 06/24/17 06/24/17 20:01 20:49 20:49 WBC RBC 3.63 L Hgb 10.7 L Hct MCHC 30.6 L RDW 16.9 H Plt Count 135 L Neutrophils # 8.4 H Neutrophils # (Manual) Lymphocytes # ABG pO2 ABG Total CO2 ABG O2 Saturation Sodium 153 H Potassium Chloride 116 H Carbon Dioxide BUN 45 H Creatinine 1.21 H Glucose 203 H POC Glucose (mg/dL) 206 H Hemoglobin A1c Iron TIBC Ferritin AST Total Creatine Kinase Total Protein Albumin Vitamin B12 RBC Folate Urine Appearance Urine Protein Urine Nitrite Ur Leukocyte Esterase Urine WBC Urine Bacteria Urine Mucus 06/24/17 06/24/17 06/25/17 20:49 21:53 05:44 WBC RBC 3.53 L Hgb 10.2 L Hct 33.9 L MCHC 30.0 L RDW 16.7 H Plt Count 109 L Neutrophils # 7.9 H Neutrophils # (Manual) Lymphocytes # ABG pO2 ABG Total CO2 ABG O2 Saturation Sodium Potassium Chloride Carbon Dioxide BUN Creatinine Glucose POC Glucose (mg/dL) 199 H Hemoglobin A1c 6.5 H Iron TIBC Ferritin AST Total Creatine Kinase Total Protein Albumin Vitamin B12 RBC Folate Urine Appearance Urine Protein Urine Nitrite Ur Leukocyte Esterase Urine WBC Urine Bacteria Urine Mucus 06/25/17 06/25/17 05:44 06:03 WBC RBC Hgb Hct MCHC RDW Plt Count Neutrophils # Neutrophils # (Manual) Lymphocytes # ABG pO2 ABG Total CO2 ABG O2 Saturation Sodium 156 H Potassium Chloride 118 H Carbon Dioxide BUN 51 H Creatinine 1.30 H Glucose 139 H POC Glucose (mg/dL) 140 H Hemoglobin A1c Iron TIBC Ferritin AST Total Creatine Kinase Total Protein Albumin Vitamin B12 RBC Folate Urine Appearance Urine Protein Urine Nitrite Ur Leukocyte Esterase Urine WBC Urine Bacteria Urine Mucus - Diagnostic Findings Chest x-ray: image reviewed (Chest x-ray labs and medications are all reviewed.) Assessment and Plan Assessment: Assessment 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 Respiratory distress, improved on BiPAP Severe hypernatremia and dehydration with prerenal azotemia History of questionable COPD Diabetes mellitus Hyperlipidemia Hypertension Myocardial infarction History of urinary stress incontinence Nephrolithiasis Plan: Plan dated 06/25/2017 The patient's doing poorly. I will review the labs x-rays a medications. CODE STATUS definitely should be addressed. I asked this question last night. We' ll have to switch her to D5W to deal with the hypernatremia and hyperchloremia. Prognosis is poor. CAT scan and x-rays and abdominal computed tomography scan are all reviewed. Time with Patient: Greater than 30
[2017-06-25] MEDS: 0.9% NACL WITH KCL 40 MEQ/L 1,000 ML IV SCH (09:28)
[2017-06-25] MEDS: CARVEDILOL 12.5 MG TAB PEG/G-TUBE SCH ×2 (09:28→20:21)
[2017-06-25] MEDS: HYDROCHLOROTHIAZIDE 25 MG TAB PEG/G-TUBE SCH (09:29)
[2017-06-25] MEDS: GLIMEPIRIDE 2 MG TAB PEG/G-TUBE SCH ×2 (09:29→20:21)
[2017-06-25] MEDS: CHOLECALCIFEROL 1,000 UNIT TAB PEG/G-TUBE SCH (09:29)
[2017-06-25] MEDS: DEXTROSE 5% IN WATER 1,000 ML IV SCH ×2 (09:35→17:46)
--- NOTE | 2017-06-25 10:31 | ECHOF ---
Referral Reason:tachycardia MEASUREMENTS -------- HEIGHT: 152.4 cm WEIGHT: 54.0 kg BP: 173/85 IVSd: 1.5 cm (0.6 - 1.1) LVIDd: 2.6 cm (3.9 - 5.3) LVPWd: 1.6 cm (0.6 - 1.1) IVSs: 2.0 cm LVIDs: 1.8 cm LVPWs: 2.0 cm Ao Diam: 3.1 cm (2.0 - 3.7) AV Cusp: 2.0 cm (1.5 - 2.6) LA Diam: 2.8 cm (2.7 - 3.8) MV EXCURSION: 11.844 mm (> 18.000) MV EF SLOPE: 89 mm/s (70 - 150) EPSS: 0.5 cm MV E Mike: 0.86 m/s MV DecT: 48 ms MV A Mike: 0.39 m/s MV E/A Ratio: 2.21 AR PHT: 291 ms RAP: 5.00 mmHg RVSP: 20.69 mmHg FINDINGS -------- Sinus rhythm. Resting tachycardia (HR>100bpm). This was a technically good study. The left ventricular size is normal. There is moderate concentric left ventricular hypertrophy. O verall left ventricular systolic function is normal with, an EF between 60 - 65 %. The right ventricle is normal in size and function. The left atrium is normal in size. The right atrium is normal in size. The aortic valve is trileaflet and appears structurally normal. There is fcyz-ex-bsjqrtvl aortic re gurgitation. The mitral valve leaflets are mildly thickened. Mild mitral regurgitation is present. Mild tricuspid regurgitation present. There is no evidence of pulmonary hypertension. The right v entricular systolic pressure, as measured by Doppler, is 20.69mmHg. There is no pulmonic regurgitation present. The aortic root size is normal. There is a trivial pericardial effusion present. CONCLUSIONS -------- 1. Resting tachycardia (HR>100bpm). 2. This was a technically good study. 3. The left ventricular size is normal. 4. There is moderate concentric left ventricular hypertrophy. 5. Overall left ventricular systolic function is normal with, an EF between 60 - 65 %. 6. The left atrium is normal in size. 7. There is xkev-fy-oljvaxnv aortic regurgitation. 8. The mitral valve leaflets are mildly thickened. 9. Mild mitral regurgitation is present. 10. Mild tricuspid regurgitation present. 11. There is no evidence of pulmonary hypertension. 12. There is no pulmonic regurgitation present. 13. The aortic root size is normal. 14. There is a trivial pericardial effusion present. SERVICE DESK AGENT: Lian Briggs RDCS
--- NOTE | 2017-06-25 10:57 | P.PN ---
Subjective Progress Note Date: 06/25/17 This is a 67-year-old female with metastatic cancer was seen by Dr. Shaikh yesterday for evaluation of tachycardia which was sinus tachycardia. It was felt to be secondary to metabolic effects. An echocardiogram showed normal LV function. Patient is now intubated. Her heart rate has slowed down. Patient is on IV beta mihaela. We'll continue the same and will follow her as needed Objective - Vital Signs Vital signs: Vital Signs Temp 99.7 F H 06/25/17 08:00 Pulse 84 06/25/17 09:00 Resp 28 H 06/25/17 09:00 BP 121/65 06/25/17 09:00 Pulse Ox 97 06/25/17 09:00 Intake & Output 06/24/17 06/25/17 06/25/17 18:59 06:59 18:59 Intake Total 940 90 Output Total 370 85 Balance 570 5 Weight 54 kg 52.2 kg Intake: IV 240 40 Sodium Chloride 0.9% 1, 240 40 000 ml @ 20 mls/hr IV . Q24H [facility] Rx#:[id number] Intake, IV Titration 700 50 Amount 0.9% NaCl with KCl 40 Meq 600 50 /l 1,000 ml @ 50 mls/hr IV .Q20H JESS Rx#: [id number] Meropenem 1 gm In Sodium 100 Chloride 0.9% 100 ml @ 100 mls/hr IVPB Q8H JESS Rx#:[id number] Output: Urine 370 85 Other: Voiding Method Diaper Indwelling Catheter Incontinent # Voids 1 # Bowel Movements 1 1 - Exam GENERAL EXAM: Patient is intubated and sedated HEENT: Normocephalic. Normal reaction of pupils, equal size, normal range of extraocular motion. No erythema or exudates in the throat. NECK: No masses, no nuchal rigidity. CHEST: No chest wall deformity. LUNGS: Diminished breath sounds HEART: S1 and S2 normal CENTRAL NERVOUS SYSTEM: Deferred EXTREMITIES: No cyanosis, clubbing or edema. - Labs CBC & Chem 7: 06/25/17 05:44 06/25/17 05:44 Labs: Abnormal Lab Results - Last 24 Hours (Table) 06/24/17 06/24/17 06/24/17 Range/Units 11:49 19:11 20:01 RBC (3.80-5.40) m/uL Hgb (11.4-16.0) gm/dL Hct (34.0-46.0) % MCHC (31.0-37.0) g/dL RDW (11.5-15.5) % Plt Count (150-450) k/uL Neutrophils # (1.3-7.7) k/uL ABG pO2 74 L (83-108) mmHg ABG Total CO2 26 H (19-24) mmol/L ABG O2 Saturation 92.6 L (94-97) % Sodium (137-145) mmol/L Chloride (98-107) mmol/L BUN (7-17) mg/dL Creatinine (0.52-1.04) mg/dL Glucose (74-99) mg/dL POC Glucose (mg/dL) 162 H 206 H (75-99) mg/dL Hemoglobin A1c (4.0-6.0) % 06/24/17 06/24/17 06/24/17 Range/Units 20:49 20:49 20:49 RBC 3.63 L (3.80-5.40) m/uL Hgb 10.7 L (11.4-16.0) gm/dL Hct (34.0-46.0) % MCHC 30.6 L (31.0-37.0) g/dL RDW 16.9 H (11.5-15.5) % Plt Count 135 L (150-450) k/uL Neutrophils # 8.4 H (1.3-7.7) k/uL ABG pO2 (83-108) mmHg ABG Total CO2 (19-24) mmol/L ABG O2 Saturation (94-97) % Sodium 153 H (137-145) mmol/L Chloride 116 H (98-107) mmol/L BUN 45 H (7-17) mg/dL Creatinine 1.21 H (0.52-1.04) mg/dL Glucose 203 H (74-99) mg/dL POC Glucose (mg/dL) (75-99) mg/dL Hemoglobin A1c 6.5 H (4.0-6.0) % 06/24/17 06/25/17 06/25/17 Range/Units 21:53 05:44 05:44 RBC 3.53 L (3.80-5.40) m/uL Hgb 10.2 L (11.4-16.0) gm/dL Hct 33.9 L (34.0-46.0) % MCHC 30.0 L (31.0-37.0) g/dL RDW 16.7 H (11.5-15.5) % Plt Count 109 L (150-450) k/uL Neutrophils # 7.9 H (1.3-7.7) k/uL ABG pO2 (83-108) mmHg ABG Total CO2 (19-24) mmol/L ABG O2 Saturation (94-97) % Sodium 156 H (137-145) mmol/L Chloride 118 H (98-107) mmol/L BUN 51 H (7-17) mg/dL Creatinine 1.30 H (0.52-1.04) mg/dL Glucose 139 H (74-99) mg/dL POC Glucose (mg/dL) 199 H (75-99) mg/dL Hemoglobin A1c (4.0-6.0) % 06/25/17 Range/Units 06:03 RBC (3.80-5.40) m/uL Hgb (11.4-16.0) gm/dL Hct (34.0-46.0) % MCHC (31.0-37.0) g/dL RDW (11.5-15.5) % Plt Count (150-450) k/uL Neutrophils # (1.3-7.7) k/uL ABG pO2 (83-108) mmHg ABG Total CO2 (19-24) mmol/L ABG O2 Saturation (94-97) % Sodium (137-145) mmol/L Chloride (98-107) mmol/L BUN (7-17) mg/dL Creatinine (0.52-1.04) mg/dL Glucose (74-99) mg/dL POC Glucose (mg/dL) 140 H (75-99) mg/dL Hemoglobin A1c (4.0-6.0) % Microbiology - Last 24 Hours (Table) 06/20/17 22:04 Blood Culture - Preliminary Blood No Growth after 96 hours Assessment and Plan (1) Sinus tachycardia Current Visit: Yes Status: Acute Code(s): R00.0 - TACHYCARDIA, UNSPECIFIED SNOMED Code(s): 82978191 (2) Pancytopenia due to antineoplastic chemotherapy Current Visit: Yes Status: Acute Code(s): D61.810 - ANTINEOPLASTIC CHEMOTHERAPY INDUCED PANCYTOPENIA; T45.1X5A - ADVERSE EFFECT OF ANTINEOPLASTIC AND IMMUNOSUP DRUGS, INIT SNOMED Code(s): 256261010789993 (3) Lung nodule Current Visit: No Status: Resolved Code(s): R91.1 - SOLITARY PULMONARY NODULE SNOMED Code(s): 883204695 Plan: This patient is seen for evaluation of sinus tachycardia. Echo Cardigan showed normal LV function. Her heart rate is controlled with IV beta blockers. Patient has multiple medical issues. We'll follow her as needed
[2017-06-25] MEDS: FLUCONAZOLE IN NACL,ISO-OSM 100 MG in SALINE 1 50ML.BAG IVPB SCH (11:00)
[2017-06-25] MEDS: PANTOPRAZOLE 40 MG/10 ML VIAL IVP SCH ×2 (11:01→21:19)
[2017-06-25] MEDS: HEPARIN SODIUM,PORCINE 5,000 UNIT/ML 1 ML VIAL SQ SCH ×2 (11:01→21:19)
[2017-06-25] MEDS: BISACODYL 10 MG SUPP RECTAL SCH (11:01)
[2017-06-25 11:30] LABS: Glucose,Whole Blood 165 mg/dL (75-99)
--- NOTE | 2017-06-25 14:53 | P.PN ---
Subjective Progress Note Date: 06/25/17 Principal diagnosis: Malfunctioning G tube Patient was transferred to the ICU because of progressive tachycardia and respiratory distress. She is lethargic. No obvious pain. Catheterogram showed the G-tube to be present within the stomach. No extravasation or obstruction evident. Objective - Vital Signs Vital signs: Vital Signs Temp 100.1 F H 06/25/17 11:30 Pulse 94 06/25/17 12:00 Resp 30 H 06/25/17 12:00 BP 154/70 06/25/17 12:00 Pulse Ox 92 L 06/25/17 12:00 Intake & Output 06/24/17 06/25/17 06/25/17 18:59 06:59 18:59 Intake Total 940 460 Output Total 370 240 Balance 570 220 Weight 54 kg 52.2 kg Intake: IV 240 60 Sodium Chloride 0.9% 1, 240 60 000 ml @ 20 mls/hr IV . Q24H [facility] Rx#:[id number] Intake, IV Titration 700 400 Amount 0.9% NaCl with KCl 40 Meq 600 50 /l 1,000 ml @ 50 mls/hr IV .Q20H [facility] Rx#: [id number] Dextrose 5% in Water 1, 300 000 ml @ 100 mls/hr IV . Q10H [facility] Rx#:[id number] Fluconazole in NaCl,Iso- 50 Osm 100 mg In Saline 1 50ml.bag @ 50 mls/hr IVPB DAILY [facility] Rx#:[id number] Meropenem 1 gm In Sodium 100 Chloride 0.9% 100 ml @ 100 mls/hr IVPB Q8H [facility] Rx#:[id number] Output: Gastric Drainage 50 Urine 370 190 Other: Voiding Method Diaper Indwelling Catheter Incontinent # Voids 1 # Bowel Movements 1 1 1 - Exam Abdomen: Soft, nondistended, mild bilious drainage around G-tube site - Labs CBC & Chem 7: 06/25/17 05:44 06/25/17 05:44 Labs: Abnormal Lab Results - Last 24 Hours (Table) 06/24/17 06/24/17 06/24/17 Range/Units 19:11 20:01 20:49 RBC (3.80-5.40) m/uL Hgb (11.4-16.0) gm/dL Hct (34.0-46.0) % MCHC (31.0-37.0) g/dL RDW (11.5-15.5) % Plt Count (150-450) k/uL Neutrophils # (1.3-7.7) k/uL ABG pO2 74 L (83-108) mmHg ABG Total CO2 26 H (19-24) mmol/L ABG O2 Saturation 92.6 L (94-97) % Sodium 153 H (137-145) mmol/L Chloride 116 H (98-107) mmol/L BUN 45 H (7-17) mg/dL Creatinine 1.21 H (0.52-1.04) mg/dL Glucose 203 H (74-99) mg/dL POC Glucose (mg/dL) 206 H (75-99) mg/dL Hemoglobin A1c (4.0-6.0) % 06/24/17 06/24/17 06/24/17 Range/Units 20:49 20:49 21:53 RBC 3.63 L (3.80-5.40) m/uL Hgb 10.7 L (11.4-16.0) gm/dL Hct (34.0-46.0) % MCHC 30.6 L (31.0-37.0) g/dL RDW 16.9 H (11.5-15.5) % Plt Count 135 L (150-450) k/uL Neutrophils # 8.4 H (1.3-7.7) k/uL ABG pO2 (83-108) mmHg ABG Total CO2 (19-24) mmol/L ABG O2 Saturation (94-97) % Sodium (137-145) mmol/L Chloride (98-107) mmol/L BUN (7-17) mg/dL Creatinine (0.52-1.04) mg/dL Glucose (74-99) mg/dL POC Glucose (mg/dL) 199 H (75-99) mg/dL Hemoglobin A1c 6.5 H (4.0-6.0) % 06/25/17 06/25/17 06/25/17 Range/Units 05:44 05:44 06:03 RBC 3.53 L (3.80-5.40) m/uL Hgb 10.2 L (11.4-16.0) gm/dL Hct 33.9 L (34.0-46.0) % MCHC 30.0 L (31.0-37.0) g/dL RDW 16.7 H (11.5-15.5) % Plt Count 109 L (150-450) k/uL Neutrophils # 7.9 H (1.3-7.7) k/uL ABG pO2 (83-108) mmHg ABG Total CO2 (19-24) mmol/L ABG O2 Saturation (94-97) % Sodium 156 H (137-145) mmol/L Chloride 118 H (98-107) mmol/L BUN 51 H (7-17) mg/dL Creatinine 1.30 H (0.52-1.04) mg/dL Glucose 139 H (74-99) mg/dL POC Glucose (mg/dL) 140 H (75-99) mg/dL Hemoglobin A1c (4.0-6.0) % 06/25/17 Range/Units 11:27 RBC (3.80-5.40) m/uL Hgb (11.4-16.0) gm/dL Hct (34.0-46.0) % MCHC (31.0-37.0) g/dL RDW (11.5-15.5) % Plt Count (150-450) k/uL Neutrophils # (1.3-7.7) k/uL ABG pO2 (83-108) mmHg ABG Total CO2 (19-24) mmol/L ABG O2 Saturation (94-97) % Sodium (137-145) mmol/L Chloride (98-107) mmol/L BUN (7-17) mg/dL Creatinine (0.52-1.04) mg/dL Glucose (74-99) mg/dL POC Glucose (mg/dL) 165 H (75-99) mg/dL Hemoglobin A1c (4.0-6.0) % Microbiology - Last 24 Hours (Table) 06/25/17 01:38 Urine Culture - Preliminary Urine,Catheterized 06/20/17 22:04 Blood Culture - Preliminary Blood No Growth after 96 hours Assessment and Plan (1) Abdominal pain Narrative/Plan: Continue gastrostomy to drainage. Continue to medically treat respiratory distress and lethargy. CODE STATUS discussions with pulmonary/critical care pending. No surgical plans at this time. Current Visit: Yes Status: Acute Code(s): R10.9 - UNSPECIFIED ABDOMINAL PAIN SNOMED Code(s): 79563029 (2) Gastrostomy complication Current Visit: Yes Status: Acute Code(s): K94.20 - GASTROSTOMY COMPLICATION , UNSPECIFIED SNOMED Code(s): 386327039
[2017-06-25 17:33] LABS: Glucose,Whole Blood 181 mg/dL (75-99)
[2017-06-25 17:33] LABS: Glucose,Whole Blood 178 mg/dL (75-99)
[2017-06-25 19:13] LABS: ABG Base Excess -0.5 mmol/L; ABG HCO3 25 mmol/L (21-25); ABG Oxygen Saturation 94.7 % (94-97); ABG PCO2 42 mmHg (35-45); ABG PH 7.38 (7.35-7.45); ABG PO2 75 mmHg (83-108); ABG TCO2 26 mmol/L (19-24)
[2017-06-25] MEDS: PARoxetine 20 MG TAB PEG/G-TUBE SCH (20:21)
[2017-06-25] MEDS: ATORVASTATIN 40 MG TAB PEG/G-TUBE SCH (20:21)
[2017-06-25] MEDS: diphenhydrAMINE 25 MG CAP PEG/G-TUBE SCH (20:21)
[2017-06-25 20:31] VITALS: TEMP 98.7
[2017-06-25] MEDS ORDERED: MEROPENEM 1 GM in SODIUM CHLORIDE 0.9% 100 ML IVPB SCH (22:00)
[2017-06-25] MEDS ORDERED: SCOPOLAMINE 1.5MG/72HR PATCH TRANSDERM PRN (22:18)
[2017-06-25] MEDS: MORPHINE SULFATE 4 MG/ML SYRINGE IV PRN ×2 (22:47→23:48)
[2017-06-25] MEDS: MORPHINE SULFATE (100 MG/2 ML) 100 MG in SODIUM CHLORIDE 0.9% 100 ML IV SCH (22:48)
[2017-06-26] MEDS ORDERED: VANCOMYCIN 1,000 MG in SODIUM CHLORIDE 0.9% 250 ML IVPB SCH ×2
[2017-06-26 00:34] VITALS: BP 135/67
[2017-06-26] MEDS: MORPHINE SULFATE (100 MG/2 ML) 100 MG in SODIUM CHLORIDE 0.9% 100 ML IV SCH ×3 (03:13→09:15)
[2017-06-26] MEDS: MORPHINE SULFATE 4 MG/ML SYRINGE IV PRN (03:25)
[2017-06-26] MEDS ORDERED: ATROPINE OPHTH SOLN 1% 5ML BTL SUBLINGUAL PRN (03:28)
[2017-06-26 04:45] LABS: Anion Gap 8 mmol/L; Blood Urea Nitrogen 26 mg/dL (7-17); Calcium 8.5 mg/dL (8.4-10.2); Carbon Dioxide 24 mmol/L (22-30); Chloride 106 mmol/L (98-107); Glucose 112 mg/dL (74-99); Potassium 4.2 mmol/L (3.5-5.1); Sodium 138 mmol/L (137-145)
--- NOTE | 2017-06-26 10:17 | P.PN ---
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 She apparently presented to the emergency department to be evaluated for a number of complaints which have been developing for a couple days prior to admission. She was having symptomatic weakness and fatigue. She also has some nausea and vomiting while she was at home. There was a concern for GI bleed. In addition, the patient apparently had abdominal distention and she was complaining of generalized abdominal pains. Also, the patient had mental status changes and was somewhat delirious. Most of this history apparently was obtained from the patient's daughter Lloyd Gramajo it's a nurse here at the hospital. Apparently last night, and a rapid response was called. The patient was moved from select care to intensive care unit for respiratory distress. I was called. We put her on the BiPAP at 10 and 5 and 100%. She's been weaned down to 65%. 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 The patient is on a saline IV with 40 potassium at 50 mL an hour and another saline IV at only 20 mL an hour. In addition to the esophageal cancer, the patient apparently has a history of COPD diabetes hyperlipidemia hypertension myocardial infarction stress incontinence kidney stones. The patient apparently has had 5 rounds of chemotherapy. She's currently in the ICU. She very lethargic. BiPAP in place. She is poorly responsive. She is a full code. That should be addressed. The patient is seen again today 06/26/2017 in follow-up on in the intensive care unit. Her condition has continued to deteriorate. She is more obtunded today. Family is at the bedside. They have decided on hospice and comfort care. A morphine drip has been initiated. Scopolamine patch in place. She remains slightly tachycardic, respirations less than 10. O2 saturations in the 80s. Objective - Vital Signs Vital signs: Vital Signs Temp 98.7 F 06/25/17 20:00 Pulse 107 H 06/26/17 09:00 Resp 7 L 06/26/17 09:00 BP 135/67 06/25/17 22:55 Pulse Ox 84 L 06/26/17 09:00 Intake & Output 06/25/17 06/26/17 06/26/17 18:59 06:59 18:59 Intake Total 1180 508.479 102 Output Total 565 310 Balance 615 198.479 102 Weight 52.2 kg Intake: IV 180 220 Dextrose 5% in Water 1, 200 000 ml @ 100 mls/hr IV . Q10H [facility] Rx#:[id number] Sodium Chloride 0.9% 1, 180 20 000 ml @ 20 mls/hr IV . Q24H [facility] Rx#:[id number] Intake, IV Titration 1000 288.479 102 Amount 0.9% NaCl with KCl 40 Meq 50 /l 1,000 ml @ 50 mls/hr IV .Q20H [facility] Rx#: [id number] Dextrose 5% in Water 1, 900 100 000 ml @ 100 mls/hr IV . Q10H [facility] Rx#:[id number] Fluconazole in NaCl,Iso- 50 Osm 100 mg In Saline 1 50ml.bag @ 50 mls/hr IVPB DAILY [facility] Rx#:[id number] Morphine Sulfate (100 mg/ 188.479 102 2 ml) 100 mg In Sodium Chloride 0.9% 100 ml @ 1 MG/HR 1.02 mls/hr IV . Q24H [facility] Rx#:[id number] Output: Gastric Drainage 50 Urine 515 310 Other: Voiding Method Indwelling Catheter Indwelling Catheter # Bowel Movements 1 - Exam GENERAL EXAM: Frail, cachectic, obtunded. EYES: Sluggish reaction of pupils, equal size. NOSE: Clear with pink turbinates. THROAT: No erythema or exudates. NECK: No masses, no JVD. CHEST: No chest wall deformity. LUNGS: Equal air entry with no crackles, wheeze, rhonchi or dullness. CVS: S1 and S2 normal with no audible murmur, regular rhythm. ABDOMEN: No hepatosplenomegaly, normal bowel sounds, no guarding or rigidity. SPINE: No scoliosis or deformity SKIN: No rashes Neurological, the patient is obtunded, unresponsive. EXTREMITIES: There is no peripheral edema. No clubbing, no cyanosis. Peripheral pulses are intact. - Labs CBC & Chem 7: 06/25/17 05:44 06/26/17 04:15 Labs: Abnormal Lab Results - Last 24 Hours (Table) 06/25/17 06/25/17 06/25/17 Range/Units 11:27 17:28 17:30 ABG pO2 (83-108) mmHg ABG Total CO2 (19-24) mmol/L BUN (7-17) mg/dL Glucose (74-99) mg/dL POC Glucose (mg/dL) 165 H 178 H 181 H (75-99) mg/dL 06/25/17 06/26/17 Range/Units 19:09 04:15 ABG pO2 75 L (83-108) mmHg ABG Total CO2 26 H (19-24) mmol/L BUN 26 H (7-17) mg/dL Glucose 112 H (74-99) mg/dL POC Glucose (mg/dL) (75-99) mg/dL Microbiology - Last 24 Hours (Table) 06/20/17 22:04 Blood Culture - Preliminary Blood No Growth after 120 hours 06/24/17 20:49 Blood Culture - Preliminary Blood No Growth after 24 hours 06/25/17 01:38 Urine Culture - Preliminary Urine,Catheterized Assessment and Plan Assessment: Assessment 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 Respiratory distress, improved on BiPAP, however the patient has continued to deteriorate. Severe hypernatremia and dehydration with prerenal azotemia History of questionable COPD Diabetes mellitus Hyperlipidemia Hypertension Myocardial infarction History of urinary stress incontinence Nephrolithiasis Plan: The patient was seen and evaluated by Dr. Ca. He had discussions with the daughters were at the bedside. They are opting for hospice and comfort care. Morphine drip has been initiated. Comfort care orders in place. We will sign off the case. I, the cosigning physician, performed a history & physical examination of the patient. A morphine drip has been initiated for comfort. Lungs sounds are clear. Maintaining O2 saturations in the 80s on room air. I discussed the assessment and plan of care with my nurse practitioner, Alyson Blunt. I attest to the above note as dictated by her.
[2017-06-26 10:25] VITALS: PULSE 111; RESP 6
[2017-06-27 05:29] LABS: Methylmalonic Acid 0.31 umol/L (<0.40)
--- NOTE | 2017-06-28 11:48 | CDI ---
Documentation Clarification Form Date: 06/28/2017 11:42:00 AM From: Tamica Goldberg Admit Date: 06/21/2017 3:13:00 AM Patient Name: Laila Youssef Visit Number: [id number] Discharge Date: ATTENTION: The Clinical Documentation Specialists (CDI) and [facility] Coding Staff appreciate your assistance in clarifying documentation. Please respond to the clarification below the line at the bottom and electronically sign. The CDI & [facility] Coding staff will review the response and follow-up if needed. Please note: Queries are made part of the Legal Health Record. If you have any questions, please contact the author of this message via ITS. Dr. Yuan Pack Malnutrition has been documented on the consult 06/21. History/Risk Factors: esophageal cancer, PEG tube Clinical Indicators: ileus, cancer Current BMI: 22.5 Dietary Consult:yes Supplements/TPN: tube feedings In your professional opinion, can you please clarify if these findings signify one of the following conditions? Mild Protein Malnutrition Mild Protein-Calorie Malnutrition Moderate Protein Malnutrition Moderate Protein-Calorie Malnutrition Severe Protein Malnutrition Severe Protein-Calorie Malnutrition Malnutrition following GI surgery Malnutrition Other condition, please specify Unable to determine Please continue to document in your progress notes and discharge summary in order to capture severity of illness and risk of mortality. Include clinical findings that support your diagnosis. MTDD
--- NOTE | 2017-06-28 11:52 | CDI ---
Documentation Clarification Form Date: 06/28/2017 11:28:00 AM From: Tamica Goldberg Admit Date: 06/21/2017 3:13:00 AM Patient Name: Laila Youssef Visit Number: [id number] Discharge Date: ATTENTION: The Clinical Documentation Specialists (CDI) and [facility] Coding Staff appreciate your assistance in clarifying documentation. Please respond to the clarification below the line at the bottom and electronically sign. The CDI & [facility] Coding staff will review the response and follow-up if needed. Please note: Queries are made part of the Legal Health Record. If you have any questions, please contact the author of this message via ITS. Dr. Wilton Hirsch Documentation and location in medical record included: Consult 06/24/2017 states Patient is now developed evidence of respiratory failure and likely has had an aspiration event as etiology. Respirtory distress is documented in pregress note as well. Clinical Indicators: aspiration pneumonia, esophageal cancer Vital signs: pulse 110, respiratory rate 35 Vent/BiPap yes ABG pCO2 75, Total CO2 26 In your professional opinion, can you please clarify if these findings signify one of the following conditions? Acuity: Acute Chronic Acute on Chronic Specificity: Respiratory Failure, further specify (if known): With hypercapnia? With hypoxia? Respiratory Distress Other Diagnosis, please specify Unable to determine Please continue to document in your progress notes and discharge summary in order to capture severity of illness and risk of mortality. Include clinical findings that support your diagnosis. Patient developed acute respiratory failure from aspiration pneumonia event. She developed acute hypoxia and respiratory distress from her respiratory failure. CYNTHIA
--- NOTE | 2017-06-28 15:32 | P.PN ---
Subjective Progress Note Date: 06/25/17 Principal diagnosis: Acute hypoxic respiratory failure, ileus Patient is a 67-year-old male with a known history of COPD diabetes hyperlipidemia hypertension myocardial infarction stress incontinence kidney stones esophageal cancer with liver long skeletal and adrenal metastasis presented to the emergency department with complaints of weakness and fatigue and nausea vomiting. Patient apparently had abdominal distention and generalized abdominal pain and was found to have ileus. Patient also is being treated for acute urinary tract infection. Patient is having increased respiratory difficulty. Patient also had problems with G-tube over the weekend and Dr. Pack is following this patient. Patient also has mental status changes and delirious. 06/25/2017 last night patient became more shortness of breath and acute respiratory failure. Patient was transferred his care unit and , placed on BiPAP at 10 and 5. Code Status is full at this time.atalonzo is on a saline IV with 40 potassium at 50 mL an hour and another saline IV at only 20 mL an hour. Most the history was taken from the patient's daughter at bedside. Complete review of systems could not be obtained from the patient Current medications reviewed Objective - Vital Signs Vital signs: Vital Signs Temp 100.1 F H 06/25/17 15:00 Pulse 88 06/25/17 17:00 Resp 28 H 06/25/17 17:00 BP 131/64 06/25/17 17:00 Pulse Ox 95 06/25/17 17:00 Intake & Output 06/24/17 06/25/17 06/25/17 18:59 06:59 18:59 Intake Total 940 1060 Output Total 370 530 Balance 570 530 Weight 54 kg 52.2 kg Intake: IV 240 160 Sodium Chloride 0.9% 1, 240 160 000 ml @ 20 mls/hr IV . Q24H [facility] Rx#:[id number] Intake, IV Titration 700 900 Amount 0.9% NaCl with KCl 40 Meq 600 50 /l 1,000 ml @ 50 mls/hr IV .Q20H [facility] Rx#: [id number] Dextrose 5% in Water 1, 800 000 ml @ 100 mls/hr IV . Q10H [facility] Rx#:[id number] Fluconazole in NaCl,Iso- 50 Osm 100 mg In Saline 1 50ml.bag @ 50 mls/hr IVPB DAILY [facility] Rx#:[id number] Meropenem 1 gm In Sodium 100 Chloride 0.9% 100 ml @ 100 mls/hr IVPB Q8H [facility] Rx#:[id number] Output: Gastric Drainage 50 Urine 370 480 Other: Voiding Method Diaper Indwelling Catheter Incontinent # Voids 1 # Bowel Movements 1 1 1 - Exam Currently patient is on BiPAP PHYSICAL EXAMINATION: Patient is lying in the bed comfortably, no acute distress, currently on BiPAP. Could not provide any history. Seems confused HEENT: Normocephalic. Neck is supple. Pupils reactive. Nostrils clear. Oral cavity is moist. Ears reveal no drainage. Neck reveals no JVD, carotid bruits, or thyromegaly. CHEST EXAMINATION: Trachea is central. Symmetrical expansion. Bilateral diminished air entry. CARDIAC: Normal S1, S2 with no gallops. No murmurs ABDOMEN: Soft. Bowel sluggish. No organomegaly. No abdominal bruits. Extremities: reveal no edema. No clubbing or cyanosis Neurologically able to move all her extremities. Awake alert but confused and lethargic No focal deficits noted Skin: No rash or skin lesions. Musculoskeletal: No joint swelling or deformity. Normal range of motion. - Labs CBC & Chem 7: 06/25/17 05:44 06/26/17 04:15 Labs: Abnormal Lab Results - Last 24 Hours (Table) 06/24/17 06/24/17 06/24/17 Range/Units 19:11 20:01 20:49 RBC (3.80-5.40) m/uL Hgb (11.4-16.0) gm/dL Hct (34.0-46.0) % MCHC (31.0-37.0) g/dL RDW (11.5-15.5) % Plt Count (150-450) k/uL Neutrophils # (1.3-7.7) k/uL ABG pO2 74 L (83-108) mmHg ABG Total CO2 26 H (19-24) mmol/L ABG O2 Saturation 92.6 L (94-97) % Sodium 153 H (137-145) mmol/L Chloride 116 H (98-107) mmol/L BUN 45 H (7-17) mg/dL Creatinine 1.21 H (0.52-1.04) mg/dL Glucose 203 H (74-99) mg/dL POC Glucose (mg/dL) 206 H (75-99) mg/dL Hemoglobin A1c (4.0-6.0) % 06/24/17 06/24/17 06/24/17 Range/Units 20:49 20:49 21:53 RBC 3.63 L (3.80-5.40) m/uL Hgb 10.7 L (11.4-16.0) gm/dL Hct (34.0-46.0) % MCHC 30.6 L (31.0-37.0) g/dL RDW 16.9 H (11.5-15.5) % Plt Count 135 L (150-450) k/uL Neutrophils # 8.4 H (1.3-7.7) k/uL ABG pO2 (83-108) mmHg ABG Total CO2 (19-24) mmol/L ABG O2 Saturation (94-97) % Sodium (137-145) mmol/L Chloride (98-107) mmol/L BUN (7-17) mg/dL Creatinine (0.52-1.04) mg/dL Glucose (74-99) mg/dL POC Glucose (mg/dL) 199 H (75-99) mg/dL Hemoglobin A1c 6.5 H (4.0-6.0) % 06/25/17 06/25/17 06/25/17 Range/Units 05:44 05:44 06:03 RBC 3.53 L (3.80-5.40) m/uL Hgb 10.2 L (11.4-16.0) gm/dL Hct 33.9 L (34.0-46.0) % MCHC 30.0 L (31.0-37.0) g/dL RDW 16.7 H (11.5-15.5) % Plt Count 109 L (150-450) k/uL Neutrophils # 7.9 H (1.3-7.7) k/uL ABG pO2 (83-108) mmHg ABG Total CO2 (19-24) mmol/L ABG O2 Saturation (94-97) % Sodium 156 H (137-145) mmol/L Chloride 118 H (98-107) mmol/L BUN 51 H (7-17) mg/dL Creatinine 1.30 H (0.52-1.04) mg/dL Glucose 139 H (74-99) mg/dL POC Glucose (mg/dL) 140 H (75-99) mg/dL Hemoglobin A1c (4.0-6.0) % 06/25/17 06/25/17 06/25/17 Range/Units 11:27 17:28 17:30 RBC (3.80-5.40) m/uL Hgb (11.4-16.0) gm/dL Hct (34.0-46.0) % MCHC (31.0-37.0) g/dL RDW (11.5-15.5) % Plt Count (150-450) k/uL Neutrophils # (1.3-7.7) k/uL ABG pO2 (83-108) mmHg ABG Total CO2 (19-24) mmol/L ABG O2 Saturation (94-97) % Sodium (137-145) mmol/L Chloride (98-107) mmol/L BUN (7-17) mg/dL Creatinine (0.52-1.04) mg/dL Glucose (74-99) mg/dL POC Glucose (mg/dL) 165 H 178 H 181 H (75-99) mg/dL Hemoglobin A1c (4.0-6.0) % Microbiology - Last 24 Hours (Table) 06/25/17 01:38 Urine Culture - Preliminary Urine,Catheterized 06/20/17 22:04 Blood Culture - Preliminary Blood No Growth after 96 hours Assessment and Plan Assessment: Acute hypoxic respiratory failure requiring BiPAP Possible aspiration pneumonia and sepsis E. 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 Severe hypernatremia and dehydration with prerenal azotemia History of questionable COPD Diabetes mellitus Hyperlipidemia Hypertension History of Myocardial infarction History of urinary stress incontinence Nephrolithiasis Plan: Patient be continued on BiPAP. Continue the antibiotics and current management. Prognosis is guarded with multiple medical problems and comorbid conditions. Pulmonary and ID and general surgery is following. Discussed with her daughter at bedside in detail. Considering course status change. Otherwise prognosis poor. Time with Patient: Greater than 30
--- NOTE | 2017-06-28 15:54 | P.DS ---
Providers Date of admission: 06/21/17 03:13 Expected date of discharge: 06/26/17 Attending physician: Marychuy Jack Consults: 06/21/17 03:15 Consult Physician Routine Consulting Provider: Yuan Pack Consult Reason/Comments: abdominal pain. ileus Do you want consulting provider notified?: Yes Consult Physician Urgent Consulting Provider: Janes Quijano Consult Reason/Comments: metastatic disease Do you want consulting provider notified?: Already Contacted 06/21/17 11:14 Consult Physician Routine Consulting Provider: Manuelito Sanchez Consult Reason/Comments: - Do you want consulting provider notified?: Already Contacted 06/24/17 12:04 Consult Physician Routine Consulting Provider: Pat Steen Consult Reason/Comments: Tachycardia, HTN Do you want consulting provider notified?: Yes 06/24/17 18:50 Consult Physician Routine Consulting Provider: Wilton Hirsch Consult Reason/Comments: sepsis Do you want consulting provider notified?: Yes 06/25/17 03:42 Consult Physician Urgent Consulting Provider: Sean Ca Consult Reason/Comments: ICU management Do you want consulting provider notified?: Already Contacted Primary care physician: Vandana Feliciano [facility] Course: Discharge diagnosis Acute hypoxic respiratory failure requiring BiPAP and metabolic encephalopathy due to infection and dehydration Possible aspiration pneumonia E. 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 Severe hypernatremia and dehydration with prerenal azotemia History of questionable COPD Diabetes mellitus Hyperlipidemia Hypertension History of Myocardial infarction History of urinary stress incontinence Nephrolithiasis Plan: Patient be continued on BiPAP. Continue the antibiotics and current management. Prognosis is guarded with multiple medical problems and comorbid conditions. Pulmonary and ID and general surgery is following. Discussed with her daughter at bedside in detail. Considering course status change. Otherwise prognosis poor. Patient is a 67-year-old male with a known history of COPD diabetes hyperlipidemia hypertension myocardial infarction stress incontinence kidney stones esophageal cancer with liver long skeletal and adrenal metastasis presented to the emergency department with complaints of weakness and fatigue and nausea vomiting. Patient apparently had abdominal distention and generalized abdominal pain and was found to have ileus. Patient also is being treated for acute urinary tract infection. Patient is having increased respiratory difficulty. Patient also had problems with G-tube over the weekend and Dr. Pack is following this patient. Patient also has mental status changes and delirious. 06/25/2017 last night patient became more shortness of breath and acute respiratory failure. Patient was transferred his care unit and , placed on BiPAP at 10 and 5. Code Status is full at this time.atient is on a saline IV with 40 potassium at 50 mL an hour and another saline IV at only 20 mL an hour. Most the history was taken from the patient's daughter at bedside. 06/26/2017 Patients condition deteriorated today. She is more obtunded today. Family is at the bedside. They have decided on hospice and comfort care. A morphine drip has been initiated. Scopolamine patch in place. Patient's respiratory rate was around 8. Patient was comfortable. Patient was transferred to hospice care. Patient Condition at Discharge: Poor Plan - Discharge Summary Discharge Rx Participant: Yes New Discharge Prescriptions: No Action Cholecalciferol [Vitamin D3] 2,000 unit PEG/G-TUBE DAILY PARoxetine [Paxil] 20 mg PEG/G-TUBE HS ALPRAZolam [Xanax] 1 mg PEG/G-TUBE TID Budesonide-Formot 160-4.5 Mcg [Symbicort 160-4.5 Mcg Inhaler] 2 puff INHALATION RT-BID #1 puff Glimepiride [Amaryl] 2 mg PEG/G-TUBE BID Famotidine [Pepcid] 20 mg PEG/G-TUBE BID@0500,2200 Ipratropium-Albuterol Nebulize [Duoneb 0.5 mg-3 mg/3 ml Soln] 3 ml INHALATION RT-BID Acetaminophen Tab [Tylenol] 650 mg PEG/G-TUBE DAILY@1900 PRN PRN Reason: Pain Ondansetron Odt [Zofran ODT] 4 mg SUBLINGUAL Q6HR PRN PRN Reason: Nausea diphenhydrAMINE [Benadryl] 50 mg PEG/G-TUBE HS Carvedilol [Coreg] 25 mg PEG/G-TUBE BID Hydrochlorothiazide [Hydrodiuril] 25 mg PEG/G-TUBE DAILY HYDROcodone/APAP 7.5-325MG [[place] 7.5-325] 1 tab PEG/G-TUBE Q4H PRN PRN Reason: Pain fentaNYL [Duragesic 25MCG/HR] 1 patch TRANSDERM Q72H Lactulose [Cephulac] 10 gm PO BID PRN PRN Reason: Constipation Atorvastatin [Lipitor] 40 mg PEG/G-TUBE HS Discharge Medication List ALPRAZolam [Xanax] 1 mg PEG/G-TUBE TID 04/09/15 [History] Cholecalciferol [Vitamin D3] 2,000 unit PEG/G-TUBE DAILY 04/09/15 [History] PARoxetine [Paxil] 20 mg PEG/G-TUBE HS 04/09/15 [History] Budesonide-Formot 160-4.5 Mcg [Symbicort 160-4.5 Mcg Inhaler] 2 puff INHALATION RT-BID #1 puff 04/12/15 [Rx] Famotidine [Pepcid] 20 mg PEG/G-TUBE BID@0500,2200 12/04/16 [History] Glimepiride [Amaryl] 2 mg PEG/G-TUBE BID 12/04/16 [History] Ipratropium-Albuterol Nebulize [Duoneb 0.5 mg-3 mg/3 ml Soln] 3 ml INHALATION RT -BID 12/05/16 [History] Acetaminophen Tab [Tylenol] 650 mg PEG/G-TUBE DAILY@1900 PRN 01/11/17 [History] Ondansetron Odt [Zofran ODT] 4 mg SUBLINGUAL Q6HR PRN 01/12/17 [History] diphenhydrAMINE [Benadryl] 50 mg PEG/G-TUBE HS 01/12/17 [History] Carvedilol [Coreg] 25 mg PEG/G-TUBE BID 02/17/17 [History] Hydrochlorothiazide [Hydrodiuril] 25 mg PEG/G-TUBE DAILY 02/17/17 [History] HYDROcodone/APAP 7.5-325MG [[place] 7.5-325] 1 tab PEG/G-TUBE Q4H PRN 05/08/17 [ History] fentaNYL [Duragesic 25MCG/HR] 1 patch TRANSDERM Q72H 05/08/17 [History] Lactulose [Cephulac] 10 gm PO BID PRN 05/20/17 [History] Atorvastatin [Lipitor] 40 mg PEG/G-TUBE HS 05/31/17 [History] Follow up Appointment(s)/Referral(s): Pretty Ross MD [Primary Care Provider] - 1-2 days Discharge Disposition: DISCH TO [facility]OS[facility]
--- NOTE | 2017-07-04 09:12 | CDI ---
Last Revision, April 2017 Documentation Clarification Form Date: 06/28/2017 11:42:00 AM From: Tamica Goldberg Phone: Admit Date: 06/21/2017 3:13:00 AM Patient Name: Laila Youssef Visit Number: [id number] Discharge Date: ATTENTION: The Clinical Documentation Specialists (CDI) and [facility] Coding Staff appreciate your assistance in clarifying documentation. Please respond to the clarification below the line at the bottom and electronically sign. The CDI & [facility] Coding staff will review the response and follow-up if needed. Please note: Queries are made part of the Legal Health Record. If you have any questions, please contact the author of this message via ITS. Dr. Yuan Pack Malnutrition has been documented on the consult 06/21. History/Risk Factors: esophageal cancer, PEG tube Clinical Indicators: ileus, cancer Current BMI: 22.5 Dietary Consult:yes Supplements/TPN: tube feedings In your professional opinion, can you please clarify if these findings signify one of the following conditions? Mild Protein Malnutrition Mild Protein-Calorie Malnutrition Moderate Protein Malnutrition Moderate Protein-Calorie Malnutrition Severe Protein Malnutrition Severe Protein-Calorie Malnutrition Other condition, please specify Unable to determine patient with moderate protein calorie malnutrition MTDD
== END 2017-06-26 10:25 | disposition hospice, inpatient (51) | DRG 871 ==
LOC: EC 21:53 → 5ONC 06-21 03:13 → 6SEL 06-24 15:04 → 6ICU 06-24 20:02
PROVIDERS: ADMIT Hospitalist; ATTEND Hospitalist
DX: A41.9 Sepsis, unspecified organism (principal); D61.810 Antineoplastic chemotherapy induced pancytopenia; J96.01 Acute respiratory failure with hypoxia; J69.0 Pneumonitis due to inhalation of food and vomit; C78.00 Secondary malignant neoplasm of unspecified lung; C15.9 Malignant neoplasm of esophagus, unspecified; E87.0 Hyperosmolality and hypernatremia; E44.0 Moderate protein-calorie malnutrition; K22.2 Esophageal obstruction; C78.7 Secondary malignant neoplasm of liver and intrahepatic bile duct; C79.51 Secondary malignant neoplasm of bone; C79.70 Secondary malignant neoplasm of unspecified adrenal gland; E87.1 Hypo-osmolality and hyponatremia; K56.7 Ileus, unspecified; N39.0 Urinary tract infection, site not specified; J44.9 Chronic obstructive pulmonary disease, unspecified; F41.0 Panic disorder [episodic paroxysmal anxiety]; R53.1 Weakness; F32.9 Major depressive disorder, single episode, unspecified; E87.6 Hypokalemia; E78.5 Hyperlipidemia, unspecified; N39.3 Stress incontinence (female) (male); T45.1X5A Adverse effect of antineoplastic and immunosuppressive drugs, initial encounter; B96.20 Unspecified Escherichia coli [E. coli] as the cause of diseases classified elsewhere; I08.0 Rheumatic disorders of both mitral and aortic valves; E86.0 Dehydration; R41.0 Disorientation, unspecified; Z51.5 Encounter for palliative care; I10 Essential (primary) hypertension; Z87.891 Personal history of nicotine dependence; Z93.1 Gastrostomy status; Z80.8 Family history of malignant neoplasm of other organs or systems; Z88.1 Allergy status to other antibiotic agents; Z88.2 Allergy status to sulfonamides; Z88.8 Allergy status to other drugs, medicaments and biological substances; Z91.048 Other nonmedicinal substance allergy status; Z79.899 Other long term (current) drug therapy; Z79.84 Long term (current) use of oral hypoglycemic drugs; Z79.891 Long term (current) use of opiate analgesic; Z79.51 Long term (current) use of inhaled steroids; I25.2 Old myocardial infarction; Z87.442 Personal history of urinary calculi; Z92.21 Personal history of antineoplastic chemotherapy; Z90.89 Acquired absence of other organs; Z90.49 Acquired absence of other specified parts of digestive tract; Z90.710 Acquired absence of both cervix and uterus; Z82.49 Family history of ischemic heart disease and other diseases of the circulatory system; Z68.22 Body mass index [BMI] 22.0-22.9, adult
CPT/HCPCS: 36415; 36600; 51701; 71045; 71275; 74018; 74176; 80048; 80053; 80202; 81001; 82550; 82553; 82607; 82728; 82747; 82805; 83036; 83540; 83550; 83605; 83735; 83921; 84132; 84443; 84484; 85025; 85610; 85730; 87040; 87077; 87086; 87186; 87324; 93005; 93306; 94640; 94660; 96361; 96365; 96366; 96374; 96375; 96376; 99291

== ENCOUNTER 2017-06-26 10:29 | Inpatient (IN) | payer MEDICAID ==
[2017-06-26 11:04] VITALS: BMI 22.4
[2017-06-26] MEDS ORDERED: LORazepam 2 MG/ML INJ IV PRN (11:05)
[2017-06-26] MEDS ORDERED: ACETAMINOPHEN SUPPOSITORY 650 MG SUPP RECTAL PRN (11:05)
[2017-06-26] MEDS ORDERED: ONDANSETRON 4 MG/2 ML VIAL IVP PRN (11:05)
[2017-06-26] MEDS ORDERED: BISACODYL 10 MG SUPP RECTAL PRN (11:14)
[2017-06-26] MEDS ORDERED: MORPHINE SULFATE (100 MG/2 ML) 100 MG in SODIUM CHLORIDE 0.9% 100 ML IV SCH (11:15)
[2017-06-26 11:23] VITALS: PULSE 0; RESP 0
[2017-06-26] MEDS ORDERED: ATROPINE OPHTH SOLN 1% 5ML BTL SUBLINGUAL PRN (12:00)
[2017-06-28] MEDS ORDERED: SCOPOLAMINE 1.5MG/72HR PATCH TRANSDERM PRN (11:05)
--- NOTE | 2017-06-28 15:57 | P.DS ---
Providers Date of admission: 06/26/17 10:29 Expected date of discharge: 06/26/17 Attending physician: Marychuy Jack Primary care physician: Stated None Hospital Course: diagnosis Acute hypoxic respiratory failure requiring BiPAP and metabolic encephalopathy due to infection and dehydration Possible aspiration pneumonia E. 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 Severe hypernatremia and dehydration with prerenal azotemia History of questionable COPD Diabetes mellitus Hyperlipidemia Hypertension History of Myocardial infarction History of urinary stress incontinence Nephrolithiasis Hospital course Patient is a 67-year-old male with a known history of COPD diabetes hyperlipidemia hypertension myocardial infarction stress incontinence kidney stones esophageal cancer with liver long skeletal and adrenal metastasis presented to the emergency department with complaints of weakness and fatigue and nausea vomiting. Patient apparently had abdominal distention and generalized abdominal pain and was found to have ileus. Patient also is being treated for acute urinary tract infection. Patient is having increased respiratory difficulty. Patient also had problems with G-tube over the weekend and Dr. Pack is following this patient. Patient also has mental status changes and delirious. Patient as continued on BiPAP. Continued the antibiotics and current management. Pulmonary and ID and general surgery has seen the patient.. Discussed with her daughter at bedside in detail. Otherwise prognosis poor. 06/25/2017 last night patient became more shortness of breath and acute respiratory failure. Patient was transferred his care unit and , placed on BiPAP at 10 and 5. Code Status is full at this time.atient is on a saline IV with 40 potassium at 50 mL an hour and another saline IV at only 20 mL an hour. Most the history was taken from the patient's daughter at bedside. 06/26/2017 Patients condition deteriorated today. She is more obtunded today. Family is at the bedside. They have decided on hospice and comfort care. A morphine drip has been initiated. Scopolamine patch in place. Patient's respiratory rate was around 8. Patient was comfortable. Patient was transferred to hospice care. Patient at 11:18 AM. Family is at bedside and has been notified. Plan - Discharge Summary New Discharge Prescriptions: No Action Cholecalciferol [Vitamin D3] 2,000 unit PEG/G-TUBE DAILY PARoxetine [Paxil] 20 mg PEG/G-TUBE HS ALPRAZolam [Xanax] 1 mg PEG/G-TUBE TID Budesonide-Formot 160-4.5 Mcg [Symbicort 160-4.5 Mcg Inhaler] 2 puff INHALATION RT-BID #1 puff Glimepiride [Amaryl] 2 mg PEG/G-TUBE BID Famotidine [Pepcid] 20 mg PEG/G-TUBE BID@0500,2200 Ipratropium-Albuterol Nebulize [Duoneb 0.5 mg-3 mg/3 ml Soln] 3 ml INHALATION RT-BID Acetaminophen Tab [Tylenol] 650 mg PEG/G-TUBE DAILY@1900 PRN PRN Reason: Pain Ondansetron Odt [Zofran ODT] 4 mg SUBLINGUAL Q6HR PRN PRN Reason: Nausea diphenhydrAMINE [Benadryl] 50 mg PEG/G-TUBE HS Carvedilol [Coreg] 25 mg PEG/G-TUBE BID Hydrochlorothiazide [Hydrodiuril] 25 mg PEG/G-TUBE DAILY HYDROcodone/APAP 7.5-325MG [[place] 7.5-325] 1 tab PEG/G-TUBE Q4H PRN PRN Reason: Pain fentaNYL [Duragesic 25MCG/HR] 1 patch TRANSDERM Q72H Lactulose [Cephulac] 10 gm PO BID PRN PRN Reason: Constipation Atorvastatin [Lipitor] 40 mg PEG/G-TUBE HS Discharge Medication List ALPRAZolam [Xanax] 1 mg PEG/G-TUBE TID 04/09/15 [History] Cholecalciferol [Vitamin D3] 2,000 unit PEG/G-TUBE DAILY 04/09/15 [History] PARoxetine [Paxil] 20 mg PEG/G-TUBE HS 04/09/15 [History] Budesonide-Formot 160-4.5 Mcg [Symbicort 160-4.5 Mcg Inhaler] 2 puff INHALATION RT-BID #1 puff 04/12/15 [Rx] Famotidine [Pepcid] 20 mg PEG/G-TUBE BID@0500,2200 12/04/16 [History] Glimepiride [Amaryl] 2 mg PEG/G-TUBE BID 12/04/16 [History] Ipratropium-Albuterol Nebulize [Duoneb 0.5 mg-3 mg/3 ml Soln] 3 ml INHALATION RT -BID 12/05/16 [History] Acetaminophen Tab [Tylenol] 650 mg PEG/G-TUBE DAILY@1900 PRN 01/11/17 [History] Ondansetron Odt [Zofran ODT] 4 mg SUBLINGUAL Q6HR PRN 01/12/17 [History] diphenhydrAMINE [Benadryl] 50 mg PEG/G-TUBE HS 01/12/17 [History] Carvedilol [Coreg] 25 mg PEG/G-TUBE BID 02/17/17 [History] Hydrochlorothiazide [Hydrodiuril] 25 mg PEG/G-TUBE DAILY 02/17/17 [History] HYDROcodone/APAP 7.5-325MG [[place] 7.5-325] 1 tab PEG/G-TUBE Q4H PRN 05/08/17 [ History] fentaNYL [Duragesic 25MCG/HR] 1 patch TRANSDERM Q72H 05/08/17 [History] Lactulose [Cephulac] 10 gm PO BID PRN 05/20/17 [History] Atorvastatin [Lipitor] 40 mg PEG/G-TUBE HS 05/31/17 [History] Discharge Disposition: - Preliminary Cause of Preliminary Cause of : Metastatic esophageal cancer and metabolic encephalopathy
== END 2017-06-26 14:46 | disposition expired | DRG 871 ==
LOC: 6ICU 10:29
PROVIDERS: ADMIT Hospitalist; ATTEND Hospitalist
DX: A41.51 Sepsis due to Escherichia coli [E. coli] (principal); D61.810 Antineoplastic chemotherapy induced pancytopenia; J96.01 Acute respiratory failure with hypoxia; G93.41 Metabolic encephalopathy; E87.0 Hyperosmolality and hypernatremia; C79.51 Secondary malignant neoplasm of bone; C78.00 Secondary malignant neoplasm of unspecified lung; C79.70 Secondary malignant neoplasm of unspecified adrenal gland; K56.7 Ileus, unspecified; C15.9 Malignant neoplasm of esophagus, unspecified; N39.0 Urinary tract infection, site not specified; Z51.5 Encounter for palliative care; Z66 Do not resuscitate; J44.9 Chronic obstructive pulmonary disease, unspecified; E86.0 Dehydration; E11.9 Type 2 diabetes mellitus without complications; T45.1X5A Adverse effect of antineoplastic and immunosuppressive drugs, initial encounter; E78.5 Hyperlipidemia, unspecified; I10 Essential (primary) hypertension; I25.2 Old myocardial infarction; N39.3 Stress incontinence (female) (male); N20.0 Calculus of kidney; Z93.1 Gastrostomy status; Z87.442 Personal history of urinary calculi; Z79.84 Long term (current) use of oral hypoglycemic drugs; Z79.51 Long term (current) use of inhaled steroids; Z79.899 Other long term (current) drug therapy; Z88.1 Allergy status to other antibiotic agents; Z88.2 Allergy status to sulfonamides; Z88.8 Allergy status to other drugs, medicaments and biological substances; Z91.048 Other nonmedicinal substance allergy status